=== PATIENT | male | born 1945 | race African-American/Black ===

== ENCOUNTER 2017-05-18 00:58 | Outpatient (CLI) | payer MEDICARE, MEDICAID | END 2017-05-18 00:59 | disposition home or self-care (01) | LOC: BICCT 00:58 | PROVIDERS: ATTEND Nurse Practitioner Family | DX: R91.1 Solitary pulmonary nodule (principal) | CPT/HCPCS: 71250 ==

== ENCOUNTER 2017-08-18 18:38 | Inpatient (IN) | payer MEDICARE, MEDICAID ==
[2017-08-18 19:24] LABS: #Lymphocytes 0.9 thou/uL (1.20-3.40); #Monocytes 0.6 thou/uL (0.11-0.59); %Basophils 0.3 % (0.0-1.0); %Eosinophils 0.1 % (0.0-10.0); %Lymphocytes 6.6 % (21.0-51.0); %Monocytes 4.1 % (0.0-10.0); %Neutrophils 88.9 % (42.0-75.0); Hemoglobin 15.3 g/dL (14.0-18.0); Mean Corpuscular HGB CONC 32.2 g/dL (32.0-36.0); Mean Corpuscular Hemoglobin 30.3 pg (27.0-31.0); Mean Platelet Volume 9.2 fL (7.4-10.4); Platelet Count 226 thou/uL (130-400); RBC Distribution Width 14.6 % (11.5-14.5); Red Blood Cell (RBC) Count 5.04 mill/uL (4.70-6.10); White Blood Cell (WBC) Count 13.5 thou/uL (4.8-10.8)
--- NOTE | 2017-08-18 19:41 | RAD ---
CHEST ONE VIEW 08/18/17 HISTORY: Shortness of breath. COMPARISON: Chest radiograph 03/21/17. FINDINGS: Lungs are severely hyperinflated. bolus formation in the upper lobes are noted. Previously described nodular density is again seen projecting over the left upper lobe. No focal air space consolidation, pneumothorax or large effusion. IMPRESSION: 1. Obstructive pulmonary disease. 2. Revisualization of the left upper lung nodule. Followup recommended with CT. 3. No evidence for acute intrathoracic abnormality. Code LN POS: [facility]
[2017-08-18 19:50] LABS: ALT (SGPT) Less than 7 U/L (8-55); AST (SGOT) 10 U/L (5-34); Alkaline Phosphatase 67 U/L (40-150); Anion Gap 18 mmol/L (10-20); BUN (Urea Nitrogen) 12 mg/dL (8.4-25.7); Bilirubin, Total 0.7 mg/dL (0.2-1.2); Calc. Creatinine Clearance 0 mL/min (70-130); Carbon Dioxide 24 mmol/L (23-31); Chloride 100 mmol/L (98-107); Estimated GFR-MDRD Greater than 90; Globulin 2.9 g/dL (2.4-3.5); Glucose 111 mg/dL (83-110); Potassium 4.4 mmol/L (3.5-5.1); Protein, Total 6.9 g/dL (5.8-8.1); Sodium 138 mmol/L (136-145)
[2017-08-18] MEDS ORDERED: methylPREDNISolone Sod Succ/PF 125 MG/2 ML VIAL ONE (20:54)
[2017-08-18 20:56] LABS: CK (CPK) 53 U/L (30-200); Lipase Less than 4 U/L (8-78)
[2017-08-18 21:01] LABS: CKMB 0.9 ng/mL (0-6.6); Troponin I Less than 0.010 ng/mL (< 0.028)
[2017-08-18] MEDS ORDERED: cefTRIAXone\\ROCEPHIN 2 GM in Sodium Chloride 0.9% 100 ML IVPB SCH (21:30)
[2017-08-18 22:21] LABS: Bilirubin Small (Negative); Blood, Urine Small (Negative); Clarity CLEAR (Clear); Glucose, Urine (Dipstick) Negative (Negative); Leukocyte Negative (Negative); Nitrite Negative (Negative); Protein, Urine (Dipstick) 30 mg/dL (Neg-Trace); Specific Gravity, Urine 1.014 (1.002-1.036); pH, Urine 6.5 (5.0-9.0)
[2017-08-18 22:22] LABS: Bacteria/HPF None Seen HPF (None Seen); Hyaline Casts/LPF 0-3 HYALINE CAST LPF (0-3 Hyaline); Squamous Epithelial 0-3 HPF (0-3); WBC/HPF None Seen HPF (0-3)
[2017-08-18 23:16] LABS: Lactic Acid 2.6 mmol/L (0.5-2.2)
[2017-08-19] MEDS ORDERED: traMADol HCl 50 MG TAB PO PRN (00:24)
[2017-08-19] MEDS ORDERED: Mag-Al 1200 mg/1200 mg/30 ML UDCUP PO PRN (00:24)
[2017-08-19] MEDS ORDERED: Senokot 8.6 MG TAB PO PRN (00:24)
[2017-08-19] MEDS ORDERED: Calcium Carbonate 500 MG ChewTAB PO PRN (00:24)
[2017-08-19] MEDS ORDERED: Acetaminophen 325 MG TAB PO PRN (00:24)
[2017-08-19] MEDS ORDERED: Bisacodyl 5 MG TAB PO PRN (00:24)
[2017-08-19] MEDS ORDERED: cloNIDine 0.1 MG TAB PO PRN (00:24)
[2017-08-19] MEDS ORDERED: Diabetic Tussin 200 MG/10 ML UDCUP PO PRN (00:24)
[2017-08-19] MEDS ORDERED: Nitroglycerin 0.4 MG TAB (25 Tab Bottle) SL PRN (00:24)
[2017-08-19] MEDS ORDERED: Famotidine/PF 20 mg/2ml Vial SLOW IVP PRN (00:24)
[2017-08-19] MEDS ORDERED: Benzonatate 100 MG CAP PO PRN (00:24)
[2017-08-19] MEDS ORDERED: Loratadine 10 MG TAB PO PRN (00:24)
[2017-08-19] MEDS ORDERED: hydrALAZINE 20 MG/ML VIAL SLOW IVP PRN (00:24)
[2017-08-19] MEDS ORDERED: Lorazepam 1 MG TAB PO PRN (00:24)
--- NOTE | 2017-08-19 01:16 | HP ---
DATE OF ADMISSION: 08/18/2017 PRIMARY CARE PHYSICIAN: Dr. Lynn. CHIEF COMPLAINT: Worsening shortness of breath. HISTORY OF PRESENT ILLNESS: Mr. Krause is a 71-year-old male with past medical history of COPD, c oronary artery disease, dyslipidemia, hypertension, and tobacco abuse who presented to the emergency room with the above-mentioned complaint. History is mainly obtained by the patient himself and [facility] medical records have been reviewed. Mr. Krause reports that he lives by himself and smokes anywhere from 0-1 pack of cigarettes per da y. He always is somewhat short of breath, but has been feeling worse shortness of breath for the t day or so. He is also having some chills without any significant fevers. Some dry cough. He has no sick contacts. He denies any chest pain, orthopnea or PND. No edema. Upon presentation to the emergency room, he was hypertensive with a blood pressure of 205/118. It is unclear if he was hypoxic or not. Upon presentation, he was on 4 liters of oxygen with oxygen satur ation of 98%. He was treated for COPD exacerbation with nebulizers and IV steroids. He was also fou nd to have leukocytosis as well as elevated lactic acid of 3.2. For this reason, he received IV anti biotics, namely Rocephin and azithromycin. His chest x-ray is otherwise unremarkable and does not sh ow any infiltrates. He is now being admitted to the hospital for acute hypoxic respiratory failure d ue to chronic obstructive pulmonary disease exacerbation. His symptoms have much improved and he is hemodynamically stable. PAST MEDICAL HISTORY: 1. COPD. 2. Coronary artery disease. 3. Chronic systolic congestive heart failure with EF of 40%-45%. 4. Hypertension. 5. Dyslipidemia. 6. Tobacco abuse. PAST SURGICAL HISTORY: 1. Left index finger surgery. 2. Hip replacement. 3. Cardiac catheterization with stent placement. 4. Bilateral cataract surgery. PSYCHIATRIC HISTORY: Reviewed and negative. SOCIAL HISTORY: He drinks alcohol socially. He smokes about half to 1 pack per day of cigarettes. No history of drug abuse. FAMILY HISTORY: Significant for cancer. Father from complication of pneumonia. No strong fami ly history of coronary artery disease or CVA. ALLERGIES: No known medication allergies. CURRENT MEDICATIONS: Plavix 75 mg daily, lisinopril 5 mg b.i.d., atorvastatin 20 mg daily, metoprolo l tartrate 25 b.i.d., Symbicort 1 puff daily. REVIEW OF SYSTEMS: The following complete review of systems was negative, unless otherwise mentioned in the HPI or below: Constitutional: Weight loss or gain, ability to conduct usual activities. Skin: Rash, itching. Eyes: Double vision, pain. ENT/Mouth: Nose bleeding, neck stiffness, pain, tenderness. Cardiovascular: Palpitations, dyspnea on exertion, orthopnea. Respiratory: Shortness of breath, wheezing, cough, hemoptysis, fever or night sweats. Gastrointestinal: Poor appetite, abdominal pain, heartburn, nausea, vomiting, constipation, or diarr hea. Genitourinary: Urgency, frequency, dysuria, nocturia. Musculoskeletal: Pain, swelling. Neurologic/Psychiatric: Anxiety, depression. Allergy/Immunologic: Skin rash, bleeding tendency. LABORATORY DATA AND IMAGING: His CBC shows WBCs at 13.5 with 88% neutrophils. Serum chemistries kareen w lactic acid 3.2 with repeat lactic acid of 2.6. CK-MB and troponin within normal limits. Lipase n ormal. Urinalysis shows some RBCs and blood as well as proteinuria. Chest x-ray by my review has no evidence to suggest infiltrate or pulmonary edema. Chronic lung changes seen. A 12-lead EKG by my review shows sinus tachycardia without any specific ST or T-wave changes. LVH noticed. PHYSICAL EXAMINATION: VITAL SIGNS: Upon presentation, blood pressure 205/118 with a pulse of 114. Respirations 24, temper ature 99.6, saturating 98% on 4 liters oxygen. GENERAL: He appears somewhat short of breath with conversation, otherwise in no acute distress, awak e, alert, oriented x3. HEENT: He has significant temporal wasting and appears cachectic. Head is normocephalic, atraumatic . Pupils equal, reactive to light and accommodation. Mucous membrane is moist and pink. No orophar yngeal exudate or erythema. NECK: Supple without any lymphadenopathy, JVD or bruit. CHEST: Chest evaluation show bilateral, scattered wheezes without any significant crackles. Rate an d rhythm is regular without any murmur, rubs or gallops. ABDOMEN: Soft, nontender, nondistended with positive bowel sounds. EXTREMITIES: Free of any cyanosis, clubbing, or edema. NEUROLOGIC: Nonfocal. SKIN: Free of any rashes or bruises, feel warm and dry to touch. PSYCHIATRIC: Normal affect. IMPRESSION AND PLAN: 1. Acute hypoxic respiratory failure due to chronic obstructive pulmonary disease exacerbation. He will be admitted to the medical floor as he is hemodynamically stable. We will start him on empiric IV antibiotic for chronic obstructive pulmonary disease exacerbation, given the leukocytosis as well as lactic acidosis. Urine and blood cultures have been obtained. Also obtain a respiratory viral pa thogen panel given somewhat subjective fevers and chills. We will treat him with nebulizers, IV ster oids, oxygen, as well as Dulera. 2. Hypertensive urgency. We will resume patient's home medications. His most recent blood pressure is much improved with systolic in the 140s, also add p.r.n. antihypertensives. 3. Coronary artery disease. Restart Plavix, beta osman, statins, and LIZETT inhibitors. He is curre ntly asymptomatic. His cardiac enzymes are within normal limits. 5. Severe protein calorie malnutrition, BMI undecided at this time. We will have dietitian see this patient. He lives alone and has poor vision, which might be prohibitive for him to get adequate jamison ls. At this time, we will add high protein shakes to his diet. 6. CODE STATUS: FULL CODE. Discussed with the patient. 7. Deep venous thrombosis and gastrointestinal prophylaxis. DISPOSITION: Mr. Krause is currently being admitted for acute COPD exacerbation. Estimated length of stay is at least 2-3 midnight. Further management will depend upon his clinical course.
[2017-08-19] MEDS ORDERED: Azithromycin 500 MG VIAL ONE (01:54)
[2017-08-19] MEDS: Mometasone/Formoterol 120 PUFF INHALER INH SCH ×2 (06:49→19:26)
[2017-08-19] MEDS: Lisinopril 5 MG TAB PO SCH ×2 (08:08→21:10)
[2017-08-19] MEDS: Clopidogrel Bisulfate 75 MG TAB PO SCH (08:08)
[2017-08-19] MEDS: guaiFENesin ER 600 MG TAB PO SCH ×2 (08:08→21:11)
[2017-08-19] MEDS: Metoprolol Tartrate 25 MG TAB PO SCH ×2 (08:08→21:11)
[2017-08-19] MEDS ORDERED: Iopamidol 370 76% 100 ML VIAL ONE (13:47)
--- NOTE | 2017-08-19 14:07 | PDOC.PN ---
- Subjective Encounter Start Date: 08/19/17 Encounter Start Time: 10:30 Patient is seen today, alert and oriented. He is On oxygen, but feeling better, persistant Cough. [id number] about the spot on his right Lung, he said its been there for few years. - Objective MAR Reviewed: Yes Vital Signs & Weight: Vital Signs (12 hours) Temp Pulse Resp BP BP Pulse Ox 08/19/17 13:12 76 12 08/19/17 12:35 98.5 F 76 18 143/91 H 100 08/19/17 09:18 98.2 F 86 18 176/106 H 99 08/19/17 08:08 76 146/91 H 08/19/17 08:00 98.6 F 76 20 08/19/17 06:49 76 16 08/19/17 06:38 93 L 08/19/17 06:37 76 16 08/19/17 04:00 98.6 F 76 20 145/91 H 93 L I&O: 08/18/17 08/19/17 08/20/17 06:59 06:59 06:59 Intake Total 600 Output Total 400 Balance 200 Result Diagrams: 08/18/17 19:20 08/18/17 19:20 Radiology Reviewed by me: Yes EKG Reviewed by me: Yes Phys Exam - Physical Examination Constitutional: NAD HEENT: PERRLA, moist MMs Neck: no nodes, no JVD Respiratory: no rales, wheezing present Cardiovascular: RRR, no significant murmur Gastrointestinal: soft, non-tender Musculoskeletal: no edema, pulses present Neurological: non-focal, normal sensation Lymphatic: no nodes Psychiatric: normal affect, A&O x 3 Skin: no rash, normal turgor Dx/Plan (1) Lung nodule, solitary Code(s): R91.1 - SOLITARY PULMONARY NODULE Status: Acute Comment: PT has A solitary Nodule on his Right lung, Will do CT chest with IV contrast as recommeded on Chest xray. (2) COPD exacerbation Code(s): J44.1 - CHRONIC OBSTRUCTIVE PULMONARY DISEASE W (ACUTE) EXACERBATION Status: Acute Comment: Will continue with Setroids, and Nebs, With IV antibitoics for now. Will consult pulmonary if worsening. (3) CAD (coronary artery disease) Code(s): I25.10 - ATHSCL HEART DISEASE OF [place] CORONARY ARTERY W/O ANG PCTRS Status: Chronic Comment: Continue with Aspirin/ BB. (4) Chronic systolic heart failure Code(s): I50.22 - CHRONIC SYSTOLIC (CONGESTIVE) HEART FAILURE Status: Chronic Comment: Patient has No evidence of CHF at this Time, Will flacaley Monitor. (5) Dyslipidemia Code(s): E78.5 - HYPERLIPIDEMIA, UNSPECIFIED Status: Chronic Comment: Contiue with home MEds. (6) Hypertension Code(s): I10 - ESSENTIAL (PRIMARY) HYPERTENSION Status: Chronic Comment: Stbale, At goal, Continue home meds, Keep BP <130/80 (7) Protein-calorie malnutrition, moderate Code(s): E44.0 - MODERATE PROTEIN-CALORIE MALNUTRITION Status: Chronic Comment: Will do Ensure TID. Will consult Nutrition and Likely to r/o Cancer Cachexia. (8) Tobacco abuse Code(s): Z72.0 - TOBACCO USE Status: Chronic Comment: Councilled to Quit Smoking spent 20 Min on cessation strategies. - Plan cont current plan of care, continue antibiotics, PT/OT, protective services social worker, respiratory therapy, incentive spirometry, out of bed/ambulate, DVT proph w/ lovenox, DVT proph w/SCDs * . - Discharge Day Encounter end time: 11:10 Review of Systems - Review of Systems Constitutional: negative: fever, chills, sweats, weakness, malaise, other Eyes: negative: Pain, Vision Change, Conjunctivae Inflammation, Eyelid Inflammation, Redness, Other ENT: negative: Ear Pain, Ear Discharge, Nose Pain, Nose Discharge, Nose Congestion, Mouth Pain, Mouth Swelling, Throat Pain, Throat Swelling, Other Respiratory: negative: Cough, Dry, Shortness of Breath, Hemoptysis, SOB with Excertion, Pleuritic Pain, Sputum, Wheezing Cardiovascular: negative: chest pain, palpitations, orthopnea, paroxysmal nocturnal dyspnea, edema, light headedness, other Gastrointestinal: negative: Nausea, Vomiting, Abdominal Pain, Diarrhea, Constipation, Melena, Hematochezia, Other Genitourinary: negative: Dysuria, Frequency, Incontinence, Hematuria, Retention , Other Musculoskeletal: negative: Neck Pain, Shoulder Pain, Arm Pain, Back Pain, Hand Pain, Leg Pain, Foot Pain, Other Skin: negative: Rash, Lesions, Blake, Bruising, Other - Medications/Allergies Allergies/Adverse Reactions: Allergies Allergy/AdvReac Type Severity Reaction Status Date / Time No Known Allergies Allergy Verified 11/18/14 02:17 Medications: Current Medications Acetaminophen (Tylenol) 650 mg PO Q4H PRN PRN Reason: Headache/Fever or Mild Pain Al Hydroxide/Mg Hydroxide (Maalox) 15 ml PO Q4H PRN PRN Reason: Heartburn or Indigestion Albuterol/Ipratropium (Duoneb) 3 ml NEB Q4H PRN PRN Reason: SOB &/or Wheezing Albuterol/Ipratropium (Duoneb) 3 ml NEB [id number] [facility] Last Admin: 08/19/17 13:12 Dose: 3 ml Atorvastatin Calcium (Lipitor) 20 mg PO HS [facility] Benzonatate (Tessalon) 100 mg PO Q4H PRN PRN Reason: Cough Bisacodyl (Dulcolax) 10 mg PO DAILYPRN PRN PRN Reason: Constipation Calcium Carbonate (Tums) 1,000 mg PO Q4H PRN PRN Reason: Heartburn or Indigestion Clonidine (Catapres) 0.1 mg PO Q4H PRN PRN Reason: Systolic BP > 160 Clopidogrel Bisulfate (Plavix) 75 mg PO DAILY [facility] Last Admin: 08/19/17 08:08 Dose: 75 mg Famotidine (Pepcid) 20 mg SLOW IVP Q12H PRN PRN Reason: Heartburn or Indigestion Guaifenesin (Mucinex) 1,200 mg PO Q12HR [facility] Last Admin: 08/19/17 08:08 Dose: 1,200 mg Guaifenesin (Robitussin Sf) 200 mg PO Q4H PRN PRN Reason: Cough Hydralazine HCl (Apresoline) 10 mg SLOW IVP Q4H PRN PRN Reason: Systolic BP > 170 Levofloxacin 750 mg/ Device 150 mls @ 100 mls/hr IVPB Q24HR [facility] Last Admin: 08/19/17 01:24 Dose: 150 mls Lisinopril (Zestril) 5 mg PO BID [facility] Last Admin: 08/19/17 08:08 Dose: 5 mg Loratadine (Claritin) 10 mg PO DAILYPRN PRN PRN Reason: Sinus Symptoms Lorazepam (Ativan) 1 mg PO Q4H PRN PRN Reason: Anxiety/Agitation Methylprednisolone Sodium Succinate (Solu-Medrol) 40 mg IVP 0300,0900,1500, 2100 [facility] Last Admin: 08/19/17 13:59 Dose: 40 mg Metoprolol Tartrate (Lopressor) 25 mg PO BID [facility] Last Admin: 08/19/17 08:08 Dose: 25 mg Mometasone Furoate/Formoterol Fumar (Dulera 200 Mcg/5 Mcg Inhaler) 2 puff INH BID-RT [facility] Last Admin: 08/19/17 06:49 Dose: 2 puff Nitroglycerin (Nitrostat) 0.4 mg SL Q5MIN PRN PRN Reason: Chest Pain Senna (Senokot) 2 tab PO HSPRN PRN PRN Reason: Constipation Tramadol HCl (Ultram) 50 mg PO Q4H PRN PRN Reason: Moderate Pain (4-6)
[2017-08-19 15:13] VITALS: BMI 17.2
--- NOTE | 2017-08-19 16:04 | CT ---
CT CHEST WITH CONTRAST: Multiple axial tomograms obtained through the chest with IV enhancement. INDICATION: Followup pulmonary nodule noted on chest film. Shortness of breath. COMPARISON: Correlation is made to 2-view chest exam of 03/21/17 which described development of a nodule in the le ft mid lung. This was also seen on 1-view chest of 08/18/17. Comparison is also made to a chest CT dated 01/01/13. That exam showed a moderate-sized left pneumot horax; however, the left lung was still partially inflated and can be compared. FINDINGS: Severe emphysematous changes are present. There are large bullae in the upper lung arteaga bilaterall y. There is hyperexpansion. There is interstitial prominence in the posterior left lung base and th ere is a focal area of pleural-based opacity in the posterior left lung base which could represent pl eural-based atelectasis or focal inflammatory infiltrate. This is not apparent on the frontal views because of its positioning in the posterior gutter. There are also bullous changes in the lung bases bilaterally. There is a focal area of parenchymal density seen in the left mid lung which would correspond to the density noted on plain film.. This is best appreciated on the coronal views and represents a 1.5 cm spiculated density. It is also seen on axial views, although not as nodular on the axial projection. There is a similar focal area of scarring at this site on the prior CT of 2013, although the density has increased since that exam. No evidence of mediastinal adenopathy. Images through the upper abdomen unremarkable. There are ath erosclerotic changes in the thoracic and upper abdominal aorta with peripheral calcification and celeste pheral thrombus producing irregularity of the aortic lumen and mild ectasia of the aorta. The upper abdominal aorta measures 2.8 cm. IMPRESSION: 1. A focal spiculated density in the left mid lung which is best appreciated on coronal image 105 wo uld probably correspond to the nodule noted on plain film. An area of focal scarring at this site wa s present in 2013, although the central density has increased today on coronal images. Findings may represent a focal area of scarring; however, development of a scar carcinoma cannot be excluded. Sug gest correlation with a PET scan to assess activity at this site. 2. Interstitial prominence and confluent parenchymal opacity in the left posterior lung base which i s pleural-based. Focal inflammatory process and/or atelectasis are considerations. 3. Severe emphysematous changes in both lungs. 4. Atherosclerotic changes in the thoracic and upper abdominal aorta with aortic ectasia as noted ab ove. POS: OFF
[2017-08-19] MEDS: Atorvastatin Calcium 20 MG TAB PO SCH (21:11)
[2017-08-20] MEDS: Mometasone/Formoterol 120 PUFF INHALER INH SCH ×2 (07:36→18:43)
[2017-08-20] MEDS: Lisinopril 5 MG TAB PO SCH ×2 (08:50→21:41)
[2017-08-20] MEDS: guaiFENesin ER 600 MG TAB PO SCH ×2 (08:51→21:41)
[2017-08-20] MEDS: Clopidogrel Bisulfate 75 MG TAB PO SCH (08:51)
[2017-08-20] MEDS: Metoprolol Tartrate 25 MG TAB PO SCH ×2 (08:51→21:41)
--- NOTE | 2017-08-20 15:30 | PDOC.PN ---
- Subjective Encounter Start Date: 08/20/17 Encounter Start Time: 13:30 Anderson is seen today, alert and oriented. he remains on oxygen with Weezing. He is not on home oxygen. - Objective MAR Reviewed: Yes Vital Signs & Weight: Vital Signs (12 hours) Temp Pulse Resp BP Pulse Ox 08/20/17 14:24 78 16 97 08/20/17 12:05 98.7 F 77 16 123/78 97 08/20/17 08:50 76 08/20/17 08:20 98.9 F 76 16 108/69 99 08/20/17 08:00 98.9 F 76 16 98 08/20/17 07:34 77 16 98 Weight Admit Weight 141 lb Weight 141 lb I&O: 08/19/17 08/20/17 08/21/17 06:59 06:59 07:59 Intake Total 600 Output Total 600 Balance 0 Result Diagrams: 08/18/17 19:20 08/18/17 19:20 Radiology Reviewed by me: Yes Phys Exam - Physical Examination HEENT: PERRLA, moist MMs Neck: no nodes, no JVD Respiratory: no rales, wheezing present Cardiovascular: no significant murmur Gastrointestinal: no distention Musculoskeletal: no edema, pulses present Neurological: non-focal, normal sensation Dx/Plan (1) Lung nodule, solitary Code(s): R91.1 - SOLITARY PULMONARY NODULE Status: Acute Comment: PT has A solitary Nodule on his Right lung, CT showed a Scarr lesion possible Cancer but Needed PET scan to confirm, Pt had h/o Left Chest tube placemnt [id number], likely sca tissue from then? Will need to Consult pulmonary. (2) COPD exacerbation Code(s): J44.1 - CHRONIC OBSTRUCTIVE PULMONARY DISEASE W (ACUTE) EXACERBATION Status: Acute Comment: Will continue with Setroids, and Nebs, With IV antibitoics for now. Will consult pulmonary if worsening. (3) CAD (coronary artery disease) Code(s): I25.10 - ATHSCL HEART DISEASE OF [place] CORONARY ARTERY W/O ANG PCTRS Status: Chronic Comment: Continue with Aspirin/ BB. (4) Chronic systolic heart failure Code(s): I50.22 - CHRONIC SYSTOLIC (CONGESTIVE) HEART FAILURE Status: Chronic Comment: Patient has No evidence of CHF at this Time, [facility] Monitor. (5) Dyslipidemia Code(s): E78.5 - HYPERLIPIDEMIA, UNSPECIFIED Status: Chronic Comment: Contiue with home MEds. (6) Hypertension Code(s): I10 - ESSENTIAL (PRIMARY) HYPERTENSION Status: Chronic Comment: Stbale, At goal, Continue home meds, Keep BP <130/80 (7) Protein-calorie malnutrition, moderate Code(s): E44.0 - MODERATE PROTEIN-CALORIE MALNUTRITION Status: Chronic Comment: Will do Ensure TID. Will consult Nutrition and Likely to r/o Cancer Cachexia. (8) Tobacco abuse Code(s): Z72.0 - TOBACCO USE Status: Chronic Comment: Councilled to Quit Smoking spent 20 Min on cessation strategies. - Plan cont current plan of care, continue antibiotics, PT/OT, outreach and education social worker, respiratory therapy, incentive spirometry, DVT proph w/lovenox * . - Discharge Day Encounter end time: 14:05 Review of Systems - Review of Systems Constitutional: negative: fever, chills, sweats, weakness, malaise, other Eyes: negative: Pain, Vision Change, Conjunctivae Inflammation, Eyelid Inflammation, Redness, Other ENT: negative: Ear Pain, Ear Discharge, Nose Pain, Nose Discharge, Nose Congestion, Mouth Pain, Mouth Swelling, Throat Pain, Throat Swelling, Other Respiratory: Cough, Shortness of Breath, Wheezing. negative: Dry, Hemoptysis, SOB with Excertion, Pleuritic Pain, Sputum Musculoskeletal: negative: Neck Pain, Shoulder Pain, Arm Pain, Back Pain, Hand Pain, Leg Pain, Foot Pain, Other Skin: negative: Rash, Lesions, Blake, Bruising, Other - Medications/Allergies Allergies/Adverse Reactions: Allergies Allergy/AdvReac Type Severity Reaction Status Date / Time No Known Allergies Allergy Verified 11/18/14 02:17 Medications: Current Medications Acetaminophen (Tylenol) 650 mg PO Q4H PRN PRN Reason: Headache/Fever or Mild Pain Al Hydroxide/Mg Hydroxide (Maalox) 15 ml PO Q4H PRN PRN Reason: Heartburn or Indigestion Albuterol/Ipratropium (Duoneb) 3 ml NEB Q4H PRN PRN Reason: SOB &/or Wheezing Albuterol/Ipratropium (Duoneb) 3 ml NEB [id number] Last Admin: 08/20/17 14:24 Dose: 3 ml Atorvastatin Calcium (Lipitor) 20 mg PO HS [facility] Last Admin: 08/19/17 21:11 Dose: 20 mg Benzonatate (Tessalon) 100 mg PO Q4H PRN PRN Reason: Cough Bisacodyl (Dulcolax) 10 mg PO DAILYPRN PRN PRN Reason: Constipation Calcium Carbonate (Tums) 1,000 mg PO Q4H PRN PRN Reason: Heartburn or Indigestion Clonidine (Catapres) 0.1 mg PO Q4H PRN PRN Reason: Systolic BP > 160 Clopidogrel Bisulfate (Plavix) 75 mg PO DAILY [facility] Last Admin: 08/20/17 08:51 Dose: 75 mg Famotidine (Pepcid) 20 mg SLOW IVP Q12H PRN PRN Reason: Heartburn or Indigestion Guaifenesin (Mucinex) 1,200 mg PO Q12HR [facility] Last Admin: 08/20/17 08:51 Dose: 1,200 mg Guaifenesin (Robitussin Sf) 200 mg PO Q4H PRN PRN Reason: Cough Hydralazine HCl (Apresoline) 10 mg SLOW IVP Q4H PRN PRN Reason: Systolic BP > 170 Levofloxacin 750 mg/ Device 150 mls @ 100 mls/hr IVPB Q24HR [facility] Last Admin: 08/20/17 02:21 Dose: 150 mls Lisinopril (Zestril) 5 mg PO BID [facility] Last Admin: 08/20/17 08:50 Dose: 5 mg Loratadine (Claritin) 10 mg PO DAILYPRN PRN PRN Reason: Sinus Symptoms Lorazepam (Ativan) 1 mg PO Q4H PRN PRN Reason: Anxiety/Agitation Methylprednisolone Sodium Succinate (Solu-Medrol) 40 mg IVP 0300,0900,1500, 2100 [facility] Last Admin: 08/20/17 08:51 Dose: 40 mg Metoprolol Tartrate (Lopressor) 25 mg PO BID [facility] Last Admin: 08/20/17 08:51 Dose: 25 mg Mometasone Furoate/Formoterol Fumar (Dulera 200 Mcg/5 Mcg Inhaler) 2 puff INH BID-RT [facility] Last Admin: 08/20/17 07:36 Dose: 2 puff Nitroglycerin (Nitrostat) 0.4 mg SL Q5MIN PRN PRN Reason: Chest Pain Senna (Senokot) 2 tab PO HSPRN PRN PRN Reason: Constipation Tramadol HCl (Ultram) 50 mg PO Q4H PRN PRN Reason: Moderate Pain (4-6)
[2017-08-20] MEDS: Atorvastatin Calcium 20 MG TAB PO SCH (21:41)
[2017-08-21] MEDS: Mometasone/Formoterol 120 PUFF INHALER INH SCH ×2 (06:41→18:39)
[2017-08-21] MEDS: Clopidogrel Bisulfate 75 MG TAB PO SCH (09:30)
[2017-08-21] MEDS: guaiFENesin ER 600 MG TAB PO SCH ×2 (09:30→19:56)
[2017-08-21] MEDS: Metoprolol Tartrate 25 MG TAB PO SCH ×2 (09:30→19:57)
[2017-08-21] MEDS: Lisinopril 5 MG TAB PO SCH ×2 (09:30→19:56)
--- NOTE | 2017-08-21 12:53 | PDOC.PN ---
- Subjective Encounter Start Date: 08/21/17 Encounter Start Time: 10:30 Patient is seen today,. he remains on oxygen , continuos to [place], no chest pain , Will need home oxygen if pt unable to wean him off. - Objective MAR Reviewed: Yes Vital Signs & Weight: Vital Signs (12 hours) Temp Pulse Resp BP BP Pulse Ox 08/21/17 09:30 67 158/85 H 08/21/17 08:00 98.4 F 67 16 100 08/21/17 07:08 98.4 F 67 16 158/85 H 100 08/21/17 06:38 73 20 100 08/21/17 05:22 98.4 F 73 20 160/89 H 100 08/21/17 00:00 98.3 F 79 20 142/87 H 100 Weight Admit Weight 141 lb Weight 141 lb I&O: 08/20/17 08/21/17 08/22/17 05:59 06:59 06:59 Intake Total Output Total Balance Result Diagrams: 08/18/17 19:20 08/18/17 19:20 Radiology Reviewed by me: Yes (Left Lung scar tuisssu.) Phys Exam - Physical Examination HEENT: PERRLA, moist MMs Neck: no nodes, no JVD Respiratory: no rales, wheezing present Cardiovascular: RRR, no significant murmur Gastrointestinal: soft, non-tender Musculoskeletal: no edema, pulses present Neurological: non-focal, normal sensation Lymphatic: no nodes Psychiatric: normal affect, A&O x 3 Skin: no rash, normal turgor Dx/Plan (1) Lung nodule, solitary Code(s): R91.1 - SOLITARY PULMONARY NODULE Status: Acute Comment: PT has A solitary Nodule on his Right lung, CT showed a Scarr lesion possible Cancer but Needed PET scan to confirm, Pt had h/o Left Chest tube placemnt [id number], likely sca tissue from then? Will need to Consult pulmonary. (2) COPD exacerbation Code(s): J44.1 - CHRONIC OBSTRUCTIVE PULMONARY DISEASE W (ACUTE) EXACERBATION Status: Acute Comment: Will continue with Setroids, and Nebs, With IV antibitoics for now. consulted pulmonary. Pt may need Home oxygen, knonw COPD continuos to smoke. (3) CAD (coronary artery disease) Code(s): I25.10 - ATHSCL HEART DISEASE OF [place] CORONARY ARTERY W/O ANG PCTRS Status: Chronic Comment: Continue with Aspirin/ BB. (4) Chronic systolic heart failure Code(s): I50.22 - CHRONIC SYSTOLIC (CONGESTIVE) HEART FAILURE Status: Chronic Comment: Patient has No evidence of CHF at this Time, Will flacaley Monitor. (5) Dyslipidemia Code(s): E78.5 - HYPERLIPIDEMIA, UNSPECIFIED Status: Chronic Comment: Contiue with home MEds. (6) Hypertension Code(s): I10 - ESSENTIAL (PRIMARY) HYPERTENSION Status: Chronic Comment: Stbale, At goal, Continue home meds, Keep BP <130/80 (7) Protein-calorie malnutrition, moderate Code(s): E44.0 - MODERATE PROTEIN-CALORIE MALNUTRITION Status: Chronic Comment: Will do Ensure TID. Will consult Nutrition and Likely to r/o Cancer Cachexia. (8) Tobacco abuse Code(s): Z72.0 - TOBACCO USE Status: Chronic Comment: Councilled to Quit Smoking spent 20 Min on cessation strategies. 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 - Discharge Day Encounter end time: 11:05 Review of Systems - Review of Systems Constitutional: negative: fever, chills, sweats, weakness, malaise, other Eyes: negative: Pain, Vision Change, Conjunctivae Inflammation, Eyelid Inflammation, Redness, Other ENT: negative: Ear Pain, Ear Discharge, Nose Pain, Nose Discharge, Nose Congestion, Mouth Pain, Mouth Swelling, Throat Pain, Throat Swelling, Other Respiratory: Shortness of Breath, Wheezing Cardiovascular: negative: chest pain, palpitations, orthopnea, paroxysmal nocturnal dyspnea, edema, light headedness, other Gastrointestinal: negative: Nausea, Vomiting, Abdominal Pain, Diarrhea, Constipation, Melena, Hematochezia, Other Genitourinary: negative: Dysuria, Frequency, Incontinence, Hematuria, Retention , Other Musculoskeletal: negative: Neck Pain, Shoulder Pain, Arm Pain, Back Pain, Hand Pain, Leg Pain, Foot Pain, Other Skin: negative: Rash, Lesions, Blake, Bruising, Other - Medications/Allergies Allergies/Adverse Reactions: Allergies Allergy/AdvReac Type Severity Reaction Status Date / Time No Known Allergies Allergy Verified 11/18/14 02:17 Medications: Current Medications Acetaminophen (Tylenol) 650 mg PO Q4H PRN PRN Reason: Headache/Fever or Mild Pain Al Hydroxide/Mg Hydroxide (Maalox) 15 ml PO Q4H PRN PRN Reason: Heartburn or Indigestion Albuterol/Ipratropium (Duoneb) 3 ml NEB Q4H PRN PRN Reason: SOB &/or Wheezing Albuterol/Ipratropium (Duoneb) 3 ml NEB [id number] [facility] Last Admin: 08/21/17 06:38 Dose: 3 ml Atorvastatin Calcium (Lipitor) 20 mg PO HS [facility] Last Admin: 08/20/17 21:41 Dose: 20 mg Benzonatate (Tessalon) 100 mg PO Q4H PRN PRN Reason: Cough Bisacodyl (Dulcolax) 10 mg PO DAILYPRN PRN PRN Reason: Constipation Calcium Carbonate (Tums) 1,000 mg PO Q4H PRN PRN Reason: Heartburn or Indigestion Clonidine (Catapres) 0.1 mg PO Q4H PRN PRN Reason: Systolic BP > 160 Clopidogrel Bisulfate (Plavix) 75 mg PO DAILY [facility] Last Admin: 08/21/17 09:30 Dose: 75 mg Famotidine (Pepcid) 20 mg SLOW IVP Q12H PRN PRN Reason: Heartburn or Indigestion Guaifenesin (Mucinex) 1,200 mg PO Q12HR [facility] Last Admin: 08/21/17 09:30 Dose: 1,200 mg Guaifenesin (Robitussin Sf) 200 mg PO Q4H PRN PRN Reason: Cough Hydralazine HCl (Apresoline) 10 mg SLOW IVP Q4H PRN PRN Reason: Systolic BP > 170 Levofloxacin 750 mg/ Device 150 mls @ 100 mls/hr IVPB Q24HR [facility] Last Admin: 08/21/17 01:01 Dose: 150 mls Lisinopril (Zestril) 5 mg PO BID [facility] Last Admin: 08/21/17 09:30 Dose: 5 mg Loratadine (Claritin) 10 mg PO DAILYPRN PRN PRN Reason: Sinus Symptoms Lorazepam (Ativan) 1 mg PO Q4H PRN PRN Reason: Anxiety/Agitation Methylprednisolone Sodium Succinate (Solu-Medrol) 40 mg IVP 0300,0900,1500, 2100 [facility] Last Admin: 08/21/17 09:31 Dose: 40 mg Metoprolol Tartrate (Lopressor) 25 mg PO BID [facility] Last Admin: 08/21/17 09:30 Dose: 25 mg Mometasone Furoate/Formoterol Fumar (Dulera 200 Mcg/5 Mcg Inhaler) 2 puff INH BID-RT [facility] Last Admin: 08/21/17 06:41 Dose: 2 puff Nitroglycerin (Nitrostat) 0.4 mg SL Q5MIN PRN PRN Reason: Chest Pain Senna (Senokot) 2 tab PO HSPRN PRN PRN Reason: Constipation Tramadol HCl (Ultram) 50 mg PO Q4H PRN PRN Reason: Moderate Pain (4-6)
--- NOTE | 2017-08-21 17:56 | CON ---
DATE OF CONSULTATION: 08/21/2017 HISTORY OF PRESENT ILLNESS: Mr. Krause is a pleasant 71-year-old male with bullous emphysema. He still smokes anywhere from 1/4 of a pack to a pack a day. He says he smokes more when he drinks beer. The nodule was noted last fall in a chest radiograph. He says the CAT scan that was done to follow this up, although I can only find one that is listed as scheduled in May. After, he subsequently was admitted for complaints of shortness of breath and a cough. We were consulted to assist in his management. PAST MEDICAL HISTORY: 1. Remarkable for COPD. 2. History of vascular disease. 3. History of systolic cardiomyopathy. 4. History of hypertension. 5. Lipid disorder. 6. History of having his left index finger, his thumb, and his third finger on his left hand amputated by a table saw when he was cutting pipe many, many years ago. He had three fingers reattached, but he has a short left index finger. 7. History of a hip replacement. 8. History of coronary stenting. 9. History of cataract surgery. SOCIAL HISTORY: He smokes a pack a day as mentioned above. He drinks occasionally on the weekends. He does not use drugs. FAMILY HISTORY: Positive for cancer and vascular disease. ALLERGIES: He has no drug allergies. MEDICATIONS: He is on Plavix, lisinopril, atorvastatin, metoprolol, Symbicort. REVIEW OF SYSTEMS: Twelve point otherwise is negative. PHYSICAL EXAMINATION: GENERAL: Pleasant gentleman, continues to smoke VITAL SIGNS: Afebrile, heart rate 67, blood pressure 158/85, respiratory rate 16, oximetry is 100% on 2 liters. HEENT: Pupils are equal. Sclerae is anicteric. Extraocular movements are full. He has very poor dentition. NECK: Supple, no lymphadenopathy. LUNGS: Remarkable for distant breath sounds, and no wheezes. HEART: Regular rhythm. S1 and S2 are normal. No S3, no murmur. ABDOMEN: Soft and nontender. EXTREMITIES: No clubbing, cyanosis, or edema. LABORATORY DATA: White count 13.5, hemoglobin 15.3, platelets 226. Sodium 138 , potassium 4.4, chloride 100, bicarbonate 24, BUN 12, creatinine 0.8. There is no lab since the . IMPRESSION: 1. Bullous emphysema 2. Chronic obstructive pulmonary disease exacerbation, which clinically appears to have resolved. 3. Pulmonary nodule, a very small nodule in his chest radiograph was not present at the beginning of 2017. Reviewing old films. There is a left mid lung density measuring 1.5 cm seen on the coronal views. I think he is a candidate for biopsy or any surgery. I would just follow this until I documented, it was enlarging and consider PET imaging. If it is high by PET scan, consider stereotactic radiation, if he is willing to go through this and keep followups. Dr. Mendez seen him in the past. We will see him again in the morning. This is a 50 minutes consult, which at least 50% of the time was spent coordinating care on the unit. SUMIT
[2017-08-21] MEDS: Atorvastatin Calcium 20 MG TAB PO SCH (19:57)
[2017-08-22] MEDS: Mometasone/Formoterol 120 PUFF INHALER INH SCH (06:20)
--- NOTE | 2017-08-22 08:48 | PDOC.PN ---
- Subjective Encounter Start Date: 08/22/17 Encounter Start Time: 10:50 Subjective: Patient breathing much better. Off oxygen all today. Has nebs at -: home already. Still smoking. - Objective MAR Reviewed: Yes Vital Signs & Weight: Vital Signs (12 hours) Temp Pulse Resp BP Pulse Ox 08/22/17 08:00 98.2 F 84 20 156/73 H 99 08/22/17 06:17 79 14 100 08/22/17 02:45 100 08/22/17 00:44 86 12 08/21/17 22:00 98.4 F 67 16 100 Weight Admit Weight 141 lb Weight 141 lb I&O: 08/21/17 08/22/17 08/23/17 06:59 06:59 06:59 Intake Total 650 Output Total 550 Balance 100 Result Diagrams: 08/18/17 19:20 08/18/17 19:20 Phys Exam - Physical Examination Constitutional: NAD HEENT: moist MMs Respiratory: no rales, no rhonchi, wheezing present Good air movement throughout without increased WOB Cardiovascular: RRR, no significant murmur Gastrointestinal: soft, positive bowel sounds Neurological: non-focal, moves all 4 limbs Psychiatric: normal affect, A&O x 3 Dx/Plan (1) COPD exacerbation Code(s): J44.1 - CHRONIC OBSTRUCTIVE PULMONARY DISEASE W (ACUTE) EXACERBATION Status: Acute Comment: Change to oral steroids and antibiotics. Consulted pulmonary. Off O2. (2) Lung nodule, solitary Code(s): R91.1 - SOLITARY PULMONARY NODULE Status: Acute Comment: Will need follow up with PET if nodule continues to grow, Dr. Lake following (3) CAD (coronary artery disease) Code(s): I25.10 - ATHSCL HEART DISEASE OF [place] CORONARY ARTERY W/O ANG PCTRS Status: Chronic Comment: Continue with Aspirin/ BB. (4) Chronic systolic heart failure Code(s): I50.22 - CHRONIC SYSTOLIC (CONGESTIVE) HEART FAILURE Status: Chronic Comment: Patient has No evidence of CHF at this Time, Will annia Monitor. (5) Dyslipidemia Code(s): E78.5 - HYPERLIPIDEMIA, UNSPECIFIED Status: Chronic Comment: Contiue with home MEds. (6) Hypertension Code(s): I10 - ESSENTIAL (PRIMARY) HYPERTENSION Status: Chronic Comment: [place], At goal, Continue home meds, Keep BP <130/80 (7) Tobacco abuse Code(s): Z72.0 - TOBACCO USE Status: Chronic - Plan cont current plan of care, continue antibiotics Ok to D/C home. F/u with Dr. Mendez outpatient for pulmonary nodule. * . - Discharge Day Encounter end time: 11:10
[2017-08-22] MEDS: Lisinopril 5 MG TAB PO SCH (09:21)
[2017-08-22] MEDS: guaiFENesin ER 600 MG TAB PO SCH (09:21)
[2017-08-22] MEDS: Metoprolol Tartrate 25 MG TAB PO SCH (09:22)
[2017-08-22] MEDS: Clopidogrel Bisulfate 75 MG TAB PO SCH (09:22)
[2017-08-22] MEDS ORDERED: predniSONE 20 MG TAB PO SCH (09:45)
--- NOTE | 2017-08-22 12:23 | PRG ---
DATE OF SERVICE: 08/22/2017 This is a 71-year-old gentleman who was seen in the office several years ago for extensive bilateral upper lung bullous disease. He continues to smoke. He presented to the hospital with increasing kareen rtness of breath. CT showed a 1.5 spiculated density in the left mid chest. Clearly it is not very visible on the chest x-ray. He saw Dr. Lake yesterday. He is feeling better without any coughing o r wheezing. He is walking in the [place]. PHYSICAL EXAMINATION: VITAL SIGNS: His blood pressure 156/73, sats 90% on 2 liters, temperature 98, pulse 84. CHEST: Chest revealed decreased breath sounds, minimal wheezing. CARDIAC: Normal S1-S2. ABDOMEN: Soft. No mass. LABORATORY: White count 13,000, H&H 15 and 47, platelet count has been normal. His chemistry profil e shows electrolytes are normal. IMPRESSION: 1. Chronic obstructive pulmonary disease exacerbation, bronchitis. 2. Abnormal CT with extensive bullous disease and a left midchest nodule of unknown significance. 3. Ongoing tobacco abuse. PLAN: He can be discharged home on present medication. I suggested he see me in the office in 3 mon ths. He is to refrain from smoking.
[2017-08-22 12:49] VITALS: BP 171/95; TEMP 98.3
--- NOTE | 2017-08-22 14:26 | DIS ---
PRIMARY CARE PHYSICIAN: Dr. yLnn. ADMISSION DIAGNOSES: 1. Acute hypoxic respiratory failure. 2. Chronic obstructive pulmonary disease exacerbation. 3. Hypertensive urgency. 4. Coronary artery disease. 5. Continued tobacco abuse. DISCHARGE DIAGNOSES: 1. Chronic obstructive pulmonary disease exacerbation, resolved. 2. Pulmonary nodule. 3. Coronary artery disease, stable. 4. Chronic systolic congestive heart failure, stable. 5. Dyslipidemia. 6. Hypertension. 7. Continued tobacco abuse. PROCEDURES: 1. CT scan of the chest with contrast showing a focal spiculated density in the left mid lung at an area of previous focal scarring concerning for possible scar carcinoma. 2. Severe emphysematous changes of both lungs. CONSULTATION: Pulmonology, Dr. Lake. HOSPITAL COURSE: This is a 71-year-old -[place] male with a history of COPD who continues to smoke. He has always somewhat increasing shortness of breath 1-2 days before admission along with s ome chills without fevers. He came in and was found to be exacerbation of his COPD was given nebuliz ers, IV steroids, and oxygen. The patient was admitted to hospital. He did well over the hospital c ourse with resolution of his symptoms and he was weaned off of all oxygen, breathing well on room air at the day of discharge, he was noted to have a new-appearing pulmonary nodule on his CT scan of his chest. Dr. Lake was consulted for pulmonology. He determined the patient was not a good candidate for biopsy or surgical procedure due to his severe emphysema and recommended following this and if i t just shows evidence of growing then doing a PET scan and possible focal radiation. The patient has seen Dr. Mendez as an outpatient previously and will need to follow up in the clinic. DISCHARGE MANAGEMENT: Discharged home. FOLLOWUP: With Dr. Mendez in 1 week. ACTIVITY: As tolerated. DIET: Healthy heart, low sodium, fluid restricted diet. DISCHARGE MEDICATIONS: 1. Levofloxacin 500 mg once a day for 1 more day. 2. Prednisone 40 mg daily for another 3 days. 3. Tessalon Perles 100 mg every 4 hours as needed for coughing, 30 tablets dispensed. 4. Continue home medications; Ventolin inhaler as needed. 5. Atrovent inhaler as needed. 6. Symbicort 1 puff twice a day. 7. Albuterol sulfate nebulizer as needed. 8. Atorvastatin 20 mg daily. 9. Metoprolol 25 mg twice a day. 10. Lisinopril 5 mg twice a day. 11. Clopidogrel 75 mg daily. 12. DuoNeb as needed.
[2017-08-23] MEDS ORDERED: predniSONE 20 MG TAB PO SCH (08:00)
--- NOTE | 2017-08-27 11:45 | EKG ---
Test Reason : SOB Blood Pressure : / mmHG Vent. Rate : 120 BPM Atrial Rate : 120 BPM P-R Int : 128 ms QRS Dur : 076 ms QT Int : 348 ms P-R-T Axes : 075 -02 047 degrees QTc Int : 491 ms Sinus tachycardia with Premature supraventricular complexes and with frequent Premature ventricular c omplexes Biatrial enlargement Left ventricular hypertrophy Nonspecific ST abnormality Abnormal ECG Confirmed by ALIYA WHITTAKER, STACY Easley ([id number]), photographic editor JU CONRAD ([id number]) on 08/27/2017 11:44:23 AM Referred By: KAREL PISANO Confirmed By:STACY PISANO MD
== END 2017-08-22 13:36 | disposition home or self-care (01) | DRG 189 ==
LOC: ERS 18:38 → T4-A 08-19 00:20
PROVIDERS: ADMIT Internal Medicine; ATTEND Internal Medicine
DX: J96.01 Acute respiratory failure with hypoxia (principal); E43 Unspecified severe protein-calorie malnutrition; E87.2 Acidosis; I50.22 Chronic systolic (congestive) heart failure; J44.1 Chronic obstructive pulmonary disease with (acute) exacerbation; Z68.1 Body mass index [BMI] 19.9 or less, adult; I11.0 Hypertensive heart disease with heart failure; I16.0 Hypertensive urgency; I25.10 Atherosclerotic heart disease of native coronary artery without angina pectoris; E78.5 Hyperlipidemia, unspecified; F17.210 Nicotine dependence, cigarettes, uncomplicated; J20.9 Acute bronchitis, unspecified; R91.1 Solitary pulmonary nodule
CPT/HCPCS: 36415; 71045; 71260; 80053; 81003; 81015; 82553; 83605; 83690; 84484; 85025; 87040; 87086; 87633; 93005; 94640; 94664; 94760; 96361; 96365; 96367; 96375; J0456; J0696; J1956; J2920; J2930; J7050; J7620

== ENCOUNTER 2018-06-28 20:53 | Inpatient (IN) | payer MEDICARE, MEDICAID ==
[2018-06-28 21:33] LABS: #Monocytes 0.5 thou/uL (0.11-0.59); #Neutrophils 5.6 thou/uL (1.40-6.50); %Basophils 0.4 % (0.0-1.0); %Eosinophils 0.3 % (0.0-10.0); %Lymphocytes 14.1 % (21.0-51.0); %Monocytes 7.6 % (0.0-10.0); %Neutrophils 77.7 % (42.0-75.0); Hemoglobin 13.2 g/dL (14.0-18.0); Mean Corpuscular HGB CONC 33.7 g/dL (32.0-36.0); Mean Corpuscular Hemoglobin 34.7 pg (27.0-31.0); Mean Platelet Volume 8.5 fL (7.4-10.4); Platelet Count 175 thou/uL (130-400); RBC Distribution Width 15.2 % (11.5-14.5); Red Blood Cell (RBC) Count 3.81 mill/uL (4.70-6.10); White Blood Cell (WBC) Count 7.1 thou/uL (4.8-10.8)
[2018-06-28 21:53] LABS: ALT (SGPT) 12 U/L (8-55); AST (SGOT) 57 U/L (5-34); Albumin 3.4 g/dL (3.4-4.8); Alkaline Phosphatase 103 U/L (40-150); Anion Gap 18 mmol/L (10-20); BUN (Urea Nitrogen) 8 mg/dL (8.4-25.7); Bilirubin, Total 0.8 mg/dL (0.2-1.2); Calc. Creatinine Clearance 0 mL/min (70-130); Calcium 8.3 mg/dL (7.8-10.44); Carbon Dioxide 35 mmol/L (23-31); Chloride 93 mmol/L (98-107); Estimated GFR-MDRD Greater than 90; Globulin 2.9 g/dL (2.4-3.5); Glucose 128 mg/dL (83-110); Protein, Total 6.3 g/dL (5.8-8.1); Sodium 143 mmol/L (136-145)
[2018-06-28] MEDS ORDERED: Diltiazem HCl 125 MG, Admixture Fee 1 EACH in Sodium Chloride 0.9% 100 ML IVPB SCH (22:00)
[2018-06-28 22:10] LABS: Potassium 2.7 mmol/L (3.5-5.1)
[2018-06-28 22:22] LABS: CKMB 3.3 ng/mL (0-6.6)
[2018-06-28] MEDS ORDERED: Potassium Bicarbonate/Cit Ac 25 MEQ TAB ONE (22:24)
[2018-06-28] MEDS ORDERED: Magnesium 2 GM/50 ML BAG (IN WATER) ONE (22:32)
[2018-06-28] MEDS ORDERED: hydrALAZINE 20 MG/ML VIAL ONE (23:03)
[2018-06-29 04:17] LABS: Troponin I 0.088 ng/mL (< 0.028)
[2018-06-29] MEDS ORDERED: Potassium Chloride 20 MEQ TAB PO SCH ×2 (07:45→12:00)
[2018-06-29] MEDS ORDERED: Magnesium 2 GM/50 ML 2 GM in Premix Bag 1 BAG IVPB SCH (08:15)
[2018-06-29] MEDS ORDERED: Magnesium 2 GM/50 ML BAG (IN WATER) ONE (08:44)
[2018-06-29] MEDS ORDERED: Levofloxacin 500 mg/D5W 100 ml Premix Bag ONE (08:44)
[2018-06-29] MEDS ORDERED: Potassium Chloride 20 MEQ TAB ONE ×2 (08:44→13:26)
--- NOTE | 2018-06-29 08:53 | RAD ---
CHEST 1 VIEW: Date: 06/29/18 HISTORY: Dyspnea. COMPARISON: 08/18/17. FINDINGS: Cardiac silhouette is magnified by projection. Pulmonary vasculature is unremarkable. Lungs are marke dly hyperinflated with scattered areas of scarring. Mediastinum is midline with aortic calcification. No lobar consolidation or evidence of pneumothorax. IMPRESSION: 1. Severe emphysematous changes. 2. Atherosclerosis. POS: [facility]
[2018-06-29 09:09] LABS: Folate (Folic Acid) 2.5 ng/mL (7.0-31.4)
[2018-06-29] MEDS ORDERED: Enoxaparin Sodium 60 MG/0.6 ML SYRINGE ONE ×2 (09:16→21:52)
[2018-06-29 14:02] LABS: Anion Gap 15 mmol/L (10-20); BUN (Urea Nitrogen) 8 mg/dL (8.4-25.7); Calc. Creatinine Clearance 0 mL/min (70-130); Calcium 8.5 mg/dL (7.8-10.44); Carbon Dioxide 33 mmol/L (23-31); Chloride 92 mmol/L (98-107); Estimated GFR-MDRD Greater than 90; Glucose 187 mg/dL (83-110); Potassium 3.4 mmol/L (3.5-5.1); Sodium 137 mmol/L (136-145)
--- NOTE | 2018-06-29 15:32 | HP ---
CHIEF CONCERN: Weakness and shortness of breath. HISTORY OF PRESENT ILLNESS: The patient is a 72-year-old male, who lives alone and was drinking quite heavily for the last several days and started having some weakness and shortness of breath. He called EMS and was brought to the emergency room and was felt to be in atrial fibrillation with RVR. He has quite significant past cardiac history with coronary artery disease and chronic systolic congestive heart failure with an EF of 40 to 45% according to the previous notes from August 2017 when he was in the hospital. He denied any chest pain. He denied any a fever. He has some chronic cough from COPD, but nothing more recently. He denied any palpitations. PAST MEDICAL HISTORY: Positive for; 1. Chronic obstructive pulmonary disease. 2. Coronary artery disease. 3. Chronic systolic congestive heart failure with an EF of 40 to 45%. 4. Hypertension. 5. Dyslipidemia. 6. Tobacco abuse. PAST SURGICAL HISTORY: 1. Left index finger surgery. 2. Hip replacement. 3. Cardiac catheterization with stent placement. 4. Bilateral cataract surgery. SOCIAL HISTORY: He drinks alcohol quite often. He smokes about one pack of cigarettes per day. He does not use any illicit drugs. FAMILY HISTORY: Significant for cancer. Father of complication of pneumonia. ALLERGIES: NONE. CURRENT MEDICATIONS: Please review the medications list. REVIEW OF SYSTEMS: CONSTITUTIONAL: Negative for fever and chills. EYES: Negative for eye pain and eye discharge. ENT: Negative for epistaxis and nasal congestion. CARDIOVASCULAR: Negative for palpitations and negative for chest pain. RESPIRATORY: Positive for shortness of breath and cough. GI: Negative for nausea or vomiting. : Negative for hematuria or dysuria. NEURO: Negative for anxiety or depression. PSYCHIATRIC: Negative for homicidal or suicidal ideations. PHYSICAL EXAMINATION: VITAL SIGNS: Blood pressure is 159/108, pulse is 135. He is afebrile. Respiratory rate is 22. HEAD: His head is atraumatic and normocephalic. He looks old and emaciated and malnourished. He lives alone. He is not . His pupils are responding to light properly. Sclerae are nonicteric. Oral mucosa is moist. NECK: Supple. No lymphadenopathy. Thyroid is not palpable. LUNGS: Present with bilateral wheezing and rales. HEART: S1, S2, somewhat distant. No S3. No S4. ABDOMEN: Soft, nontender, nondistended. EXTREMITIES: No clubbing, cyanosis, or edema. Peripheral pulses diminished significant on both arteries. Tibialis posterior, dorsalis pedis similar bilaterally. NEUROLOGICAL: He follows my commands. He moves his all four extremities. There is no any motor deficits. Cranial nerves seem to be intact. LABORATORY DATA: White count of 7.1, hemoglobin 13.2, hematocrit 39.2, platelet count 175,000, neutrophils 77.7. Sodium of 143, potassium 2.7, chloride 93, CO2 of 35, BUN 8, creatinine 0.77, glucose 128, magnesium 1.4. Troponin I 0.090 and 0.088. AST 57, and the rest of chemistry within normal limits. EKG showed atrial fibrillation with RVR, 161 beats per minute with some depressed ST-segment in leads V4 and V5. Chest x-ray not done. IMPRESSION: 1. Acute onset of atrial fibrillation, triggered by alcohol drinking. 2. Hypokalemia. 3. Hypomagnesemia. 4. Elevated troponins, most likely secondary to atrial fibrillation. 5. Chronic obstructive pulmonary disease exacerbation. 6. Coronary artery disease. 7. Congestive heart failure with EF of 40 to 45% according to the previous medical records from August 2017. 8. Hypertension. 9. Dyslipidemia. 10. Tobacco abuse. 11. Alcohol abuse. PLAN: Full admission to telemetry. Condition is fair. Activity; bedrest and bathroom privileges. IV Hep-Lock. Heart healthy diet. Cardiology consultation. Replacement of potassium. He is going to have 40 mEq of KCl now and then in 4 hours. He had 50 last night. We will check his folic acid and vitamin B12 levels since his MCV is elevated and he shows some normocytic anemia. We will replace his magnesium with 2 g of IV magnesium sulfate. We will get echocardiogram. We will start him on Solu-Medrol 125 mg IV push, then 40 every 6 hours. We will continue his Cardizem. He is on 10 mg of Cardizem drip per hour and we will give him 5 mg of Cardizem IV push right now since his pulse is more than 120. He is not in any significant distress during my visit and we will start him on Lovenox 60 mg subcutaneously every 12 hours for full anticoagulation for atrial fibrillation. Job ID: [id number]
--- NOTE | 2018-06-29 19:07 | CON ---
DATE OF CONSULTATION: 06/29/2018 REASON FOR CONSULTATION: Atrial fibrillation with RVR. HISTORY OF PRESENT ILLNESS: Mr. Krause is a very pleasant 72-year-old gentleman, who comes to the hospital after feeling weak and short of breath for the last several days. He apparently lives alone, was drinking heavily in this time frame, and since he started to become weak and short winded, he called EMS, who brought him into the hospital and he was found to be in AFib in RVR. This is new for him. He has never had this told to him before. He does have a history of coronary artery disease with stent placement to the left circumflex a few years ago. At that time, his EF was about 40% to 45%. He never followed up with laborer electroplating. There is no record of the laborer electroplating seeing him, only cathing him. He has a history of COPD as well from cigarette smoking. PAST MEDICAL HISTORY: 1. COPD. 2. Coronary artery disease. 3. Systolic heart failure, EF of 40 to 45 several years back. 4. Hypertension. 5. Hyperlipidemia. 6. Tobacco use. PAST SURGICAL HISTORY: 1. Left index finger surgery. 2. Hip replacement. 3. Cataract surgery. 4. Left index finger, his thumb, and his 3rd finger on his left hand were amputated by a table saw while cutting pipe and had 3 fingers reattached. SOCIAL HISTORY: He smokes a pack a day. Occasional alcohol use, heavily recently. No drug use. FAMILY HISTORY: Positive for malignancy and history of peripheral vascular disease. OUTPATIENT MEDICATIONS: 1. Prednisone. 2. Ventolin inhaler. 3. Metoprolol 25 mg b.i.d. 4. Lisinopril 5 mg b.i.d. 5. Levaquin. 6. DuoNeb. 7. Atrovent HFA. 8. Plavix 75 mg a day. 9. Symbicort. 10. Tessalon Perles. 11. Atorvastatin 20 mg daily. 12. Albuterol inhaler. This list may not be accurate. We would wait for a more updated list. He does not know his medications. ALLERGIES: NO KNOWN DRUG ALLERGIES. REVIEW OF SYSTEMS: A 12-point review of systems was done, and it was all negative unless stated in the history of present illness. PHYSICAL EXAMINATION: VITAL SIGNS: Temperature 97.2, pulse between 90 and 130, respiratory rate 20, saturation 97% on 2L nasal cannula, and blood pressure 152/78. GENERAL: Awake, alert, and oriented x3, in no distress. HEENT: Normocephalic and atraumatic. NECK: Supple. LUNGS: Have reduced breath sounds bilaterally. CARDIOVASCULAR: S1 and S2. Irregularly irregular heart rate in the 110s to upper 90s. There is a grade 3/6 systolic murmur at the right upper sternal border. ABDOMEN: Soft. Positive bowel sounds. EXTREMITIES: No edema. SKIN: Warm and dry. LABORATORY DATA: Laboratory work was reviewed. A CBC with white count of 7, hemoglobin 13, hematocrit 39, and platelet count of 175. Chemistry; BUN of 8, creatinine 0.69, GFR greater than 90. Magnesium was 1.4. Potassium was 3.4, 2.7 on admission. Folate of 2.5, which is low. TSH was normal. Vitamin B12 was normal. Troponin has been in the indeterminate range at 0.09, 0.11, and 0.08 respectively. ASSESSMENT AND PLAN: 1. Atrial fibrillation with rapid ventricular response. 2. History of coronary artery disease, no acute coronary syndrome. 3. Mildly elevated troponins, likely related to acute coronary syndrome, demand ischemia. 4. Hypokalemia. 5. Systolic dysfunction, chronic. We will repeat echo. PLAN: 1. Repeat echocardiogram. 2. We will try to continue rate control with his current diltiazem dose. He is mostly in the 90s to low 100 and just rarely does he go up to the 130s. 3. We will repeat echocardiogram to evaluate LV function and valvular structures. 4. Agree with antibiotics per primary team. 5. CHADS-VASc score of 3, would benefit from full anticoagulation. Continue full-dose Lovenox for now. 6. We will continue to follow. Job ID: [id number]
[2018-06-30 04:30] LABS: Hemoglobin 13.4 g/dL (14.0-18.0); Mean Corpuscular HGB CONC 32.3 g/dL (32.0-36.0); Mean Corpuscular Hemoglobin 33.3 pg (27.0-31.0); Mean Platelet Volume 9.8 fL (7.4-10.4); Platelet Count 154 thou/uL (130-400); Red Blood Cell (RBC) Count 4.03 mill/uL (4.70-6.10); White Blood Cell (WBC) Count 6.1 thou/uL (4.8-10.8)
[2018-06-30 04:31] LABS: Anion Gap 19 mmol/L (10-20); BUN (Urea Nitrogen) 8 mg/dL (8.4-25.7); Calc. Creatinine Clearance 76 mL/min (70-130); Carbon Dioxide 32 mmol/L (23-31); Chloride 91 mmol/L (98-107); Estimated GFR-MDRD Greater than 90; Glucose 146 mg/dL (83-110); Sodium 138 mmol/L (136-145)
[2018-06-30 04:40] LABS: Band 8 % (5-11); Lymphocytes 11 % (21-51); Monocytes 1 % (0-10); Neutrophil 80 % (42-75)
[2018-06-30 04:41] LABS: Large Platelets SLIGHT; MDiff Complete? YES
[2018-06-30] MEDS ORDERED: Prevnar 13-Val Conj/PF 0.5 ML SYRINGE IM ONE (06:15)
[2018-06-30] MEDS: Enoxaparin Sodium 60 MG/0.6 ML SYRINGE SC SCH ×3 (07:54→21:47)
[2018-06-30] MEDS: Folic Acid 1 MG TAB PO SCH (08:39)
[2018-06-30] MEDS ORDERED: Magnesium Sulfate 2 GM in Sodium Chloride 0.9% 100 ML IVPB SCH (09:00)
[2018-06-30] MEDS ORDERED: Magnesium 2 GM/50 ML 2 GM in Premix Bag 1 BAG IVPB SCH (09:15)
[2018-06-30] MEDS ORDERED: Cefdinir 300 MG CAP PO SCH (11:30)
--- NOTE | 2018-06-30 11:32 | PRG ---
DATE OF SERVICE: 06/30/2018 SUBJECTIVE: The patient denies any new complaints at this time. No chest pain, shortness of breath, or palpitations. He is currently on Cardizem drip. OBJECTIVE: VITAL SIGNS: Temperature 98.9, pulse rate of 91, respiration 16, blood pressure is in systolic around 110, O2 saturation 98% on 2 L nasal cannula, weight of 126 pounds. GENERAL: 72-year-old male in no apparent distress. No chest pain, shortness of breath, or palpitations. LUNGS: Showed a few rales at bases with scattered rhonchi. HEART: S1 and S2 present. Irregularly irregular. No rubs or gallops. ABDOMEN: Soft and nontender. Bowel sounds present. No rebound or guarding. EXTREMITIES: No edema or calf tenderness. NEUROLOGIC: Grossly nonfocal. Moves all 4 extremities. PSYCHIATRY: Alert, awake, and oriented x3. CURRENT MEDICATIONS: Current medications were reviewed. The patient is on Cardizem, Solu-Medrol, and Lipitor with 1 mg/kg of Lovenox. DIAGNOSTIC DATA: Telemetry monitoring by my review showed atrial flutter with a heart rate around 100. Chest x-ray by my review showed COPD without any pneumonia. IMPRESSION: 1. Atrial fibrillation/flutter with rapid ventricular response on Cardizem drip. 2. Hypokalemia/hypomagnesemia. 3. Elevated troponins probably secondary to demand ischemia. 4. Folic acid deficiency. 5. Chronic obstructive pulmonary disease with chronic obstructive pulmonary disease exacerbation. 6. Macrocytic anemia. 7. Coronary artery disease, on Plavix. 8. Chronic systolic heart failure. A repeat echocardiogram showed ejection fraction of 30% to 35%. 9. Dyslipidemia. 10. Ongoing tobacco abuse. 11. Hyperlipidemia. PLAN: We will continue Cardizem drip with 1 mg/kg of Lovenox. We will resume selected home medications. We will change IV steroids to p.o. We will also change antibiotics to p.o. Replace magnesium. Continue folic acid. Recheck labs in a.m. Job ID: [id number]
--- NOTE | 2018-06-30 13:59 | PDOC.CTH ---
Cardiology Progress Note - Subjective Doing well. No new issues. No chest pain. - Objective Vital Signs Temp Pulse Resp BP Pulse Ox 06/30/18 11:49 98.8 F 90 18 106/70 97 06/30/18 11:40 90 16 06/30/18 07:25 97 06/30/18 07:24 87 16 06/30/18 07:20 98.9 F 87 18 168/113 H 98 06/30/18 05:10 97.8 F 91 16 158/94 H 99 Admit Weight 122 lb 2.176 oz Weight 126 lb 11.2 oz 06/29/18 06/30/18 07/01/18 06:59 06:59 06:59 Intake Total 240 Balance 240 - Physical Examination General/Neuro: alert & oriented x3, NAD Neck: no JVD present Lungs: unlabored respirations Heart: other: (Irreg irreg) Abdomen: NT/ND Extremities: other: (no edema) - Telemetry Telemetry Rhythm: Afib ->flutter? - Labs Result Diagrams: 06/30/18 03:46 06/30/18 03:46 Troponin/CKMB CK-MB (CK-2) 3.3 ng/mL (0-6.6) 06/28/18 21:24 Troponin I 0.088 ng/mL (< 0.028) H 06/29/18 03:22 - Assessment/Plan 1. Afib RVR 2. Possibly organized into aflutter. 3. Worsening ischemic CM EF at 30-35% PLAN: - Continue rate control on diltiazem. - Will consult EP. - Will need repeat LHC next week Tuesday. - Continue full anticoagulation with Lovenox for now. - Continue ACEI, BB, ASA, Statin.
[2018-06-30] MEDS: Diltiazem 125 MG in Sodium Chloride 0.9% 100 ML IVPB SCH (14:08)
[2018-06-30] MEDS: predniSONE 20 MG TAB PO SCH (16:24)
[2018-06-30] MEDS: Mometasone/Formoterol 120 PUFF INHALER INH SCH (19:02)
[2018-06-30] MEDS: Lisinopril 10 MG TAB PO SCH (21:47)
[2018-06-30] MEDS: Metoprolol Tartrate 25 MG TAB PO SCH (21:48)
[2018-06-30] MEDS: Cefdinir 300 MG CAP PO SCH (21:48)
--- NOTE | 2018-06-30 22:52 | CON ---
DATE OF CONSULTATION: 06/30/2018 REFERRING PHYSICIAN: Jim Toscano MD REASON FOR CONSULTATION: Atrial arrhythmias with RVR. HISTORY OF PRESENT ILLNESS: Mr. Krause is a 72-year-old gentleman who presented to the hospital after feeling weak and short of breath for the past several days. He lives alone and was drinking heavily in that timeframe leading up to him presenting to the hospital. Upon presentation, an EKG was done, interpreted as atrial fibrillation with RVR, which is a new diagnosis for him. He was admitted for further observation and medical management. He carries a diagnosis of coronary artery disease with a stent to the left circumflex placed few years ago. At the time of stenting, his ejection fraction is 40% to 45%. An echocardiogram during this hospitalization reveals a severely reduced ejection fraction of 30% to 35%. Since being admitted, he continues in his rapid atrial arrhythmias and is currently on a diltiazem drip for rate control. He also endorses continuing to smoke cigarettes and has a history of COPD. Currently, Mr. Krause is feeling well. He denies any heart racing, palpitations, chest pain, pressure, syncope, near syncope, stroke, or stroke-like symptoms. He is feeling significantly better than when he came in. REVIEW OF SYSTEMS: A 12-point review of systems is conducted and is negative except that listed above in the HPI. PAST MEDICAL HISTORY: 1. CVD. 2. Coronary artery disease with stenting in approximately 2016. 3. Systolic heart failure, mildly reduced ejection fraction 40% to 45% in the recent past. 4. Hypertension. 5. Hyperlipidemia. 6. Tobacco abuse. 7. Alcohol abuse. SOCIAL HISTORY: One pack per day tobacco habituation. Binge alcohol drinking. Denies drug use. FAMILY HISTORY: Positive for cancer and peripheral vascular disease. ALLERGIES: NO KNOWN DRUG ALLERGIES. HOME MEDICATIONS: Include: 1. DuoNeb p.r.n. 2. Atorvastatin 20 mg daily. 3. Albuterol p.r.n. 4. Ventolin p.r.n. 5. Metoprolol tartrate 25 mg b.i.d. 6. Lisinopril 10 mg b.i.d. 7. Atrovent q.i.d. 8. Clopidogrel 75 mg daily. 9. Symbicort b.i.d. OBJECTIVE: VITAL SIGNS: Temperature 98.8, pulse 90, blood pressure 106/70, respirations 18, oxygen is 97% on 2 L via nasal cannula. GENERAL: The patient has poor hygiene. He seems underweight and somewhat malnourished. He is legally blind. He is in no apparent distress. He is resting comfortably in bed. His speech is clear. His affect is somewhat disinterested but appropriate and he does appear to be a poor historian. NECK: Supple without jugular venous distention. HEART: Rate is rapid and somewhat irregular. His PMI is nondisplaced. LUNGS: Clear to auscultation bilaterally. Respirations are even and unlabored with good bilateral excursion. ABDOMEN: Soft and nontender without palpable masses. Hepatojugular reflux is negative. EXTREMITIES: Warm and dry to touch without clubbing, cyanosis, or edema. NEUROLOGIC: Grossly intact and nonfocal. Gait was not assessed. DATABASE: Hematology was reviewed and is unremarkable. Chemistry is reviewed. Potassium 4.0, creatinine 0.69, magnesium 1.5. TSH 0.87. Echocardiogram on 06/29/2018, ejection fraction 30% to 35%. with septal akinesis. Telemetry and EKGs reviewed, multifocal atrial tachycardia. There is occasional but less likely a PAT runs that are also seen. QRS is narrow. No definitive atrial fibrillation or sustained atrial fibrillation is seen. IMPRESSION: 1. Multifocal atrial tachycardia with possible brief runs of paroxysmal atrial tachycardia. 2. Newly diagnosed cardiomyopathy with ejection fraction of 30% to 35%, previously 40% to 45%. 3. History of coronary artery disease with prior stenting. 4. Alcohol abuse. 5. Tobacco habituation. RECOMMENDATIONS: I agree with the recommendation for anticoagulation with Lovenox currently. Regarding his cardiomyopathy, recommend an ischemia workup and medical management. Consider an ICD in 3 months, if his ejection fraction remains less than 35%. Regarding his arrhythmias, recommendation is a rate control strategy ideally with beta blockers, which he will be on anyways with his heart failure medical regimen. Thank you for allowing us to participate in the care of this patient. Job ID: [id number]
[2018-07-01] MEDS: Diltiazem 125 MG in Sodium Chloride 0.9% 100 ML IVPB SCH (00:58)
[2018-07-01 06:35] LABS: Anion Gap 15 mmol/L (10-20); BUN (Urea Nitrogen) 14 mg/dL (8.4-25.7); Calc. Creatinine Clearance 84 mL/min (70-130); Calcium 8.5 mg/dL (7.8-10.44); Carbon Dioxide 29 mmol/L (23-31); Chloride 90 mmol/L (98-107); Estimated GFR-MDRD Greater than 90; Glucose 118 mg/dL (83-110); Magnesium 1.6 mg/dL (1.6-2.6); Potassium 3.4 mmol/L (3.5-5.1); Sodium 131 mmol/L (136-145)
[2018-07-01 06:47] LABS: #Lymphocytes 0.6 thou/uL (1.20-3.40); #Monocytes 0.6 thou/uL (0.11-0.59); %Basophils 0.1 % (0.0-1.0); %Eosinophils 0.2 % (0.0-10.0); %Lymphocytes 6.7 % (21.0-51.0); %Monocytes 6.6 % (0.0-10.0); %Neutrophils 86.5 % (42.0-75.0); Hemoglobin 12.4 g/dL (14.0-18.0); Mean Corpuscular HGB CONC 33.5 g/dL (32.0-36.0); Mean Corpuscular Hemoglobin 35.4 pg (27.0-31.0); Mean Platelet Volume 10.1 fL (7.4-10.4); Platelet Count 124 thou/uL (130-400); Red Blood Cell (RBC) Count 3.48 mill/uL (4.70-6.10); White Blood Cell (WBC) Count 9.2 thou/uL (4.8-10.8)
[2018-07-01] MEDS: Mometasone/Formoterol 120 PUFF INHALER INH SCH ×2 (08:08→19:06)
[2018-07-01] MEDS: Clopidogrel Bisulfate 75 MG TAB PO SCH (08:20)
[2018-07-01] MEDS: Cefdinir 300 MG CAP PO SCH ×2 (08:20→20:51)
[2018-07-01] MEDS: Cyanocobalamin (Vitamin B-12) 1,000 MCG TAB PO SCH (08:20)
[2018-07-01] MEDS: Folic Acid 1 MG TAB PO SCH (08:20)
[2018-07-01] MEDS: predniSONE 20 MG TAB PO SCH ×2 (08:20→16:17)
[2018-07-01] MEDS: Enoxaparin Sodium 60 MG/0.6 ML SYRINGE SC SCH (08:20)
[2018-07-01] MEDS: Multivit, Therapeutic 1 TAB PO SCH (08:20)
[2018-07-01] MEDS: Atorvastatin Calcium 20 MG TAB PO SCH (08:20)
[2018-07-01] MEDS: Lisinopril 10 MG TAB PO SCH ×2 (08:21→20:48)
[2018-07-01] MEDS: Metoprolol Tartrate 25 MG TAB PO SCH (08:21)
[2018-07-01] MEDS: Enoxaparin Sodium 40 MG/0.4 ML SYRINGE SC SCH (08:44)
[2018-07-01] MEDS ORDERED: Digoxin 0.5 MG/2 ML AMP SLOW IVP SCH ×2 (09:00→10:00)
[2018-07-01] MEDS ORDERED: Magnesium Sulfate 2 GM in Sodium Chloride 0.9% 100 ML IVPB SCH (09:00)
[2018-07-01] MEDS ORDERED: Potassium Chloride 20 MEQ TAB PO SCH ×2 (09:00→17:00)
[2018-07-01] MEDS ORDERED: Magnesium 2 GM/50 ML 2 GM in Premix Bag 1 BAG IVPB SCH (09:15)
--- NOTE | 2018-07-01 10:50 | EKG ---
Test Reason : Blood Pressure : / mmHG Vent. Rate : 161 BPM Atrial Rate : 161 BPM P-R Int : 000 ms QRS Dur : 084 ms QT Int : 306 ms P-R-T Axes : 000 -46 -74 degrees QTc Int : 500 ms Atrial fibrillation with rapid ventricular response with premature ventricular or aberrantly conducte d complexes Left axis deviation Abnormal ECG Confirmed by YULIYA JONES DO ([id number]), purchase request editor AKASH TEE ([id number]) on 07/01/2018 10:50:24 AM Referred By: Confirmed By:YULIYA JONES DO
--- NOTE | 2018-07-01 16:49 | PDOC.PN ---
- Subjective Encounter Start Date: 07/01/18 Encounter Start Time: 11:00 Patient seen and examined for Afib with RVR. No new complaints. No overnight events - Objective Resuscitation Status - Order Detail: 06/29/18 07:37 Resuscitation Status Routine Resuscitation Status: FULL: Full Resuscitation MAR Reviewed: Yes Vital Signs & Weight: Vital Signs (12 hours) Temp Pulse Resp BP BP Pulse Ox 07/01/18 16:13 83 16 155/82 H 100 07/01/18 14:09 68 16 07/01/18 12:17 97.6 F 65 16 118/63 97 07/01/18 10:42 71 07/01/18 09:18 71 07/01/18 08:38 80 100/57 L 07/01/18 08:21 90/50 L 07/01/18 08:08 71 24 H 07/01/18 08:00 80 L 07/01/18 07:59 71 24 H 07/01/18 07:30 98.4 F 71 16 121/82 97 Weight Admit Weight 122 lb 2.176 oz Weight 126 lb I&O: 06/30/18 07/01/18 07/02/18 06:59 06:59 06:59 Intake Total 1200 240 Output Total 2476 Balance -1276 240 Result Diagrams: 07/01/18 05:29 07/01/18 05:29 EKG Reviewed by me: Yes (Tele Afib) Phys Exam - Physical Examination Constitutional: NAD Respiratory: no wheezing, no rhonchi Cardiovascular: no rub, irregular Gastrointestinal: soft, non-tender, positive bowel sounds Neurological: moves all 4 limbs Dx/Plan - Plan DVT proph w/lovenox, DVT proph w/SCDs IMPRESSION: 1. Atrial fibrillation/flutter with rapid ventricular response on Cardizem drip. 2. Hypokalemia/hypomagnesemia. 3. Elevated troponins probably secondary to demand ischemia. 4. Folic acid deficiency. 5. Chronic obstructive pulmonary disease with chronic obstructive pulmonary disease exacerbation. 6. Macrocytic anemia. 7. Coronary artery disease, on Plavix. 8. Chronic systolic heart failure. 9. Dyslipidemia. 10. Ongoing tobacco abuse. 11. Hyperlipidemia. 12. Thrombocytopenia PLAN: Continue Cardizem drip at 2.5 mg/hr Cont 1 mg/kg of Lovenox per Cardiology. Replace magnesium and Potassium. AM labs Cont other meds as below Taper steroids Cont PO Atbx Review of Systems - Review of Systems Respiratory: negative: Cough, Dry, Shortness of Breath, Hemoptysis, SOB with Excertion, Pleuritic Pain, Sputum, Wheezing Cardiovascular: negative: chest pain, palpitations, orthopnea, paroxysmal nocturnal dyspnea, edema, light headedness, other - Medications/Allergies Allergies/Adverse Reactions: Allergies Allergy/AdvReac Type Severity Reaction Status Date / Time No Known Allergies Allergy Verified 11/18/14 02:17 Medications: Current Medications Albuterol/Ipratropium (Duoneb) 3 ml NEB [id number] [facility] Last Admin: 07/01/18 14:09 Dose: 3 ml Albuterol/Ipratropium (Duoneb) 3 ml NEB Q4H PRN PRN Reason: SOB &/or Wheezing Atorvastatin Calcium (Lipitor) 20 mg PO DAILY [facility] Last Admin: 07/01/18 08:20 Dose: 20 mg Cefdinir (Omnicef) 300 mg PO BID [facility] Last Admin: 07/01/18 08:20 Dose: 300 mg Clopidogrel Bisulfate (Plavix) 75 mg PO DAILY [facility] Last Admin: 07/01/18 08:20 Dose: 75 mg Cyanocobalamin (Vitamin B-12) 1,000 mcg PO DAILY [facility] Last Admin: 07/01/18 08:20 Dose: 1,000 mcg Digoxin (Lanoxin) 0.125 mg PO QAM [facility] Enoxaparin Sodium (Lovenox) 40 mg SC 0900 [facility] Last Admin: 07/01/18 08:44 Dose: Not Given Folic Acid (Folvite) 1 mg PO DAILY [facility] Last Admin: 07/01/18 08:20 Dose: 1 mg Diltiazem HCl 125 mg/ Sodium (Chloride) 125 mls @ 10 mls/hr IVPB INF [facility] Last Admin: 07/01/18 00:58 Dose: 125 mls Lisinopril (Zestril) 10 mg PO BID [facility] Last Admin: 07/01/18 08:21 Dose: Not Given Metoprolol Tartrate (Lopressor) 25 mg PO BID [facility] Last Admin: 07/01/18 08:21 Dose: Not Given Mometasone Furoate/Formoterol Fumar (Dulera 200 Mcg/5 Mcg Inhaler) 1 puff INH BID-RT [facility] Last Admin: 07/01/18 08:08 Dose: 1 puff Multivitamins (Theragran) 1 tab PO DAILY [facility] Last Admin: 07/01/18 08:20 Dose: 1 tab Potassium Chloride (K-Dur) 20 meq PO BID-WM [facility] Last Admin: 07/01/18 16:16 Dose: 20 meq Prednisone (Prednisone) 20 mg PO BID-WM [facility] Last Admin: 07/01/18 16:17 Dose: 20 mg Sodium Chloride (Flush - Normal Saline) 10 ml IVF Q12HR [facility] Last Admin: 07/01/18 08:20 Dose: 10 ml Sodium Chloride (Flush - Normal Saline) 10 ml IVF PRN PRN PRN Reason: Saline Flush
[2018-07-01] MEDS ORDERED: Metoprolol Tartrate 25 MG TAB PO SCH (21:00)
[2018-07-02 06:02] LABS: Anion Gap 15 mmol/L (10-20); BUN (Urea Nitrogen) 18 mg/dL (8.4-25.7); Calc. Creatinine Clearance 78 mL/min (70-130); Calcium 8.5 mg/dL (7.8-10.44); Carbon Dioxide 29 mmol/L (23-31); Chloride 95 mmol/L (98-107); Estimated GFR-MDRD Greater than 90; Glucose 116 mg/dL (83-110); Magnesium 2.1 mg/dL (1.6-2.6); Potassium 4.6 mmol/L (3.5-5.1); Sodium 134 mmol/L (136-145)
[2018-07-02 06:26] LABS: Hemoglobin 12.1 g/dL (14.0-18.0); Platelet Count 103 thou/uL (130-400)
[2018-07-02] MEDS: Mometasone/Formoterol 120 PUFF INHALER INH SCH ×2 (09:11→18:41)
[2018-07-02] MEDS: Cefdinir 300 MG CAP PO SCH ×2 (09:43→20:47)
[2018-07-02] MEDS: Atorvastatin Calcium 20 MG TAB PO SCH (09:43)
[2018-07-02] MEDS: predniSONE 20 MG TAB PO SCH (09:43)
[2018-07-02] MEDS: Folic Acid 1 MG TAB PO SCH (09:43)
[2018-07-02] MEDS: Lisinopril 10 MG TAB PO SCH ×2 (09:44→20:47)
[2018-07-02] MEDS: Clopidogrel Bisulfate 75 MG TAB PO SCH (09:44)
[2018-07-02] MEDS: Multivit, Therapeutic 1 TAB PO SCH (09:44)
[2018-07-02] MEDS: Cyanocobalamin (Vitamin B-12) 1,000 MCG TAB PO SCH (09:44)
[2018-07-02] MEDS: Digoxin 0.125 MG TAB PO SCH (09:44)
[2018-07-02] MEDS: Enoxaparin Sodium 40 MG/0.4 ML SYRINGE SC SCH (09:45)
[2018-07-02] MEDS ORDERED: Carvedilol 6.25 MG TAB PO SCH (09:45)
--- NOTE | 2018-07-02 12:45 | PDOC.PN ---
- Subjective Encounter Start Date: 07/02/18 Encounter Start Time: 12:15 Patient seen and examined for CHF/Afib. No new complaints. No overnight events - Objective Resuscitation Status - Order Detail: 06/29/18 07:37 Resuscitation Status Routine Resuscitation Status: FULL: Full Resuscitation MAR Reviewed: Yes Vital Signs & Weight: Vital Signs (12 hours) Temp Pulse Resp BP BP Pulse Ox 07/02/18 11:40 97 16 07/02/18 09:47 122/62 07/02/18 09:44 97 122/62 07/02/18 09:35 98.6 F 97 20 122/62 96 07/02/18 09:11 76 16 07/02/18 09:04 78 12 07/02/18 08:30 96 07/02/18 04:18 97.4 F L 78 16 136/75 98 Weight Admit Weight 122 lb 2.176 oz Weight 133 lb I&O: 07/01/18 07/02/18 07/03/18 06:59 06:59 06:59 Intake Total 1200 1680 Output Total 1950 2075 Balance -1276 -395 Result Diagrams: 07/02/18 05:13 07/02/18 05:13 EKG Reviewed by me: Yes (Tele SR with PACs) Phys Exam - Physical Examination Constitutional: NAD Respiratory: no wheezing, no rhonchi Cardiovascular: RRR, no rub Gastrointestinal: soft, non-tender, positive bowel sounds Musculoskeletal: no edema Neurological: moves all 4 limbs Dx/Plan - Plan DVT proph w/lovenox, DVT proph w/SCDs IMPRESSION: 1. Atrial fibrillation/flutter with rapid ventricular response - off Cardizem drip. 2. Hypokalemia/hypomagnesemia. 3. Elevated troponins probably secondary to demand ischemia. 4. Folic acid deficiency. 5. COPD exacerbation. 6. Macrocytic anemia. 7. Coronary artery disease, on Plavix. 8. Chronic systolic heart failure. 9. Dyslipidemia. 10. Ongoing tobacco abuse. 11. Hyperlipidemia. 12. Thrombocytopenia. PLAN: NPO for ?Cath in AM Cont Plavix/Coreg/ACEI Monitor Platelets AM labs Cont other meds as below Cont steroids/Atbx Review of Systems - Review of Systems Respiratory: negative: Cough, Dry, Shortness of Breath, Hemoptysis, SOB with Excertion, Pleuritic Pain, Sputum, Wheezing Cardiovascular: negative: chest pain, palpitations, orthopnea, paroxysmal nocturnal dyspnea, edema, light headedness, other - Medications/Allergies Allergies/Adverse Reactions: Allergies Allergy/AdvReac Type Severity Reaction Status Date / Time No Known Allergies Allergy Verified 11/18/14 02:17 Medications: Current Medications Albuterol/Ipratropium (Duoneb) 3 ml NEB [id number] [facility] Last Admin: 07/02/18 11:40 Dose: 3 ml Albuterol/Ipratropium (Duoneb) 3 ml NEB Q4H PRN PRN Reason: SOB &/or Wheezing Atorvastatin Calcium (Lipitor) 20 mg PO DAILY [facility] Last Admin: 07/02/18 09:43 Dose: 20 mg Carvedil[facility] ([facility]g) [facility] Cefdinir (Omnicef) 300 mg PO BID [facility] Last Admin: 07/02/18 09:43 Dose: 300 mg Clopidogrel Bisulfate (Plavix) 75 mg PO DAILY [facility] Last Admin: 07/02/18 09:44 Dose: 75 mg Cyanocobalamin (Vitamin B-12) 1,000 mcg PO DAILY [facility] Last Admin: 07/02/18 09:44 Dose: 1,000 mcg Digoxin (Lanoxin) 0.125 mg [facility] Last Admin: 07/02/18 09:44 Dose: 0.125 mg Enoxaparin Sodium (Lovenox) 40 mg SC 0900 [facility] Last Admin: 07/02/18 09:45 Dose: 40 mg Folic Acid (Folvite) 1 mg PO DAILY [facility] Last Admin: 07/02/18 09:43 Dose: 1 mg Lisinopril (Zestril) 10 mg PO BID [facility] Last Admin: 07/02/18 09:44 Dose: 10 mg Mometasone Furoate/Formoterol Fumar (Dulera 200 Mcg/5 Mcg Inhaler) 1 puff INH BID-RT [facility] Last Admin: 07/02/18 09:11 Dose: 1 puff Multivitamins (Theragran) 1 tab PO DAILY [facility] Last Admin: 07/02/18 09:44 Dose: 1 tab Prednisone (Prednisone) 20 mg PO QAM[facility] Last Admin: 07/02/18 09:43 Dose: 20 mg Sodium Chloride (Flush - Normal Saline) 10 ml IVF Q12HR [facility] Last Admin: 07/02/18 09:45 Dose: 10 ml Sodium Chloride (Flush - Normal Saline) 10 ml IVF PRN PRN PRN Reason: Saline Flush
[2018-07-02] MEDS: Carvedilol 6.25 MG TAB PO SCH (16:48)
[2018-07-03 05:49] LABS: Hemoglobin 13.4 g/dL (14.0-18.0); Platelet Count 113 thou/uL (130-400)
[2018-07-03 06:08] LABS: Anion Gap 15 mmol/L (10-20); BUN (Urea Nitrogen) 26 mg/dL (8.4-25.7); Calc. Creatinine Clearance 69 mL/min (70-130); Carbon Dioxide 30 mmol/L (23-31); Chloride 95 mmol/L (98-107); Estimated GFR-MDRD Greater than 90; Glucose 82 mg/dL (83-110); Potassium 4.5 mmol/L (3.5-5.1); Sodium 135 mmol/L (136-145)
[2018-07-03] MEDS: Mometasone/Formoterol 120 PUFF INHALER INH SCH ×2 (07:05→18:24)
[2018-07-03] MEDS: Enoxaparin Sodium 40 MG/0.4 ML SYRINGE SC SCH (07:33)
[2018-07-03] MEDS: Clopidogrel Bisulfate 75 MG TAB PO SCH (07:34)
[2018-07-03] MEDS: predniSONE 20 MG TAB PO SCH (08:16)
[2018-07-03] MEDS: Cefdinir 300 MG CAP PO SCH ×2 (08:16→20:58)
[2018-07-03] MEDS: Carvedilol 6.25 MG TAB PO SCH ×2 (08:16→16:49)
[2018-07-03] MEDS: Digoxin 0.125 MG TAB PO SCH (08:16)
[2018-07-03] MEDS: Atorvastatin Calcium 20 MG TAB PO SCH (08:16)
[2018-07-03] MEDS: Lisinopril 10 MG TAB PO SCH ×2 (08:16→20:57)
[2018-07-03] MEDS: Folic Acid 1 MG TAB PO SCH (08:16)
[2018-07-03] MEDS: Multivit, Therapeutic 1 TAB PO SCH (08:16)
[2018-07-03] MEDS: Cyanocobalamin (Vitamin B-12) 1,000 MCG TAB PO SCH (08:16)
[2018-07-03] MEDS ORDERED: Communication Order-Pharmacy FS SCH (10:15)
[2018-07-03] MEDS ORDERED: Heparin 10,000 UNITS/1 ML VIAL ONE (11:19)
[2018-07-03] MEDS ORDERED: Verapamil 5 MG/2 ML VIAL ONE (11:19)
[2018-07-03] MEDS ORDERED: Nitroglycerin 100MG/250ML BOT 0 ML ONE (11:19)
[2018-07-03] MEDS ORDERED: Midazolam HCl 2 mg/2 ml Vial ONE (11:57)
[2018-07-03] MEDS ORDERED: Fentanyl 100 MCG/2 ML VIAL ONE (11:57)
--- NOTE | 2018-07-03 12:21 | PDOC.PN ---
- Subjective Encounter Start Date: 07/03/18 Encounter Start Time: 08:45 Patient seen and examined for CHF. No new complaints. No overnight events - Objective Resuscitation Status - Order Detail: 06/29/18 07:37 Resuscitation Status Routine Resuscitation Status: FULL: Full Resuscitation MAR Reviewed: Yes Vital Signs & Weight: Vital Signs (12 hours) Temp Pulse Resp BP BP Pulse Ox 07/03/18 08:16 80 163/96 H 07/03/18 08:12 98.2 F 80 18 163/96 H 97 07/03/18 08:10 97 07/03/18 07:07 89 16 94 L 07/03/18 07:05 89 16 94 L 07/03/18 03:55 98.5 F 77 14 158/95 H 93 L 07/03/18 01:18 93 L Weight Admit Weight 122 lb 2.176 oz Weight 134 lb I&O: 07/02/18 07/03/18 07/04/18 06:59 06:59 06:59 Intake Total 1680 1100 Output Total 9155 212 Balance -395 -1022 Result Diagrams: 07/03/18 05:25 07/03/18 05:25 EKG Reviewed by me: Yes (Tele SR) Phys Exam - Physical Examination Constitutional: NAD Respiratory: no wheezing, no rhonchi Cardiovascular: RRR, no rub Gastrointestinal: soft, non-tender, positive bowel sounds Musculoskeletal: no edema Neurological: moves all 4 limbs Dx/Plan - Plan IMPRESSION: 1. Atrial fibrillation/flutter with rapid ventricular response - off Cardizem drip. 2. Hypokalemia/hypomagnesemia. replaced 3. Elevated troponins probably secondary to demand ischemia. 4. Folic acid deficiency. 5. COPD exacerbation. 6. Macrocytic anemia. 7. Coronary artery disease, on Plavix. 8. Chronic systolic heart failure. 9. Dyslipidemia. 10. Ongoing tobacco abuse. counselled. 11. Hyperlipidemia. 12. Thrombocytopenia. PLAN: NPO for ?Cath Cont current meds including Plavix/Coreg/ACEI Cont low dose steroids/Atbx AM labs Review of Systems - Review of Systems Cardiovascular: negative: chest pain, palpitations, orthopnea, paroxysmal nocturnal dyspnea, edema, light headedness, other Gastrointestinal: negative: Nausea, Vomiting, Abdominal Pain, Diarrhea, Constipation, Melena, Hematochezia, Other - Medications/Allergies Allergies/Adverse Reactions: Allergies Allergy/AdvReac Type Severity Reaction Status Date / Time No Known Allergies Allergy Verified 11/18/14 02:17 Medications: Current Medications Albuterol/Ipratropium (Duoneb) 3 ml NEB Q4H PRN PRN Reason: SOB &/or Wheezing Albuterol/Ipratropium (Duoneb) 3 ml NEB [id number] [facility] Last Admin: 07/03/18 07:07 Dose: 3 ml Atorvastatin Calcium (Lipitor) 20 mg PO DAILY [facility] Last Admin: 07/03/18 08:16 Dose: 20 mg Carvedilol (Coreg) 6.25 mg PO BID[facility] Last Admin: 07/03/18 08:16 Dose: 6.25 mg Cefdinir (Omnicef) 300 mg PO BID [facility] Last Admin: 07/03/18 08:16 Dose: 300 mg Clopidogrel Bisulfate (Plavix) 75 mg PO DAILY [facility] Last Admin: 07/03/18 07:34 Dose: Not Given Cyanocobalamin (Vitamin B-12) 1,000 mcg PO DAILY [facility] Last Admin: 07/03/18 08:16 Dose: 1,000 mcg Digoxin (Lanoxin) [facility] [place] Last Admin: 07/03/18 08:16 Dose: 0.125 mg Folic Acid (Folvite) 1 mg PO DAILY [facility] Last Admin: 07/03/18 08:16 Dose: 1 mg Lisinopril (Zestril) 10 mg PO BID [facility] Last Admin: 07/03/18 08:16 Dose: 10 mg Miscellaneous Information (Communication Order-Pharmacy) 0 each FS ONE [facility] Stop: 07/03/18 21:00 Mometasone Furoate/Formoterol Fumar (Dulera 200 Mcg/5 Mcg Inhaler) 1 puff INH BID-RT [facility] Last Admin: 07/03/18 07:05 Dose: 1 puff Multivitamins (Theragran) 1 tab PO DAILY [facility] Last Admin: 07/03/18 08:16 Dose: 1 tab Prednisone (Prednisone) 20 mg PO QAM-WM [facility] Last Admin: 07/03/18 08:16 Dose: 20 mg Sodium Chloride (Flush - Normal Saline) 10 ml IVF Q12HR [facility] Last Admin: 07/03/18 08:17 Dose: 10 ml Sodium Chloride (Flush - Normal Saline) 10 ml IVF PRN PRN PRN Reason: Saline Flush
[2018-07-03] MEDS ORDERED: traMADol HCl 50 MG TAB PO PRN (12:38)
[2018-07-03] MEDS ORDERED: Nitroglycerin 0.4 MG TAB (25 Tab Bottle) SL PRN (12:38)
[2018-07-03] MEDS ORDERED: Acetaminophen/Codeine 30-300mg Tablet PO PRN (12:38)
[2018-07-03] MEDS ORDERED: Sodium Chloride 0.9% 1,000 ML IV SCH (12:45)
[2018-07-03] MEDS ORDERED: Sodium Chloride 0.9% 200 ML IV SCH (12:45)
[2018-07-03] MEDS ORDERED: Iopamidol 370 76% 100 ML VIAL ONE (15:07)
--- NOTE | 2018-07-03 15:21 | PRG ---
DATE OF SERVICE: 07/03/2018 SUBJECTIVE: Mr. Krause seems to be doing well. He underwent left heart catheterization on the . Currently, denies PND or orthopnea. No lower extremity edema. No fever, chills, or cough. OBJECTIVE: VITAL SIGNS: Blood pressure is 155/91, heart rate 88, respiratory rate 16, temperature 98.6 degrees Fahrenheit. GENERAL: Alert and oriented man, in no apparent distress. NECK: Supple. Jugular veins are not distended. CHEST: Coarse without crackles. HEART: Sounds are regular rate and rhythm. No murmur or gallop. ABDOMEN: Benign. Bowel sounds positive. EXTREMITIES: Lower extremities, no edema, clubbing, or cyanosis. DATABASE: The telemetry strips reviewed revealing sinus rhythm, prior atrial tachycardia episodes resolved. LABORATORY DATA: , BUN is 26, creatinine 0.82. ASSESSMENT/PLAN: Mr. Krause is a 72-year-old man with a history of hypertension, tobacco and alcohol abuse, prior stenting, who presented with weakness. His EKG revealed some sinus/atrial tachycardia with occasional PAT runs as well. His ejection fraction was found to be weaker than prior. We did not see very long sustained atrial fibrillation episodes though. He underwent left heart catheterization as above demonstrating patent stent. He is managed conservatively. Currently on Coreg, still hypertensive. Heart rates are in better control. At this point, I would further titrate up his carvedilol medications. For now, hence lack of sustained atrial fibrillation, aspirin and Plavix should be sufficed for antithrombotic regimen. If his LVF does not improve in 1 month, he could benefit from an ICD implantation. Repeat echo will be requested at that time. Job ID: [id number]
[2018-07-03 17:52] LABS: Actual Bicarbonate (HCO3a) 28.2 mEq/L (22-28); Base Excess (BEa) 3.4 mEq/L (-2.0 to +3.0); CO2 Tension 43.1 mmHg (35.0-45.0); Calcium, Ionized 1.15 mmol/L (1.12-1.30); Carboxyhemoglobin (COHb) 0.8 gm% (0.0-3.0); Hemoglobin (Hb) 13.6 g/dL (14.0-18.0); O2 Tension (PaO2) 68.1 mmHg (> 70.0); Potassium - ABG Lab 3.96 mmol/L (3.70-5.30); pH, Arterial 7.43 (7.35-7.45)
[2018-07-03 17:53] LABS: ALV-art Gradient 27.755 (0-20); Puncture Site LRA
--- NOTE | 2018-07-03 22:41 | CON ---
DATE OF CONSULTATION: 07/03/2018 HISTORY OF PRESENT ILLNESS: Mr. Krause is a 72-year-old gentleman who is admitted with fatigue and shortness of breath. 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 He has had a previous cardiac catheterization and stenting of the circumflex artery. Since being here, his echocardiogram shows an ejection fraction of 30% to 35% percent. He underwent cardiac catheterization today that shows three vessel disease. Mr. Krause lives alone. 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 He can only see shapes. He is disheveled. He has extremely poor dentition. ADMISSION MEDICATIONS: He is taking multiple pulmonary medications includin. DuoNeb. 2. Albuterol. 3. Ventolin. 4. Atrovent. 5. Symbicort. 6. Prednisone. He is extremely short of breath when he walks. He has not had chest pain. PAST MEDICAL HISTORY: 1. COPD. 2. Coronary artery disease. 3. Dyslipidemia. 4. Hypertension. 5. Congestive heart failure. 6. Continued tobacco use. PAST SURGICAL HISTORY: 1. Hip replacement. 2. Cataract surgery. 3. Left index finger surgery to replant after table saw injury. SOCIAL HISTORY: He smokes a pack of cigarettes a day. He occasionally uses alcohol. He lives alone. MEDICATIONS: Noted. ALLERGIES: NONE. REVIEW OF SYSTEMS: Not performed currently. PHYSICAL EXAMINATION: GENERAL: This is a disheveled appearing elderly, cachectic gentleman resting comfortably in the telemetry unit. VITALS SIGNS: Temperature is 98.6, pulse is 93 and regular, blood pressure is 163/96. NECK: Supple. He has soft bilateral carotid bruits. CHEST: Diminished distant breath sounds bilaterally. HEART: Rhythm is regular-the patient has had bouts of atrial fibrillation while he has been here in the hospital. ABDOMEN: Scaphoid, soft and nontender. EXTREMITIES: There is no edema. VASCULAR: He has palpable carotid, radial, femoral pulses bilaterally. LABORATORY DATA: Of note, creatinine is 0.82, potassium is 4.5, hemoglobin is 13.4. ASSESSMENT AND PLAN: Mr. Krause is an unfortunate 72-year-old gentleman who continues to smoke in spite of having coronary stents, and severe chronic obstructive pulmonary disease. He underwent cardiac catheterization, while he was been in the hospital. This has shown severe three-vessel disease with an ejection fraction of 30% to 35%. I have reviewed his previous CT scan, which shows extensive bullous disease throughout both upper lung arteaga. I have ordered pulmonary function tests and an arterial blood gas. I am not sure that Mr. Krause is an appropriate operative candidate at this point in his life. I think that medical therapy may be his best option, but we will look at his pulmonary functions and discuss this further with him when the time comes in. Job ID: [id number]
[2018-07-04 06:43] LABS: Hemoglobin 12.1 g/dL (14.0-18.0); Platelet Count 118 thou/uL (130-400)
[2018-07-04 06:49] LABS: Anion Gap 14 mmol/L (10-20); BUN (Urea Nitrogen) 21 mg/dL (8.4-25.7); Calc. Creatinine Clearance 71 mL/min (70-130); Calcium 8.7 mg/dL (7.8-10.44); Carbon Dioxide 33 mmol/L (23-31); Chloride 96 mmol/L (98-107); Estimated GFR-MDRD Greater than 90; Glucose 93 mg/dL (83-110); Magnesium 1.7 mg/dL (1.6-2.6); Potassium 4.1 mmol/L (3.5-5.1); Sodium 139 mmol/L (136-145)
[2018-07-04] MEDS: Mometasone/Formoterol 120 PUFF INHALER INH SCH ×2 (08:09→18:49)
[2018-07-04] MEDS: Atorvastatin Calcium 20 MG TAB PO SCH (09:19)
[2018-07-04] MEDS: Carvedilol 6.25 MG TAB PO SCH ×2 (09:19→17:17)
[2018-07-04] MEDS: predniSONE 20 MG TAB PO SCH (09:19)
[2018-07-04] MEDS: Multivit, Therapeutic 1 TAB PO SCH (09:20)
[2018-07-04] MEDS: Folic Acid 1 MG TAB PO SCH (09:20)
[2018-07-04] MEDS: Clopidogrel Bisulfate 75 MG TAB PO SCH (09:20)
[2018-07-04] MEDS: Cyanocobalamin (Vitamin B-12) 1,000 MCG TAB PO SCH (09:20)
[2018-07-04] MEDS: Lisinopril 10 MG TAB PO SCH ×2 (09:20→21:42)
[2018-07-04] MEDS: Digoxin 0.125 MG TAB PO SCH (09:20)
[2018-07-04] MEDS: Cefdinir 300 MG CAP PO SCH ×2 (09:20→21:43)
--- NOTE | 2018-07-04 12:40 | PQF ---
CLINICAL DOCUMENTATION IMPROVEMENT CLARIFICATION FORM: ICD-10 Updated PLEASE DO AN ADDENDUM TO THE PROGRESS NOTE WITH ANY DOCUMENTATION UPDATES OR ADDITIONS AND CARRY THROUGH TO DC SUMMARY. THANK YOU. Date: 07/04/18 ATTN: DR. CHOW Please exercise your independent, professional judgment in responding to the clarification form. Clinical indicators are provided on the bottom of this form for your review Please check appropriate box(s): [ ] Protein Calorie Malnutrition: [ ] Mild [ ] Moderate [ ] Severe [ ] Other Malnutrition (please specify) __ [ ] Underweight without malnutrition [ ] Cachexia [ ] Other diagnosis [ ] Unable to determine In addition, please specify: Present on Admission (POA): [ ] Yes [ ] No [ ] Unable to determine CLINICAL INDICATORS - SIGNS / SYMPTOMS / LABS CONSULTATION REPORT: "CACHECTIC" BMI 15 DIETARY ASSESSMENT 06/30: "...POOR APPETITE..HE STATES HE STARTED DRINKING AND STOPPED EATING" "MUSCLE WASTING OBSERVED TO TEMPORALIS REGION AND CLAVICLE PROMINENT" "INADEQUATE ENERGY INTAKE X 6-12 MONTHS, 26% WEIGHT LOSS IN 6-12 MONTHS, MUSCLE WASTING OBSERVED" RISKS: ALCOHOL ABUSE TOBACCO ABUSE MULTIPLE COMORBIDITIES TREATMENT: DIETARY CONSULT RECOMMENDATIONS OF ENSURE ENLIVE SUPPLEMENTS, DAILY MVI, FOLIC ACID AND THIAMINE INCREASED NURSING ASSISTANCE / "BEDFAST" (PER NURSING ASSESSMENT 07/04) Moderate Malnutrition (in acute illness) Energy Intake: <75% of estimated energy requirement for > 7 days Weight Loss: 1-2%/1 week; 5%/ 1 month; 7.5%/3 months Other: mild body fat loss; mild muscle mass loss; mild fluid accumulation; Severe Malnutrition (in acute illness) Energy Intake: < 50% of estimated energy requirement for > 5 days Weight Loss: >1-2%/1 week; >5%/1 month; >7.5%/3 months Other: moderate body fat loss; moderate muscle mass loss; moderate- severe fluid accumulation; 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 donor 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 strength Moderate Malnutrition (in chronic illness) Energy Intake: <75% of estimated energy requirement for >1 month Weight Loss: 5%/1 month; 7.5%/3 months; 10%/6 months; 20%/1 year Other: mild body fat loss; mild muscle mass loss; mild fluid accumulation Severe Malnutrition (in chronic illness) Energy Intake: <75% of estimated energy requirement for >1 month Weight Loss: >5%/1 month; >7.5%/3 months; >10%/6 months; >20%/1 year Other: severe body fat loss; severe muscle mass loss; severe fluid accumulation ; 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 donor 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 strength (This form is maintained as a part of the permanent medical record) 2014 [employer]. All Rights Reserved SHELLEY [email or web address] Office: [phone] [facility]
--- NOTE | 2018-07-04 15:49 | PDOC.CTH ---
Cardiology Progress Note - Subjective EP PROGRESS NOTE: 07/04/18 Seen as follow up for MAP and medical management. Also, newly diagnosed cardiomyopathy No new cardiac concerns or complaints. HR well controlled. - Objective Vital Signs Temp Pulse Resp BP BP Pulse Ox 07/04/18 13:48 100 16 07/04/18 13:04 108/71 07/04/18 11:51 98.8 F 86 18 92/64 98 07/04/18 09:20 87 156/97 H 07/04/18 09:19 156/97 H 07/04/18 08:20 100 07/04/18 08:15 97.6 F 87 18 158/97 H 100 07/04/18 08:09 86 18 07/04/18 03:46 97.9 F 79 20 161/95 H 94 L Admit Weight 122 lb 2.176 oz Weight 126 lb 12.8 oz 07/03/18 07/04/18 07/05/18 06:59 06:59 06:59 Intake Total 1100 1020 Output Total 2125 2305 575 Balance -1025 -1285 -575 - Physical Examination General/Neuro: alert & oriented x3, NAD Neck: carotid US brisk, no JVD present Lungs: CTA, unlabored respirations Heart: PMI normal, RRR Abdomen: NT/ND, soft - Telemetry Telemetry Rhythm: SR - Labs Result Diagrams: 07/04/18 05:40 07/04/18 05:40 Troponin/CKMB CK-MB (CK-2) 3.3 ng/mL (0-6.6) 06/28/18 21:24 Troponin I 0.088 ng/mL (< 0.028) H 06/29/18 03:22 - Assessment/Plan 1. MAT with PAT - mostly quieted down maintaining SR 2. Cardiomyopathy - newly diagnosed. Recheck EF in 1 month to assess need for ICD if remains < 35% 3. Alcohol abuse 4. Tobacco abuse Continue rate control strategy for now and dual antiplatelet therapy. No true atrial fibrillation seen so no need for OAC. Signing off. If further EP input is desired do not hesitate to contact me.
--- NOTE | 2018-07-04 17:12 | PDOC.PN ---
- Subjective Encounter Start Date: 07/04/18 Encounter Start Time: 11:30 Patient seen and examined for CHF. No new complaints. No overnight events - Objective Resuscitation Status - Order Detail: 06/29/18 07:37 Resuscitation Status Routine Resuscitation Status: FULL: Full Resuscitation MAR Reviewed: Yes Vital Signs & Weight: Vital Signs (12 hours) Temp Pulse Resp BP BP Pulse Ox 07/04/18 13:48 100 16 07/04/18 13:04 108/71 07/04/18 11:51 98.8 F 86 18 92/64 98 07/04/18 09:20 87 156/97 H 07/04/18 09:19 156/97 H 07/04/18 08:20 100 07/04/18 08:15 97.6 F 87 18 158/97 H 100 07/04/18 08:09 86 18 Weight Admit Weight 122 lb 2.176 oz Weight 126 lb 12.8 oz I&O: 07/03/18 07/04/18 07/05/18 06:59 06:59 06:59 Intake Total 1100 1020 Output Total 2127 9145 575 Balance -1025 -1285 -575 Result Diagrams: 07/04/18 05:40 07/04/18 05:40 EKG Reviewed by me: Yes (Tele SR) Phys Exam - Physical Examination Constitutional: NAD Respiratory: no wheezing, no rhonchi Cardiovascular: RRR, no rub Gastrointestinal: soft, non-tender, positive bowel sounds Musculoskeletal: no edema Neurological: moves all 4 limbs Dx/Plan - Plan DVT proph w/SCDs IMPRESSION: 1. Atrial fibrillation/flutter with rapid ventricular response - off Cardizem drip. 2. Hypokalemia/hypomagnesemia. replaced 3. Elevated troponins probably secondary to demand ischemia. 4. Folic acid deficiency. 5. COPD exacerbation. 6. Macrocytic anemia. 7. Coronary artery disease. 8. Chronic systolic heart failure. ACC stage C. 9. Dyslipidemia. 10. Ongoing tobacco abuse. counselled. 11. Hyperlipidemia. 12. Thrombocytopenia. 13. Severe protein calorie malnutrition. PLAN: Cont current meds including Plavix/Coreg/ACEI Cont low dose steroids/Atbx AM labs CV/Cardio following Review of Systems - Review of Systems Cardiovascular: negative: chest pain, palpitations, orthopnea, paroxysmal nocturnal dyspnea, edema, light headedness, other Gastrointestinal: negative: Nausea, Vomiting, Abdominal Pain, Diarrhea, Constipation, Melena, Hematochezia, Other - Medications/Allergies Allergies/Adverse Reactions: Allergies Allergy/AdvReac Type Severity Reaction Status Date / Time No Known Allergies Allergy Verified 11/18/14 02:17 Medications: Current Medications Acetaminophen/Codeine Phosphate (Tylenol #3) 1 tab PO Q4H PRN PRN Reason: Mild Pain (1-3) Albuterol/Ipratropium (Duoneb) 3 ml NEB Q4H PRN PRN Reason: SOB &/or Wheezing Albuterol/Ipratropium (Duoneb) 3 ml NEB [id number] [facility] Last Admin: 07/04/18 13:48 Dose: 3 ml Aspirin (Ecotrin) 81 mg PO DAILY [facility] Atorvastatin Calcium (Lipitor) 20 mg PO DAILY [facility] Last Admin: 07/04/18 09:19 Dose: 20 mg Carvedilol (Coreg) 6.25 mg PO BID-[facility] Last Admin: 07/04/18 09:19 Dose: 6.25 mg Cefdinir (Omnicef) 300 mg PO BID [facility] Last Admin: 07/04/18 09:20 Dose: 300 mg Clopidogrel Bisulfate (Plavix) 75 mg PO DAILY [facility] Last Admin: 07/04/18 09:20 Dose: 75 mg Cyanocobalamin (Vitamin B-12) 1,000 mcg PO DAILY [facility] Last Admin: 07/04/18 09:20 Dose: 1,000 mcg Digoxin (Lanoxin) 0.125 mg PO QAM [facility] Last Admin: 07/04/18 09:20 Dose: 0.125 mg Folic Acid (Folvite) 1 mg PO DAILY [facility] Last Admin: 07/04/18 09:20 Dose: 1 mg Lisinopril (Zestril) 10 mg PO BID [facility] Last Admin: 07/04/18 09:20 Dose: 10 mg Mometasone Furoate/Formoterol Fumar (Dulera 200 Mcg/5 Mcg Inhaler) 1 puff INH BID-RT [facility] Last Admin: 07/04/18 08:09 Dose: 1 puff Multivitamins (Theragran) 1 tab PO DAILY [facility] Last Admin: 07/04/18 09:20 Dose: 1 tab Nitroglycerin (Nitrostat) 0.4 mg SL Q5MIN PRN PRN Reason: Chest Pain Prednisone (Prednisone) 20 mg PO QAM-WM [facility] Last Admin: 07/04/18 09:19 Dose: 20 mg Sodium Chloride (Flush - Normal Saline) 10 ml IVF Q12HR [facility] Last Admin: 07/04/18 09:20 Dose: 10 ml Sodium Chloride (Flush - Normal Saline) 10 ml IVF PRN PRN PRN Reason: Saline Flush Tramadol HCl (Ultram) 50 mg PO Q6H PRN PRN Reason: Moderate Pain (4-6)
--- NOTE | 2018-07-04 17:57 | PDOC.CTH ---
Cardiology Progress Note - Subjective He is doing well. Denies any chest pain, tightness, pressure. Evaluated by CT surgery yesterday. - Objective Vital Signs Temp Pulse Resp BP BP Pulse Ox 07/04/18 17:17 156/97 H 07/04/18 16:10 99 F 94 18 124/89 100 07/04/18 13:48 100 16 07/04/18 13:04 108/71 07/04/18 11:51 98.8 F 86 18 92/64 98 07/04/18 09:20 87 156/97 H 07/04/18 09:19 156/97 H 07/04/18 08:20 100 07/04/18 08:15 97.6 F 87 18 158/97 H 100 07/04/18 08:09 86 18 Admit Weight 122 lb 2.176 oz Weight 126 lb 12.8 oz 07/03/18 07/04/18 07/05/18 06:59 06:59 06:59 Intake Total 1100 1020 Output Total 2125 2305 575 Balance -1025 -1285 -575 - Physical Examination General/Neuro: alert & oriented x3, NAD Neck: no JVD present Lungs: unlabored respirations Heart: RRR Abdomen: NT/ND Extremities: other: (no edema.) - Telemetry Telemetry Rhythm: NSR - Labs Result Diagrams: 07/04/18 05:40 07/04/18 05:40 Troponin/CKMB CK-MB (CK-2) 3.3 ng/mL (0-6.6) 06/28/18 21:24 Troponin I 0.088 ng/mL (< 0.028) H 06/29/18 03:22 - Assessment/Plan 1. Multivessel CAD. 2. COPD 3. Worsening systolic heart failure EF at 30-35% 4. Blind 5. Atrial tach/MAT PLAN: - Continue medical therpay for now. - Being evaluated to see if he is a candidate for surgery. - If surgery not an option best course would be medical therapy given complex disease. - Continue ASA/Statin/BB/ACEI
[2018-07-05 05:46] LABS: Hemoglobin 11.4 g/dL (14.0-18.0); Platelet Count 141 thou/uL (130-400)
[2018-07-05 06:04] LABS: Anion Gap 12 mmol/L (10-20); BUN (Urea Nitrogen) 22 mg/dL (8.4-25.7); Calc. Creatinine Clearance 71 mL/min (70-130); Calcium 8.6 mg/dL (7.8-10.44); Carbon Dioxide 33 mmol/L (23-31); Chloride 98 mmol/L (98-107); Estimated GFR-MDRD Greater than 90; Glucose 94 mg/dL (83-110); Magnesium 1.8 mg/dL (1.6-2.6); Sodium 139 mmol/L (136-145)
[2018-07-05] MEDS: Mometasone/Formoterol 120 PUFF INHALER INH SCH ×2 (06:52→19:12)
[2018-07-05] MEDS: Lisinopril 10 MG TAB PO SCH ×2 (09:31→22:01)
[2018-07-05] MEDS: Aspirin 81 mg Enteric Coated Tablet PO SCH (09:31)
[2018-07-05] MEDS: Multivit, Therapeutic 1 TAB PO SCH (09:31)
[2018-07-05] MEDS: predniSONE 20 MG TAB PO SCH (09:31)
[2018-07-05] MEDS: Clopidogrel Bisulfate 75 MG TAB PO SCH (09:31)
[2018-07-05] MEDS: Carvedilol 6.25 MG TAB PO SCH ×2 (09:31→18:11)
[2018-07-05] MEDS: Cefdinir 300 MG CAP PO SCH ×2 (09:31→22:01)
[2018-07-05] MEDS: Cyanocobalamin (Vitamin B-12) 1,000 MCG TAB PO SCH (09:31)
[2018-07-05] MEDS: Folic Acid 1 MG TAB PO SCH (09:31)
[2018-07-05] MEDS: Atorvastatin Calcium 20 MG TAB PO SCH (10:17)
[2018-07-05 13:34] VITALS: BMI 15.2
--- NOTE | 2018-07-05 18:03 | PDOC.CTH ---
Cardiology Progress Note - Subjective No new issues. No chest pain. - Objective Vital Signs Temp Pulse Resp BP BP Pulse Ox 07/05/18 15:35 98 F 94 18 139/83 94 L 07/05/18 13:25 91 16 100 07/05/18 12:35 98.1 F 90 16 106/59 L 96 07/05/18 09:31 156/97 H 07/05/18 07:20 98.9 F 80 18 166/91 H 96 07/05/18 06:53 95 18 92 L 07/05/18 06:52 98 18 92 L Admit Weight 122 lb 2.176 oz Weight 128 lb 6.4 oz 07/04/18 07/05/18 07/06/18 06:59 06:59 06:59 Intake Total 1020 1020 Output Total 2305 1875 Balance -1285 -855 - Physical Examination General/Neuro: alert & oriented x3, NAD Neck: no JVD present Lungs: CTA, unlabored respirations Heart: RRR Abdomen: NT/ND Extremities: other: (no edema) - Telemetry Telemetry Rhythm: NSR - Labs Result Diagrams: 07/05/18 05:22 07/05/18 05:22 Troponin/CKMB CK-MB (CK-2) 3.3 ng/mL (0-6.6) 06/28/18 21:24 Troponin I 0.088 ng/mL (< 0.028) H 06/29/18 03:22 - Assessment/Plan 1. Multivessel CAD. 2. COPD 3. Worsening systolic heart failure EF at 30-35% 4. Blind 5. Atrial tach/MAT PLAN: - Continue medical therpay. - Not a candidate for surgery. - Medical therapy given complex disease. - Continue ASA/Statin/BB/ACEI - We discussed lifevest however he is not a good candidate given he lives alone and is blind. - May discharge home nay time from cardiac perspective. - Follow up in the office in 1 month.
--- NOTE | 2018-07-05 21:45 | PDOC.PN ---
- Subjective Encounter Start Date: 07/05/18 Encounter Start Time: 10:00 Patient seen and examined for Atrial tachycardia/new onset cardiomyopathy. No new complaints. No overnight events - Objective Resuscitation Status - Order Detail: 06/29/18 07:37 Resuscitation Status Routine Resuscitation Status: FULL: Full Resuscitation MAR Reviewed: Yes Vital Signs & Weight: Vital Signs (12 hours) Temp Pulse Resp BP Pulse Ox 07/05/18 19:10 89 18 93 L 07/05/18 15:35 98 F 94 18 139/83 94 L 07/05/18 13:25 91 16 100 07/05/18 12:35 98.1 F 90 16 106/59 L 96 Weight Admit Weight 122 lb 2.176 oz Weight 128 lb 6.4 oz I&O: 07/04/18 07/05/18 07/06/18 06:59 06:59 06:59 Intake Total 1020 1020 800 Output Total 2305 1875 1200 Balance -1285 -855 -400 Result Diagrams: 07/06/18 05:23 07/06/18 05:23 EKG Reviewed by me: Yes (Tele SR) Phys Exam - Physical Examination Constitutional: NAD Respiratory: no wheezing, no rhonchi Cardiovascular: RRR, no rub Gastrointestinal: soft, non-tender, positive bowel sounds Musculoskeletal: no edema Dx/Plan - Plan DVT proph w/SCDs IMPRESSION: 1. Atrial fibrillation/flutter with rapid ventricular response - off Cardizem drip. 2. Hypokalemia/hypomagnesemia. replaced 3. Elevated troponins probably secondary to demand ischemia. 4. Folic acid deficiency. 5. COPD exacerbation. 6. Macrocytic anemia. 7. Coronary artery disease. 8. Chronic systolic heart failure. ACC stage C. 9. Dyslipidemia. 10. Ongoing tobacco abuse. counselled. 11. Hyperlipidemia. 12. Thrombocytopenia. 13. Severe protein calorie malnutrition. PLAN: Being evaluated for CABG Cont ASA/Plavix/Coreg/ACEI Cont low dose steroids/Atbx CV/Cardio/EP following PFTs done [facility] eval Review of Systems - Review of Systems Respiratory: negative: Cough, Dry, Shortness of Breath, Hemoptysis, SOB with Excertion, Pleuritic Pain, Sputum, Wheezing Cardiovascular: negative: chest pain, palpitations, orthopnea, paroxysmal nocturnal dyspnea, edema, light headedness, other - Medications/Allergies Allergies/Adverse Reactions: Allergies Allergy/AdvReac Type Severity Reaction Status Date / Time No Known Allergies Allergy Verified 11/18/14 02:17 Medications: Current Medications Acetaminophen/Codeine Phosphate (Tylenol #3) 1 tab PO Q4H PRN PRN Reason: Mild Pain (1-3) Albuterol/Ipratropium (Duoneb) 3 ml NEB Q4H PRN PRN Reason: SOB &/or Wheezing Albuterol/Ipratropium (Duoneb) 3 ml NEB [id number] [facility] Last Admin: 07/05/18 19:10 Dose: 3 ml Aspirin (Ecotrin) 81 mg PO DAILY [facility] Last Admin: 07/05/18 09:31 Dose: 81 mg Atorvastatin Calcium (Lipitor) 20 mg PO DAILY [facility] Last Admin: 07/05/18 10:17 Dose: 20 mg Carvedilol (Coreg) 6.25 mg PO BID[facility] Last Admin: 07/05/18 18:11 Dose: 6.25 mg Cefdinir (Omnicef) 300 mg PO BID [facility] Last Admin: 07/05/18 09:31 Dose: 300 mg Clopidogrel Bisulfate (Plavix) 75 mg PO DAILY [facility] Last Admin: 07/05/18 09:31 Dose: 75 mg Cyanocobalamin (Vitamin B-12) 1,000 mcg PO DAILY [facility] Last Admin: 07/05/18 09:31 Dose: 1,000 mcg Folic Acid (Folvite) 1 mg PO DAILY [facility] Last Admin: 07/05/18 09:31 Dose: 1 mg Lisinopril (Zestril) 10 mg PO BID [facility] Last Admin: 07/05/18 09:31 Dose: 10 mg Mometasone Furoate/Formoterol Fumar (Dulera 200 Mcg/5 Mcg Inhaler) 1 puff INH BID-RT [facility] Last Admin: 07/05/18 19:12 Dose: 1 puff Multivitamins (Theragran) 1 tab PO DAILY [facility] Last Admin: 07/05/18 09:31 Dose: 1 tab Nitroglycerin (Nitrostat) 0.4 mg SL Q5MIN PRN PRN Reason: Chest Pain Prednisone (Prednisone) 20 mg PO QAM-WM [facility] Last Admin: 07/05/18 09:31 Dose: 20 mg Sodium Chloride (Flush - Normal Saline) 10 ml IVF Q12HR [facility] Last Admin: 07/05/18 09:31 Dose: 10 ml Sodium Chloride (Flush - Normal Saline) 10 ml IVF PRN PRN PRN Reason: Saline Flush Tramadol HCl (Ultram) 50 mg PO Q6H PRN PRN Reason: Moderate Pain (4-6)
[2018-07-06 06:04] LABS: Platelet Count 186 thou/uL (130-400)
[2018-07-06 06:34] LABS: Anion Gap 14 mmol/L (10-20); BUN (Urea Nitrogen) 20 mg/dL (8.4-25.7); Calc. Creatinine Clearance 77 mL/min (70-130); Calcium 8.6 mg/dL (7.8-10.44); Carbon Dioxide 28 mmol/L (23-31); Chloride 101 mmol/L (98-107); Estimated GFR-MDRD Greater than 90; Glucose 95 mg/dL (83-110); Potassium 3.9 mmol/L (3.5-5.1); Sodium 139 mmol/L (136-145)
[2018-07-06] MEDS: Mometasone/Formoterol 120 PUFF INHALER INH SCH (06:34)
--- NOTE | 2018-07-06 08:27 | PDOC.CTH ---
Cardiology Progress Note - Subjective Doing well. No chest pain. - Objective Vital Signs Temp Pulse Resp BP BP Pulse Ox 07/06/18 07:58 98.2 F 87 17 154/87 H 94 L 07/06/18 07:23 97.9 F 86 20 122/63 96 07/06/18 06:36 83 18 93 L 07/06/18 06:34 83 16 93 L 07/05/18 23:45 94 16 93 L 07/05/18 22:01 115/68 Admit Weight 122 lb 2.176 oz Weight 129 lb 07/05/18 07/06/18 07/07/18 06:59 06:59 06:59 Intake Total 1020 800 Output Total 1875 1200 Balance -855 -400 - Physical Examination General/Neuro: alert & oriented x3, NAD Neck: no JVD present Lungs: unlabored respirations Heart: RRR Abdomen: NT/ND Extremities: other: (no edema) - Telemetry Telemetry Rhythm: NSR - Labs Result Diagrams: 07/06/18 05:23 07/06/18 05:23 Troponin/CKMB CK-MB (CK-2) 3.3 ng/mL (0-6.6) 06/28/18 21:24 Troponin I 0.088 ng/mL (< 0.028) H 06/29/18 03:22 - Assessment/Plan 1. Multivessel CAD. 2. COPD 3. Worsening systolic heart failure EF at 30-35% 4. Blind 5. Atrial tach/MAT PLAN: - Continue medical therapy. - Not a candidate for surgery. - Continue ASA/Statin/BB/ACEI - May discharge home today from cardiac perspective. - Follow up in the office in 1 month.
[2018-07-06] MEDS: Cyanocobalamin (Vitamin B-12) 1,000 MCG TAB PO SCH (09:18)
[2018-07-06] MEDS: Lisinopril 10 MG TAB PO SCH (09:18)
[2018-07-06] MEDS: Carvedilol 6.25 MG TAB PO SCH ×2 (09:18→16:17)
[2018-07-06] MEDS: predniSONE 20 MG TAB PO SCH (09:18)
[2018-07-06] MEDS: Cefdinir 300 MG CAP PO SCH (09:19)
[2018-07-06] MEDS: Multivit, Therapeutic 1 TAB PO SCH (09:19)
[2018-07-06] MEDS: Aspirin 81 mg Enteric Coated Tablet PO SCH (09:19)
[2018-07-06] MEDS: Folic Acid 1 MG TAB PO SCH (09:19)
[2018-07-06] MEDS: Clopidogrel Bisulfate 75 MG TAB PO SCH (09:19)
[2018-07-06] MEDS: Atorvastatin Calcium 20 MG TAB PO SCH (10:23)
[2018-07-06 17:00] VITALS: BP 162/94; TEMP 97.9
== END 2018-07-06 17:01 | disposition home or self-care (01) | DRG 286 ==
LOC: ERS 20:53 → ERHOLD 22:40 → 2NO 06-30 05:12
PROVIDERS: ADMIT Hospitalist; ATTEND Hospitalist
PROC: B2111ZZ Fluoroscopy of Multiple Coronary Arteries using Low Osmolar Contrast (ICD-10-PCS; principal; 2018-07-03)
PROC: B2151ZZ Fluoroscopy of Left Heart using Low Osmolar Contrast (ICD-10-PCS; 2018-07-03)
DX: I48.0 Paroxysmal atrial fibrillation (principal); E43 Unspecified severe protein-calorie malnutrition; J44.1 Chronic obstructive pulmonary disease with (acute) exacerbation; I50.22 Chronic systolic (congestive) heart failure; I24.8 Other forms of acute ischemic heart disease; Z68.1 Body mass index [BMI] 19.9 or less, adult; I47.1 Supraventricular tachycardia; E87.6 Hypokalemia; E83.42 Hypomagnesemia; I25.10 Atherosclerotic heart disease of native coronary artery without angina pectoris; Z23 Encounter for immunization; E78.5 Hyperlipidemia, unspecified; I11.0 Hypertensive heart disease with heart failure; F17.210 Nicotine dependence, cigarettes, uncomplicated; F10.10 Alcohol abuse, uncomplicated; I48.92 Unspecified atrial flutter; E53.8 Deficiency of other specified B group vitamins; D53.9 Nutritional anemia, unspecified; Z79.02 Long term (current) use of antithrombotics/antiplatelets; Z95.5 Presence of coronary angioplasty implant and graft; H54.8 Legal blindness, as defined in USA; I25.5 Ischemic cardiomyopathy; D69.6 Thrombocytopenia, unspecified
CPT/HCPCS: 36415; 71045; 80048; 80053; 82553; 82607; 82746; 82805; 83735; 84443; 84484; 85007; 85014; 85018; 85025; 85027; 85049; 90471; 90662; 90670; 93005; 93454; 94640; 94664; 96361; 96365; 96366; 96368; 96372; 96375; 96376; 99152; 99153; C1769; G0008; G0009; J0360; J1160; J1644; J1650; J1956; J2250; J2920; J3010; J7050; J7506; J7620

== ENCOUNTER 2018-07-24 00:37 | Inpatient (IN) | payer MEDICARE, MEDICAID ==
[2018-07-24 01:30] LABS: #Basophils 0.1 thou/uL (0.0-0.2); #Eosinphils 0.1 thou/uL (0.0-0.7); #Lymphocytes 1.3 thou/uL (1.20-3.40); #Monocytes 0.5 thou/uL (0.11-0.59); %Basophils 0.8 % (0.0-1.0); %Eosinophils 1.2 % (0.0-10.0); %Lymphocytes 18.2 % (21.0-51.0); %Monocytes 7.3 % (0.0-10.0); %Neutrophils 72.6 % (42.0-75.0); Hemoglobin 12.6 g/dL (14.0-18.0); Mean Corpuscular HGB CONC 33.5 g/dL (32.0-36.0); Mean Corpuscular Hemoglobin 34.9 pg (27.0-31.0); Mean Platelet Volume 8.5 fL (7.4-10.4); Platelet Count 178 thou/uL (130-400); RBC Distribution Width 14.6 % (11.5-14.5); White Blood Cell (WBC) Count 6.9 thou/uL (4.8-10.8)
[2018-07-24] MEDS ORDERED: hydrALAZINE 20 MG/ML VIAL ONE (01:42)
[2018-07-24] MEDS ORDERED: Nicotine 14 MG PATCH ONE (01:42)
[2018-07-24 01:54] LABS: ALT (SGPT) 9 U/L (8-55); AST (SGOT) 18 U/L (5-34); Albumin 3.6 g/dL (3.4-4.8); Alkaline Phosphatase 91 U/L (40-150); Anion Gap 17 mmol/L (10-20); BUN (Urea Nitrogen) 16 mg/dL (8.4-25.7); Bilirubin, Total 0.6 mg/dL (0.2-1.2); Calc. Creatinine Clearance 0 mL/min (70-130); Calcium 8.4 mg/dL (7.8-10.44); Carbon Dioxide 25 mmol/L (23-31); Chloride 103 mmol/L (98-107); Estimated GFR-MDRD Greater than 90; Globulin 2.6 g/dL (2.4-3.5); Glucose 95 mg/dL (83-110); Potassium 3.1 mmol/L (3.5-5.1); Protein, Total 6.2 g/dL (5.8-8.1); Sodium 142 mmol/L (136-145)
[2018-07-24 02:15] LABS: CKMB 3.4 ng/mL (0-6.6)
[2018-07-24 02:54] LABS: Actual Bicarbonate (HCO3a) 22.4 mEq/L (22-28); Analyzer IN Cardio ER; Calcium, Ionized 1.07 mmol/L (1.12-1.30); Carboxyhemoglobin (COHb) 1.7 gm% (0.0-3.0); Hemoglobin (Hb) 13.7 g/dL (14.0-18.0); O2 Tension (PaO2) 71.9 mmHg (> 70.0); Potassium - ABG Lab 3.26 mmol/L (3.70-5.30)
[2018-07-24 02:55] LABS: pH, Arterial 7.58 (7.35-7.45)
[2018-07-24 02:56] LABS: CO2 Tension 24.6 mmHg (35.0-45.0); Puncture Site RRA
[2018-07-24] MEDS ORDERED: Ipratropium Bromide 2.5 ml Neb NEB PRN (02:59)
[2018-07-24] MEDS ORDERED: Acetaminophen 325 MG TAB PO PRN (03:01)
[2018-07-24] MEDS ORDERED: Potassium Chloride 20 MEQ in Premix Bag 1 BAG IVPB SCH (03:15)
--- NOTE | 2018-07-24 04:16 | HP ---
CHIEF COMPLAINT: Shortness of breath. HISTORY OF PRESENT ILLNESS: He is a 72-year-old man with history of COPD, hypertension, CAD, status post stent, came in the ER with shortness of breath, half an hour prior to EMS arrival. In the ER, he was hypoxic, blood pressure running high, pulse 95, blood pressure 177/118. In the ER, he was given nebulizer treatment and chest x-ray did not show any filtrate, continued to wheeze, admitted for COPD exacerbation. On further questioning, he has been short of breath for the last few days and has been smoking constantly. Also admitted weight loss, 15 pounds, in last 3 months. PAST MEDICAL HISTORY: He has history of COPD, hypertension, CAD, status post stent. PAST SURGICAL HISTORY: He has a cardiac stent in 2015, hip replacement. PSYCHIATRIC HISTORY: No previous psychiatry history. SOCIAL HISTORY: He drinks everyday, more than 5 drinks per day alcohol history , no drug use, but does smoke 1 pack a day. MEDICATIONS: The current medication he is taking at home: 1. Prednisone 20 mg in the morning. 2. Inhalers, Ventolin. 3. Lisinopril 10 mg b.i.d. 4. Plavix 7.5 mg daily. 5. Coreg 6.25 b.i.d. 6. Symbicort inhaler 1 puff b.i.d. 7. Aspirin. 8. Atorvastatin 20 mg daily. FAMILY HISTORY: Noncontributory. REVIEW OF SYSTEMS: CONSTITUTIONAL: No fever, no chills, no malaise. He does have weight loss, 15 pounds in 6 months. ENT: No ear, throat, nose problem. No rhinorrhea. EYES: No blurry vision, no any burning sensation. No discharge. CARDIOVASCULAR: No chest pain, no palpitations. RESPIRATORY: He has some cough, shortness of breath with wheezing. GASTROINTESTINAL: No nausea, no vomiting, no murmur. No hematemesis, no melena. MUSCULOSKELETAL: Negative for any knee pain. SKIN: No rash. Neurologic: He is alert and oriented x3. No focal deficits. REVIEW OF SYSTEMS: Negative except in the history and physical. PHYSICAL EXAMINATION: GENERAL: He is an elderly male lying in the bed, mild distress because of short of breath, on oxygen 2 liter by nasal cannula, pulse 85, blood pressure 180/100, respiratory rate 30 and temperature 98.4. He is a thin-build man, in mild respiratory distress, cachetic. Ptle-in-ozrhbszn wasting. HEENT: Head is atraumatic, normocephalic. Pupils are round and reactive. Extraocular movements are intact. Ear, nose, and throat normal. Tongue, mucosa moist. NECK: Supple. No JVD. No thyromegaly. CHEST: Diminished breath sounds and diffused expiratory wheezing noted. No rhonchi. No crackles. CVS: S1, S2 audible. 2/6 systolic murmur at the left sternal border. No S3 or S4. No murmur. ABDOMEN: Soft, bowel sounds are audible. No organomegaly. EXTREMITIES: No pedal edema. No cyanosis or clubbing. LABORATORY DATA: Sodium 142, potassium 3.1, chloride 103, carbon dioxide 25, anion gap 17, BUN 16, creatinine 0.7, calcium 8.4, total bilirubin 0.6, AST 18, ALT 9, troponin 0.040. Serum troponin 6.2, albumin is 3.6, globulin is 2.6, WBC 6.9, hemoglobin 12.6, hematocrit 37.6, MCV 104.0, platelet count 178. IMAGING: Chest x-ray shows no infiltrate. ASSESSMENT: 1. Acute Respiratory failure with Hypoxia /Hypercarbia sec to Chronic obstructive pulmonary disease exacerbation. 2. Hypokalemia. 3. History of coronary artery disease, status post stent. 4. Hypertension, uncontrolled. 5. Hypertensive urgency. PLAN: 1. Acute Respiratory failure with Hypoxia and Hypercarbia continue nebulizer, oxygen, IV steroids, IV Rocephin, Zithromax empirically. 2. Hypertensive urgency, continue his home medication and IV hydralazine p.r.n. 3. Hypokalemia, we will replace IV potassium. 4. CAD, status post stent, continue aspirin and Plavix. 5. Deep venous thrombosis, Lovenox. 6. Full code. 7. Weight loss, we got a CT chest to rule out underlying malignancy. 8. Tobacco abuse disorder, continue nicotine patch 14 mg q. daily. Job ID: [id number] [facility]
[2018-07-24] MEDS ORDERED: cefTRIAXone\\ROCEPHIN 1 GM VIAL ONE (04:19)
[2018-07-24] MEDS ORDERED: Azithromycin 500 MG VIAL ONE (05:33)
[2018-07-24] MEDS ORDERED: methylPREDNISolone Sod Succ 40 MG VIAL ONE (06:08)
[2018-07-24] MEDS ORDERED: Arformoterol 15 MCG/2 ML NEB NEB SCH (06:30)
[2018-07-24] MEDS: Albuterol Sulfate 2.5 mg/3 ml Neb NEB PRN (07:25)
[2018-07-24 07:34] LABS: #Lymphocytes 0.5 thou/uL (1.20-3.40); #Monocytes 0.1 thou/uL (0.11-0.59); %Basophils 0.8 % (0.0-1.0); %Eosinophils 0.1 % (0.0-10.0); %Lymphocytes 8.9 % (21.0-51.0); %Monocytes 1.8 % (0.0-10.0); %Neutrophils 88.4 % (42.0-75.0); Hemoglobin 13.2 g/dL (14.0-18.0); Mean Corpuscular HGB CONC 32.4 g/dL (32.0-36.0); Mean Corpuscular Hemoglobin 34.1 pg (27.0-31.0); Mean Platelet Volume 8.9 fL (7.4-10.4); Platelet Count 186 thou/uL (130-400); RBC Distribution Width 14.7 % (11.5-14.5); Red Blood Cell (RBC) Count 3.87 mill/uL (4.70-6.10); White Blood Cell (WBC) Count 5.6 thou/uL (4.8-10.8)
[2018-07-24 07:45] LABS: Anion Gap 22 mmol/L (10-20); BUN (Urea Nitrogen) 19 mg/dL (8.4-25.7); Calc. Creatinine Clearance 0 mL/min (70-130); Calcium 8.8 mg/dL (7.8-10.44); Carbon Dioxide 23 mmol/L (23-31); Chloride 103 mmol/L (98-107); Estimated GFR-MDRD Greater than 90; Glucose 139 mg/dL (83-110); Potassium 3.9 mmol/L (3.5-5.1); Sodium 144 mmol/L (136-145)
--- NOTE | 2018-07-24 08:10 | RAD ---
SINGLE VIEW OF THE CHEST: COMPARISON: 08/18/2017. HISTORY: Difficulty breathing and dyspnea. FINDINGS: A single view of the chest shows a normal-size cardiomediastinal silhouette with atherosclerotic calc ifications in the aorta. A bulla is seen in the right upper lobe. Hyperexpansion of the lungs is li alfredo secondary to COPD. There is no evidence of consolidation, mass, or pleural effusion. IMPRESSION: No evidence of acute cardiopulmonary disease. POS: [facility]
[2018-07-24] MEDS ORDERED: Famotidine 20 MG TAB ONE (08:53)
[2018-07-24] MEDS ORDERED: Enoxaparin Sodium 40 MG/0.4 ML SYRINGE ONE (08:53)
--- NOTE | 2018-07-24 09:17 | CT ---
PRELIMINARY REPORT/[facility]/EMERGENTY AFTER-HOURS PROCEDURE CT Chest Without Contrast EXAM DATE/TIME: 07/24/2018 3:21 AM CLINICAL HISTORY: 72 years old, male; Signs and symptoms; Shortness of breath; Prior surgery; Surgery type: 2 cardiac s tents placed 2014; Patient HX: 72 yo male presents with acute onset SOB tonight. Patient has copd and continues to smoke 1/3 to 1/2 ppd. Patient denies chest pain, fevers, chills, n/v/d, or recent illness TECHNIQUE: Axial computed tomography images of the chest without intravenous contrast. Coronal reformatted images were created and reviewed. COMPARISON: No relevant prior studies available. FINDINGS: Lungs: Severe upper lobe bullous emphysema. Moderate bilateral upper and lower lobe bronchial wall th ickening, compatible with reactive airway disease or bronchitis. Pleural space: Mild biapical pleural-parenchymal scarring. Heart: Normal. Aorta: Atherosclerotic calcification of the thoracic aorta, with mild dilation of the ascending aorta (4.2 cm in maximal diameter at the mid ascending thoracic aorta). No leakage or rupture. Lymph nodes: No enlarged lymph nodes. Bones/joints: No acute fracture. Soft tissues: Normal. IMPRESSION: Moderate bilateral upper and lower lobe bronchial wall thickening, compatible with reactive airway di sease or bronchitis. Thank you for allowing us to participate in the care of your patient. Dictated and Authenticated by: Josue Marquez MD 07/24/2018 3:55 AM Central Time ([place] & [place]) CHEST CT WITHOUT CONTRAST: Date: 07/24/18 COMPARISON: 01/01/13. HISTORY: COPD. Acute onset of shortness of breath. FINDINGS/IMPRESSION: This report is in agreement with the preliminary report by Jimmy. Severe but stable emphysematous cartwright ge. Thickening of the left and right lower lobe bronchials is similar to the previous examination and likely represents a chronic process. Atherosclerosis of a slightly prominent ascending thoracic aort a is noted. POS: [facility]
[2018-07-24] MEDS: Sodium Chloride 0.9% 1,000 ML IV SCH ×3 (11:21→23:50)
[2018-07-24] MEDS: Azithromycin 500 MG in Sodium Chloride 0.9% 250 ML 250 ML IVPB SCH (11:21)
[2018-07-24] MEDS: cefTRIAXone\\ROCEPHIN 1 GM in Sodium Chloride 0.9% 100 ML IVPB SCH (11:21)
[2018-07-24] MEDS: methylPREDNISolone Sod Succ 40 MG VIAL IVP SCH ×4 (11:22→23:50)
[2018-07-24] MEDS: Nicotine 14 MG PATCH TD SCH (11:22)
[2018-07-24] MEDS: Enoxaparin Sodium 40 MG/0.4 ML SYRINGE SC SCH (12:42)
[2018-07-24] MEDS: Famotidine 20 MG TAB PO SCH ×2 (12:42→20:17)
[2018-07-24] MEDS ORDERED: Lisinopril 10 MG TAB PO SCH (15:15)
[2018-07-24] MEDS: Carvedilol 6.25 MG TAB PO SCH (17:00)
[2018-07-24] MEDS: Ipratropium Bromide 2.5 ml Neb NEB SCH ×2 (18:49→22:48)
[2018-07-24] MEDS: Mometasone/Formoterol 120 PUFF INHALER INH SCH (18:52)
[2018-07-24] MEDS: Lisinopril 10 MG TAB PO SCH (20:17)
--- NOTE | 2018-07-25 00:16 | CON ---
DATE OF CONSULTATION: 07/24/2018 SUBJECTIVE: Mr. Krause is a 72-year-old with chronic obstructive pulmonary disease. He says he has never seen a pulmonary physician. He presented with several days of shortness of breath. He is also noted to be hypertensive on presentation. He says he is compliant with his medications. Unfortunately, he continues to smoke half to a pack a day. He denies having fever or chills when he was admitted. PAST MEDICAL HISTORY: Remarkable for hip replacement and coronary artery stenting. SOCIAL HISTORY: Daily drinker. He says he is trying to quit smoking, but as mentioned, he is a half to 1-pack a day smoker. MEDICATIONS: Prior to admission, he was on; 1. Prednisone. 2. Ventolin. 3. Lisinopril. 4. Plavix. 5. Coreg. 6. Symbicort. 7. Aspirin. 8. Atorvastatin. FAMILY HISTORY: Negative for lung disease in early age. REVIEW OF SYSTEMS: Ten point review of systems completed, negative with the exception of 10- to 15-pound weight loss over several months. PHYSICAL EXAMINATION: GENERAL: He is in no distress. When I saw him, he was lying at 30 degrees in bed. VITAL SIGNS: He is afebrile. Heart rate is 130, respiratory rate is 18, oximetry is 97% on room air, blood pressure 168/96. He was 189/108 at 10:25 in the morning. HEENT: Pupils are reactive. Sclerae anicteric. Extraocular movements are full. He has temporal muscle wasting. No cervical lymphadenopathy. NECK: Supple. LUNGS: Remarkable for distant breath sounds. HEART: Regular rhythm. S1 and S2 are normal. No murmurs heard. ABDOMEN: Soft and nontender. No masses. EXTREMITIES: Without clubbing, cyanosis, or edema. LABORATORY DATA: White count 5.6, hemoglobin 13.2, and platelets 186. Sodium 144, potassium 3.9, chloride 103, bicarb 23, BUN 19, and creatinine 0.76, glucose 139. PH 7.58, CO2 of 24, PO2 of 71, 249 this morning. Chest radiograph, chest CT showed no infiltrates. IMPRESSION: Chronic obstructive pulmonary disease exacerbation, clinically better than when he presented. PLAN: Continue with steroids and nebulizer treatments. His antimicrobial therapy could be switched to p.o. medications. He is only on Brovana twice a day. I doubt he will remember to ask for nebulizer treatments, so I would recommend that his breathing treatments be switched to every 4 hours and back to follow the other physicians caring for him. TIME SPENT: 50-minute consult, with greater than 50% of the time spent on the unit coordinating care. Job ID: [id number] [facility]
[2018-07-25] MEDS: Azithromycin 500 MG in Sodium Chloride 0.9% 250 ML 250 ML IVPB SCH (02:12)
[2018-07-25] MEDS: Ipratropium Bromide 2.5 ml Neb NEB SCH ×6 (02:17→21:43)
[2018-07-25] MEDS: cefTRIAXone\\ROCEPHIN 1 GM in Sodium Chloride 0.9% 100 ML IVPB SCH (03:15)
[2018-07-25] MEDS: Nicotine 14 MG PATCH TD SCH (05:31)
[2018-07-25] MEDS: methylPREDNISolone Sod Succ 40 MG VIAL IVP SCH ×4 (05:32→23:36)
[2018-07-25] MEDS: Mometasone/Formoterol 120 PUFF INHALER INH SCH ×2 (08:15→20:08)
[2018-07-25] MEDS: Enoxaparin Sodium 40 MG/0.4 ML SYRINGE SC SCH (09:01)
[2018-07-25] MEDS: Carvedilol 6.25 MG TAB PO SCH ×2 (09:02→17:21)
[2018-07-25] MEDS: Lisinopril 10 MG TAB PO SCH ×2 (09:02→21:03)
[2018-07-25] MEDS: Clopidogrel Bisulfate 75 MG TAB PO SCH (09:02)
[2018-07-25] MEDS: Famotidine 20 MG TAB PO SCH ×2 (09:02→21:03)
[2018-07-25] MEDS: Cefdinir 300 MG CAP PO SCH ×2 (09:03→21:03)
[2018-07-25] MEDS: Sodium Chloride 0.9% 1,000 ML IV SCH ×2 (11:14→21:03)
--- NOTE | 2018-07-25 15:05 | PDOC.PN ---
- Subjective Encounter Start Date: 07/25/18 Encounter Start Time: 09:00 Pt seen for followup re: acute hypoxic respiratory failure. Feels better. - Objective Resuscitation Status - Order Detail: 07/24/18 03:01 Resuscitation Status Routine Resuscitation Status: FULL: Full Resuscitation Discussed with: PATIENT CHRISTIANA Reviewed: Yes Vital Signs & Weight: Vital Signs (12 hours) Temp Pulse Resp BP BP Pulse Ox 07/25/18 14:57 98.0 F 68 18 202/81 H 98 07/25/18 14:53 98.1 F 99 16 152/88 H 97 07/25/18 14:52 100 16 96 07/25/18 11:23 97.5 F L 92 14 168/97 H 92 L 07/25/18 11:08 91 16 97 07/25/18 09:02 175/105 H 07/25/18 08:56 98.2 F 97 20 175/105 H 97 07/25/18 08:30 97 07/25/18 07:28 99 07/25/18 07:27 93 16 99 07/25/18 04:10 99.3 F 107 H 18 151/105 H 98 Weight Admit Weight 135 lb 5 oz Weight 135 lb 9.6 oz I&O: 07/24/18 07/25/18 07/26/18 06:59 06:59 06:59 Intake Total 2760 600 Output Total 950 350 Balance 1810 250 Result Diagrams: 07/24/18 06:59 07/24/18 06:59 EKG Reviewed by me: Yes (Tele: NSR) Phys Exam - Physical Examination Constitutional: NAD HEENT: moist MMs, sclera anicteric, oral pharynx no lesions, 2+ tonsils Neck: no nodes, no JVD, supple, full ROM Respiratory: wheezing present Cardiovascular: RRR, no rub S1, S2 Gastrointestinal: soft, non-tender, no distention, positive bowel sounds Neurological: moves all 4 limbs Psychiatric: normal affect Deviation from normal: Oriented to person and place, not to time Dx/Plan (1) Acute respiratory failure with hypoxia Code(s): J96.01 - ACUTE RESPIRATORY FAILURE WITH HYPOXIA Status: Acute Comment: Secondary to COPD exacerbation (2) COPD exacerbation Code(s): J44.1 - CHRONIC OBSTRUCTIVE PULMONARY DISEASE W (ACUTE) EXACERBATION Status: Acute Comment: Change antibiotics to oral, continue oxygen, steroids and bronchodilators. (3) CAD (coronary artery disease) Code(s): I25.10 - ATHSCL HEART DISEASE OF [place] CORONARY ARTERY W/O ANG PCTRS Status: Chronic Comment: stable, on Plavix and BB. (4) Chronic systolic heart failure Code(s): I50.22 - CHRONIC SYSTOLIC (CONGESTIVE) HEART FAILURE Status: Chronic Comment: stable (5) Hypertension Code(s): I10 - ESSENTIAL (PRIMARY) HYPERTENSION Status: Chronic Comment: Home antihypertensives resumed. Add PRN IV hydralazine (6) Protein-calorie malnutrition, moderate Code(s): E44.0 - MODERATE PROTEIN-CALORIE MALNUTRITION Status: Chronic Comment: Will do Ensure TID. Will consult Nutrition and Likely to r/o Cancer Cachexia. - Plan * . Review of Systems - Review of Systems Constitutional: negative: fever, chills, sweats, weakness, malaise Respiratory: Cough, Dry, SOB with Excertion, Wheezing. negative: Shortness of Breath, Hemoptysis, Pleuritic Pain, Sputum Cardiovascular: negative: chest pain, palpitations, orthopnea, paroxysmal nocturnal dyspnea, edema, light headedness Gastrointestinal: negative: Nausea, Vomiting, Abdominal Pain, Diarrhea, Constipation, Melena, Hematochezia Musculoskeletal: negative: Neck Pain, Shoulder Pain, Arm Pain, Back Pain, Hand Pain, Leg Pain, Foot Pain Skin: negative: Rash, Lesions, Blake, Bruising - Medications/Allergies Allergies/Adverse Reactions: Allergies Allergy/AdvReac Type Severity Reaction Status Date / Time No Known Allergies Allergy Verified 07/24/18 10:47 Medications: Current Medications Acetaminophen (Tylenol) 650 mg PO Q4H PRN PRN Reason: Headache/Fever/Mild Pain (1-3) Albuterol Sulfate (Ventolin) 2.5 mg NEB [id number] PRN PRN Reason: SOB &/or Wheezing Last Admin: 07/24/18 07:25 Dose: 2.5 mg Carvedilol (Coreg) 6.25 mg PO BID-[facility] Last Admin: 07/25/18 09:02 Dose: 6.25 mg Cefdinir (Omnicef) 300 mg PO BID [facility] Last Admin: 07/25/18 09:03 Dose: 300 mg Clopidogrel Bisulfate (Plavix) 75 mg PO DAILY [facility] Last Admin: 07/25/18 09:02 Dose: 75 mg Enoxaparin Sodium (Lovenox) 40 mg SC 0900 [facility] Last Admin: 07/25/18 09:01 Dose: 40 mg Famotidine (Pepcid) 20 mg PO BID [facility] Last Admin: 07/25/18 09:02 Dose: 20 mg Hydralazine HCl (Apresoline) 10 mg SLOW IVP Q6H PRN PRN Reason: SBP Greater Than 170 Sodium Chloride (Normal Saline 0.9%) 1,000 mls @ 100 mls/hr IV .Q10H [facility] Last Admin: 07/25/18 11:14 Dose: 1,000 mls Ipratropium [place] (Atrovent) 2.5 ml NEB [id number] [facility] Last Admin: 07/25/18 14:52 Dose: 2.5 ml Lisinopril (Zestril) 10 mg PO BID [facility] Last Admin: 07/25/18 09:02 Dose: 10 mg Methylprednisolone Sodium Succinate (Solu-Medrol) 20 mg IVP Q6HR [facility] Last Admin: 07/25/18 11:20 Dose: 20 mg Mometasone Furoate/Formoterol Fumar (Dulera 200 Mcg/5 Mcg Inhaler) 2 puff INH BID-RT [facility] Last Admin: 07/25/18 08:15 Dose: 2 puff Nicotine (Nicoderm Patch) 14 mg TD Q24HR [facility] Last Admin: 07/25/18 05:31 Dose: 14 mg Sodium Chloride (Flush - Normal Saline) 10 ml IVF Q12HR [facility] Last Admin: 07/25/18 09:04 Dose: 10 ml Sodium Chloride (Flush - Normal Saline) 10 ml IVF PRN PRN PRN Reason: Saline Flush Last Admin: 07/24/18 23:53 Dose: 10 ml
--- NOTE | 2018-07-25 17:33 | PRG ---
DATE OF SERVICE: 07/25/2018 SUBJECTIVE: Federico Krause says he is feeling a little bit better. OBJECTIVE: VITAL SIGNS: He has one high recorded blood pressure today 202/81. Otherwise, blood pressures have been in the 150 to 160 range. He is afebrile. Heart rates in the 90s. Respiratory rates in the teens. Oximetry is 92% to 96% on room air today, 98% this afternoon. LUNGS: Distant, clear. HEART: Regular rhythm. ABDOMEN: Soft. He says he has not been ambulating except to the bathroom. LABORATORY DATA: White counts 5.6 yesterday. There is no CBC today. Electrolytes yesterday were unremarkable. IMPRESSION: 1. Chronic obstructive pulmonary disease exacerbation, clinically improving. 2. Deconditioning. PLAN: We will continue with current therapy. Needs to ambulate in the vazquez before he is sent home. Probably within 24 to 48 hours of being acceptable for discharge. Job ID: [id number]
[2018-07-26] MEDS: Ipratropium Bromide 2.5 ml Neb NEB SCH ×5 (01:22→20:21)
[2018-07-26] MEDS: methylPREDNISolone Sod Succ 40 MG VIAL IVP SCH ×3 (06:02→17:24)
[2018-07-26] MEDS: Nicotine 14 MG PATCH TD SCH (06:02)
[2018-07-26] MEDS: Sodium Chloride 0.9% 1,000 ML IV SCH ×2 (06:08→15:52)
[2018-07-26] MEDS: Mometasone/Formoterol 120 PUFF INHALER INH SCH ×2 (07:26→20:20)
[2018-07-26] MEDS: hydrALAZINE 20 MG/ML VIAL SLOW IVP PRN (07:44)
[2018-07-26] MEDS: Carvedilol 6.25 MG TAB PO SCH ×2 (08:45→17:24)
[2018-07-26] MEDS: Lisinopril 10 MG TAB PO SCH ×2 (08:46→20:59)
[2018-07-26] MEDS: Famotidine 20 MG TAB PO SCH ×2 (08:46→20:59)
[2018-07-26] MEDS: Clopidogrel Bisulfate 75 MG TAB PO SCH (08:46)
[2018-07-26] MEDS: Cefdinir 300 MG CAP PO SCH ×2 (08:46→20:59)
[2018-07-26] MEDS: Enoxaparin Sodium 40 MG/0.4 ML SYRINGE SC SCH (08:46)
--- NOTE | 2018-07-26 12:59 | PDOC.PN ---
- Subjective Encounter Start Date: 07/26/18 Encounter Start Time: 07:40 Pt seen for followup re: acute hypoxic respiratory failure. Feels better, but not ambulating much. - Objective Resuscitation Status - Order Detail: 07/24/18 03:01 Resuscitation Status Routine Resuscitation Status: FULL: Full Resuscitation Discussed with: BERRY VILLEDA Reviewed: Yes Vital Signs & Weight: Vital Signs (12 hours) Temp Pulse Pulse Pulse Resp BP BP 07/26/18 12:00 97.3 F L 86 16 07/26/18 10:30 98 16 07/26/18 09:40 107 H 113 H 161/102 H 163/93 H 07/26/18 08:45 07/26/18 07:47 97.5 F L 92 16 07/26/18 07:20 07/26/18 07:18 102 H 20 07/26/18 03:48 97.8 F 93 15 07/26/18 01:22 84 18 BP Pulse Ox 07/26/18 12:00 159/95 H 96 07/26/18 10:30 95 07/26/18 09:40 07/26/18 08:45 92 L 07/26/18 07:47 188/119 H 92 L 07/26/18 07:20 94 L 07/26/18 07:18 94 L 07/26/18 03:48 167/101 H 98 07/26/18 01:22 98 Weight Admit Weight 135 lb 5 oz Weight 141 lb I&O: 07/25/18 07/26/18 07/27/18 06:59 06:59 06:59 Intake Total 2760 1950 Output Total 950 1950 Balance 1810 0 Result Diagrams: 07/24/18 06:59 07/24/18 06:59 Additional Labs: Labs reviewed by me Phys Exam - Physical Examination Constitutional: NAD HEENT: moist MMs Neck: supple Respiratory: clear to auscultation bilateral Cardiovascular: RRR Gastrointestinal: soft Neurological: moves all 4 limbs Psychiatric: normal affect Dx/Plan (1) Acute respiratory failure with hypoxia Code(s): J96.01 - ACUTE RESPIRATORY FAILURE WITH HYPOXIA Status: Acute Comment: Improving, secondary to COPD exacerbation (2) COPD exacerbation Code(s): J44.1 - CHRONIC OBSTRUCTIVE PULMONARY DISEASE W (ACUTE) EXACERBATION Status: Acute Comment: continue oxygen, steroids, antibiotics and bronchodilators. (3) CAD (coronary artery disease) Code(s): I25.10 - ATHSCL HEART DISEASE OF [place] CORONARY ARTERY W/O ANG PCTRS Status: Chronic Comment: stable (4) Chronic systolic heart failure Code(s): I50.22 - CHRONIC SYSTOLIC (CONGESTIVE) HEART FAILURE Status: Chronic Comment: stable (5) Hypertension Code(s): I10 - ESSENTIAL (PRIMARY) HYPERTENSION Status: Chronic Comment: Continue PRN IV hydralazine (6) Protein-calorie malnutrition, moderate Code(s): E44.0 - MODERATE PROTEIN-CALORIE MALNUTRITION Status: Chronic Comment: Ensure BID - Plan * . Review of Systems - Review of Systems Constitutional: negative: fever, chills, sweats, weakness, malaise Respiratory: negative: Cough, Shortness of Breath, SOB with Excertion, Pleuritic Pain, Wheezing Cardiovascular: negative: chest pain, palpitations, orthopnea, paroxysmal nocturnal dyspnea, edema, light headedness - Medications/Allergies Allergies/Adverse Reactions: Allergies Allergy/AdvReac Type Severity Reaction Status Date / Time No Known Allergies Allergy Verified 07/24/18 10:47 Medications: Current Medications Acetaminophen (Tylenol) 650 mg PO Q4H PRN PRN Reason: Headache/Fever/Mild Pain (1-3) Albuterol Sulfate (Ventolin) 2.5 mg NEB [id number] PRN PRN Reason: SOB &/or Wheezing Last Admin: 07/24/18 07:25 Dose: 2.5 mg Carvedilol (Coreg) 6.25 mg PO BID-[facility] Last Admin: 07/26/18 08:45 Dose: 6.25 mg Cefdinir (Omnicef) 300 mg PO BID [facility] Last Admin: 07/26/18 08:46 Dose: 300 mg Clopidogrel Bisulfate (Plavix) 75 mg PO DAILY [facility] Last Admin: 07/26/18 08:46 Dose: 75 mg Enoxaparin Sodium (Lovenox) 40 mg SC 0900 [facility] Last Admin: 07/26/18 08:46 Dose: 40 mg Famotidine (Pepcid) 20 mg PO BID [facility] Last Admin: 07/26/18 08:46 Dose: 20 mg Hydralazine HCl (Apresoline) 10 mg SLOW IVP Q6H PRN PRN Reason: SBP Greater Than 170 Last Admin: 07/26/18 07:44 Dose: 10 mg Sodium Chloride (Normal Saline 0.9%) 1,000 mls @ 100 mls/hr IV .Q10H [facility] Last Admin: 07/26/18 06:08 Dose: 1,000 mls Ipratropium [place] (Atrovent) 2.5 ml NEB [id number] [facility] Last Admin: 07/26/18 10:30 Dose: 2.5 ml Lisinopril (Zestril) 10 mg PO BID [facility] Last Admin: 07/26/18 08:46 Dose: 10 mg Methylprednisolone Sodium Succinate (Solu-Medrol) 20 mg IVP Q6HR [facility] Last Admin: 07/26/18 06:02 Dose: 20 mg Mometasone Furoate/Formoterol Fumar (Dulera 200 Mcg/5 Mcg Inhaler) 2 puff INH BID-RT [facility] Last Admin: 07/26/18 07:26 Dose: 2 puff Nicotine (Nicoderm Patch) 14 mg TD Q24HR [facility] Last Admin: 07/26/18 06:02 Dose: 14 mg Sodium Chloride (Flush - Normal Saline) 10 ml IVF Q12HR [facility] Last Admin: 07/26/18 08:47 Dose: 10 ml Sodium Chloride (Flush - Normal Saline) 10 ml IVF PRN PRN PRN Reason: Saline Flush Last Admin: 07/24/18 23:53 Dose: 10 ml
--- NOTE | 2018-07-26 21:12 | PRG ---
DATE OF SERVICE: 07/26/2018 SUBJECTIVE: Federico Krause is in no distress. He says he is feeling better. OBJECTIVE: VITAL SIGNS: His heart rate is in the 80, respiratory rate 18, oximetry is 93% on room air, he is afebrile. His blood pressure 165/99. LUNGS: Still remarkable for end-expiratory wheezes. HEART: Regular rhythm. ABDOMEN: Soft. He is in bed every time. I make rounds on him. IMPRESSION: 1. Chronic obstructive pulmonary disease exacerbation, clinically improving. 2. Visual impairment. I have noticed that he does not always make eye contact with me when I walked in the room. He says he has a great deal of difficulty with his vision. He says he was on eyedrops for a long time, which I presume related to glaucoma. 3. He has had cataract surgery in the past. He had seen an eye doctor in quite some time. He does not remember the name of his eyedrops. I would wonder if he did have untreated glaucoma leading to his visual impairment. 4. Chronic obstructive pulmonary disease is improving. I have recommended we switch him prednisone. He is probably a candidate for discharge in 24 to 48 hours if he can continue to improve with his ability to care for himself ambulation. Job ID: [id number]
[2018-07-27] MEDS: Sodium Chloride 0.9% 1,000 ML IV SCH ×2 (01:58→12:26)
[2018-07-27] MEDS: Ipratropium Bromide 2.5 ml Neb NEB SCH ×7 (01:59→22:33)
[2018-07-27] MEDS: Nicotine 14 MG PATCH TD SCH (06:18)
[2018-07-27] MEDS: Mometasone/Formoterol 120 PUFF INHALER INH SCH ×2 (06:53→19:45)
[2018-07-27] MEDS: Carvedilol 6.25 MG TAB PO SCH ×2 (08:17→17:02)
[2018-07-27] MEDS: Cefdinir 300 MG CAP PO SCH ×2 (08:17→20:04)
[2018-07-27] MEDS: predniSONE 20 MG TAB PO SCH (08:17)
[2018-07-27] MEDS: Lisinopril 10 MG TAB PO SCH ×2 (08:17→20:04)
[2018-07-27] MEDS: Famotidine 20 MG TAB PO SCH ×2 (08:17→20:04)
[2018-07-27] MEDS: Clopidogrel Bisulfate 75 MG TAB PO SCH (08:18)
[2018-07-27] MEDS: Enoxaparin Sodium 40 MG/0.4 ML SYRINGE SC SCH (08:18)
--- NOTE | 2018-07-27 10:54 | PRG ---
DATE OF SERVICE: 07/27/2018 SUBJECTIVE: Federico Krause has no new complaints. OBJECTIVE: VITAL SIGNS: He is afebrile, heart rate is 88, respiratory rate is 18, oximetry is 97% on room air, blood pressure is 175/104. LUNGS: Remarkable for distant breath sounds. HEART: Regular rhythm. ABDOMEN: Soft. IMPRESSION: 1. Chronic obstructive pulmonary disease exacerbation, improved. 2. Acute on chronic respiratory failure with hypoxemia. 3. History of coronary artery disease. 4. Hypertension, not adequately controlled yet. 5. Cachexia and muscle weakness. 6. Vision impairment ? presumably secondary to glaucoma. He is off his medications. PLAN: Continue supportive care. He is on p.o. antibiotics now. He is on DVT prophylaxis. Nebulizer treatments are every 4 hours and he is on p.o. prednisone. He is stable in my opinion. Job ID: [id number]
--- NOTE | 2018-07-27 12:00 | PDOC.PN ---
- Subjective Encounter Start Date: 07/27/18 Encounter Start Time: 11:58 Subjective: Admitted with acute respiratory failure with hypoxia. feeling better. -: Off oxygen. - Objective Resuscitation Status - Order Detail: 07/24/18 03:01 Resuscitation Status Routine Resuscitation Status: FULL: Full Resuscitation Discussed with: PATIENT Vital Signs & Weight: Vital Signs (12 hours) Temp Pulse Resp BP Pulse Ox 07/27/18 10:47 93 16 96 07/27/18 08:17 97 07/27/18 07:28 98.0 F 88 18 175/104 H 97 07/27/18 06:51 89 16 94 L 07/27/18 03:33 97.9 F 79 13 97 07/27/18 02:00 87 18 97 Weight Admit Weight 135 lb 5 oz Weight 141 lb I&O: 07/26/18 07/27/18 07/28/18 06:59 06:59 06:59 Intake Total 1950 2980 Output Total 1950 1775 Balance 0 1205 Result Diagrams: 07/24/18 06:59 07/24/18 06:59 Phys Exam - Physical Examination Chronically ill looking male in no distress. HEENT: moist MMs decreased vision Neck: no JVD, full ROM fair air entry with prolonged expitaion but no rhonchi or distress Cardiovascular: RRR, no significant murmur Gastrointestinal: soft, non-tender, no distention, positive bowel sounds Musculoskeletal: no edema, pulses present Neurological: non-focal, moves all 4 limbs Psychiatric: normal affect, A&O x 3 Deviation from normal: Dry skin noted Dx/Plan (1) Acute respiratory failure with hypoxia Code(s): J96.01 - ACUTE RESPIRATORY FAILURE WITH HYPOXIA Status: Acute Comment: Improving, secondary to COPD exacerbation (2) COPD exacerbation Code(s): J44.1 - CHRONIC OBSTRUCTIVE PULMONARY DISEASE W (ACUTE) EXACERBATION Status: Acute Comment: continue oxygen, steroids, antibiotics and bronchodilators. (3) CAD (coronary artery disease) Code(s): I25.10 - ATHSCL HEART DISEASE OF [place] CORONARY ARTERY W/O ANG PCTRS Status: Chronic Comment: stable (4) Chronic systolic heart failure Code(s): I50.22 - CHRONIC SYSTOLIC (CONGESTIVE) HEART FAILURE Status: Chronic Comment: stable (5) Hypertension Code(s): I10 - ESSENTIAL (PRIMARY) HYPERTENSION Status: Chronic Comment: Continue PRN IV hydralazine (6) Protein-calorie malnutrition, moderate Code(s): E44.0 - MODERATE PROTEIN-CALORIE MALNUTRITION Status: Chronic Comment: Ensure BID (7) Tobacco abuse Code(s): Z72.0 - TOBACCO USE Status: Chronic - Plan DC IVF -: Consult case management for discharge disposition. Will need SNF -: Continue other treatment. -: Repeat CBC and BMp in the am -: continue PT/OT * .
[2018-07-27 13:24] VITALS: BMI 17.2
[2018-07-27] MEDS: hydrALAZINE 20 MG/ML VIAL SLOW IVP PRN (20:05)
[2018-07-28] MEDS: Ipratropium Bromide 2.5 ml Neb NEB SCH ×6 (02:54→21:58)
[2018-07-28] MEDS: Nicotine 14 MG PATCH TD SCH ×2 (05:57→05:58)
[2018-07-28 06:38] LABS: #Basophils 0.1 thou/uL (0.0-0.2); #Lymphocytes 1.5 thou/uL (1.20-3.40); #Monocytes 0.7 thou/uL (0.11-0.59); #Neutrophils 4.6 thou/uL (1.40-6.50); %Basophils 0.9 % (0.0-1.0); %Eosinophils 0.5 % (0.0-10.0); %Monocytes 9.8 % (0.0-10.0); %Neutrophils 66.9 % (42.0-75.0); Hemoglobin 11.7 g/dL (14.0-18.0); Mean Corpuscular HGB CONC 32.9 g/dL (32.0-36.0); Mean Corpuscular Hemoglobin 34.8 pg (27.0-31.0); Mean Platelet Volume 9.5 fL (7.4-10.4); Platelet Count 136 thou/uL (130-400); RBC Distribution Width 14.2 % (11.5-14.5); Red Blood Cell (RBC) Count 3.37 mill/uL (4.70-6.10); White Blood Cell (WBC) Count 6.8 thou/uL (4.8-10.8)
[2018-07-28 06:56] LABS: Anion Gap 11 mmol/L (10-20); BUN (Urea Nitrogen) 21 mg/dL (8.4-25.7); Calc. Creatinine Clearance 83 mL/min (70-130); Calcium 8.6 mg/dL (7.8-10.44); Carbon Dioxide 31 mmol/L (23-31); Chloride 103 mmol/L (98-107); Estimated GFR-MDRD Greater than 90; Glucose 89 mg/dL (83-110); Potassium 3.2 mmol/L (3.5-5.1); Sodium 142 mmol/L (136-145)
[2018-07-28] MEDS: Mometasone/Formoterol 120 PUFF INHALER INH SCH ×2 (07:16→18:58)
[2018-07-28] MEDS: Enoxaparin Sodium 40 MG/0.4 ML SYRINGE SC SCH (08:25)
[2018-07-28] MEDS: Cefdinir 300 MG CAP PO SCH ×2 (08:25→21:25)
[2018-07-28] MEDS: Lisinopril 10 MG TAB PO SCH ×2 (08:25→21:24)
[2018-07-28] MEDS: predniSONE 20 MG TAB PO SCH (08:25)
[2018-07-28] MEDS: Carvedilol 6.25 MG TAB PO SCH ×2 (08:25→16:19)
[2018-07-28] MEDS: Clopidogrel Bisulfate 75 MG TAB PO SCH (08:26)
[2018-07-28] MEDS: Famotidine 20 MG TAB PO SCH ×2 (08:28→21:25)
--- NOTE | 2018-07-28 10:20 | PDOC.PN ---
- Subjective Encounter Start Date: 07/28/18 Encounter Start Time: 10:18 Subjective: Seen and examined. No new problem. feeling better. - Objective Resuscitation Status - Order Detail: 07/24/18 03:01 Resuscitation Status Routine Resuscitation Status: FULL: Full Resuscitation Discussed with: PATIENT Vital Signs & Weight: Vital Signs (12 hours) Temp Pulse Resp BP BP Pulse Ox 07/28/18 08:25 174/122 H 07/28/18 08:21 97.8 F 99 16 174/122 H 99 07/28/18 07:14 90 16 95 07/28/18 03:44 98.1 F 91 13 170/98 H 96 07/28/18 02:54 91 16 95 07/27/18 23:58 128/81 07/27/18 22:33 89 18 95 Weight Admit Weight 135 lb 5 oz Weight 141 lb 14.4 oz I&O: 07/27/18 07/28/18 07/29/18 06:59 06:59 06:59 Intake Total 2980 2150 Output Total 1775 2975 Balance 1205 -825 Result Diagrams: 07/28/18 06:05 07/28/18 06:05 Phys Exam - Physical Examination Chronically ill looking. fatigued. HEENT: moist MMs, sclera anicteric Neck: no JVD, supple, full ROM fair air entry bilaterally with prolonged expiration. Irregular rhythm and rate. Gastrointestinal: soft, non-tender, no distention, positive bowel sounds Neurological: non-focal Moves all limbs but weakly Dx/Plan (1) Acute respiratory failure with hypoxia Code(s): J96.01 - ACUTE RESPIRATORY FAILURE WITH HYPOXIA Status: Acute Comment: Resolved. Off oxygen (2) COPD exacerbation Code(s): J44.1 - CHRONIC OBSTRUCTIVE PULMONARY DISEASE W (ACUTE) EXACERBATION Status: Acute Comment: continue steroids, antibiotics and bronchodilators. (3) CAD (coronary artery disease) Code(s): I25.10 - ATHSCL HEART DISEASE OF [place] CORONARY ARTERY W/O ANG PCTRS Status: Chronic Comment: stable (4) Chronic systolic heart failure Code(s): I50.22 - CHRONIC SYSTOLIC (CONGESTIVE) HEART FAILURE Status: Chronic Comment: stable (5) Hypertension Code(s): I10 - ESSENTIAL (PRIMARY) HYPERTENSION Status: Chronic Comment: Control acceptable (6) Protein-calorie malnutrition, moderate Code(s): E44.0 - MODERATE PROTEIN-CALORIE MALNUTRITION Status: Chronic Comment: Ensure BID (7) Tobacco abuse Code(s): Z72.0 - TOBACCO USE Status: Chronic (8) Hypokalemia Code(s): E87.6 - HYPOKALEMIA Status: Acute Comment: Replete with oral KCL - Plan Continue current treatments -: Awaiting SNF placemnt -: Continue PT/OT -: Replete serum potassium with oral KCL -: continue dietary rehabilitation * .
[2018-07-28] MEDS: Albuterol Sulfate 2.5 mg/3 ml Neb NEB PRN (11:53)
--- NOTE | 2018-07-28 19:10 | PRG ---
DATE OF SERVICE: SUBJECTIVE: Federico Krause says he is stable. He has no complaints. OBJECTIVE: VITAL SIGNS: He is afebrile. Heart rate is 96, blood pressure 143/94, oximetry is 94. LUNGS: Clear. HEART: Regular rhythm. ABDOMEN: Soft. IMPRESSION: 1. Chronic obstructive pulmonary disease exacerbation, clinically stable to go to snf facility. 2. Acute on chronic respiratory failure with hypoxemia. 3. History of coronary artery disease. 4. Hypertension. 5. Cachexia, muscle weakness. 6. Vision impairment? Glaucoma. There is really no reason that I can see to continue with telemetry monitoring. He is stable for transfer whenever a bed becomes available. Steroid dose will be decreased today. Job ID: [id number]
[2018-07-29] MEDS: Ipratropium Bromide 2.5 ml Neb NEB SCH ×6 (02:59→22:31)
[2018-07-29] MEDS: hydrALAZINE 20 MG/ML VIAL SLOW IVP PRN (03:46)
[2018-07-29] MEDS: Nicotine 14 MG PATCH TD SCH (06:26)
[2018-07-29] MEDS: Mometasone/Formoterol 120 PUFF INHALER INH SCH ×2 (08:15→19:16)
[2018-07-29] MEDS: Carvedilol 6.25 MG TAB PO SCH ×2 (09:46→17:55)
[2018-07-29] MEDS: Clopidogrel Bisulfate 75 MG TAB PO SCH (09:47)
[2018-07-29] MEDS: Cefdinir 300 MG CAP PO SCH ×2 (09:47→21:39)
[2018-07-29] MEDS: Famotidine 20 MG TAB PO SCH ×2 (09:47→21:39)
[2018-07-29] MEDS: predniSONE 20 MG TAB PO SCH (09:47)
[2018-07-29] MEDS: Lisinopril 10 MG TAB PO SCH ×2 (09:47→21:39)
[2018-07-29] MEDS: Enoxaparin Sodium 40 MG/0.4 ML SYRINGE SC SCH (09:48)
[2018-07-29 13:24] LABS: Bacteria/HPF None Seen HPF (None Seen); Hyaline Casts/LPF NONE SEEN LPF (0-3 Hyaline); RBC/HPF 0-3 HPF (0-3); Squamous Epithelial 0-3 HPF (0-3); WBC/HPF 0-3 HPF (0-3)
--- NOTE | 2018-07-29 13:33 | PDOC.PN ---
- Subjective Encounter Start Date: 07/29/18 Encounter Start Time: 13:32 Subjective: Admitted with acute respiratory failure with hypoxia from COPD exacerbation -: Treated with improvement. Awaiting placement. Developed urinary retention -: and frequency. admitted to strangury, intermittency and dribbling. - Objective Resuscitation Status - Order Detail: 07/24/18 03:01 Resuscitation Status Routine Resuscitation Status: FULL: Full Resuscitation Discussed with: PATIENT Vital Signs & Weight: Vital Signs (12 hours) Temp Pulse Resp BP BP Pulse Ox 07/29/18 12:14 91 12 07/29/18 09:40 97 07/29/18 09:18 98.5 F 91 20 135/70 97 07/29/18 08:15 86 16 07/29/18 08:08 95 07/29/18 08:06 88 12 07/29/18 04:00 97.7 F 84 18 194/103 H 99 07/29/18 03:46 94 183/112 H 07/29/18 02:59 84 20 Weight Admit Weight 135 lb 5 oz Weight 141 lb 14.4 oz I&O: 07/28/18 07/29/18 07/30/18 06:59 06:59 06:59 Intake Total 2150 1070 120 Output Total 2975 4225 Balance -825 -3155 120 Result Diagrams: 07/28/18 06:05 07/28/18 06:05 Phys Exam - Physical Examination chronically ill looking but not in distress. afebrile. comfortable HEENT: moist MMs Neck: no JVD, full ROM Fair air entry with transmitted sound. Cardiovascular: RRR Gastrointestinal: soft, non-tender, no distention, positive bowel sounds Musculoskeletal: no edema Neurological: non-focal, moves all 4 limbs Extremities power is reduced. Psychiatric: normal affect, A&O x 3 Dx/Plan (1) Acute respiratory failure with hypoxia Code(s): J96.01 - ACUTE RESPIRATORY FAILURE WITH HYPOXIA Status: Acute Comment: Resolved. Off oxygen (2) COPD exacerbation Code(s): J44.1 - CHRONIC OBSTRUCTIVE PULMONARY DISEASE W (ACUTE) EXACERBATION Status: Acute Comment: continue steroids, antibiotics and bronchodilators. (3) CAD (coronary artery disease) Code(s): I25.10 - ATHSCL HEART DISEASE OF [place] CORONARY ARTERY W/O ANG PCTRS Status: Chronic Comment: stable (4) Chronic systolic heart failure Code(s): I50.22 - CHRONIC SYSTOLIC (CONGESTIVE) HEART FAILURE Status: Chronic Comment: stable (5) Hypertension Code(s): I10 - ESSENTIAL (PRIMARY) HYPERTENSION Status: Chronic Comment: Control acceptable (6) Protein-calorie malnutrition, moderate Code(s): E44.0 - MODERATE PROTEIN-CALORIE MALNUTRITION Status: Chronic Comment: Ensure BID (7) Tobacco abuse Code(s): Z72.0 - TOBACCO USE Status: Chronic (8) Hypokalemia Code(s): E87.6 - HYPOKALEMIA Status: Acute Comment: Replete with oral KCL (9) Acute urinary retention Code(s): R33.8 - OTHER RETENTION OF URINE Status: Acute Comment: S/p straight cath. (10) BPH with obstruction/lower urinary tract symptoms Code(s): N40.1 - BENIGN PROSTATIC HYPERPLASIA WITH LOWER URINARY TRACT SYMP; N13.8 - OTHER OBSTRUCTIVE AND REFLUX UROPATHY Status: Acute Comment: Said to be chronic. Reportedly had urinary retention during prior hospitalization and admitted to prostatism - Plan Straight cath intermittent for retention -: GetUA with reflex to culture -: Start finasteride and flomax. will need outpatient urology evlaution -: Continue other treatments. * .
[2018-07-29] MEDS ORDERED: Tamsulosin HCl 0.4 MG CAP PO SCH (13:45)
[2018-07-29] MEDS ORDERED: Finasteride 5 MG TAB PO SCH (13:45)
--- NOTE | 2018-07-29 17:13 | PRG ---
DATE OF SERVICE: 07/29/2018 SUBJECTIVE: Mr. Krause is unchanged. OBJECTIVE: VITAL SIGNS: He is afebrile. Heart rate is 90, respiratory rate 16 , oximetry is 94% on room air, blood pressure 145/93. LUNGS: Distant, clear, in no distress. He is awaiting placement. IMPRESSION: 1. Chronic obstructive pulmonary disease, stable. 2. Cachexia and weakness are the biggest issue. 3. He no longer really needs telemetry monitoring. Job ID: [id number] [facility]
[2018-07-30] MEDS: Ipratropium Bromide 2.5 ml Neb NEB SCH ×6 (01:56→22:42)
[2018-07-30] MEDS: Nicotine 14 MG PATCH TD SCH (05:44)
[2018-07-30 06:38] LABS: #Lymphocytes 1.4 thou/uL (1.20-3.40); #Monocytes 0.6 thou/uL (0.11-0.59); #Neutrophils 4.1 thou/uL (1.40-6.50); %Basophils 0.4 % (0.0-1.0); %Eosinophils 0.8 % (0.0-10.0); %Lymphocytes 23.1 % (21.0-51.0); %Monocytes 10.2 % (0.0-10.0); %Neutrophils 65.5 % (42.0-75.0); Mean Corpuscular HGB CONC 32.4 g/dL (32.0-36.0); Mean Corpuscular Hemoglobin 34.2 pg (27.0-31.0); Mean Platelet Volume 10.2 fL (7.4-10.4); Platelet Count 147 thou/uL (130-400); RBC Distribution Width 14.2 % (11.5-14.5); Red Blood Cell (RBC) Count 3.23 mill/uL (4.70-6.10); White Blood Cell (WBC) Count 6.2 thou/uL (4.8-10.8)
[2018-07-30 06:56] LABS: Anion Gap 11 mmol/L (10-20); BUN (Urea Nitrogen) 23 mg/dL (8.4-25.7); Calc. Creatinine Clearance 74 mL/min (70-130); Calcium 8.8 mg/dL (7.8-10.44); Carbon Dioxide 31 mmol/L (23-31); Chloride 101 mmol/L (98-107); Estimated GFR-MDRD Greater than 90; Glucose 84 mg/dL (83-110); Magnesium 1.7 mg/dL (1.6-2.6); Potassium 3.7 mmol/L (3.5-5.1); Sodium 139 mmol/L (136-145)
[2018-07-30] MEDS: Mometasone/Formoterol 120 PUFF INHALER INH SCH ×2 (07:51→19:43)
[2018-07-30] MEDS: Clopidogrel Bisulfate 75 MG TAB PO SCH (09:44)
[2018-07-30] MEDS: Carvedilol 6.25 MG TAB PO SCH ×2 (09:44→17:47)
[2018-07-30] MEDS: Famotidine 20 MG TAB PO SCH ×2 (09:44→21:23)
[2018-07-30] MEDS: Cefdinir 300 MG CAP PO SCH ×2 (09:45→21:23)
[2018-07-30] MEDS: Finasteride 5 MG TAB PO SCH (09:45)
[2018-07-30] MEDS: Lisinopril 10 MG TAB PO SCH ×2 (09:45→21:23)
[2018-07-30] MEDS: Enoxaparin Sodium 40 MG/0.4 ML SYRINGE SC SCH (09:45)
[2018-07-30] MEDS: Tamsulosin HCl 0.4 MG CAP PO SCH (09:45)
[2018-07-30] MEDS: predniSONE 20 MG TAB PO SCH (09:45)
--- NOTE | 2018-07-30 13:25 | PRG ---
DATE OF SERVICE: 07/30/2018 SUBJECTIVE: The patient is seen and examined at bedside. He is feeling good. He does not have much complaints to offer. He is getting ready to eat his lunch. His vision is not good secondary to bilateral cataracts and bilateral glaucoma, so he requires some help with eating, but that is still minimal in view of significant visual impairment. OBJECTIVE: VITAL SIGNS: Blood pressure is 122/68, pulse is 96, respiratory rate is 16, O2 saturation is 96% on room air. HEENT: His oral mucosa is moist. NECK: Supple. LUNGS: Clear. HEART: S1, S2 normal. ABDOMEN: Soft, nontender, nondistended. EXTREMITIES: No clubbing, cyanosis, or edema. NEUROLOGIC: He follows my commands. He is able to move his all four extremities. LABORATORY DATA: White count of 6.2, hemoglobin 11.0, hematocrit 34.1, platelet count is 147,000. Normal chemistry. IMPRESSION: 1. Acute respiratory failure with hypoxia, resolved. 2. Chronic obstructive pulmonary disease exacerbation. 3. Coronary artery disease, chronic, stable. 4. Chronic systolic heart failure, chronic, stable. 5. Hypertension, controlled. 6. Benign prostatic hypertrophy with obstruction/lower tract symptoms. 7. Acute urinary retention, status post straight cath. 8. Hypokalemia, repleted. 9. Tobacco abuse, chronic. 10. Protein calorie malnutrition. PLAN: Urine did not show any changes suggestive of infection. Started on finasteride and Flomax for BPH with obstruction and he will require outpatient Urology evaluation of this issue. We will continue his PT and arrangement for [facility] facility to get his strength back. Job ID: [id number]
--- NOTE | 2018-07-30 20:00 | PRG ---
DATE OF SERVICE: 07/30/2018 SUBJECTIVE: Federico Rodriguez is clinically unchanged. OBJECTIVE: VITAL SIGNS: Afebrile, heart rate is 90, blood pressure 160/99, respiratory rate is 18, oximetry is 99 on room air. Remainder of his exam is unchanged. IMPRESSION: Awaiting placement after chronic obstructive pulmonary disease exacerbation. Problems include severe deconditioning and cachexia. Hypertension is still not completely controlled. Coronary artery disease, systolic heart failure, benign prostatic hypertrophy with history of urinary retention, and history of tobacco use up until this admission. We will sign off. Job ID: [id number]
[2018-07-31] MEDS: Ipratropium Bromide 2.5 ml Neb NEB SCH ×4 (02:51→14:51)
[2018-07-31] MEDS: Nicotine 14 MG PATCH TD SCH (06:19)
[2018-07-31] MEDS: Mometasone/Formoterol 120 PUFF INHALER INH SCH (07:37)
[2018-07-31] MEDS: Clopidogrel Bisulfate 75 MG TAB PO SCH (08:28)
[2018-07-31] MEDS: Cefdinir 300 MG CAP PO SCH (08:28)
[2018-07-31] MEDS: Carvedilol 6.25 MG TAB PO SCH (08:28)
[2018-07-31] MEDS: Enoxaparin Sodium 40 MG/0.4 ML SYRINGE SC SCH (08:28)
[2018-07-31] MEDS: predniSONE 20 MG TAB PO SCH (08:28)
[2018-07-31] MEDS: Finasteride 5 MG TAB PO SCH (08:29)
[2018-07-31] MEDS: Famotidine 20 MG TAB PO SCH (08:29)
[2018-07-31] MEDS: Tamsulosin HCl 0.4 MG CAP PO SCH (08:29)
[2018-07-31] MEDS: Lisinopril 10 MG TAB PO SCH (08:29)
--- NOTE | 2018-07-31 11:16 | PRG ---
DATE OF SERVICE: 07/31/2018 SUBJECTIVE: Jimi remains stable. He is afebrile. Heart rate in the 90s, blood pressure 154/95, and oximetry is 98% on room air. There is no change in his clinical condition and exam overall. We are awaiting placement for halfway. COPD stable. Deconditioning is the biggest factor he will face with as we move forward. Job ID: [id number]
--- NOTE | 2018-07-31 11:58 | PDOC.PN ---
- Subjective Encounter Start Date: 07/31/18 Encounter Start Time: 07:40 Patient seen and examined. No new complaints. No overnight events - Objective Resuscitation Status - Order Detail: 07/24/18 03:01 Resuscitation Status Routine Resuscitation Status: FULL: Full Resuscitation Discussed with: PATIENT CHRISTIANA Reviewed: Yes Vital Signs & Weight: Vital Signs (12 hours) Temp Pulse Resp BP BP Pulse Ox 07/31/18 11:19 85 16 95 07/31/18 08:29 154/85 H 07/31/18 08:28 154/85 H 07/31/18 08:25 98.3 F 95 17 154/85 H 98 07/31/18 07:25 98 07/31/18 07:23 68 16 98 07/31/18 03:53 98.0 F 74 154/91 H 98 07/31/18 02:51 78 12 91 L Weight Admit Weight 135 lb 5 oz Weight 141 lb 14.4 oz I&O: 07/30/18 07/31/18 08/01/18 06:59 06:59 06:59 Intake Total 1000 1310 Output Total 1950 1720 Balance -950 -410 Result Diagrams: 07/30/18 05:18 07/30/18 05:18 EKG Reviewed by me: Yes Phys Exam - Physical Examination Constitutional: NAD HEENT: PERRLA, moist MMs, sclera anicteric Neck: no JVD, supple Respiratory: no wheezing, no rales, no rhonchi Cardiovascular: RRR, no significant murmur, no rub Gastrointestinal: soft, non-tender, no distention, positive bowel sounds Musculoskeletal: no edema, pulses present Neurological: non-focal, normal sensation Lymphatic: no nodes Psychiatric: normal affect Skin: no rash, normal turgor Dx/Plan (1) Acute respiratory failure with hypoxia Code(s): J96.01 - ACUTE RESPIRATORY FAILURE WITH HYPOXIA Status: Acute Comment: Resolved. Off oxygen (2) Acute urinary retention Code(s): R33.8 - OTHER RETENTION OF URINE Status: Acute Comment: S/p straight cath. (3) BPH with obstruction/lower urinary tract symptoms Code(s): N40.1 - BENIGN PROSTATIC HYPERPLASIA WITH LOWER URINARY TRACT SYMP; N13.8 - OTHER OBSTRUCTIVE AND REFLUX UROPATHY Status: Acute Comment: Said to be chronic. Reportedly had urinary retention during prior hospitalization and admitted to prostatis (4) COPD exacerbation Code(s): J44.1 - CHRONIC OBSTRUCTIVE PULMONARY DISEASE W (ACUTE) EXACERBATION Status: Acute Comment: continue steroids, antibiotics and bronchodilators. (5) Hypokalemia Code(s): E87.6 - HYPOKALEMIA Status: Acute Comment: Replete with oral KCL (6) CAD (coronary artery disease) Code(s): I25.10 - ATHSCL HEART DISEASE OF [place] CORONARY ARTERY W/O ANG PCTRS Status: Chronic Comment: stable (7) Chronic systolic heart failure, ACC/AHA stage C Code(s): I50.22 - CHRONIC SYSTOLIC (CONGESTIVE) HEART FAILURE Status: Chronic (8) Dyslipidemia Code(s): E78.5 - HYPERLIPIDEMIA, UNSPECIFIED Status: Chronic Comment: Contiue with home MEds. (9) Hypertension Code(s): I10 - ESSENTIAL (PRIMARY) HYPERTENSION Status: Chronic Comment: Control acceptable (10) Protein-calorie malnutrition, moderate Code(s): E44.0 - MODERATE PROTEIN-CALORIE MALNUTRITION Status: Chronic Comment: Ensure BID (11) Tobacco abuse Code(s): Z72.0 - TOBACCO USE Status: Chronic - Plan cont current plan of care, tate catheter, continue antibiotics, PT/OT, social science research assistant, respiratory therapy * medication reviewed as below * symptomatic treatment * see my discharge josé. Review of Systems - Review of Systems ENT: negative: Ear Pain, Ear Discharge, Nose Pain, Nose Discharge, Nose Congestion, Mouth Pain, Mouth Swelling, Throat Pain, Throat Swelling, Other Respiratory: negative: Cough, Dry, Shortness of Breath, Hemoptysis, SOB with Excertion, Pleuritic Pain, Sputum, Wheezing Cardiovascular: negative: chest pain, palpitations, orthopnea, paroxysmal nocturnal dyspnea, edema, light headedness, other Gastrointestinal: negative: Nausea, Vomiting, Abdominal Pain, Diarrhea, Constipation, Melena, Hematochezia, Other Genitourinary: negative: Dysuria, Frequency, Incontinence, Hematuria, Retention , Other Musculoskeletal: negative: Neck Pain, Shoulder Pain, Arm Pain, Back Pain, Hand Pain, Leg Pain, Foot Pain, Other - Medications/Allergies Allergies/Adverse Reactions: Allergies Allergy/AdvReac Type Severity Reaction Status Date / Time No Known Allergies Allergy Verified 07/24/18 10:47 Medications: Current Medications Acetaminophen (Tylenol) 650 mg PO Q4H PRN PRN Reason: Headache/Fever/Mild Pain (1-3) Last Admin: 07/27/18 08:17 Dose: 650 mg Albuterol Sulfate (Ventolin) 2.5 mg NEB [id number]-UP PRN PRN Reason: SOB &/or Wheezing Last Admin: 07/28/18 11:53 Dose: 2.5 mg Carvedilol (Coreg) 6.25 mg PO BID[facility] Last Admin: 07/31/18 08:28 Dose: 6.25 mg Cefdinir (Omnicef) 300 mg PO BID [facility] Last Admin: 07/31/18 08:28 Dose: 300 mg Clopidogrel Bisulfate (Plavix) 75 mg PO DAILY [facility] Last Admin: 07/31/18 08:28 Dose: 75 mg Enoxaparin Sodium (Lovenox) 40 mg SC 0900 [facility] Last Admin: 07/31/18 08:28 Dose: 40 mg Famotidine (Pepcid) 20 mg PO BID [facility] Last Admin: 07/31/18 08:29 Dose: 20 mg Finasteride (Proscar) 5 mg PO DAILY [facility] Last Admin: 07/31/18 08:29 Dose: 5 mg Hydralazine HCl (Apresoline) 10 mg SLOW IVP Q6H PRN PRN Reason: SBP Greater Than 170 Last Admin: 07/29/18 03:46 Dose: 10 mg Ipratropium [place] (Atrovent) 2.5 ml NEB [id number] [facility] Last Admin: 07/31/18 11:19 Dose: 2.5 ml Lisinopril (Zestril) 10 mg PO BID [facility] Last Admin: 07/31/18 08:29 Dose: 10 mg Mometasone Furoate/Formoterol Fumar (Dulera 200 Mcg/5 Mcg Inhaler) 2 puff INH BID-RT [facility] Last Admin: 07/31/18 07:37 Dose: 2 puff Nicotine (Nicoderm Patch) 14 mg TD Q24HR [facility] Last Admin: 07/31/18 06:19 Dose: 14 mg Prednisone (Prednisone) 20 mg PO QAM[facility] Last Admin: 07/31/18 08:28 Dose: 20 mg Sodium Chloride (Flush - Normal Saline) 10 ml IVF Q12HR [facility] Last Admin: 07/31/18 08:29 Dose: 10 ml Sodium Chloride (Flush - Normal Saline) 10 ml IVF PRN PRN PRN Reason: Saline Flush Last Admin: 07/24/18 23:53 Dose: 10 ml Tamsulosin HCl (Flomax) 0.4 mg PO DAILY [facility] Last Admin: 07/31/18 08:29 Dose: 0.4 mg
--- NOTE | 2018-07-31 12:15 | DIS ---
DATE OF ADMISSION: 07/24/2018 DATE OF DISCHARGE: 07/31/2018 PRIMARY CARE PHYSICIAN: Dr. Lynn. DISCHARGE DISPOSITION: [facility]. PRIMARY DISCHARGE DIAGNOSES: 1. Acute respiratory failure with hypoxia. 2. Acute urinary retention. 3. Benign prostatic hyperplasia with obstructive lower urinary tract symptoms. 4. Chronic obstructive pulmonary disease exacerbation. 5. Hypokalemia. SECONDARY DISCHARGE DIAGNOSES: 1. Protein-calorie malnutrition, moderate. 2. Tobacco abuse disorder. 3. Hypertension. 4. Dyslipidemia. 5. Chronic systolic stage C heart failure. 6. Coronary artery disease. 7. Chronic obstructive pulmonary disease. PRIMARY PROCEDURE/OPERATION: None. RADIOLOGICAL INVESTIGATION: CT chest showed bronchovascular marking. Chest x-ray showed COPD changes. SIGNIFICANT LABORATORY DATA: WBC 6.2, hemoglobin 11.0, and platelet 147. Sodium 139, potassium 3.7, BUN 23, creatinine 0.82, calcium 8.8. LFT normal. Troponin 0.040. Urinalysis unremarkable. DISCHARGE MEDICATIONS: 1. Ventolin inhaler 2 puffs q.4 hourly p.r.n. 2. Symbicort one puff inhalation b.i.d. 3. Plavix 75 mg daily. 4. DuoNeb q.6 hourly p.r.n. 5. Lisinopril 10 mg b.i.d. 6. Coreg 6.25 mg p.o. b.i.d. 7. Omnicef 300 mg b.i.d. for 5 more days. 8. Pepcid 20 mg b.i.d. 9. Proscar 5 mg p.o. daily. 10. Atrovent inhaler 2 puffs q.4 to 6 hourly. 11. Prednisone 20 mg p.o. daily for 5 more days. 12. Flomax 0.4 mg p.o. daily. CONTRAINDICATION: None. CODE STATUS: Full code. INPATIENT CHECK CASHIER: Dr. Lake was following while in hospital. TEST RESULT PENDING ON DISCHARGE: None. ALLERGIES: NO KNOWN DRUG ALLERGIES. DISCHARGE PLAN: Posthospital, the patient will follow up with primary care physician and Dr. Lake as instructed. The patient will need outpatient Urology followup for benign enlargement of prostate. HOSPITAL COURSE: A 72-year-old male with above-mentioned medical problem, who was admitted by Dr. Rajan Clarke. Please see his H and P for further details. On admission, the patient was in respiratory distress. He was hypoxic. He was having respiratory failure. He was suffering from COPD exacerbation. He was admitted to telemetry floor. The patient was treated optimally with DuoNeb, Dulera, empiric antibiotic therapy, and Solu-Medrol. The patient was also evaluated by Pulmonary group while in hospital. Eventually, the patient improved to his baseline level. He has moderate protein-calorie malnutrition and chronic compensated stage C systolic heart failure. While in hospital, he developed acute urinary retention and that is why he required Sloan catheterization. We are discharging him with Sloan catheter and the patient will have a voiding trial in 2 to 3 days. We started Flomax and Proscar while in the hospital. The patient will benefit from outpatient Urology followup upon discharge from the swing bed. The patient will continue above-mentioned medication as per his previous. On discharge, we prescribed antibiotic therapy with Omnicef for 7 more days and prednisone for 7 more days. Rest of medication will be continued as per previous. The patient will need nutritional support, PT, OT, took swing bed. The patient is seen and examined at bedside today. Paperwork for discharge done and discharge medication reconciliation done. PHYSICAL EXAMINATION: VITAL SIGNS: Currently, temperature 98.3, pulse 95, blood pressure 154/85, saturation 98% on room air. Weight 141 pounds. GENERAL: The patient is currently alert, awake, emaciated. No obvious acute distress. HEENT: Head; normocephalic, atraumatic. Eyes; pupils round, reactive to light. Extraocular muscle intact. ENT; oropharynx within normal limits. Moist mucous membranes. No oral lesion. No pharyngeal erythema. No exudate. NECK: Supple. No JVD. No thyromegaly. No carotid bruit. LUNGS: Clear to auscultation without any rhonchi or rales. CARDIAC: S1, S2 regular without any murmur. ABDOMEN: Soft and benign. EXTREMITIES: No edema. NEUROLOGIC: Nonfocal examination. Total time spent on discharge day, 32 minutes. Job ID: [id number]
[2018-07-31 15:32] VITALS: BP 151/91; TEMP 98.4
== END 2018-07-31 16:05 | DRG 189 ==
LOC: ERS 00:37 → ERHOLD 02:46 → 2NO 10:28
PROVIDERS: ADMIT Internal Medicine Nephrology; ATTEND Family Medicine
DX: J96.21 Acute and chronic respiratory failure with hypoxia (principal); J44.1 Chronic obstructive pulmonary disease with (acute) exacerbation; I50.22 Chronic systolic (congestive) heart failure; E44.0 Moderate protein-calorie malnutrition; Z68.1 Body mass index [BMI] 19.9 or less, adult; J96.22 Acute and chronic respiratory failure with hypercapnia; I16.0 Hypertensive urgency; I11.0 Hypertensive heart disease with heart failure; I25.10 Atherosclerotic heart disease of native coronary artery without angina pectoris; E87.6 Hypokalemia; N40.1 Benign prostatic hyperplasia with lower urinary tract symptoms; R33.8 Other retention of urine; H40.9 Unspecified glaucoma; H26.9 Unspecified cataract; E78.5 Hyperlipidemia, unspecified; F17.210 Nicotine dependence, cigarettes, uncomplicated; Z95.5 Presence of coronary angioplasty implant and graft; Z79.02 Long term (current) use of antithrombotics/antiplatelets; Z79.82 Long term (current) use of aspirin; Z79.52 Long term (current) use of systemic steroids
CPT/HCPCS: 36415; 71045; 71250; 80048; 80053; 81015; 82553; 82805; 83735; 84484; 85025; 93005; 94640; 94660; 94664; 96361; 96365; 96366; 96367; 96372; 96375; 99406; J0360; J0456; J0696; J1650; J2920; J3480; J7050; J7611; J7620

== ENCOUNTER 2018-12-15 16:47 | Inpatient (IN) | payer MEDICARE, MEDICAID ==
[~2018-12-15 16:47] MED LIST: ISOVUE-370 76%-LOCM 1 ML ONE
[2018-12-15] MEDS ORDERED: Albuterol Sulfate 2.5 mg/3 ml Neb ONE (17:14)
[2018-12-15 17:22] LABS: #Eosinphils 0.3 thou/uL (0.0-0.7); #Lymphocytes 2.3 thou/uL (1.20-3.40); #Monocytes 1.7 thou/uL (0.11-0.59); #Neutrophils 9.5 thou/uL (1.40-6.50); %Basophils 0.1 % (0.0-1.0); %Eosinophils 2.3 % (0.0-10.0); %Lymphocytes 16.8 % (21.0-51.0); %Neutrophils 68.8 % (42.0-75.0); Hemoglobin 12.3 g/dL (14.0-18.0); Mean Corpuscular HGB CONC 31.4 g/dL (32.0-36.0); Mean Corpuscular Hemoglobin 29.2 pg (27.0-31.0); Mean Corpuscular Volume 92.9 fL (78.0-98.0); Mean Platelet Volume 9.2 fL (7.4-10.4); Platelet Count 184 thou/uL (130-400); RBC Distribution Width 16.4 % (11.5-14.5); Red Blood Cell (RBC) Count 4.21 mill/uL (4.70-6.10); White Blood Cell (WBC) Count 13.7 thou/uL (4.8-10.8)
--- NOTE | 2018-12-15 17:34 | RAD ---
Exam: Chest one view HISTORY:Dyspnea Comparison: 08/09/2018, 09/12/2018 FINDINGS: Cardiac silhouette:Normal cardiac silhouette. Atherosclerosis of the aorta. Pulmonary vessels: Normal Costophrenic angles: Clear LUNGS: Hyperinflation with chronic emphysematous changes. Pneumothorax: None Osseous abnormalities: None IMPRESSION: 1. No acute cardiopulmonary process. 2. Atherosclerosis. 3. COPD. Chronic changes.
[2018-12-15 17:44] LABS: Acetaminophen Less than 6.0 mcg/mL (10.0-30.0); Alcohol 195 mg/dL (Less than 10); Salicylate Less than 8.0 mg/dL (15.0-30.0)
[2018-12-15 17:45] LABS: ALT (SGPT) Less than 7 U/L (8-55); AST (SGOT) 15 U/L (5-34); Albumin 2.9 g/dL (3.4-4.8); Alkaline Phosphatase 74 U/L (40-150); Anion Gap 19 mmol/L (10-20); BUN (Urea Nitrogen) 12 mg/dL (8.4-25.7); Bilirubin, Total 0.4 mg/dL (0.2-1.2); CK (CPK) 31 U/L (30-200); Calc. Creatinine Clearance 0 mL/min (70-130); Calcium 7.6 mg/dL (7.8-10.44); Carbon Dioxide 25 mmol/L (23-31); Chloride 102 mmol/L (98-107); Estimated GFR-MDRD Greater than 90; Globulin 2.4 g/dL (2.4-3.5); Glucose 91 mg/dL (83-110); Potassium 3.4 mmol/L (3.5-5.1); Protein, Total 5.3 g/dL (5.8-8.1); Sodium 143 mmol/L (136-145)
[2018-12-15] MEDS ORDERED: Thiamine HCl 200 MG/2 ML VIAL SLOW IVP SCH (17:45)
[2018-12-15 18:50] LABS: Bacteria/HPF 1+ HPF (None Seen); Bilirubin Negative (Negative); Blood, Urine Trace (Negative); Clarity Turbid (Clear); Glucose, Urine (Dipstick) Normal (Negative); Leukocyte 500 Leu/uL (Negative); Nitrite Negative (Negative); Protein, Urine (Dipstick) 30 mg/dL (Neg-Trace); WBC/HPF Greater than 50 HPF (0-3)
[2018-12-15 18:51] LABS: Amphetamine Not Detected (NotDetected); Barbiturates Screen Not Detected (NotDetected); Benzodiazepine Screen Not Detected (NotDetected); Cocaine Metabolite Screen Not Detected (NotDetected); Medtox Control Line Valid? VALID (VALID); Medtox Reader # READER 1; Methadone Not Detected (NotDetected); Methamphetamine Not Detected (NotDetected); Opiate Screen Not Detected (NotDetected); Oxycodone Screen Not Detected (NotDetected); Phencyclidine (PCP) Not Detected (NotDetected); THC/Cannabinoid Screen Not Detected (NotDetected); Tricyclic Screen Not Detected (NotDetected)
[2018-12-15] MEDS ORDERED: methylPREDNISolone Sod Succ/PF 125 MG/2 ML VIAL ONE (19:10)
[2018-12-15] MEDS ORDERED: cefTRIAXone\\ROCEPHIN 1 GM VIAL ONE (19:10)
--- NOTE | 2018-12-15 20:51 | CT ---
CT angiogram thorax with contrast: (CTA pulmonary angiogram) DATE: 12/15/2018 HISTORY: 73-year-old male with acute worsening of dyspnea. COMPARISON: Noncontrast chest CT of 07/24/2018 TECHNIQUE: IV injection of iodinated contrast. Scan acquisition timing attempted to coincide with iodinated contrast bolus reaching maximal density in pulmonary arteries. 3-D MIP reconstructions. FINDINGS: Again noted are the severe, large bilateral upper lobe bullae. There is a new finding of broad region of infiltrate in the right upper lobe. Medial to this, there i s a new, very irregularly-shaped, approximately 2 x 1.5 x 3 cm soft tissue density mass abutting the right posterior upper mediastinum. Ectasia of ascending thoracic aorta. Atherosclerosis of thoracic aorta. No thoracic aortic aneurysm o r dissection. There is a 5 x 6 cm solid mass with slightly heterogeneous enhancement straddling the junction betwee n the left lobe and the right lobe of the liver. It is mostly in the right lobe. Severe calcified and noncalcified atherosclerotic plaque in the proximal abdominal aorta and at origin of superior mes enteric artery and celiac artery. No evidence of pulmonary thromboembolism. Thickening of bronchial vasquez involving left lower lobe bronchus and its branches, causing luminal stenosis. No pleural effus ion or pneumothorax. No cardiomegaly or pericardial effusion. No mediastinal lymphadenopathy. IMPRESSION: 1) very severe bilateral upper lobe paraseptal emphysema. 2) new right paramediastinal right upper lobe mass, suspicious for primary lung cancer. 3) new right upper lobe infiltrate fanning out from the right upper lobe mass.. This could represent postobstructive pneumonitis, or infectious pneumonia. 4) large mass in the liver, highly suspicious for malignant neoplastic tumor. 5) mural thickening and possible intraluminal material causing luminal stenosis involving left lower lobe bronchus and its branches.
[2018-12-15 21:28] LABS: Lactic Acid 3.5 mmol/L (0.5-2.2)
[2018-12-15] MEDS ORDERED: Ondansetron PF 4 MG/2 ML Vial IVP PRN (21:51)
[2018-12-15] MEDS ORDERED: Ondansetron ODT 4 MG TAB PO PRN (21:51)
[2018-12-15] MEDS ORDERED: Acetaminophen 650 MG Suppository PR PRN (21:51)
[2018-12-15] MEDS ORDERED: Acetaminophen 325 MG TAB PO PRN (21:51)
[2018-12-15] MEDS: Sodium Chloride 0.9% 1,000 ML IV SCH (21:57)
[2018-12-15 22:08] VITALS: BMI 16.1
[2018-12-16 04:57] LABS: #Lymphocytes 0.6 thou/uL (1.20-3.40); #Monocytes 0.2 thou/uL (0.11-0.59); #Neutrophils 7.3 thou/uL (1.40-6.50); %Basophils 0.2 % (0.0-1.0); %Eosinophils 0.2 % (0.0-10.0); %Lymphocytes 7.1 % (21.0-51.0); %Monocytes 2.8 % (0.0-10.0); %Neutrophils 89.7 % (42.0-75.0); Mean Corpuscular HGB CONC 31.9 g/dL (32.0-36.0); Mean Corpuscular Hemoglobin 29.6 pg (27.0-31.0); Mean Corpuscular Volume 92.8 fL (78.0-98.0); Mean Platelet Volume 9.7 fL (7.4-10.4); Platelet Count 178 thou/uL (130-400); RBC Distribution Width 16.3 % (11.5-14.5); Red Blood Cell (RBC) Count 4.04 mill/uL (4.70-6.10); White Blood Cell (WBC) Count 8.1 thou/uL (4.8-10.8)
[2018-12-16] MEDS: Sodium Chloride 0.9% 1,000 ML IV SCH (05:19)
[2018-12-16 05:20] LABS: Anion Gap 21 mmol/L (10-20); BUN (Urea Nitrogen) 14 mg/dL (8.4-25.7); Calc. Creatinine Clearance 81 mL/min (70-130); Calcium 7.6 mg/dL (7.8-10.44); Carbon Dioxide 21 mmol/L (23-31); Chloride 99 mmol/L (98-107); Estimated GFR-MDRD Greater than 90; Glucose 104 mg/dL (83-110); Potassium 3.8 mmol/L (3.5-5.1); Sodium 137 mmol/L (136-145)
[2018-12-16] MEDS: Clopidogrel Bisulfate 75 MG TAB PO SCH (06:04)
[2018-12-16] MEDS: Carvedilol 6.25 MG TAB PO SCH ×2 (06:04→21:04)
[2018-12-16] MEDS: Lisinopril 10 MG TAB PO SCH ×2 (06:04→21:07)
[2018-12-16] MEDS ORDERED: Artificial Tears 18 DROP/0.9 ML EA EYE PRN (07:49)
[2018-12-16] MEDS ORDERED: Cepastat Lozenges 1 LOZ PO PRN (07:49)
[2018-12-16] MEDS ORDERED: hydrALAZINE 20 MG/ML VIAL SLOW IVP PRN (07:49)
[2018-12-16] MEDS ORDERED: Senokot S 8.6-50 MG TAB PO PRN (07:49)
[2018-12-16] MEDS ORDERED: Diabetic Tussin 200 MG/10 ML UDCUP PO PRN (07:49)
[2018-12-16] MEDS ORDERED: Bisacodyl 10 MG SUPP PR PRN (07:49)
[2018-12-16] MEDS ORDERED: Sodium Chloride 0.65% Nasal 44 ML BOT EA NARE PRN (07:49)
[2018-12-16] MEDS ORDERED: Temazepam 15 MG CAP PO PRN (07:49)
[2018-12-16] MEDS ORDERED: Loperamide HCl 2 MG CAP PO PRN (07:49)
[2018-12-16] MEDS ORDERED: Loratadine 10 MG TAB PO PRN (07:49)
[2018-12-16] MEDS ORDERED: cloNIDine 0.1 MG TAB PO PRN (07:49)
[2018-12-16] MEDS ORDERED: Lorazepam 0.5 MG TAB PO PRN (07:55)
[2018-12-16] MEDS ORDERED: predniSONE 20 MG TAB PO SCH (08:00)
[2018-12-16] MEDS: Saccharomyces boulardii 250 MG CAP PO SCH (08:30)
[2018-12-16] MEDS: Tamsulosin HCl 0.4 MG CAP PO SCH (08:30)
[2018-12-16] MEDS: Magnesium Oxide 400 MG TAB PO SCH (08:30)
[2018-12-16] MEDS: guaiFENesin ER 600 MG TAB PO SCH ×2 (08:30→21:08)
[2018-12-16] MEDS: Folic Acid 1 MG TAB PO SCH (08:30)
[2018-12-16] MEDS: Potassium Chloride 20 MEQ TAB PO SCH (08:30)
[2018-12-16] MEDS: Multivitamin W/ Minerals 1 TAB PO SCH (08:31)
[2018-12-16] MEDS: Cyanocobalamin (Vitamin B-12) 1,000 MCG TAB PO SCH (08:31)
[2018-12-16] MEDS: Thiamine 100 MG TAB PO SCH (08:31)
[2018-12-16] MEDS ORDERED: Prevnar 13-Val Conj/PF 0.5 ML SYRINGE IM ONE (09:00)
[2018-12-16] MEDS ORDERED: Enoxaparin Sodium 40 MG/0.4 ML SYRINGE SC SCH ×2 (09:00)
--- NOTE | 2018-12-16 10:31 | PDOC.PN ---
- Subjective Encounter Start Date: 12/16/18 Encounter Start Time: 08:50 -: old records requested/rev Patient seen and examined. No new complaints. No overnight events - Objective Resuscitation Status - Order Detail: 12/15/18 21:51 Resuscitation Status Routine Resuscitation Status: FULL: Full Resuscitation MAR Reviewed: Yes Vital Signs & Weight: Vital Signs (12 hours) Temp Pulse Resp BP BP Pulse Ox 12/16/18 07:27 85 16 96 12/16/18 06:04 178/92 H 12/16/18 05:22 99.2 F 94 18 178/92 H 98 12/16/18 04:15 98 12/16/18 02:38 16 12/16/18 00:05 97 12/15/18 22:48 98 12 94 L 12/15/18 22:30 97.9 F 94 18 172/96 H 98 Weight Weight 135 lb 14.4 oz I&O: 12/15/18 12/16/18 12/17/18 06:59 06:59 06:59 Intake Total 3275 Output Total 1800 Balance 1475 Result Diagrams: 12/16/18 04:23 12/16/18 04:23 Radiology Reviewed by me: Yes EKG Reviewed by me: Yes Phys Exam - Physical Examination Constitutional: NAD HEENT: PERRLA, moist MMs, sclera anicteric Neck: no JVD, supple Respiratory: wheezing present few scattered rales upper lobe coarse sound Cardiovascular: RRR, no significant murmur, no rub Gastrointestinal: soft, non-tender, no distention, positive bowel sounds Musculoskeletal: no edema, pulses present Neurological: non-focal, normal sensation, moves all 4 limbs Lymphatic: no nodes Psychiatric: normal affect Skin: no rash, normal turgor Dx/Plan (1) COPD exacerbation Code(s): J44.1 - CHRONIC OBSTRUCTIVE PULMONARY DISEASE W (ACUTE) EXACERBATION Status: Acute Comment: (2) Lactic acidosis Code(s): E87.2 - ACIDOSIS Status: Acute (3) Liver mass Code(s): R16.0 - HEPATOMEGALY, NOT ELSEWHERE CLASSIFIED Status: Acute (4) Mass of upper lobe of right lung Code(s): R91.8 - OTHER NONSPECIFIC ABNORMAL FINDING OF LUNG FIELD Status: Acute (5) Right upper lobe pneumonia Code(s): J18.1 - LOBAR PNEUMONIA, UNSPECIFIED ORGANISM Status: Acute Comment : suspected for post obstructive pneumonia (6) CAD (coronary artery disease) Code(s): I25.10 - ATHSCL HEART DISEASE OF [place] CORONARY ARTERY W/O ANG PCTRS Status: Chronic Comment: stable (7) Chronic systolic heart failure, ACC/AHA stage C Code(s): I50.22 - CHRONIC SYSTOLIC (CONGESTIVE) HEART FAILURE Status: Chronic (8) Dyslipidemia Code(s): E78.5 - HYPERLIPIDEMIA, UNSPECIFIED Status: Chronic Comment: (9) Hypertension Code(s): I10 - ESSENTIAL (PRIMARY) HYPERTENSION Status: Chronic Comment: (10) Protein-calorie malnutrition, moderate Code(s): E44.0 - MODERATE PROTEIN-CALORIE MALNUTRITION Status: Chronic Comment: (11) Tobacco abuse Code(s): Z72.0 - TOBACCO USE Status: Chronic - Plan cont current plan of care, 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 * palliative care consult * nutritional support * start PT Review of Systems - Review of Systems Constitutional: weakness, malaise. negative: fever, chills, sweats, other Respiratory: Cough, Shortness of Breath, SOB with Excertion, Sputum, Wheezing. negative: Dry, Hemoptysis, Pleuritic Pain Cardiovascular: negative: chest pain, palpitations, orthopnea, paroxysmal nocturnal dyspnea, edema, light headedness, other Gastrointestinal: negative: Nausea, Vomiting, Abdominal Pain, Diarrhea, Constipation, Melena, Hematochezia, Other Genitourinary: negative: Dysuria, Frequency, Incontinence, Hematuria, Retention , Other Musculoskeletal: negative: Neck Pain, Shoulder Pain, Arm Pain, Back Pain, Hand Pain, Leg Pain, Foot Pain, Other Skin: negative: Rash, Lesions, Blake, Bruising, Other - Medications/Allergies Allergies/Adverse Reactions: Allergies Allergy/AdvReac Type Severity Reaction Status Date / Time No Known Allergies Allergy Verified 07/24/18 10:47 Medications: Current Medications Acetaminophen (Tylenol) 650 mg PO Q4H PRN PRN Reason: Headache/Fever/Mild Pain (1-3) Albuterol/Ipratropium (Duoneb) 3 ml IPPB [id number] Albuterol/Ipratropium (Duoneb) 3 ml IPPB [id number] PRN PRN Reason: SOB &/or Wheezing Artificial Tears (Tears Naturale) 2 drop EA EYE PRN PRN PRN Reason: Dry Eyes Bisacodyl (Dulcolax) [address] DAILYPRN PRN PRN Reason: Constipation Carvedilol (Coreg) 6.25 mg PO BID [facility] Last Admin: 12/16/18 06:04 Dose: 6.25 mg Clonidine (Catapres) 0.1 mg PO Q4H PRN PRN Reason: SBP Greater Than 170 Clopidogrel Bisulfate (Plavix) 75 mg PO DAILY [facility] Last Admin: 12/16/18 06:04 Dose: 75 mg Cyanocobalamin (Vitamin B-12) 1,000 mcg PO DAILY [facility] Last Admin: 12/16/18 08:31 Dose: Not Given Enoxaparin Sodium (Lovenox) 30 mg SC 0900 [facility] Last Admin: 12/16/18 08:31 Dose: 30 mg Folic Acid (Folvite) 1 mg PO DAILY [facility] Last Admin: 12/16/18 08:30 Dose: 1 mg Guaifenesin (Mucinex) 600 mg PO Q12HR [facility] Last Admin: 12/16/18 08:30 Dose: 600 mg Guaifenesin (Robitussin Sf) 200 mg PO Q4H PRN PRN Reason: Cough Hydralazine HCl (Apresoline) 10 mg SLOW IVP Q4H PRN PRN Reason: SBP > 180 and HR < 70 Piperacillin Sod/Tazobactam (Sod 3.375 gm/ Sodium Chloride) 100 mls @ 200 mls/ hr IVPB Q6HR [facility] Iron/Minerals/Multivitamins (Theragran M) 1 tab PO DAILY [facility] Last Admin: 12/16/18 08:31 Dose: 1 tab Lisinopril (Zestril) 10 mg PO BID [facility] Last Admin: 12/16/18 06:04 Dose: 10 mg Loperamide HCl (Imodium) 2 mg PO PRN PRN PRN Reason: Diarrhea/Loose Stools Loratadine (Claritin) 10 mg PO DAILYPRN PRN PRN Reason: Sinus Symptoms Lorazepam (Ativan) 0.5 mg PO Q4H PRN PRN Reason: Anxiety Magnesium Oxide (Magnesium Oxide) 400 mg PO DAILY [facility] Last Admin: 12/16/18 08:30 Dose: 400 mg Methylprednisolone Sodium Succinate (Solu-Medrol) 20 mg IVP Q8HR [facility] Mometasone Furoate/Formoterol Fumar (Dulera 200 Mcg/5 Mcg Inhaler) 2 puff INH BID-RT [facility] Ondansetron HCl (Zofran Odt) 4 mg PO Q6H PRN PRN Reason: Nausea/Vomiting Ondansetron HCl (Zofran) 4 mg IVP Q6H PRN PRN Reason: Nausea/Vomiting Pantoprazole Sodium (Protonix) 40 mg PO DAILY [facility] Last Admin: 12/16/18 08:30 Dose: 40 mg Potassium Chloride (K-Dur) 20 meq PO QAM-[facility] Last Admin: 12/16/18 08:30 Dose: 20 meq Saccharomyces Boulardii (Florastor) 250 mg PO DAILY [facility] Last Admin: 12/16/18 08:30 Dose: 250 mg Senna/Docusate Sodium (Senokot S) 2 tab PO BID PRN PRN Reason: Constipation Sodium Chloride ([place] Nasal [place] 0.65%) 0 ml EA NARE QIDPRN PRN PRN Reason: Nasal Congestion Tamsulosin HCl (Flomax) 0.4 mg PO DAILY [facility] Last Admin: 12/16/18 08:30 Dose: 0.4 mg Temazepam (Restoril) 15 mg PO HSPRN PRN PRN Reason: Insomnia Thiamine HCl (Thiamine) 100 mg PO DAILY [facility] Last Admin: 12/16/18 08:31 Dose: 100 mg Throat Lozenges (Cepastat Lozenges) 1 herber PO Q2H PRN PRN Reason: Sore Throat
[2018-12-16] MEDS: methylPREDNISolone Sod Succ 40 MG VIAL IVP SCH ×2 (11:26→21:08)
[2018-12-16] MEDS: Piperacillin/Tazobactam 3.375 GM in Sodium Chloride 0.9% 100 ML IVPB SCH ×2 (11:26→17:53)
[2018-12-16] MEDS: Mometasone/Formoterol 120 PUFF INHALER INH SCH (19:51)
[2018-12-17] MEDS: Piperacillin/Tazobactam 3.375 GM in Sodium Chloride 0.9% 100 ML IVPB SCH ×5 (00:57→17:51)
[2018-12-17 05:00] LABS: ALT (SGPT) Less than 7 U/L (8-55); AST (SGOT) 11 U/L (5-34); Albumin 2.9 g/dL (3.4-4.8); Alkaline Phosphatase 61 U/L (40-150); Anion Gap 12 mmol/L (10-20); BUN (Urea Nitrogen) 15 mg/dL (8.4-25.7); Bilirubin, Total 0.4 mg/dL (0.2-1.2); Calc. Creatinine Clearance 74 mL/min (70-130); Calcium 8.1 mg/dL (7.8-10.44); Carbon Dioxide 29 mmol/L (23-31); Chloride 101 mmol/L (98-107); Estimated GFR-MDRD Greater than 90; Globulin 2.6 g/dL (2.4-3.5); Glucose 169 mg/dL (83-110); Potassium 3.8 mmol/L (3.5-5.1); Protein, Total 5.5 g/dL (5.8-8.1); Sodium 138 mmol/L (136-145)
[2018-12-17 05:14] LABS: Anisocytosis SLIGHT = 6-15 cells (100X) (0-5/hpf); Band 10 % (5-11); Hemoglobin 11.5 g/dL (14.0-18.0); Lymphocytes 7 % (21-51); MDiff Complete? YES; Mean Corpuscular HGB CONC 31.7 g/dL (32.0-36.0); Mean Corpuscular Hemoglobin 29.3 pg (27.0-31.0); Mean Corpuscular Volume 92.5 fL (78.0-98.0); Mean Platelet Volume 10.1 fL (7.4-10.4); Monocytes 6 % (0-10); Neutrophil 77 % (42-75); Platelet Count 175 thou/uL (130-400); Platelet Morphology Comment Appears Adequate; RBC Distribution Width 16.5 % (11.5-14.5); Red Blood Cell (RBC) Count 3.93 mill/uL (4.70-6.10); White Blood Cell (WBC) Count 13.3 thou/uL (4.8-10.8)
[2018-12-17 05:20] LABS: HBCM Index 0.05 S/CO (0-0.79); HBSAg Index 0.25 S/CO (0-0.99); Hep A IgM AB Non-Reactive (NonReactive); Hep A IgM S/CO 0.16 S/CO (0-0.79); Hep B Surf Ag Non-Reactive S/CO (NonReactive); Hep C IgG Ab Non-Reactive (NonReactive); Hep C Index 0.06 S/CO (0-0.79); Hepatitis B Core IgM Abs Non-Reactive (NonReactive)
[2018-12-17] MEDS: methylPREDNISolone Sod Succ 40 MG VIAL IVP SCH ×3 (06:05→20:58)
[2018-12-17] MEDS: Mometasone/Formoterol 120 PUFF INHALER INH SCH ×2 (07:18→18:52)
[2018-12-17] MEDS: Potassium Chloride 20 MEQ TAB PO SCH (08:12)
[2018-12-17] MEDS: Saccharomyces boulardii 250 MG CAP PO SCH (08:12)
[2018-12-17] MEDS: Magnesium Oxide 400 MG TAB PO SCH (08:12)
[2018-12-17] MEDS: Enoxaparin Sodium 40 MG/0.4 ML SYRINGE SC SCH (08:12)
[2018-12-17] MEDS: Multivitamin W/ Minerals 1 TAB PO SCH (08:12)
[2018-12-17] MEDS: Carvedilol 6.25 MG TAB PO SCH ×2 (08:12→20:57)
[2018-12-17] MEDS: Thiamine 100 MG TAB PO SCH (08:13)
[2018-12-17] MEDS: Folic Acid 1 MG TAB PO SCH (08:13)
[2018-12-17] MEDS: guaiFENesin ER 600 MG TAB PO SCH ×2 (08:13→20:58)
[2018-12-17] MEDS: Cyanocobalamin (Vitamin B-12) 1,000 MCG TAB PO SCH (08:13)
[2018-12-17] MEDS: Lisinopril 10 MG TAB PO SCH ×2 (08:13→20:58)
[2018-12-17] MEDS: Tamsulosin HCl 0.4 MG CAP PO SCH (08:13)
[2018-12-17] MEDS: Clopidogrel Bisulfate 75 MG TAB PO SCH (08:13)
--- NOTE | 2018-12-17 09:23 | PDOC.PN ---
- Subjective Encounter Start Date: 12/17/18 Encounter Start Time: 08:00 Patient seen and examined. No new complaints. No overnight events - Objective Resuscitation Status - Order Detail: 12/15/18 21:51 Resuscitation Status Routine Resuscitation Status: FULL: Full Resuscitation MAR Reviewed: Yes Vital Signs & Weight: Vital Signs (12 hours) Temp Pulse Resp BP BP Pulse Ox 12/17/18 08:30 98.5 F 93 18 145/78 H 99 12/17/18 08:13 167/87 H 12/17/18 08:12 167/87 H 12/17/18 07:19 70 14 12/17/18 00:40 82 16 98 Weight Admit Weight 135 lb 14.4 oz Weight 135 lb 14.4 oz I&O: 12/16/18 12/17/18 12/18/18 06:59 06:59 06:59 Intake Total 3275 850 Output Total 1800 450 Balance 1475 400 Result Diagrams: 12/17/18 04:20 12/17/18 04:20 Phys Exam - Physical Examination Constitutional: NAD HEENT: PERRLA, moist MMs, sclera anicteric Neck: no JVD, supple Respiratory: no wheezing, no rhonchi coarse sound+ Cardiovascular: RRR, no significant murmur, no rub Gastrointestinal: soft, non-tender, no distention, positive bowel sounds Musculoskeletal: no edema, pulses present Neurological: non-focal, normal sensation Lymphatic: no nodes Psychiatric: normal affect, A&O x 3 Skin: no rash, normal turgor Dx/Plan (1) COPD exacerbation Code(s): J44.1 - CHRONIC OBSTRUCTIVE PULMONARY DISEASE W (ACUTE) EXACERBATION Status: Acute Comment: (2) Lactic acidosis Code(s): E87.2 - ACIDOSIS Status: Acute (3) Liver mass Code(s): R16.0 - HEPATOMEGALY, NOT ELSEWHERE CLASSIFIED Status: Acute (4) Mass of upper lobe of right lung Code(s): R91.8 - OTHER NONSPECIFIC ABNORMAL FINDING OF LUNG FIELD Status: Acute (5) Right upper lobe pneumonia Code(s): J18.1 - LOBAR PNEUMONIA, UNSPECIFIED ORGANISM Status: Acute Comment : suspected for post obstructive pneumonia (6) CAD (coronary artery disease) Code(s): I25.10 - ATHSCL HEART DISEASE OF [place] CORONARY ARTERY W/O ANG PCTRS Status: Chronic Comment: stable (7) Chronic systolic heart failure, ACC/AHA stage C Code(s): I50.22 - CHRONIC SYSTOLIC (CONGESTIVE) HEART FAILURE Status: Chronic (8) Dyslipidemia Code(s): E78.5 - HYPERLIPIDEMIA, UNSPECIFIED Status: Chronic Comment: (9) Hypertension Code(s): I10 - ESSENTIAL (PRIMARY) HYPERTENSION Status: Chronic Comment: (10) Protein-calorie malnutrition, moderate Code(s): E44.0 - MODERATE PROTEIN-CALORIE MALNUTRITION Status: Chronic Comment: (11) Tobacco abuse Code(s): Z72.0 - TOBACCO USE Status: Chronic - Plan cont current plan of care, 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 Review of Systems - Review of Systems ENT: negative: Ear Pain, Ear Discharge, Nose Pain, Nose Discharge, Nose Congestion, Mouth Pain, Mouth Swelling, Throat Pain, Throat Swelling, Other Respiratory: Cough. negative: Dry, Shortness of Breath, Hemoptysis, SOB with Excertion, Pleuritic Pain, Sputum, Wheezing Cardiovascular: negative: chest pain, palpitations, orthopnea, paroxysmal nocturnal dyspnea, edema, light headedness, other Gastrointestinal: negative: Nausea, Vomiting, Abdominal Pain, Diarrhea, Constipation, Melena, Hematochezia, Other Genitourinary: negative: Dysuria, Frequency, Incontinence, Hematuria, Retention , Other Musculoskeletal: negative: Neck Pain, Shoulder Pain, Arm Pain, Back Pain, Hand Pain, Leg Pain, Foot Pain, Other Skin: negative: Rash, Lesions, Blake, Bruising, Other - Medications/Allergies Allergies/Adverse Reactions: Allergies Allergy/AdvReac Type Severity Reaction Status Date / Time No Known Allergies Allergy Verified 07/24/18 10:47 Medications: Current Medications Acetaminophen (Tylenol) 650 mg PO Q4H PRN PRN Reason: Headache/Fever/Mild Pain (1-3) Albuterol/Ipratropium (Duoneb) 3 ml IPPB [id number] Last Admin: 12/17/18 07:19 Dose: 3 ml Albuterol/Ipratropium (Duoneb) 3 ml IPPB [id number] PRN PRN Reason: SOB &/or Wheezing Artificial Tears (Tears Naturale) 2 drop EA EYE PRN PRN PRN Reason: Dry Eyes Bisacodyl (Dulcolax) 10 mg ID DAILYPRN PRN PRN Reason: Constipation Carvedilol (Coreg) 6.25 mg PO BID [facility] Last Admin: 12/17/18 08:12 Dose: 6.25 mg Clonidine (Catapres) 0.1 mg PO Q4H PRN PRN Reason: SBP Greater Than 170 Clopidogrel Bisulfate (Plavix) 75 mg PO DAILY [facility] Last Admin: 12/17/18 08:13 Dose: 75 mg Cyanocobalamin (Vitamin B-12) 1,000 mcg PO DAILY [facility] Last Admin: 12/17/18 08:13 Dose: Not Given Enoxaparin Sodium (Lovenox) 40 mg SC 0900 [facility] Last Admin: 12/17/18 08:12 Dose: 40 mg Folic Acid (Folvite) 1 mg PO DAILY [facility] Last Admin: 12/17/18 08:13 Dose: 1 mg Guaifenesin (Mucinex) 600 mg PO Q12HR [facility] Last Admin: 12/17/18 08:13 Dose: 600 mg Guaifenesin (Robitussin Sf) 200 mg PO Q4H PRN PRN Reason: Cough Hydralazine HCl (Apresoline) 10 mg SLOW IVP Q4H PRN PRN Reason: SBP > 180 and HR < 70 Piperacillin Sod/Tazobactam (Sod 3.375 gm/ Sodium Chloride) 100 mls @ 200 mls/ hr IVPB Q6HR [facility] Last Admin: 12/17/18 06:05 Dose: 100 mls Iron/Minerals/Multivitamins (Theragran M) 1 tab PO DAILY [facility] Last Admin: 12/17/18 08:12 Dose: 1 tab Lisinopril (Zestril) 10 mg PO BID [facility] Last Admin: 12/17/18 08:13 Dose: 10 mg Loperamide HCl (Imodium) 2 mg PO PRN PRN PRN Reason: Diarrhea/Loose Stools Loratadine (Claritin) 10 mg PO DAILYPRN PRN PRN Reason: Sinus Symptoms Lorazepam (Ativan) 0.5 mg PO Q4H PRN PRN Reason: Anxiety Magnesium Oxide (Magnesium Oxide) 400 mg PO DAILY [facility] Last Admin: 12/17/18 08:12 Dose: 400 mg Methylprednisolone Sodium Succinate (Solu-Medrol) 20 mg IVP Q8HR [facility] Last Admin: 12/17/18 06:05 Dose: 20 mg Mometasone Furoate/Formoterol Fumar (Dulera 200 Mcg/5 Mcg Inhaler) 2 puff INH BID-RT [facility] Last Admin: 12/17/18 07:18 Dose: 2 puff Ondansetron HCl (Zofran Odt) 4 mg PO Q6H PRN PRN Reason: Nausea/Vomiting Ondansetron HCl (Zofran) 4 mg IVP Q6H PRN PRN Reason: Nausea/Vomiting Pantoprazole Sodium (Protonix) 40 mg PO DAILY [facility] Last Admin: 12/17/18 08:13 Dose: 40 mg Potassium Chloride (K-Dur) 20 meq PO QAM[facility] Last Admin: 12/17/18 08:12 Dose: 20 meq Saccharomyces Boulardii (Florastor) 250 mg PO DAILY [facility] Last Admin: 12/17/18 08:12 Dose: 250 mg Senna/Docusate Sodium (Senokot S) 2 tab PO BID PRN PRN Reason: Constipation Sodium Chloride ([place] Nasal [place] 0.65%) 0 ml EA NARE QIDPRN PRN PRN Reason: Nasal Congestion Tamsulosin HCl (Flomax) 0.4 mg PO DAILY [facility] Last Admin: 12/17/18 08:13 Dose: 0.4 mg Temazepam (Restoril) 15 mg PO HSPRN PRN PRN Reason: Insomnia Thiamine HCl (Thiamine) 100 mg PO DAILY [facility] Last Admin: 12/17/18 08:13 Dose: 100 mg Throat Lozenges (Cepastat Lozenges) 1 herber PO Q2H PRN PRN Reason: Sore Throat
--- NOTE | 2018-12-17 14:35 | CON ---
DATE OF CONSULTATION: 12/17/2018 HISTORY OF PRESENT ILLNESS: Mr. Krause is a 73-year-old male. He is admitted on December 15. I found him on my rounding list today, so a consult was performed. He has no complaints other than shortness of breath on presentation. PAST MEDICAL HISTORY: Remarkable for: 1. Very severe chronic obstructive pulmonary disease, it is essentially end- stage. 2. Deconditioning. 3. History of hip replacement. 4. History of coronary artery stenting. SOCIAL HISTORY: He is a smoker and a drinker. ALLERGIES: HE HAS NO REPORTED ALLERGIES. FAMILY HISTORY: Negative for lung disease in early age. REVIEW OF SYSTEMS: Ten point review of systems is otherwise negative. PHYSICAL EXAMINATION: GENERAL: He is afebrile. VITALS: Heart rate is 93, blood pressure 167/87, respiratory rate 18, and oximetry is 99%. HEAD AND NECK: Unremarkable. He has very poor dentition. He has no cervical lymphadenopathy. LUNGS: Clear and distant. HEART: Regular rhythm. S1 and S2 are normal. ABDOMEN: Soft and nontender. EXTREMITIES: Without clubbing, cyanosis, or edema. DIAGNOSTIC DATA: Chest CT reviewed shows a new density that is paratracheal in his right upper lung. He also has a very large liver mass. CAT scan was reviewed by me and also compared to last CAT scan, which was done 5 months ago. These lesions were not there. 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 The lesion in his right lung in no way, shape or form accessible by needle or thoracotomy. Surgery or needle biopsy would likely lead to his demise. The liver lesion probably is accessible, so we will put in a request for CT- guided biopsy of liver mass. We will follow the other physicians. TIME SPENT: This is 50-minute consult, with greater than 50% of the time spent on the unit coordinating care. Job ID: [id number] MTDD
[2018-12-18] MEDS: Piperacillin/Tazobactam 3.375 GM in Sodium Chloride 0.9% 100 ML IVPB SCH ×2 (01:44→06:09)
[2018-12-18] MEDS: methylPREDNISolone Sod Succ 40 MG VIAL IVP SCH (06:10)
[2018-12-18] MEDS: Mometasone/Formoterol 120 PUFF INHALER INH SCH ×2 (07:31→18:56)
[2018-12-18 07:40] LABS: PTT 28.8 SEC (22.9-36.1)
[2018-12-18 07:42] LABS: INR-International Normal Ratio 0.9; Prothrombin Time 12.5 SEC (12.0-14.7)
[2018-12-18] MEDS: Saccharomyces boulardii 250 MG CAP PO SCH (07:55)
[2018-12-18] MEDS: Cyanocobalamin (Vitamin B-12) 1,000 MCG TAB PO SCH (07:55)
[2018-12-18] MEDS: Magnesium Oxide 400 MG TAB PO SCH (07:55)
[2018-12-18] MEDS: Enoxaparin Sodium 40 MG/0.4 ML SYRINGE SC SCH (07:55)
[2018-12-18] MEDS: Folic Acid 1 MG TAB PO SCH (07:55)
[2018-12-18] MEDS: Clopidogrel Bisulfate 75 MG TAB PO SCH (07:56)
[2018-12-18] MEDS: Lisinopril 10 MG TAB PO SCH ×2 (07:56→21:27)
[2018-12-18] MEDS: Carvedilol 6.25 MG TAB PO SCH ×2 (07:56→21:27)
[2018-12-18] MEDS: Tamsulosin HCl 0.4 MG CAP PO SCH (07:56)
[2018-12-18] MEDS: Multivitamin W/ Minerals 1 TAB PO SCH (07:56)
[2018-12-18] MEDS: guaiFENesin ER 600 MG TAB PO SCH ×2 (07:56→21:27)
[2018-12-18] MEDS: Thiamine 100 MG TAB PO SCH (07:56)
[2018-12-18] MEDS: Potassium Chloride 20 MEQ TAB PO SCH (08:00)
--- NOTE | 2018-12-18 08:03 | HP ---
CODE STATUS: Full code. TIME OF EVALUATION: 08:05 p.m. CHIEF COMPLAINT: Dyspnea, weakness. HISTORY OF PRESENT ILLNESS: This is a 73-year-old male patient with past medical history of COPD, hypertension, bilateral blindness. The patient presented to the hospital with shortness of breath, weakness, with no clear triggers, no alleviating factors. Symptoms were moderate. The patient reported that he lives alone. His symptoms have been getting gradually worse to the point that he was unable to do his activities of daily living. REVIEW OF SYSTEMS: CONSTITUTIONAL: The patient has no fever or chills. The patient has generalized weakness. RESPIRATORY: No cough, sputum production, or shortness of breath. CARDIOVASCULAR: No chest pain or palpitation. GASTROINTESTINAL: No nausea, vomiting, diarrhea, or abdominal pain. 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 The patient is blind. Not feeling lightheaded. GENITOURINARY: The patient has some burning on urination. EXTREMITIES: Leg swelling. All other systems were reviewed and negative except for the findings mentioned above. PAST MEDICAL HISTORY: As mentioned in the HPI. PAST SURGICAL HISTORY: The patient has left index finger amputated, hip replacement, cardiac stent x2 in 2014. PSYCHIATRIC HISTORY: No previous psych history. SOCIAL HISTORY: The patient drinks everyday 5 drinks per day. Lives at home alone. No drug use. The patient smokes half a pack per day. KNOWN ALLERGIES: No known drug allergies. REPORTED MEDICATIONS: 1. Plavix. 2. Lisinopril. 3. Carvedilol. 4. Prednisone. PHYSICAL EXAMINATION: VITAL SIGNS: On presentation, blood pressure 130/74 with heart rate of 111, respiratory rate was 20, temperature 98.8. Pain was 0/10, oxygen saturation was 93% on room air. GENERAL: The patient is alert, oriented, not in acute distress. HEENT: Eyes, normal conjunctivae. Moist oral mucosa. Anicteric. No JVD. RESPIRATORY: Bilateral air entry. No rales. No wheezes. Symmetric expansion. CARDIOVASCULAR: Normal rate, regular rhythm. No murmurs. No gallop. No edema. ABDOMEN: Soft. Normal bowel sounds. MUSCULOSKELETAL: Baseline range of motion and strength. SKIN: Warm, intact. No pallor. No rash. No redness. Capillary refill seems to be intact. NEUROLOGIC: No evidence of any new focal weakness. Cranial nerves seem to be intact. PSYCH: The patient is in good mood. No anxiety. Optimal judgment. The patient is blind. DIAGNOSTIC STUDIES: A chest x-ray was reviewed. The patient has findings for CHF. CT chest was done. The patient has a very severe bilateral upper lobe paraseptal emphysema, new right paramediastinal right upper lobe mass that is suspicious for primary lung cancer, new right upper lobe infiltrate fanning out from the right upper lobe mass. This could represent postobstructive pneumonitis or infectious pneumonia. Large mass of the liver, likely suspicious for malignancy and neoplastic tumor, mural thickening, possible intraluminal material causing luminal stenosis involving the left lower bronchus and its branches. LABORATORY DATA: Labs were reviewed. The patient has white count 13.7, hemoglobin 12.3, MCV 92.9, platelet count 184,000. Coagulation; D-dimer 1.76. Chemistry; sodium 143, potassium 3.4, chloride 102, carbon dioxide 25, anion gap 19, BUN 12, creatinine 0.71, GFR greater than 90, glucose 91. Lactic acid initially 4.2, second one 3.5. Calcium 7.6, total bilirubin 0.5, beta-natriuretic peptide 101.9. Serum total protein 5.3, albumin 2.9, globulin 2.4. White count greater than 50. Plasma alcohol 195. ASSESSMENT AND PLAN: The patient will be placed in the hospital with following medical problems: 1. Urinary tract infection. The patient has positive urine. The patient has been started on antibiotics. We will follow cultures, we will adjust treatment as needed. 2. Alcohol intoxication with alcohol level of 195. The patient drinks on daily basis. We will monitor him. Watch for DTs. 3. Lung mass and liver mass, unclear what the primary tumor is. We will need to treat the possible postobstructive pneumonia and then probably the mass might be accessed through bronchoscopy. Might consult Pulmonary for further recommendation regarding biopsy or if it seems reasonable to start doing the biopsy in the liver. 4. Possible postobstructive pneumonia. The patient has been started on broad-spectrum antibiotics. We will follow cultures, we will adjust treatment as needed. 5. Possible sepsis. The patient presented with lactic acidosis and leukocytosis, possible source is pneumonia and urinary tract infection. We will follow cultures and we will adjust treatment as per sensitivity. 6. History of chronic obstructive pulmonary disease with significant emphysematous changes. We will place the patient on nebs, already on antibiotics, might need steroids. 7. Uncontrolled blood pressure. The patient presented with blood pressure in the systolic 145 upon reading during admission. Reconcile home medications. The patient is septic, we will not treat aggressively. We will adjust treatment as per patient's clinical course. 8. Deep vein thrombosis prophylaxis. Job ID: [id number]
--- NOTE | 2018-12-18 09:49 | CON ---
DATE OF CONSULTATION: 12/16/2018 REASON FOR CONSULTATION: Liver mass seen on CAT scan. HISTORY OF PRESENT ILLNESS: Federico Krause is a 73-year-old fragile looking male, he has been in the hospital several times over the last 6 months or so. The patient is known to have COPD and he has had hospitalized with exacerbation for COPD. He also has some pneumonia . The patient is living in a jail and has decided to move back to his house. He moved back to his house about 2 weeks ago. He is living by himself and he does have neighbor side to help him . He has a daughter, who lives in [place] and does come to see every 2 weeks. The patient came to the ER because of dyspnea, coughing, and mild expectoration. The patient had abdominal CAT scan, which showed what appears to be a liver mass and also a right upper lobe infiltrate and mass. The patient's CAT scan shows some right upper lobe infiltrate and also right upper lobe mass. The patient this morning appears very comfortable. He denies any abdominal pain, nausea, or vomiting. He tells me he is not eating very well over the last several months. He has been losing weight. He cannot tell me how much weight he has lost. During the last admission, I believe 3 or 4 months ago, he has had weight loss of about 15 pounds. His bowel movements are regular. The patient is legally blind and cannot tell me if he has any sign of bright red blood in the stool or black tarry stool. He also complains of some vague abdominal pains over the gastric area. No history of dysphagia or odynophagia. The patient is a chronic smoker, although has COPD, he continues to smoke about 6 cigarettes per day. He was smoking almost 4 packs a few months ago. Now he is down to 6 cigarettes per day. He also drinks alcohol heavily. He said he drank a pint of whiskey just recently. No relevant history. ALLERGIES: NONE. SOCIAL HISTORY: The patient is a chronic smoker. He continues to smoke in spite of COPD. He has history of alcohol intake and continues to drink every day. MEDICAL ILLNESSES: 1. Chronic obstructive pulmonary disease. 2. Liver mass on CAT scan. 3. Right upper lobe for lung mass and possible pneumonia. 4. Coronary artery disease, status post stent placement. 5. Hyperlipidemia. 6. Hypertension. 7. Protein calorie malnutrition. 8. Chronic systolic heart failure. PAST SURGICAL HISTORY: 1. Coronary artery stent placement. 2. Hip replacement. Other relevant medical history includes, history of retention a few months ago and has had a Sloan catheter for a while. He is also on also on tamsulosin. MEDICATIONS: Medication list reviewed. He is on; 1. Coreg 6.25 mg twice a day. 2. Clonidine 0.1 mg p.o. q.4 hours. 3. Clopidogrel 75 mg once a day. 4. He is on vitamin B12. Other medicines; 1. Lovenox. 2. Folic acid. 3. Hydralazine. 4. Lisinopril. 5. Loperamide. 6. Lorazepam. 7. Magnesium oxide. 8. Methylprednisolone. 9. Piperacillin sodium IV q.6 hours. 10. Tamsulosin.. 12. Thiamine. 13. Albuterol inhaler. 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 No seizure disorder. No history of syncope. No chronic headache. RESPIRATORY: Chronic coughing. History of mucoid expectoration_ No fever. No chest pain. CARDIOVASCULAR: No chest pain. No palpitation. No dyspnea, orthopnea, or PND. GI: Vague abdominal pain. He has anorexia, weight loss. No history of any diarrhea, hematochezia, or melena. : He has recent urinary retention and has had a Sloan catheter for a while MUSCULOSKELETAL: Unremarkable. NEUROENDOCRINE: Unremarkable. PHYSICAL EXAMINATION: GENERAL: He is a thin built male, appears very comfortable. He is really not short of breath at present time. His temperature 99.2 degrees Fahrenheit, pulse is 94, blood pressure is 170/92. HEENT: Conjunctivae clear. NECK: Supple. No adenitis or thyromegaly noted. CARDIOVASCULAR: First and second heart sounds heard. LUNGS: He has coarse vesicular breaths. ABDOMEN: Soft. Abdomen is nondistended. Abdomen is mildly tender in the epigastric area. No organomegaly or masses. Bowel sounds are normal. EXTREMITIES: Reveal no edema. LABORATORY DATA: Shows today WBC 8100, hemoglobin 12, hematocrit 37.5, MCV 92.8 , platelet count 178,000, polymorphs 89, lymphocytes 7. Serum chemistries; sodium 137, potassium 3.8, chloride 99, bicarb 21, BUN is 14, creatinine 0.71, glucose 104, calcium is 7.6, albumin 2.9. BNP 101.9, calcium 7.6. LFTs are normal. CAT scan shows right lung mass and possible pneumonia and also a liver mass. IMPRESSION: 1. Liver mass is symptomatic, found on routine CT scan. He appears to have right upper lobe mass and also pneumonia. I am not sure he has metastatic disease or primarily liver cancer. 2. History of alcohol abuse over the years and he continues to drink alcohol. Presently, his liver function tests are normal. Serum AFP is pending at the present time. 3. Chronic obstructive pulmonary disease. 4. Hypertension. 5. Coronary artery disease, status post stent placement. 6. Hyperlipidemia. 7. Prostatic hypertrophy, on tamsulosin. RECOMMENDATIONS: 1. IV antibiotics. 2. We will await Pulmonary input and decide whether the diagnosis can be made without any low biopsy. The patient's clopidogrel to be stopped at least 5 days before any kind of biopsy. I will await their Pulmonary input and decide whether he needs liver biopsy or he can have a bronchoscopy and biopsy of the lung mass. Job ID: [id number] [facility]
--- NOTE | 2018-12-18 09:55 | PRG ---
DATE OF SERVICE: 12/18/2018 SUBJECTIVE: No events overnight. OBJECTIVE: VITAL SIGNS: He is afebrile. Heart rate 70, blood pressure 173/87, and oximetry is 94%. GENERAL: He is in no distress. His exam is unchanged. IMPRESSION AND PLAN: We are awaiting CT-guided biopsy of his liver. No new lab today. Job ID: [id number]
--- NOTE | 2018-12-18 11:23 | PRG ---
DATE OF SERVICE: 12/17/2018 SUBJECTIVE: This is a 73-year-old male with COPD, continued smoking, hospitalized because of dyspnea. He had an abdominal CAT scan and a chest CAT scan, which showed multiple abnormal findings. He has what appears to be right upper lobe pneumonia and also possible right upper lobe mass. Also, CAT scan of the abdomen does show a liver mass. His serum AFP level is actually normal at 2. The patient's breathing is better. He is less short of breath. He appears very comfortable. His appetite is very poor. He said he had been losing some weight recently. He said he normally eats breakfast and usually skips lunch and eats dinner. He says he has had a very good breakfast today. PHYSICAL EXAMINATION: VITAL SIGNS: Afebrile, pulse 93, blood pressure 145/78. HEENT: Conjunctivae clear. CARDIOVASCULAR: First and second heart sounds heard. LUNGS: Clear to auscultation. ABDOMEN: Soft. No organomegaly. No tenderness. No masses. LABORATORY DATA: From today, CBC; WBC 13,300, hemoglobin 11.5, hematocrit 36.4 , MCV 92.5. Chemistries; sodium 138, potassium 3.8, chloride 101, bicarb 29, BUN 15, creatinine 0.78, glucose 169. Liver function tests are normal. The tumor marker AFP is normal at 2. CLINICAL IMPRESSION: 1. Chronic obstructive pulmonary disease and continued smoking. 2. Abnormal CAT scan of the chest revealing a possible right upper lobe pneumonia and possibly right upper lobe mass. 3. Liver mass on CAT scan, but his liver profile is normal, which is likely a not hepatic primary. RECOMMENDATIONS: 1. Symptomatic treatment. 2. Option of ultrasound with liver biopsy. Again, his quality of life is very poor and really not sure if we want to be this aggressive. This was deferred to Dr. Hinds, and apparently, a Palliative Care consult has been called. I will follow along with you and my recommendation would be to not to be too aggressive with his poor clinical condition. Job ID: [id number] [facility]
--- NOTE | 2018-12-18 11:33 | PDOC.PN ---
- Subjective Encounter Start Date: 12/18/18 Encounter Start Time: 09:30 Patient seen and examined. No new complaints. No overnight events - Objective Resuscitation Status - Order Detail: 12/17/18 10:03 Resuscitation Status Routine Resuscitation Status: DNAR: NO Resuscitation Discussed with: discussed with pt MAR Reviewed: Yes Vital Signs & Weight: Vital Signs (12 hours) Temp Pulse Resp BP BP Pulse Ox 12/18/18 08:00 98.2 F 70 16 173/87 H 94 L 12/18/18 07:56 172/72 H 12/18/18 07:32 80 12 Weight Admit Weight 135 lb 14.4 oz Weight 135 lb 14.4 oz I&O: 12/17/18 12/18/18 12/19/18 06:59 06:59 06:59 Intake Total 850 240 Output Total 450 Balance 400 240 Result Diagrams: 12/17/18 04:20 12/17/18 04:20 Phys Exam - Physical Examination Constitutional: NAD HEENT: PERRLA, moist MMs, sclera anicteric Neck: no JVD, supple Respiratory: no wheezing, no rales, no rhonchi Cardiovascular: RRR, no significant murmur, no rub Gastrointestinal: soft, non-tender, no distention, positive bowel sounds Musculoskeletal: no edema, pulses present Neurological: non-focal, normal sensation Lymphatic: no nodes Psychiatric: normal affect Skin: no rash, normal turgor Dx/Plan (1) COPD exacerbation Code(s): J44.1 - CHRONIC OBSTRUCTIVE PULMONARY DISEASE W (ACUTE) EXACERBATION Status: Resolved Comment: (2) Lactic acidosis Code(s): E87.2 - ACIDOSIS Status: Resolved (3) Liver mass Code(s): R16.0 - HEPATOMEGALY, NOT ELSEWHERE CLASSIFIED Status: Acute (4) Mass of upper lobe of right lung Code(s): R91.8 - OTHER NONSPECIFIC ABNORMAL FINDING OF LUNG FIELD Status: Acute (5) Right upper lobe pneumonia Code(s): J18.1 - LOBAR PNEUMONIA, UNSPECIFIED ORGANISM Status: Acute Comment : suspected for post obstructive pneumonia (6) CAD (coronary artery disease) Code(s): I25.10 - ATHSCL HEART DISEASE OF [place] CORONARY ARTERY W/O ANG PCTRS Status: Chronic Comment: stable (7) Chronic systolic heart failure, ACC/AHA stage C Code(s): I50.22 - CHRONIC SYSTOLIC (CONGESTIVE) HEART FAILURE Status: Chronic (8) Dyslipidemia Code(s): E78.5 - HYPERLIPIDEMIA, UNSPECIFIED Status: Chronic Comment: (9) Hypertension Code(s): I10 - ESSENTIAL (PRIMARY) HYPERTENSION Status: Chronic Comment: (10) Protein-calorie malnutrition, moderate Code(s): E44.0 - MODERATE PROTEIN-CALORIE MALNUTRITION Status: Chronic Comment: (11) Tobacco abuse Code(s): Z72.0 - TOBACCO USE Status: Chronic - Plan cont current plan of care, continue antibiotics, respiratory therapy * change to po prednisone * change zosyn to augmentin and doxy * today liver biopsy * medication reviewed as below * symptomatic treatment * will need snu placement. Review of Systems - Review of Systems ENT: negative: Ear Pain, Ear Discharge, Nose Pain, Nose Discharge, Nose Congestion, Mouth Pain, Mouth Swelling, Throat Pain, Throat Swelling, Other Respiratory: negative: Cough, Dry, Shortness of Breath, Hemoptysis, SOB with Excertion, Pleuritic Pain, Sputum, Wheezing Cardiovascular: negative: chest pain, palpitations, orthopnea, paroxysmal nocturnal dyspnea, edema, light headedness, other Gastrointestinal: negative: Nausea, Vomiting, Abdominal Pain, Diarrhea, Constipation, Melena, Hematochezia, Other Genitourinary: negative: Dysuria, Frequency, Incontinence, Hematuria, Retention , Other Musculoskeletal: negative: Neck Pain, Shoulder Pain, Arm Pain, Back Pain, Hand Pain, Leg Pain, Foot Pain, Other - Medications/Allergies Allergies/Adverse Reactions: Allergies Allergy/AdvReac Type Severity Reaction Status Date / Time No Known Allergies Allergy Verified 07/24/18 10:47 Medications: Current Medications Acetaminophen (Tylenol) 650 mg PO Q4H PRN PRN Reason: Headache/Fever/Mild Pain (1-3) Last Admin: 12/18/18 08:44 Dose: 650 mg Albuterol/Ipratropium (Duoneb) 3 ml IPPB [id number] Last Admin: 12/18/18 07:32 Dose: 3 ml Albuterol/Ipratropium (Duoneb) 3 ml IPPB [id number] PRN PRN Reason: SOB &/or Wheezing Artificial Tears (Tears Naturale) 2 drop EA EYE PRN PRN PRN Reason: Dry Eyes Bisacodyl (Dulcolax) 10 mg [place] DAILYPRN PRN PRN Reason: Constipation Carvedilol (Coreg) 6.25 mg PO BID [facility] Last Admin: 12/18/18 07:56 Dose: 6.25 mg Clonidine (Catapres) 0.1 mg PO Q4H PRN PRN Reason: SBP Greater Than 170 Clopidogrel Bisulfate (Plavix) 75 mg PO DAILY [facility] Last Admin: 12/18/18 07:56 Dose: 75 mg Cyanocobalamin (Vitamin B-12) 1,000 mcg PO DAILY [facility] Last Admin: 12/18/18 07:55 Dose: 1,000 mcg Enoxaparin Sodium (Lovenox) 40 mg SC 0900 [facility] Last Admin: 12/18/18 07:55 Dose: 40 mg Folic Acid (Folvite) 1 mg PO DAILY [facility] Last Admin: 12/18/18 07:55 Dose: 1 mg Guaifenesin (Mucinex) 600 mg PO Q12HR [facility] Last Admin: 12/18/18 07:56 Dose: 600 mg Guaifenesin (Robitussin Sf) 200 mg PO Q4H PRN PRN Reason: Cough Hydralazine HCl (Apresoline) 10 mg SLOW IVP Q4H PRN PRN Reason: SBP > 180 and HR < 70 Piperacillin Sod/Tazobactam (Sod 3.375 gm/ Sodium Chloride) 100 mls @ 200 mls/ hr IVPB Q6HR [facility] Last Admin: 12/18/18 06:09 Dose: 100 mls Iron/Minerals/Multivitamins (Theragran M) 1 tab PO DAILY [facility] Last Admin: 12/18/18 07:56 Dose: 1 tab Lisinopril (Zestril) 10 mg PO BID [facility] Last Admin: 12/18/18 07:56 Dose: 10 mg Loperamide HCl (Imodium) 2 mg PO PRN PRN PRN Reason: Diarrhea/Loose Stools Loratadine (Claritin) 10 mg PO DAILYPRN PRN PRN Reason: Sinus Symptoms Lorazepam (Ativan) 0.5 mg PO Q4H PRN PRN Reason: Anxiety Magnesium Oxide (Magnesium Oxide) 400 mg PO DAILY [facility] Last Admin: 12/18/18 07:55 Dose: 400 mg Methylprednisolone Sodium Succinate (Solu-Medrol) 20 mg IVP Q8HR [facility] Last Admin: 12/18/18 06:10 Dose: 20 mg Mometasone Furoate/Formoterol Fumar (Dulera 200 Mcg/5 Mcg Inhaler) 2 puff INH BID-RT [facility] Last Admin: 12/18/18 07:31 Dose: 2 puff Ondansetron HCl (Zofran Odt) 4 mg PO Q6H PRN PRN Reason: Nausea/Vomiting Ondansetron HCl (Zofran) 4 mg IVP Q6H PRN PRN Reason: Nausea/Vomiting Pantoprazole Sodium (Protonix) 40 mg PO DAILY [facility] Last Admin: 12/18/18 07:55 Dose: 40 mg Potassium Chloride (K-Dur) 20 meq PO QAM-WM [facility] Last Admin: 12/18/18 08:00 Dose: 20 meq Saccharomyces Boulardii (Florastor) 250 mg PO DAILY [facility] Last Admin: 12/18/18 07:55 Dose: 250 mg Senna/Docusate Sodium (Senokot S) 2 tab PO BID PRN PRN Reason: Constipation Sodium Chloride ([place] Nasal [place] 0.65%) 0 ml EA NARE QIDPRN PRN PRN Reason: Nasal Congestion Tamsulosin HCl (Flomax) 0.4 mg PO DAILY [facility] Last Admin: 12/18/18 07:56 Dose: 0.4 mg Temazepam (Restoril) 15 mg PO HSPRN PRN PRN Reason: Insomnia Thiamine HCl (Thiamine) 100 mg PO DAILY [facility] Last Admin: 12/18/18 07:56 Dose: 100 mg Throat Lozenges (Cepastat Lozenges) 1 herber PO Q2H PRN PRN Reason: Sore Throat
--- NOTE | 2018-12-18 14:26 | PQF ---
CLINICAL DOCUMENTATION IMPROVEMENT CLARIFICATION FORM: ICD-10 Updated PLEASE DO AN ADDENDUM TO THE PROGRESS NOTE WITH ANY DOCUMENTATION UPDATES OR ADDITIONS AND CARRY THROUGH TO DC SUMMARY. THANK YOU. DATE: 12/18/2018 ATTN: Dr. Hinds Please exercise your independent, professional judgment in responding to the clarification form. Clinical indicators are provided on the bottom of this form for your review Please check appropriate box(s) to clarify if the following diagnosis has been ruled in or ruled out: SEPSIS [ x] Ruled in diagnosis [ ] Continue to treat [ x ] Resolved [ ] Ruled out diagnosis [ ] Cannot rule out diagnosis [ ] Other diagnosis [ ] Unable to determine In addition, please specify: Present on Admission (POA): [ x ] Yes [ ] No [ ] Unable to determine For continuity of documentation, please document condition throughout progress notes and discharge summary. Thank You. CLINICAL INDICATORS - SIGNS / SYMPTOMS / LABS ER RECORD 12/15: VS BP 130/74, Pulse 111, Resp 20 Doctor notes: Sepsis 2/2 Post obstructive PNA likely d/t lung mass/ malignancy. H&P 12/15: LAB: white count 13.7 Lactic acid initially 4.2, second one 3.5 Possible sepsis. The pt presented w/ lactic acidosis and leukocytosis, possible source is pneumonia and UTI. RISKS: H&P: Hx COPD, HTN. UTI. Possible postobstructive pneumonia. TREATMENT: MAR: Order 12/16-12/18: Zosyn 3.375 gm IV q 6 hr MAR: Order 12/18 Augmentin 875 mg po Q 12 hr. Thank you, Alena (This form is maintained as a part of the permanent medical record) 2014 [employer] All Rights Reserved Alena Dickerson RN, BSN [email or web address] Office: [phone] [facility]
[2018-12-18] MEDS: Doxycycline 100 MG CAP PO SCH (21:27)
[2018-12-18] MEDS: Amoxicillin/Potassium Clav 875 MG TAB PO SCH (21:27)
[2018-12-19] MEDS: Mometasone/Formoterol 120 PUFF INHALER INH SCH ×2 (07:22→19:38)
[2018-12-19] MEDS: guaiFENesin ER 600 MG TAB PO SCH ×2 (07:36→20:54)
[2018-12-19] MEDS: Saccharomyces boulardii 250 MG CAP PO SCH (07:36)
[2018-12-19] MEDS: Amoxicillin/Potassium Clav 875 MG TAB PO SCH ×2 (07:36→20:52)
[2018-12-19] MEDS: Multivitamin W/ Minerals 1 TAB PO SCH (07:36)
[2018-12-19] MEDS: Thiamine 100 MG TAB PO SCH (07:37)
[2018-12-19] MEDS: Folic Acid 1 MG TAB PO SCH (07:37)
[2018-12-19] MEDS: Lisinopril 10 MG TAB PO SCH ×2 (07:37→20:54)
[2018-12-19] MEDS: Carvedilol 6.25 MG TAB PO SCH ×2 (07:38→20:52)
[2018-12-19] MEDS: Tamsulosin HCl 0.4 MG CAP PO SCH (07:38)
[2018-12-19] MEDS: predniSONE 20 MG TAB PO SCH (07:38)
[2018-12-19] MEDS: Enoxaparin Sodium 40 MG/0.4 ML SYRINGE SC SCH (07:39)
[2018-12-19] MEDS: Clopidogrel Bisulfate 75 MG TAB PO SCH (07:39)
[2018-12-19] MEDS: Cyanocobalamin (Vitamin B-12) 1,000 MCG TAB PO SCH (07:40)
[2018-12-19] MEDS: Doxycycline 100 MG CAP PO SCH ×2 (08:36→20:54)
[2018-12-19] MEDS: Magnesium Oxide 400 MG TAB PO SCH (08:37)
[2018-12-19] MEDS: Potassium Chloride 20 MEQ TAB PO SCH (10:23)
--- NOTE | 2018-12-19 14:46 | PDOC.PN ---
- Subjective Encounter Start Date: 12/19/18 Encounter Start Time: 09:30 Patient seen and examined. No new complaints. No overnight events - Objective Resuscitation Status - Order Detail: 12/17/18 10:03 Resuscitation Status Routine Resuscitation Status: DNAR: NO Resuscitation Discussed with: discussed with pt MAR Reviewed: Yes Vital Signs & Weight: Vital Signs (12 hours) Temp Pulse Resp BP BP Pulse Ox 12/19/18 12:41 90 16 98 12/19/18 08:00 98 12/19/18 07:38 117/71 12/19/18 07:37 117/71 12/19/18 07:35 97.6 F 85 16 155/88 H 98 12/19/18 07:24 85 16 97 12/19/18 07:22 85 97 Weight Admit Weight 135 lb 14.4 oz Weight 135 lb 14.4 oz I&O: 12/18/18 12/19/18 12/20/18 06:59 06:59 06:59 Intake Total 850 720 240 Output Total 450 Balance 400 720 240 Result Diagrams: 12/17/18 04:20 12/17/18 04:20 Phys Exam - Physical Examination Constitutional: NAD HEENT: moist MMs, sclera anicteric Neck: no JVD, supple Respiratory: no wheezing, no rales, no rhonchi Cardiovascular: RRR, no significant murmur, no rub Gastrointestinal: soft, non-tender, no distention, positive bowel sounds Musculoskeletal: no edema, pulses present Neurological: non-focal, normal sensation Lymphatic: no nodes Psychiatric: normal affect, A&O x 3 Skin: no rash, normal turgor Dx/Plan (1) COPD exacerbation Code(s): J44.1 - CHRONIC OBSTRUCTIVE PULMONARY DISEASE W (ACUTE) EXACERBATION Status: Resolved Comment: (2) Lactic acidosis Code(s): E87.2 - ACIDOSIS Status: Resolved (3) Liver mass Code(s): R16.0 - HEPATOMEGALY, NOT ELSEWHERE CLASSIFIED Status: Acute (4) Mass of upper lobe of right lung Code(s): R91.8 - OTHER NONSPECIFIC ABNORMAL FINDING OF LUNG FIELD Status: Acute (5) Right upper lobe pneumonia Code(s): J18.1 - LOBAR PNEUMONIA, UNSPECIFIED ORGANISM Status: Acute Comment : suspected for post obstructive pneumonia (6) CAD (coronary artery disease) Code(s): I25.10 - ATHSCL HEART DISEASE OF [place] CORONARY ARTERY W/O ANG PCTRS Status: Chronic Comment: stable (7) Chronic systolic heart failure, ACC/AHA stage C Code(s): I50.22 - CHRONIC SYSTOLIC (CONGESTIVE) HEART FAILURE Status: Chronic (8) Dyslipidemia Code(s): E78.5 - HYPERLIPIDEMIA, UNSPECIFIED Status: Chronic Comment: (9) Hypertension Code(s): I10 - ESSENTIAL (PRIMARY) HYPERTENSION Status: Chronic Comment: (10) Protein-calorie malnutrition, moderate Code(s): E44.0 - MODERATE PROTEIN-CALORIE MALNUTRITION Status: Chronic Comment: (11) Tobacco abuse Code(s): Z72.0 - TOBACCO USE Status: Chronic - Plan cont current plan of care, continue antibiotics, respiratory therapy * DC Plavix * await liver biopsy * will need placement * medication reviewed as below * symptomatic treatment * overall stable and improving. Review of Systems - Review of Systems ENT: negative: Ear Pain, Ear Discharge, Nose Pain, Nose Discharge, Nose Congestion, Mouth Pain, Mouth Swelling, Throat Pain, Throat Swelling, Other Respiratory: negative: Cough, Dry, Shortness of Breath, Hemoptysis, SOB with Excertion, Pleuritic Pain, Sputum, Wheezing Cardiovascular: negative: chest pain, palpitations, orthopnea, paroxysmal nocturnal dyspnea, edema, light headedness, other Gastrointestinal: negative: Nausea, Vomiting, Abdominal Pain, Diarrhea, Constipation, Melena, Hematochezia, Other Genitourinary: negative: Dysuria, Frequency, Incontinence, Hematuria, Retention , Other Musculoskeletal: negative: Neck Pain, Shoulder Pain, Arm Pain, Back Pain, Hand Pain, Leg Pain, Foot Pain, Other - Medications/Allergies Allergies/Adverse Reactions: Allergies Allergy/AdvReac Type Severity Reaction Status Date / Time No Known Allergies Allergy Verified 07/24/18 10:47 Medications: Current Medications Acetaminophen (Tylenol) 650 mg PO Q4H PRN PRN Reason: Headache/Fever/Mild Pain (1-3) Last Admin: 12/18/18 08:44 Dose: 650 mg Albuterol/Ipratropium (Duoneb) 3 ml IPPB [id number] MARAH Last Admin: 12/19/18 12:41 Dose: 3 ml Albuterol/Ipratropium (Duoneb) 3 ml IPPB [id number] PRN PRN Reason: SOB &/or Wheezing Amoxicillin/Clavulanate Potassium (Augmentin) [address] [facility] Last Admin: 12/19/18 07:36 Dose: 875 mg Artificial Tears (Tears Naturale) 2 drop EA EYE PRN PRN PRN Reason: Dry Eyes Bisacodyl (Dulcolax) [address] DAILYPRN PRN PRN Reason: Constipation Carvedilol (Coreg) 6.[address] [facility] Last Admin: 12/19/18 07:38 Dose: 6.25 mg Clonidine (Catapres) 0.1 mg PO Q4H PRN PRN Reason: SBP Greater Than 170 Clopidogrel Bisulfate (Plavix) [address] [facility] Last Admin: 12/19/18 07:39 Dose: Not Given Cyanocobalamin (Vitamin B-12) 1,[address] [facility] Last Admin: 12/19/18 07:40 Dose: 1,000 mcg Doxycycline Hyclate (Vibramycin) [address] [facility] Last Admin: 12/19/18 08:36 Dose: 100 mg Enoxaparin Sodium (Lovenox) [address] [facility] Last Admin: 12/19/18 07:39 Dose: Not Given Folic Acid (Folvite) [address] [facility] Last Admin: 12/19/18 07:37 Dose: 1 mg Guaifenesin (Mucinex) [address] [facility] Last Admin: 12/19/18 07:36 Dose: 600 mg Guaifenesin (Robitussin Sf) 200 mg PO Q4H PRN PRN Reason: Cough Hydralazine HCl (Apresoline) 10 mg SLOW IVP Q4H PRN PRN Reason: SBP > 180 and HR < 70 Iron/Minerals/Multivitamins (Theragran M) [address] [facility] Last Admin: 12/19/18 07:36 Dose: 1 tab Lisinopril (Zestril) [address] [facility] Last Admin: 12/19/18 07:37 Dose: 10 mg Loperamide HCl (Imodium) 2 mg PO PRN PRN PRN Reason: Diarrhea/Loose Stools Loratadine (Claritin) 10 mg PO DAILYPRN PRN PRN Reason: Sinus Symptoms Lorazepam (Ativan) 0.5 mg PO Q4H PRN PRN Reason: Anxiety Magnesium Oxide (Magnesium Oxide) [address] [facility] Last Admin: 12/19/18 08:37 Dose: 400 mg Mometasone Furoate/Formoterol Fumar (Dulera 200 Mcg/5 Mcg Inhaler) 2 puff INH BID-RT [facility] Last Admin: 12/19/18 07:22 Dose: 2 puff Ondansetron HCl (Zofran Odt) 4 mg PO Q6H PRN PRN Reason: Nausea/Vomiting Ondansetron HCl (Zofran) 4 mg IVP Q6H PRN PRN Reason: Nausea/Vomiting Pantoprazole Sodium (Protonix) [address] [facility] Last Admin: 12/19/18 07:38 Dose: 40 mg Potassium Chloride (K-Dur) 20 meq PO QA-[facility] Last Admin: 12/19/18 10:23 Dose: 20 meq Prednisone (Prednisone) 20 mg PO QAM-[facility] Last Admin: 12/19/18 07:38 Dose: 20 mg Saccharomyces Boulardii (Florastor) [address] [facility] Last Admin: 12/19/18 07:36 Dose: 250 mg Senna/Docusate Sodium (Senokot S) 2 tab PO BID PRN PRN Reason: Constipation Sodium Chloride ([place] Nasal [place] 0.65%) 0 ml EA NARE QIDPRN PRN PRN Reason: Nasal Congestion Tamsulosin HCl (Flomax) 0.[address] [facility] Last Admin: 12/19/18 07:38 Dose: 0.4 mg Temazepam (Restoril) 15 mg PO HSPRN PRN PRN Reason: Insomnia Thiamine HCl (Thiamine) [address] [facility] Last Admin: 12/19/18 07:37 Dose: 100 mg Throat Lozenges (Cepastat Lozenges) 1 herber PO Q2H PRN PRN Reason: Sore Throat
--- NOTE | 2018-12-19 16:05 | PRG ---
DATE OF SERVICE: 12/19/2018 Afebrile. Heart rate is 90, respiratory rate 16, blood pressure 117/71, oximetry is 98% on room air. Lungs are clear. His liver biopsy has not been done yet because of his Plavix. This could be done as an outpatient, although I am not sure he could get here, if we tried to schedule an outpatient biopsy. I have explained the above to him as well. Job ID: [id number]
[2018-12-20] MEDS: Mometasone/Formoterol 120 PUFF INHALER INH SCH ×2 (07:01→20:58)
[2018-12-20] MEDS: Saccharomyces boulardii 250 MG CAP PO SCH (07:46)
[2018-12-20] MEDS: Amoxicillin/Potassium Clav 875 MG TAB PO SCH ×2 (07:46→20:43)
[2018-12-20] MEDS: Doxycycline 100 MG CAP PO SCH ×2 (07:46→20:43)
[2018-12-20] MEDS: guaiFENesin ER 600 MG TAB PO SCH ×2 (07:46→20:43)
[2018-12-20] MEDS: Magnesium Oxide 400 MG TAB PO SCH (07:46)
[2018-12-20] MEDS: Carvedilol 6.25 MG TAB PO SCH ×2 (07:46→20:45)
[2018-12-20] MEDS: Thiamine 100 MG TAB PO SCH (07:46)
[2018-12-20] MEDS: Folic Acid 1 MG TAB PO SCH (07:46)
[2018-12-20] MEDS: Cyanocobalamin (Vitamin B-12) 1,000 MCG TAB PO SCH (07:47)
[2018-12-20] MEDS: predniSONE 20 MG TAB PO SCH (07:47)
[2018-12-20] MEDS: Tamsulosin HCl 0.4 MG CAP PO SCH (07:47)
[2018-12-20] MEDS: Multivitamin W/ Minerals 1 TAB PO SCH (07:47)
[2018-12-20] MEDS: Clopidogrel Bisulfate 75 MG TAB PO SCH (07:47)
[2018-12-20] MEDS: Enoxaparin Sodium 40 MG/0.4 ML SYRINGE SC SCH ×2 (07:47→08:17)
[2018-12-20] MEDS: Lisinopril 10 MG TAB PO SCH ×2 (07:48→20:45)
[2018-12-20] MEDS: Potassium Chloride 20 MEQ TAB PO SCH (10:46)
--- NOTE | 2018-12-20 11:30 | PDOC.PN ---
- Subjective Encounter Start Date: 12/20/18 Encounter Start Time: 09:20 Patient seen and examined. No new complaints. No overnight events - Objective Resuscitation Status - Order Detail: 12/17/18 10:03 Resuscitation Status Routine Resuscitation Status: DNAR: NO Resuscitation Discussed with: discussed with pt MAR Reviewed: Yes Vital Signs & Weight: Vital Signs (12 hours) Temp Pulse Resp BP BP Pulse Ox 12/20/18 08:00 96 12/20/18 07:50 97.4 F L 86 18 115/87 96 12/20/18 07:48 126/87 12/20/18 07:46 126/87 12/20/18 07:44 98.6 F 98 20 150/95 H 95 12/20/18 01:07 87 18 91 L Weight Admit Weight 135 lb 14.4 oz Weight 135 lb 14.4 oz I&O: 12/19/18 12/20/18 12/21/18 06:59 06:59 06:59 Intake Total 720 720 240 Balance 720 720 240 Result Diagrams: 12/17/18 04:20 12/17/18 04:20 Phys Exam - Physical Examination Constitutional: NAD HEENT: PERRLA, moist MMs, sclera anicteric Neck: no JVD, supple Respiratory: no wheezing, no rales, no rhonchi Cardiovascular: RRR, no significant murmur, no rub Gastrointestinal: soft, non-tender, no distention, positive bowel sounds Musculoskeletal: no edema, pulses present Neurological: non-focal, normal sensation Lymphatic: no nodes Psychiatric: normal affect, A&O x 3 Skin: no rash, normal turgor Dx/Plan (1) COPD exacerbation Code(s): J44.1 - CHRONIC OBSTRUCTIVE PULMONARY DISEASE W (ACUTE) EXACERBATION Status: Resolved Comment: (2) Lactic acidosis Code(s): E87.2 - ACIDOSIS Status: Resolved (3) Liver mass Code(s): R16.0 - HEPATOMEGALY, NOT ELSEWHERE CLASSIFIED Status: Acute (4) Mass of upper lobe of right lung Code(s): R91.8 - OTHER NONSPECIFIC ABNORMAL FINDING OF LUNG FIELD Status: Acute (5) Right upper lobe pneumonia Code(s): J18.1 - LOBAR PNEUMONIA, UNSPECIFIED ORGANISM Status: Acute Comment : suspected for post obstructive pneumonia (6) CAD (coronary artery disease) Code(s): I25.10 - ATHSCL HEART DISEASE OF [place] CORONARY ARTERY W/O ANG PCTRS Status: Chronic Comment: stable (7) Chronic systolic heart failure, ACC/AHA stage C Code(s): I50.22 - CHRONIC SYSTOLIC (CONGESTIVE) HEART FAILURE Status: Chronic (8) Dyslipidemia Code(s): E78.5 - HYPERLIPIDEMIA, UNSPECIFIED Status: Chronic Comment: (9) Hypertension Code(s): I10 - ESSENTIAL (PRIMARY) HYPERTENSION Status: Chronic Comment: (10) Protein-calorie malnutrition, moderate Code(s): E44.0 - MODERATE PROTEIN-CALORIE MALNUTRITION Status: Chronic Comment: (11) Tobacco abuse Code(s): Z72.0 - TOBACCO USE Status: Chronic - Plan cont current plan of care, PT/OT, manager social services * he is waiting for snu placement * outpt liver biopsy would be difficult to arrange * radiology will do once plavix effect wear off * medication reviewed as below * symptomatic treatment. Review of Systems - Review of Systems ENT: negative: Ear Pain, Ear Discharge, Nose Pain, Nose Discharge, Nose Congestion, Mouth Pain, Mouth Swelling, Throat Pain, Throat Swelling, Other Respiratory: negative: Cough, Dry, Shortness of Breath, Hemoptysis, SOB with Excertion, Pleuritic Pain, Sputum, Wheezing Cardiovascular: negative: chest pain, palpitations, orthopnea, paroxysmal nocturnal dyspnea, edema, light headedness, other Gastrointestinal: negative: Nausea, Vomiting, Abdominal Pain, Diarrhea, Constipation, Melena, Hematochezia, Other Genitourinary: negative: Dysuria, Frequency, Incontinence, Hematuria, Retention , Other Musculoskeletal: negative: Neck Pain, Shoulder Pain, Arm Pain, Back Pain, Hand Pain, Leg Pain, Foot Pain, Other - Medications/Allergies Allergies/Adverse Reactions: Allergies Allergy/AdvReac Type Severity Reaction Status Date / Time No Known Allergies Allergy Verified 07/24/18 10:47 Medications: Current Medications Acetaminophen (Tylenol) 650 mg PO Q4H PRN PRN Reason: Headache/Fever/Mild Pain (1-3) Last Admin: 12/18/18 08:44 Dose: 650 mg Albuterol/Ipratropium (Duoneb) 3 ml IPPB [id number] MARAH Last Admin: 12/20/18 07:02 Dose: 3 ml Albuterol/Ipratropium (Duoneb) 3 ml IPPB [id number] PRN PRN Reason: SOB &/or Wheezing Amoxicillin/Clavulanate Potassium (Augmentin) 875 mg PO Q12HR [facility] Last Admin: 12/20/18 07:46 Dose: 875 mg Artificial Tears (Tears Naturale) 2 drop EA EYE PRN PRN PRN Reason: Dry Eyes Bisacodyl (Dulcolax) 10 mg [place] DAILYPRN PRN PRN Reason: Constipation Carvedilol (Coreg) 6.25 mg PO BID [facility] Last Admin: 12/20/18 07:46 Dose: 6.25 mg Clonidine (Catapres) 0.1 mg PO Q4H PRN PRN Reason: SBP Greater Than 170 Cyanocobalamin (Vitamin B-12) 1,000 mcg PO DAILY [facility] Last Admin: 12/20/18 07:47 Dose: 1,000 mcg Doxycycline Hyclate (Vibramycin) 100 mg PO BID [facility] Last Admin: 12/20/18 07:46 Dose: 100 mg Enoxaparin Sodium (Lovenox) 40 mg SC 0900 [facility] Last Admin: 12/20/18 08:17 Dose: Not Given Folic Acid (Folvite) 1 mg PO DAILY [facility] Last Admin: 12/20/18 07:46 Dose: 1 mg Guaifenesin (Mucinex) 600 mg PO Q12HR [facility] Last Admin: 12/20/18 07:46 Dose: 600 mg Guaifenesin (Robitussin Sf) 200 mg PO Q4H PRN PRN Reason: Cough Hydralazine HCl (Apresoline) 10 mg SLOW IVP Q4H PRN PRN Reason: SBP > 180 and HR < 70 Iron/Minerals/Multivitamins (Theragran M) 1 tab PO DAILY [facility] Last Admin: 12/20/18 07:47 Dose: 1 tab Lisinopril (Zestril) 10 mg PO BID [facility] Last Admin: 12/20/18 07:48 Dose: 10 mg Loperamide HCl (Imodium) 2 mg PO PRN PRN PRN Reason: Diarrhea/Loose Stools Loratadine (Claritin) 10 mg PO DAILYPRN PRN PRN Reason: Sinus Symptoms Lorazepam (Ativan) 0.5 mg PO Q4H PRN PRN Reason: Anxiety Magnesium Oxide (Magnesium Oxide) 400 mg PO DAILY [facility] Last Admin: 12/20/18 07:46 Dose: 400 mg Mometasone Furoate/Formoterol Fumar (Dulera 200 Mcg/5 Mcg Inhaler) 2 puff INH BID-RT [facility] Last Admin: 12/20/18 07:01 Dose: 2 puff Ondansetron HCl (Zofran Odt) 4 mg PO Q6H PRN PRN Reason: Nausea/Vomiting Ondansetron HCl (Zofran) 4 mg IVP Q6H PRN PRN Reason: Nausea/Vomiting Pantoprazole Sodium (Protonix) 40 mg PO DAILY [facility] Last Admin: 12/20/18 07:47 Dose: 40 mg Potassium Chloride (K-Dur) 20 meq PO QAM-[facility] Last Admin: 12/20/18 10:46 Dose: 20 meq Prednisone (Prednisone) 20 mg PO QAM-[facility] Last Admin: 12/20/18 07:47 Dose: 20 mg Saccharomyces Boulardii (Florastor) 250 mg PO DAILY [facility] Last Admin: 12/20/18 07:46 Dose: 250 mg Senna/Docusate Sodium (Senokot S) 2 tab PO BID PRN PRN Reason: Constipation Sodium Chloride ([place] Nasal [place] 0.65%) 0 ml EA NARE QIDPRN PRN PRN Reason: Nasal Congestion Tamsulosin HCl (Flomax) 0.4 mg PO DAILY [facility] Last Admin: 12/20/18 07:47 Dose: 0.4 mg Temazepam (Restoril) 15 mg PO HSPRN PRN PRN Reason: Insomnia Thiamine HCl (Thiamine) 100 mg PO DAILY [facility] Last Admin: 12/20/18 07:46 Dose: 100 mg Throat Lozenges (Cepastat Lozenges) 1 herber PO Q2H PRN PRN Reason: Sore Throat
--- NOTE | 2018-12-20 17:23 | PRG ---
DATE OF SERVICE: 12/20/2018 SUBJECTIVE: Mr. Krause is clinically stable. He is awaiting a biopsy. OBJECTIVE: VITAL SIGNS: He is afebrile. Heart rate 86, respiratory rate 18, oximetry is 96% on room air, and blood pressure 115/86. LUNGS: Clear. HEART: Regular rhythm. ABDOMEN: Soft and nontender. EXTREMITIES: Without edema. IMPRESSION AND PLAN: 1. Lung mass and liver mass, rule out lung cancer. 2. chronic obstructive pulmonary disease, clinically stable. I do not think they will be able to get him to come back if he goes to a skilled unit for a liver biopsy, so this should be done prior to discharge in my opinion. 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 He is unsure whether or not he would want to go through treatment, but without a tissue diagnosis, I really cannot tell him what his prognosis is. This is a primary liver mass and an incidental lung mass. It is a different issue than if this is metastatic small-cell lung cancer, so we will hopefully proceed with a liver mass biopsy sometime in the near future. Job ID: [id number]
[2018-12-21] MEDS: Mometasone/Formoterol 120 PUFF INHALER INH SCH ×2 (06:51→18:23)
[2018-12-21] MEDS: Doxycycline 100 MG CAP PO SCH ×2 (08:00→21:12)
[2018-12-21] MEDS: Folic Acid 1 MG TAB PO SCH (08:01)
[2018-12-21] MEDS: Amoxicillin/Potassium Clav 875 MG TAB PO SCH ×2 (08:01→21:12)
[2018-12-21] MEDS: Lisinopril 10 MG TAB PO SCH ×2 (08:01→21:13)
[2018-12-21] MEDS: guaiFENesin ER 600 MG TAB PO SCH ×2 (08:01→21:12)
[2018-12-21] MEDS: Thiamine 100 MG TAB PO SCH (08:01)
[2018-12-21] MEDS: Multivitamin W/ Minerals 1 TAB PO SCH (08:01)
[2018-12-21] MEDS: Carvedilol 6.25 MG TAB PO SCH ×2 (08:01→21:13)
[2018-12-21] MEDS: Saccharomyces boulardii 250 MG CAP PO SCH (08:02)
[2018-12-21] MEDS: Magnesium Oxide 400 MG TAB PO SCH (08:02)
[2018-12-21] MEDS: Tamsulosin HCl 0.4 MG CAP PO SCH (08:02)
[2018-12-21] MEDS: Potassium Chloride 20 MEQ TAB PO SCH (08:02)
[2018-12-21] MEDS: Enoxaparin Sodium 40 MG/0.4 ML SYRINGE SC SCH (08:02)
[2018-12-21] MEDS: predniSONE 20 MG TAB PO SCH (08:02)
[2018-12-21] MEDS: Cyanocobalamin (Vitamin B-12) 1,000 MCG TAB PO SCH (08:02)
[2018-12-21 08:32] LABS: PTT 31.4 SEC (22.9-36.1); Prothrombin Time 12.7 SEC (12.0-14.7)
[2018-12-21 08:36] LABS: #Eosinphils 0.1 thou/uL (0.0-0.7); #Lymphocytes 2.4 thou/uL (1.20-3.40); #Monocytes 1.5 thou/uL (0.11-0.59); #Neutrophils 6.8 thou/uL (1.40-6.50); %Basophils 0.4 % (0.0-1.0); %Eosinophils 0.8 % (0.0-10.0); %Lymphocytes 21.9 % (21.0-51.0); %Monocytes 13.7 % (0.0-10.0); %Neutrophils 63.2 % (42.0-75.0); Hemoglobin 12.1 g/dL (14.0-18.0); Mean Corpuscular HGB CONC 30.4 g/dL (32.0-36.0); Mean Corpuscular Hemoglobin 28.6 pg (27.0-31.0); Mean Corpuscular Volume 94.2 fL (78.0-98.0); Platelet Count 207 thou/uL (130-400); RBC Distribution Width 16.3 % (11.5-14.5); Red Blood Cell (RBC) Count 4.22 mill/uL (4.70-6.10); White Blood Cell (WBC) Count 10.8 thou/uL (4.8-10.8)
[2018-12-21 08:48] LABS: Lactic Acid 2.2 mmol/L (0.5-2.2)
[2018-12-21 08:52] LABS: ALT (SGPT) 8 U/L (8-55); AST (SGOT) 16 U/L (5-34); Albumin 2.9 g/dL (3.4-4.8); Alkaline Phosphatase 67 U/L (40-150); Anion Gap 10 mmol/L (10-20); BUN (Urea Nitrogen) 17 mg/dL (8.4-25.7); Bilirubin, Total 0.2 mg/dL (0.2-1.2); Calc. Creatinine Clearance 73 mL/min (70-130); Calcium 8.7 mg/dL (7.8-10.44); Carbon Dioxide 33 mmol/L (23-31); Chloride 101 mmol/L (98-107); Estimated GFR-MDRD Greater than 90; Globulin 2.7 g/dL (2.4-3.5); Glucose 138 mg/dL (83-110); Potassium 3.5 mmol/L (3.5-5.1); Protein, Total 5.6 g/dL (5.8-8.1); Sodium 140 mmol/L (136-145)
--- NOTE | 2018-12-21 10:36 | PDOC.PN ---
- Subjective Encounter Start Date: 12/21/18 Encounter Start Time: 09:10 Patient seen and examined. No new complaints. No overnight events - Objective Resuscitation Status - Order Detail: 12/17/18 10:03 Resuscitation Status Routine Resuscitation Status: DNAR: NO Resuscitation Discussed with: discussed with pt MAR Reviewed: Yes Vital Signs & Weight: Vital Signs (12 hours) Temp Pulse Resp BP BP Pulse Ox 12/21/18 08:01 138/84 12/21/18 07:10 98.9 F 93 16 138/84 90 L 12/21/18 06:53 88 16 99 12/21/18 06:51 88 16 98 12/21/18 00:35 86 18 95 Weight Admit Weight 135 lb 14.4 oz Weight 135 lb 14.4 oz I&O: 12/20/18 12/21/18 12/22/18 06:59 06:59 06:59 Intake Total 720 720 240 Output Total 500 Balance 720 220 240 Result Diagrams: 12/21/18 08:16 12/21/18 08:16 Phys Exam - Physical Examination Constitutional: NAD HEENT: PERRLA, moist MMs, sclera anicteric Neck: no JVD, supple Respiratory: no wheezing, no rales, no rhonchi Cardiovascular: RRR, no significant murmur, no rub Gastrointestinal: soft, non-tender, no distention, positive bowel sounds Musculoskeletal: no edema, pulses present Neurological: non-focal, normal sensation Lymphatic: no nodes Psychiatric: normal affect Skin: no rash, normal turgor Dx/Plan (1) COPD exacerbation Code(s): J44.1 - CHRONIC OBSTRUCTIVE PULMONARY DISEASE W (ACUTE) EXACERBATION Status: Resolved Comment: (2) Lactic acidosis Code(s): E87.2 - ACIDOSIS Status: Resolved (3) Liver mass Code(s): R16.0 - HEPATOMEGALY, NOT ELSEWHERE CLASSIFIED Status: Acute (4) Mass of upper lobe of right lung Code(s): R91.8 - OTHER NONSPECIFIC ABNORMAL FINDING OF LUNG FIELD Status: Acute (5) Right upper lobe pneumonia Code(s): J18.1 - LOBAR PNEUMONIA, UNSPECIFIED ORGANISM Status: Acute Comment : suspected for post obstructive pneumonia (6) CAD (coronary artery disease) Code(s): I25.10 - ATHSCL HEART DISEASE OF [place] CORONARY ARTERY W/O ANG PCTRS Status: Chronic Comment: stable (7) Chronic systolic heart failure, ACC/AHA stage C Code(s): I50.22 - CHRONIC SYSTOLIC (CONGESTIVE) HEART FAILURE Status: Chronic (8) Dyslipidemia Code(s): E78.5 - HYPERLIPIDEMIA, UNSPECIFIED Status: Chronic Comment: (9) Hypertension Code(s): I10 - ESSENTIAL (PRIMARY) HYPERTENSION Status: Chronic Comment: (10) Protein-calorie malnutrition, moderate Code(s): E44.0 - MODERATE PROTEIN-CALORIE MALNUTRITION Status: Chronic Comment: (11) Tobacco abuse Code(s): Z72.0 - TOBACCO USE Status: Chronic - Plan cont current plan of care * medication reviewed as below * symptomatic treatment * liver biopsy possibly tomorrow * await placement. Review of Systems - Review of Systems ENT: negative: Ear Pain, Ear Discharge, Nose Pain, Nose Discharge, Nose Congestion, Mouth Pain, Mouth Swelling, Throat Pain, Throat Swelling, Other Respiratory: negative: Cough, Dry, Shortness of Breath, Hemoptysis, SOB with Excertion, Pleuritic Pain, Sputum, Wheezing Cardiovascular: negative: chest pain, palpitations, orthopnea, paroxysmal nocturnal dyspnea, edema, light headedness, other Gastrointestinal: negative: Nausea, Vomiting, Abdominal Pain, Diarrhea, Constipation, Melena, Hematochezia, Other Genitourinary: negative: Dysuria, Frequency, Incontinence, Hematuria, Retention , Other Musculoskeletal: negative: Neck Pain, Shoulder Pain, Arm Pain, Back Pain, Hand Pain, Leg Pain, Foot Pain, Other - Medications/Allergies Allergies/Adverse Reactions: Allergies Allergy/AdvReac Type Severity Reaction Status Date / Time No Known Allergies Allergy Verified 07/24/18 10:47 Medications: Current Medications Acetaminophen (Tylenol) 650 mg PO Q4H PRN PRN Reason: Headache/Fever/Mild Pain (1-3) Last Admin: 12/18/18 08:44 Dose: 650 mg Albuterol/Ipratropium (Duoneb) 3 ml IPPB [id number] [facility] Last Admin: 12/21/18 06:53 Dose: 3 ml Albuterol/Ipratropium (Duoneb) 3 ml IPPB [id number] PRN PRN Reason: SOB &/or Wheezing Amoxicillin/Clavulanate Potassium (Augmentin) 875 mg PO Q12HR [facility] Last Admin: 12/21/18 08:01 Dose: 875 mg Artificial Tears (Tears Naturale) 2 drop EA EYE PRN PRN PRN Reason: Dry Eyes Bisacodyl (Dulcolax) 10 mg [place] DAILYPRN PRN PRN Reason: Constipation Carvedilol (Coreg) 6.25 mg PO BID [facility] Last Admin: 12/21/18 08:01 Dose: 6.25 mg Clonidine (Catapres) 0.1 mg PO Q4H PRN PRN Reason: SBP Greater Than 170 Cyanocobalamin (Vitamin B-12) 1,000 mcg PO DAILY [facility] Last Admin: 12/21/18 08:02 Dose: 1,000 mcg Doxycycline Hyclate (Vibramycin) 100 mg PO BID [facility] Last Admin: 12/21/18 08:00 Dose: 100 mg Enoxaparin Sodium (Lovenox) 40 mg SC 0900 [facility] Last Admin: 12/21/18 08:02 Dose: 40 mg Folic Acid (Folvite) 1 mg PO DAILY [facility] Last Admin: 12/21/18 08:01 Dose: 1 mg Guaifenesin (Mucinex) 600 mg PO Q12HR [facility] Last Admin: 12/21/18 08:01 Dose: 600 mg Guaifenesin (Robitussin Sf) 200 mg PO Q4H PRN PRN Reason: Cough Hydralazine HCl (Apresoline) 10 mg SLOW IVP Q4H PRN PRN Reason: SBP > 180 and HR < 70 Iron/Minerals/Multivitamins (Theragran M) 1 tab PO DAILY [facility] Last Admin: 12/21/18 08:01 Dose: 1 tab Lisinopril (Zestril) 10 mg PO BID [facility] Last Admin: 12/21/18 08:01 Dose: 10 mg Loperamide HCl (Imodium) 2 mg PO PRN PRN PRN Reason: Diarrhea/Loose Stools Loratadine (Claritin) 10 mg PO DAILYPRN PRN PRN Reason: Sinus Symptoms Lorazepam (Ativan) 0.5 mg PO Q4H PRN PRN Reason: Anxiety Magnesium Oxide (Magnesium Oxide) 400 mg PO DAILY [facility] Last Admin: 12/21/18 08:02 Dose: 400 mg Mometasone Furoate/Formoterol Fumar (Dulera 200 Mcg/5 Mcg Inhaler) 2 puff INH BID-RT [facility] Last Admin: 12/21/18 06:51 Dose: 2 puff Ondansetron HCl (Zofran Odt) 4 mg PO Q6H PRN PRN Reason: Nausea/Vomiting Ondansetron HCl (Zofran) 4 mg IVP Q6H PRN PRN Reason: Nausea/Vomiting Pantoprazole Sodium (Protonix) 40 mg PO DAILY [facility] Last Admin: 12/21/18 08:01 Dose: 40 mg Potassium Chloride (K-Dur) 20 meq PO QAM-[facility] Last Admin: 12/21/18 08:02 Dose: 20 meq Prednisone (Prednisone) 20 mg PO QAM-[facility] Last Admin: 12/21/18 08:02 Dose: 20 mg Saccharomyces Boulardii (Florastor) 250 mg PO DAILY [facility] Last Admin: 12/21/18 08:02 Dose: 250 mg Senna/Docusate Sodium (Senokot S) 2 tab PO BID PRN PRN Reason: Constipation Sodium Chloride ([place] Nasal [place] 0.65%) 0 ml EA NARE QIDPRN PRN PRN Reason: Nasal Congestion Tamsulosin HCl (Flomax) 0.4 mg PO DAILY [facility] Last Admin: 12/21/18 08:02 Dose: 0.4 mg Temazepam (Restoril) 15 mg PO HSPRN PRN PRN Reason: Insomnia Thiamine HCl (Thiamine) 100 mg PO DAILY [facility] Last Admin: 12/21/18 08:01 Dose: 100 mg Throat Lozenges (Cepastat Lozenges) 1 herber PO Q2H PRN PRN Reason: Sore Throat
--- NOTE | 2018-12-21 15:06 | PRG ---
DATE OF SERVICE: 12/21/2018 SUBJECTIVE: Federico Krause is doing well. He has no complaints. Awaiting biopsy of liver mass. OBJECTIVE: GENERAL: He is afebrile. VITAL SIGNS: Heart rate is 83, blood pressure 138/84, oximetry is 99 on room air. LUNGS: Clear. IMPRESSION: 1. Advanced chronic obstructive pulmonary disease, clinically stable. 2. Liver mass, awaiting biopsy. Probably should be off his Lovenox if the biopsy is coming up. 3. Lung mass. 4. Advanced chronic obstructive pulmonary disease. 5. Blindness. PLAN: Continue with current care. Awaiting biopsies so we can plan. Job ID: [id number]
[2018-12-22] MEDS: Mometasone/Formoterol 120 PUFF INHALER INH SCH ×2 (06:41→19:53)
[2018-12-22] MEDS ORDERED: Sodium Bicarbonate 2.5 MEQ/5 ML VIAL ONE (09:13)
[2018-12-22] MEDS ORDERED: Fentanyl 100 MCG/2 ML VIAL ONE (09:13)
[2018-12-22] MEDS ORDERED: Midazolam HCl 2 mg/2 ml Vial ONE (09:14)
[2018-12-22] MEDS: Carvedilol 6.25 MG TAB PO SCH ×2 (09:26→20:49)
[2018-12-22] MEDS: Lisinopril 10 MG TAB PO SCH ×2 (09:26→20:51)
--- NOTE | 2018-12-22 09:53 | PRG ---
DATE OF SERVICE: 12/22/2018 SUBJECTIVE: Mr. Krause apparently had his order for his liver biopsy canceled by someone. My understanding was they were going to wait until the Plavix interval had passed and then they would biopsy him. I have asked the nurses to look into this. OBJECTIVE: VITAL SIGNS: Blood pressure 174/82, heart rate 69, and respiratory rate of 20. He is afebrile. He is otherwise unchanged. IMPRESSION AND PLAN: 1. Lung mass. 2. Liver mass. 3. Advanced obstructive lung disease. 4. Legal blindness. 5. Deconditioning. I do not think he can get from a long term here easily for biopsy, so in my opinion, he should stay until this is done. Job ID: [id number]
--- NOTE | 2018-12-22 10:40 | PDOC.PN ---
- Subjective Encounter Start Date: 12/22/18 Encounter Start Time: 09:10 Patient seen and examined. No new complaints. No overnight events - Objective Resuscitation Status - Order Detail: 12/17/18 10:03 Resuscitation Status Routine Resuscitation Status: DNAR: NO Resuscitation Discussed with: discussed with pt MAR Reviewed: Yes Vital Signs & Weight: Vital Signs (12 hours) Temp Pulse Resp BP BP Pulse Ox 12/22/18 09:26 174/82 H 12/22/18 08:00 96 12/22/18 07:32 98.6 F 69 20 174/82 H 96 12/22/18 06:41 72 16 12/22/18 06:33 72 16 12/21/18 23:43 65 18 95 Weight Admit Weight 135 lb 14.4 oz Weight 135 lb 14.4 oz I&O: 12/21/18 12/22/18 12/23/18 06:59 06:59 06:59 Intake Total 720 1320 Output Total 500 300 Balance 220 1020 Result Diagrams: 12/21/18 08:16 12/21/18 08:16 Phys Exam - Physical Examination Constitutional: NAD HEENT: PERRLA, moist MMs, sclera anicteric Neck: no JVD, supple Respiratory: no wheezing, no rales, no rhonchi Cardiovascular: RRR, no significant murmur, no rub Gastrointestinal: soft, non-tender, no distention, positive bowel sounds Musculoskeletal: no edema, pulses present Neurological: non-focal, normal sensation Lymphatic: no nodes Psychiatric: normal affect, A&O x 3 Skin: no rash, normal turgor Dx/Plan (1) COPD exacerbation Code(s): J44.1 - CHRONIC OBSTRUCTIVE PULMONARY DISEASE W (ACUTE) EXACERBATION Status: Resolved Comment: (2) Lactic acidosis Code(s): E87.2 - ACIDOSIS Status: Resolved (3) Liver mass Code(s): R16.0 - HEPATOMEGALY, NOT ELSEWHERE CLASSIFIED Status: Acute (4) Mass of upper lobe of right lung Code(s): R91.8 - OTHER NONSPECIFIC ABNORMAL FINDING OF LUNG FIELD Status: Acute (5) Right upper lobe pneumonia Code(s): J18.1 - LOBAR PNEUMONIA, UNSPECIFIED ORGANISM Status: Acute Comment : suspected for post obstructive pneumonia (6) CAD (coronary artery disease) Code(s): I25.10 - ATHSCL HEART DISEASE OF [place] CORONARY ARTERY W/O ANG PCTRS Status: Chronic Comment: stable (7) Chronic systolic heart failure, ACC/AHA stage C Code(s): I50.22 - CHRONIC SYSTOLIC (CONGESTIVE) HEART FAILURE Status: Chronic (8) Dyslipidemia Code(s): E78.5 - HYPERLIPIDEMIA, UNSPECIFIED Status: Chronic Comment: (9) Hypertension Code(s): I10 - ESSENTIAL (PRIMARY) HYPERTENSION Status: Chronic Comment: (10) Protein-calorie malnutrition, moderate Code(s): E44.0 - MODERATE PROTEIN-CALORIE MALNUTRITION Status: Chronic Comment: (11) Tobacco abuse Code(s): Z72.0 - TOBACCO USE Status: Chronic - Plan cont current plan of care * medication reviewed as below * symptomatic treatment * today liver biopsy * after procedure will observe today and will consider dc tomorrow if snu arranged. Review of Systems - Review of Systems ENT: negative: Ear Pain, Ear Discharge, Nose Pain, Nose Discharge, Nose Congestion, Mouth Pain, Mouth Swelling, Throat Pain, Throat Swelling, Other Respiratory: negative: Cough, Dry, Shortness of Breath, Hemoptysis, SOB with Excertion, Pleuritic Pain, Sputum, Wheezing Cardiovascular: negative: chest pain, palpitations, orthopnea, paroxysmal nocturnal dyspnea, edema, light headedness, other Gastrointestinal: negative: Nausea, Vomiting, Abdominal Pain, Diarrhea, Constipation, Melena, Hematochezia, Other Genitourinary: negative: Dysuria, Frequency, Incontinence, Hematuria, Retention , Other Musculoskeletal: negative: Neck Pain, Shoulder Pain, Arm Pain, Back Pain, Hand Pain, Leg Pain, Foot Pain, Other - Medications/Allergies Allergies/Adverse Reactions: Allergies Allergy/AdvReac Type Severity Reaction Status Date / Time No Known Allergies Allergy Verified 07/24/18 10:47 Medications: Current Medications Acetaminophen (Tylenol) 650 mg PO Q4H PRN PRN Reason: Headache/Fever/Mild Pain (1-3) Last Admin: 12/18/18 08:44 Dose: 650 mg Albuterol/Ipratropium (Duoneb) 3 ml IPPB [id number] [facility] Last Admin: 12/22/18 06:33 Dose: 3 ml Albuterol/Ipratropium (Duoneb) 3 ml IPPB [id number] PRN PRN Reason: SOB &/or Wheezing Amoxicillin/Clavulanate Potassium (Augmentin) 875 mg PO Q12HR [facility] Last Admin: 12/21/18 21:12 Dose: 875 mg Artificial Tears (Tears Naturale) 2 drop EA EYE PRN PRN PRN Reason: Dry Eyes Bisacodyl (Dulcolax) 10 mg [place] DAILYPRN PRN PRN Reason: Constipation Carvedilol (Coreg) 6.25 mg PO BID [facility] Last Admin: 12/22/18 09:26 Dose: 6.25 mg Clonidine (Catapres) 0.1 mg PO Q4H PRN PRN Reason: SBP Greater Than 170 Cyanocobalamin (Vitamin B-12) 1,000 mcg PO DAILY [facility] Last Admin: 12/21/18 08:02 Dose: 1,000 mcg Doxycycline Hyclate (Vibramycin) 100 mg PO BID [facility] Last Admin: 12/21/18 21:12 Dose: 100 mg Folic Acid (Folvite) 1 mg PO DAILY [facility] Last Admin: 12/21/18 08:01 Dose: 1 mg Guaifenesin (Mucinex) 600 mg PO Q12HR [facility] Last Admin: 12/21/18 21:12 Dose: 600 mg Guaifenesin (Robitussin Sf) 200 mg PO Q4H PRN PRN Reason: Cough Hydralazine HCl (Apresoline) 10 mg SLOW IVP Q4H PRN PRN Reason: SBP > 180 and HR < 70 Iron/Minerals/Multivitamins (Theragran M) 1 tab PO DAILY [facility] Last Admin: 12/21/18 08:01 Dose: 1 tab Lisinopril (Zestril) 10 mg PO BID [facility] Last Admin: 12/22/18 09:26 Dose: 10 mg Loperamide HCl (Imodium) 2 mg PO PRN PRN PRN Reason: Diarrhea/Loose Stools Loratadine (Claritin) 10 mg PO DAILYPRN PRN PRN Reason: Sinus Symptoms Lorazepam (Ativan) 0.5 mg PO Q4H PRN PRN Reason: Anxiety Magnesium Oxide (Magnesium Oxide) 400 mg PO DAILY [facility] Last Admin: 12/21/18 08:02 Dose: 400 mg Mometasone Furoate/Formoterol Fumar (Dulera 200 Mcg/5 Mcg Inhaler) 2 puff INH BID-RT [facility] Last Admin: 12/22/18 06:41 Dose: 2 puff Ondansetron HCl (Zofran Odt) 4 mg PO Q6H PRN PRN Reason: Nausea/Vomiting Ondansetron HCl (Zofran) 4 mg IVP Q6H PRN PRN Reason: Nausea/Vomiting Pantoprazole Sodium (Protonix) 40 mg PO DAILY [facility] Last Admin: 12/21/18 08:01 Dose: 40 mg Potassium Chloride (K-Dur) 20 meq PO [facility] Last Admin: 12/21/18 08:02 Dose: 20 meq Prednisone (Prednisone) 20 mg PO QA-[facility] Last Admin: 12/21/18 08:02 Dose: 20 mg Saccharomyces Boulardii (Florastor) 250 mg PO DAILY [facility] Last Admin: 12/21/18 08:02 Dose: 250 mg Senna/Docusate Sodium (Senokot S) 2 tab PO BID PRN PRN Reason: Constipation Sodium Chloride ([place] Nasal [place] 0.65%) 0 ml EA NARE QIDPRN PRN PRN Reason: Nasal Congestion Tamsulosin HCl (Flomax) 0.4 mg PO DAILY [facility] Last Admin: 12/21/18 08:02 Dose: 0.4 mg Temazepam (Restoril) 15 mg PO HSPRN PRN PRN Reason: Insomnia Thiamine HCl (Thiamine) 100 mg PO DAILY [facility] Last Admin: 12/21/18 08:01 Dose: 100 mg Throat Lozenges (Cepastat Lozenges) 1 herber PO Q2H PRN PRN Reason: Sore Throat
[2018-12-22] MEDS: Doxycycline 100 MG CAP PO SCH ×2 (11:07→20:50)
[2018-12-22] MEDS: Saccharomyces boulardii 250 MG CAP PO SCH (11:08)
[2018-12-22] MEDS: Amoxicillin/Potassium Clav 875 MG TAB PO SCH ×2 (11:08→20:49)
[2018-12-22] MEDS: Potassium Chloride 20 MEQ TAB PO SCH (11:08)
[2018-12-22] MEDS: predniSONE 20 MG TAB PO SCH (11:08)
[2018-12-22] MEDS: guaiFENesin ER 600 MG TAB PO SCH ×2 (11:08→20:50)
[2018-12-22] MEDS: Magnesium Oxide 400 MG TAB PO SCH (11:08)
[2018-12-22] MEDS: Cyanocobalamin (Vitamin B-12) 1,000 MCG TAB PO SCH (11:08)
[2018-12-22] MEDS: Folic Acid 1 MG TAB PO SCH (11:09)
[2018-12-22] MEDS: Tamsulosin HCl 0.4 MG CAP PO SCH (11:09)
[2018-12-22] MEDS: Multivitamin W/ Minerals 1 TAB PO SCH (11:09)
[2018-12-22] MEDS: Thiamine 100 MG TAB PO SCH (11:09)
--- NOTE | 2018-12-22 11:58 | CT ---
CT-guided liver mass biopsy HISTORY: Liver mass. FINDINGS: After explaining the procedure and answering all questions, limited CT imaging of the abdom en was performed. Sterile technique, buffered local anesthesia, CT guidance, and an anterior right upper quadrant approach were used to carefully a 17-gauge trocar needle into the large hypodense mass in the right liver lobe. Position was confirmed with CT. A total of 2 18-gauge core biopsy specimens were obtained and submitted to Dr. Escalona from pathology f or evaluation. Specimen adequacy was confirmed. Needle was removed. No evidence of complication. Patient tolerated the procedure well and was returned in unchanged condition. IMPRESSION: Technically successful CT-guided liver mass biopsy. Pathology is pending.
[2018-12-23] MEDS: Mometasone/Formoterol 120 PUFF INHALER INH SCH ×2 (07:15→18:40)
[2018-12-23] MEDS: Cyanocobalamin (Vitamin B-12) 1,000 MCG TAB PO SCH (08:09)
[2018-12-23] MEDS: Potassium Chloride 20 MEQ TAB PO SCH (08:10)
[2018-12-23] MEDS: Amoxicillin/Potassium Clav 875 MG TAB PO SCH ×2 (08:10→20:23)
[2018-12-23] MEDS: Doxycycline 100 MG CAP PO SCH ×2 (08:10→20:23)
[2018-12-23] MEDS: Thiamine 100 MG TAB PO SCH (08:10)
[2018-12-23] MEDS: Folic Acid 1 MG TAB PO SCH (08:11)
[2018-12-23] MEDS: guaiFENesin ER 600 MG TAB PO SCH ×2 (08:11→20:24)
[2018-12-23] MEDS: Lisinopril 10 MG TAB PO SCH ×2 (08:11→20:24)
[2018-12-23] MEDS: Tamsulosin HCl 0.4 MG CAP PO SCH (08:11)
[2018-12-23] MEDS: Saccharomyces boulardii 250 MG CAP PO SCH (08:11)
[2018-12-23] MEDS: Magnesium Oxide 400 MG TAB PO SCH (08:12)
[2018-12-23] MEDS: Multivitamin W/ Minerals 1 TAB PO SCH (08:12)
[2018-12-23] MEDS: predniSONE 20 MG TAB PO SCH (08:13)
[2018-12-23] MEDS: Carvedilol 6.25 MG TAB PO SCH ×2 (08:13→20:23)
--- NOTE | 2018-12-23 11:39 | EKG ---
Test Reason : DYSPNEA Blood Pressure : / mmHG Vent. Rate : 108 BPM Atrial Rate : 108 BPM P-R Int : 098 ms QRS Dur : 082 ms QT Int : 368 ms P-R-T Axes : 065 -22 027 degrees QTc Int : 493 ms Sinus tachycardia with short OH with Premature supraventricular complexes and with occasional Prematu re ventricular complexes Nonspecific ST abnormality Abnormal ECG Confirmed by JOSE NEELY ([id number]), index editor AKASH TEE ([id number]) on 12/23/2018 11:39:16 AM Referred By: Confirmed By:JOSE NEELY
--- NOTE | 2018-12-23 12:16 | PRG ---
DATE OF SERVICE: 12/23/2018 SUBJECTIVE: The patient is doing relatively well, had no complaints. OBJECTIVE: VITAL SIGNS: Temperature 98.6, pulse 86, blood pressure 134/83, respiratory rate 16. HEENT: Unremarkable. NECK: No adenopathy or JVD. LUNGS: Clear. CARDIAC: S1, S2. Regular. ABDOMEN: Soft. EXTREMITIES: No edema. LABORATORY DATA: Liver biopsy from yesterday is pending. ASSESSMENT: Lung mass with liver metastasis. PLAN: Await results of biopsy. It sounds like the patient may be going home tomorrow so he can follow up with Oncology as an outpatient. Job ID: [id number]
--- NOTE | 2018-12-23 12:21 | PDOC.PN ---
- Subjective Encounter Start Date: 12/23/18 Encounter Start Time: 09:45 Patient seen and examined. No new complaints. No overnight events - Objective Resuscitation Status - Order Detail: 12/17/18 10:03 Resuscitation Status Routine Resuscitation Status: DNAR: NO Resuscitation Discussed with: discussed with pt MAR Reviewed: Yes Vital Signs & Weight: Vital Signs (12 hours) Temp Pulse Resp BP BP Pulse Ox 12/23/18 08:13 134/83 12/23/18 07:15 86 16 12/23/18 07:05 86 16 12/23/18 06:53 98.6 F 86 17 143/83 H 100 12/23/18 01:15 76 16 97 Weight Admit Weight 135 lb 14.4 oz Weight 135 lb 14.4 oz I&O: 12/22/18 12/23/18 12/24/18 06:59 06:59 06:59 Intake Total 1320 600 Output Total 300 200 Balance 1020 600 -200 Result Diagrams: 12/21/18 08:16 12/21/18 08:16 Phys Exam - Physical Examination Constitutional: NAD HEENT: PERRLA, moist MMs, sclera anicteric Neck: no JVD, supple Respiratory: no wheezing, no rales, no rhonchi Cardiovascular: RRR, no significant murmur, no rub Gastrointestinal: soft, non-tender, no distention, positive bowel sounds Musculoskeletal: no edema, pulses present Neurological: non-focal, normal sensation Lymphatic: no nodes Psychiatric: normal affect Skin: no rash, normal turgor Dx/Plan (1) COPD exacerbation Code(s): J44.1 - CHRONIC OBSTRUCTIVE PULMONARY DISEASE W (ACUTE) EXACERBATION Status: Resolved Comment: (2) Lactic acidosis Code(s): E87.2 - ACIDOSIS Status: Resolved (3) Liver mass Code(s): R16.0 - HEPATOMEGALY, NOT ELSEWHERE CLASSIFIED Status: Acute (4) Mass of upper lobe of right lung Code(s): R91.8 - OTHER NONSPECIFIC ABNORMAL FINDING OF LUNG FIELD Status: Acute (5) Right upper lobe pneumonia Code(s): J18.1 - LOBAR PNEUMONIA, UNSPECIFIED ORGANISM Status: Acute Comment : suspected for post obstructive pneumonia (6) CAD (coronary artery disease) Code(s): I25.10 - ATHSCL HEART DISEASE OF [place] CORONARY ARTERY W/O ANG PCTRS Status: Chronic Comment: stable (7) Chronic systolic heart failure, ACC/AHA stage C Code(s): I50.22 - CHRONIC SYSTOLIC (CONGESTIVE) HEART FAILURE Status: Chronic (8) Dyslipidemia Code(s): E78.5 - HYPERLIPIDEMIA, UNSPECIFIED Status: Chronic Comment: (9) Hypertension Code(s): I10 - ESSENTIAL (PRIMARY) HYPERTENSION Status: Chronic Comment: (10) Protein-calorie malnutrition, moderate Code(s): E44.0 - MODERATE PROTEIN-CALORIE MALNUTRITION Status: Chronic Comment: (11) Tobacco abuse Code(s): Z72.0 - TOBACCO USE Status: Chronic - Plan cont current plan of care * await pathology report * medication reviewed as below * symptomatic treatment * outpt follow up with oncology for biopsy result and after that his treatment plan would be challenging. Review of Systems - Review of Systems ENT: negative: Ear Pain, Ear Discharge, Nose Pain, Nose Discharge, Nose Congestion, Mouth Pain, Mouth Swelling, Throat Pain, Throat Swelling, Other Respiratory: negative: Cough, Dry, Shortness of Breath, Hemoptysis, SOB with Excertion, Pleuritic Pain, Sputum, Wheezing Cardiovascular: negative: chest pain, palpitations, orthopnea, paroxysmal nocturnal dyspnea, edema, light headedness, other Gastrointestinal: negative: Nausea, Vomiting, Abdominal Pain, Diarrhea, Constipation, Melena, Hematochezia, Other Genitourinary: negative: Dysuria, Frequency, Incontinence, Hematuria, Retention , Other Musculoskeletal: negative: Neck Pain, Shoulder Pain, Arm Pain, Back Pain, Hand Pain, Leg Pain, Foot Pain, Other - Medications/Allergies Allergies/Adverse Reactions: Allergies Allergy/AdvReac Type Severity Reaction Status Date / Time No Known Allergies Allergy Verified 07/24/18 10:47 Medications: Current Medications Acetaminophen (Tylenol) 650 mg PO Q4H PRN PRN Reason: Headache/Fever/Mild Pain (1-3) Last Admin: 12/18/18 08:44 Dose: 650 mg Albuterol/Ipratropium (Duoneb) 3 ml IPPB [id number] MARAH Last Admin: 12/23/18 07:05 Dose: 3 ml Albuterol/Ipratropium (Duoneb) 3 ml IPPB [id number] PRN PRN Reason: SOB &/or Wheezing Amoxicillin/Clavulanate Potassium (Augmentin) 875 mg PO Q12HR [facility] Last Admin: 12/23/18 08:10 Dose: 875 mg Artificial Tears (Tears Naturale) 2 drop EA EYE PRN PRN PRN Reason: Dry Eyes Bisacodyl (Dulcolax) 10 mg IN DAILYPRN PRN PRN Reason: Constipation Carvedilol (Coreg) 6.25 mg PO BID [facility] Last Admin: 12/23/18 08:13 Dose: 6.25 mg Clonidine (Catapres) 0.1 mg PO Q4H PRN PRN Reason: SBP Greater Than 170 Cyanocobalamin (Vitamin B-12) 1,000 mcg PO DAILY [facility] Last Admin: 12/23/18 08:09 Dose: 1,000 mcg Doxycycline Hyclate (Vibramycin) 100 mg PO BID [facility] Last Admin: 12/23/18 08:10 Dose: 100 mg Folic Acid (Folvite) 1 mg PO DAILY [facility] Last Admin: 12/23/18 08:11 Dose: 1 mg Guaifenesin (Mucinex) 600 mg PO Q12HR [facility] Last Admin: 12/23/18 08:11 Dose: 600 mg Guaifenesin (Robitussin Sf) 200 mg PO Q4H PRN PRN Reason: Cough Hydralazine HCl (Apresoline) 10 mg SLOW IVP Q4H PRN PRN Reason: SBP > 180 and HR < 70 Iron/Minerals/Multivitamins (Theragran M) 1 tab PO DAILY [facility] Last Admin: 12/23/18 08:12 Dose: 1 tab Lisinopril (Zestril) 10 mg PO BID [facility] Last Admin: 12/23/18 08:11 Dose: 10 mg Loperamide HCl (Imodium) 2 mg PO PRN PRN PRN Reason: Diarrhea/Loose Stools Loratadine (Claritin) 10 mg PO DAILYPRN PRN PRN Reason: Sinus Symptoms Lorazepam (Ativan) 0.5 mg PO Q4H PRN PRN Reason: Anxiety Magnesium Oxide (Magnesium Oxide) 400 mg PO DAILY [facility] Last Admin: 12/23/18 08:12 Dose: 400 mg Mometasone Furoate/Formoterol Fumar (Dulera 200 Mcg/5 Mcg Inhaler) 2 puff INH BID-RT [facility] Last Admin: 12/23/18 07:15 Dose: 2 puff Ondansetron HCl (Zofran Odt) 4 mg PO Q6H PRN PRN Reason: Nausea/Vomiting Ondansetron HCl (Zofran) 4 mg IVP Q6H PRN PRN Reason: Nausea/Vomiting Pantoprazole Sodium (Protonix) 40 mg PO DAILY [facility] Last Admin: 12/23/18 08:10 Dose: 40 mg Potassium Chloride (K-Dur) 20 meq PO [facility] Last Admin: 12/23/18 08:10 Dose: 20 meq Prednisone (Prednisone) 20 mg PO QA-[facility] Last Admin: 12/23/18 08:13 Dose: 20 mg Saccharomyces Boulardii (Florastor) 250 mg PO DAILY [facility] Last Admin: 12/23/18 08:11 Dose: 250 mg Senna/Docusate Sodium (Senokot S) 2 tab PO BID PRN PRN Reason: Constipation Sodium Chloride ([place] Nasal [place] 0.65%) 0 ml EA NARE QIDPRN PRN PRN Reason: Nasal Congestion Tamsulosin HCl (Flomax) 0.4 mg PO DAILY [facility] Last Admin: 12/23/18 08:11 Dose: 0.4 mg Temazepam (Restoril) 15 mg PO HSPRN PRN PRN Reason: Insomnia Thiamine HCl (Thiamine) 100 mg PO DAILY [facility] Last Admin: 12/23/18 08:10 Dose: 100 mg Throat Lozenges (Cepastat Lozenges) 1 herber PO Q2H PRN PRN Reason: Sore Throat
[2018-12-24] MEDS: Magnesium Oxide 400 MG TAB PO SCH (08:11)
[2018-12-24] MEDS: Multivitamin W/ Minerals 1 TAB PO SCH (08:11)
[2018-12-24] MEDS: predniSONE 20 MG TAB PO SCH (08:11)
[2018-12-24] MEDS: guaiFENesin ER 600 MG TAB PO SCH ×2 (08:11→20:32)
[2018-12-24] MEDS: Carvedilol 6.25 MG TAB PO SCH ×2 (08:11→20:32)
[2018-12-24] MEDS: Folic Acid 1 MG TAB PO SCH (08:11)
[2018-12-24] MEDS: Cyanocobalamin (Vitamin B-12) 1,000 MCG TAB PO SCH (08:11)
[2018-12-24] MEDS: Potassium Chloride 20 MEQ TAB PO SCH (08:11)
[2018-12-24] MEDS: Amoxicillin/Potassium Clav 875 MG TAB PO SCH ×2 (08:11→20:32)
[2018-12-24] MEDS: Tamsulosin HCl 0.4 MG CAP PO SCH (08:11)
[2018-12-24] MEDS: Thiamine 100 MG TAB PO SCH (08:11)
[2018-12-24] MEDS: Saccharomyces boulardii 250 MG CAP PO SCH (08:11)
[2018-12-24] MEDS: Mometasone/Formoterol 120 PUFF INHALER INH SCH ×2 (08:12→18:46)
[2018-12-24] MEDS: Lisinopril 10 MG TAB PO SCH ×2 (08:12→20:32)
[2018-12-24] MEDS: Doxycycline 100 MG CAP PO SCH ×2 (08:12→20:32)
--- NOTE | 2018-12-24 14:26 | PDOC.PN ---
- Subjective Encounter Start Date: 12/24/18 Encounter Start Time: 07:00 Patient seen and examined. No new complaints. No overnight events - Objective Resuscitation Status - Order Detail: 12/17/18 10:03 Resuscitation Status Routine Resuscitation Status: DNAR: NO Resuscitation Discussed with: discussed with pt MAR Reviewed: Yes Vital Signs & Weight: Vital Signs (12 hours) Temp Pulse Resp BP BP Pulse Ox 12/24/18 13:02 70 16 12/24/18 08:12 74 16 141/82 H 12/24/18 08:11 141/82 H 12/24/18 08:02 71 16 12/24/18 08:00 98.6 F 71 18 165/90 H 96 Weight Admit Weight 135 lb 14.4 oz Weight 135 lb 14.4 oz I&O: 12/23/18 12/24/18 12/25/18 06:59 06:59 06:59 Intake Total 600 720 Output Total 600 Balance 600 120 Result Diagrams: 12/21/18 08:16 12/21/18 08:16 Phys Exam - Physical Examination Constitutional: NAD HEENT: moist MMs Neck: no JVD, supple Respiratory: no wheezing, no rales, no rhonchi Cardiovascular: RRR, no significant murmur, no rub Gastrointestinal: soft, non-tender, no distention, positive bowel sounds Musculoskeletal: no edema, pulses present Neurological: non-focal Lymphatic: no nodes Psychiatric: normal affect Dx/Plan (1) COPD exacerbation Code(s): J44.1 - CHRONIC OBSTRUCTIVE PULMONARY DISEASE W (ACUTE) EXACERBATION Status: Resolved Comment: (2) Lactic acidosis Code(s): E87.2 - ACIDOSIS Status: Resolved (3) Liver mass Code(s): R16.0 - HEPATOMEGALY, NOT ELSEWHERE CLASSIFIED Status: Acute (4) Mass of upper lobe of right lung Code(s): R91.8 - OTHER NONSPECIFIC ABNORMAL FINDING OF LUNG FIELD Status: Acute (5) Right upper lobe pneumonia Code(s): J18.1 - LOBAR PNEUMONIA, UNSPECIFIED ORGANISM Status: Acute Comment : suspected for post obstructive pneumonia (6) CAD (coronary artery disease) Code(s): I25.10 - ATHSCL HEART DISEASE OF [place] CORONARY ARTERY W/O ANG PCTRS Status: Chronic Comment: stable (7) Chronic systolic heart failure, ACC/AHA stage C Code(s): I50.22 - CHRONIC SYSTOLIC (CONGESTIVE) HEART FAILURE Status: Chronic (8) Dyslipidemia Code(s): E78.5 - HYPERLIPIDEMIA, UNSPECIFIED Status: Chronic Comment: (9) Hypertension Code(s): I10 - ESSENTIAL (PRIMARY) HYPERTENSION Status: Chronic Comment: (10) Protein-calorie malnutrition, moderate Code(s): E44.0 - MODERATE PROTEIN-CALORIE MALNUTRITION Status: Chronic Comment: (11) Tobacco abuse Code(s): Z72.0 - TOBACCO USE Status: Chronic - Plan cont current plan of care, plan discussed w/ family * await pathology * medication reviewed as below * symptomatic treatment * possible dc tomorrow. Review of Systems - Review of Systems ENT: negative: Ear Pain, Ear Discharge, Nose Pain, Nose Discharge, Nose Congestion, Mouth Pain, Mouth Swelling, Throat Pain, Throat Swelling, Other Respiratory: negative: Cough, Dry, Shortness of Breath, Hemoptysis, SOB with Excertion, Pleuritic Pain, Sputum, Wheezing Cardiovascular: negative: chest pain, palpitations, orthopnea, paroxysmal nocturnal dyspnea, edema, light headedness, other Gastrointestinal: negative: Nausea, Vomiting, Abdominal Pain, Diarrhea, Constipation, Melena, Hematochezia, Other Genitourinary: negative: Dysuria, Frequency, Incontinence, Hematuria, Retention , Other Musculoskeletal: negative: Neck Pain, Shoulder Pain, Arm Pain, Back Pain, Hand Pain, Leg Pain, Foot Pain, Other - Medications/Allergies Allergies/Adverse Reactions: Allergies Allergy/AdvReac Type Severity Reaction Status Date / Time No Known Allergies Allergy Verified 07/24/18 10:47 Medications: Current Medications Acetaminophen (Tylenol) 650 mg PO Q4H PRN PRN Reason: Headache/Fever/Mild Pain (1-3) Last Admin: 12/18/18 08:44 Dose: 650 mg Albuterol/Ipratropium (Duoneb) 3 ml IPPB [id number] MARAH Last Admin: 12/24/18 13:02 Dose: 3 ml Albuterol/Ipratropium (Duoneb) 3 ml IPPB [id number] PRN PRN Reason: SOB &/or Wheezing Amoxicillin/Clavulanate Potassium (Augmentin) 875 mg PO Q12HR MAR[facility] Last Admin: 12/24/18 08:11 Dose: 875 mg Artificial Tears (Tears Naturale) 2 drop EA EYE PRN PRN PRN Reason: Dry Eyes Bisacodyl (Dulcolax) 10 mg MS DAILYPRN PRN PRN Reason: Constipation Carvedilol (Coreg) 6.25 mg PO BID [facility] Last Admin: 12/24/18 08:11 Dose: 6.25 mg Clonidine (Catapres) 0.1 mg PO Q4H PRN PRN Reason: SBP Greater Than 170 Cyanocobalamin (Vitamin B-12) 1,000 mcg PO DAILY [facility] Last Admin: 12/24/18 08:11 Dose: 1,000 mcg Doxycycline Hyclate (Vibramycin) 100 mg PO BID [facility] Last Admin: 12/24/18 08:12 Dose: 100 mg Folic Acid (Folvite) 1 mg PO DAILY [facility] Last Admin: 12/24/18 08:11 Dose: 1 mg Guaifenesin (Mucinex) 600 mg PO Q12HR [facility] Last Admin: 12/24/18 08:11 Dose: 600 mg Guaifenesin (Robitussin Sf) 200 mg PO Q4H PRN PRN Reason: Cough Hydralazine HCl (Apresoline) 10 mg SLOW IVP Q4H PRN PRN Reason: SBP > 180 and HR < 70 Iron/Minerals/Multivitamins (Theragran M) 1 tab PO DAILY [facility] Last Admin: 12/24/18 08:11 Dose: 1 tab Lisinopril (Zestril) 10 mg PO BID [facility] Last Admin: 12/24/18 08:12 Dose: 10 mg Loperamide HCl (Imodium) 2 mg PO PRN PRN PRN Reason: Diarrhea/Loose Stools Loratadine (Claritin) 10 mg PO DAILYPRN PRN PRN Reason: Sinus Symptoms Lorazepam (Ativan) 0.5 mg PO Q4H PRN PRN Reason: Anxiety Magnesium Oxide (Magnesium Oxide) 400 mg PO DAILY [facility] Last Admin: 12/24/18 08:11 Dose: 400 mg Mometasone Furoate/Formoterol Fumar (Dulera 200 Mcg/5 Mcg Inhaler) 2 puff INH BID-RT [facility] Last Admin: 12/24/18 08:12 Dose: 2 puff Ondansetron HCl (Zofran Odt) 4 mg PO Q6H PRN PRN Reason: Nausea/Vomiting Ondansetron HCl (Zofran) 4 mg IVP Q6H PRN PRN Reason: Nausea/Vomiting Pantoprazole Sodium (Protonix) 40 mg PO DAILY [facility] Last Admin: 12/24/18 08:12 Dose: 40 mg Potassium Chloride (K-Dur) 20 meq PO [facility] Last Admin: 12/24/18 08:11 Dose: 20 meq Prednisone (Prednisone) 20 mg PO [facility] Last Admin: 12/24/18 08:11 Dose: 20 mg Saccharomyces Boulardii (Florastor) 250 mg PO DAILY [facility] Last Admin: 12/24/18 08:11 Dose: 250 mg Senna/Docusate Sodium (Senokot S) 2 tab PO BID PRN PRN Reason: Constipation Sodium Chloride ([place] Nasal [place] 0.65%) 0 ml EA NARE QIDPRN PRN PRN Reason: Nasal Congestion Tamsulosin HCl (Flomax) 0.4 mg PO DAILY [facility] Last Admin: 12/24/18 08:11 Dose: 0.4 mg Temazepam (Restoril) 15 mg PO HSPRN PRN PRN Reason: Insomnia Thiamine HCl (Thiamine) 100 mg PO DAILY [facility] Last Admin: 12/24/18 08:11 Dose: 100 mg Throat Lozenges (Cepastat Lozenges) 1 herber PO Q2H PRN PRN Reason: Sore Throat
[2018-12-25] MEDS: Mometasone/Formoterol 120 PUFF INHALER INH SCH (07:00)
[2018-12-25] MEDS: Potassium Chloride 20 MEQ TAB PO SCH (08:51)
[2018-12-25] MEDS: Multivitamin W/ Minerals 1 TAB PO SCH (08:52)
[2018-12-25] MEDS: Carvedilol 6.25 MG TAB PO SCH (08:52)
[2018-12-25] MEDS: Amoxicillin/Potassium Clav 875 MG TAB PO SCH (08:52)
[2018-12-25] MEDS: Cyanocobalamin (Vitamin B-12) 1,000 MCG TAB PO SCH (08:52)
[2018-12-25] MEDS: Lisinopril 10 MG TAB PO SCH (08:52)
[2018-12-25] MEDS: Thiamine 100 MG TAB PO SCH (08:52)
[2018-12-25] MEDS: Doxycycline 100 MG CAP PO SCH (08:53)
[2018-12-25] MEDS: Magnesium Oxide 400 MG TAB PO SCH (08:53)
[2018-12-25] MEDS: Tamsulosin HCl 0.4 MG CAP PO SCH (08:53)
[2018-12-25] MEDS: guaiFENesin ER 600 MG TAB PO SCH (08:53)
[2018-12-25] MEDS: Folic Acid 1 MG TAB PO SCH (08:53)
[2018-12-25] MEDS: predniSONE 20 MG TAB PO SCH (08:53)
[2018-12-25] MEDS: Saccharomyces boulardii 250 MG CAP PO SCH (08:53)
--- NOTE | 2018-12-25 10:35 | PDOC.PN ---
- Subjective Encounter Start Date: 12/25/18 Encounter Start Time: 08:30 Patient seen and examined. No new complaints. No overnight events - Objective Resuscitation Status - Order Detail: 12/17/18 10:03 Resuscitation Status Routine Resuscitation Status: DNAR: NO Resuscitation Discussed with: discussed with pt MAR Reviewed: Yes Vital Signs & Weight: Vital Signs (12 hours) Temp Pulse Resp BP BP Pulse Ox 12/25/18 08:52 170/90 H 12/25/18 07:16 98.1 F 68 18 170/70 H 100 12/24/18 23:48 78 16 97 Weight Admit Weight 135 lb 14.4 oz Weight 135 lb 14.4 oz I&O: 12/24/18 12/25/18 12/26/18 06:59 06:59 06:59 Intake Total 720 480 Output Total 600 400 Balance 120 80 Result Diagrams: 12/21/18 08:16 12/21/18 08:16 Phys Exam - Physical Examination Constitutional: NAD HEENT: PERRLA, moist MMs, sclera anicteric Neck: no JVD, supple Respiratory: no wheezing, no rales, no rhonchi Cardiovascular: RRR, no significant murmur, no rub Gastrointestinal: soft, non-tender, no distention, positive bowel sounds Musculoskeletal: no edema, pulses present Neurological: non-focal, normal sensation, moves all 4 limbs Psychiatric: normal affect, A&O x 3 Skin: no rash, normal turgor Dx/Plan (1) COPD exacerbation Code(s): J44.1 - CHRONIC OBSTRUCTIVE PULMONARY DISEASE W (ACUTE) EXACERBATION Status: Resolved Comment: (2) Lactic acidosis Code(s): E87.2 - ACIDOSIS Status: Resolved (3) Liver mass Code(s): R16.0 - HEPATOMEGALY, NOT ELSEWHERE CLASSIFIED Status: Acute (4) Mass of upper lobe of right lung Code(s): R91.8 - OTHER NONSPECIFIC ABNORMAL FINDING OF LUNG FIELD Status: Acute (5) Right upper lobe pneumonia Code(s): J18.1 - LOBAR PNEUMONIA, UNSPECIFIED ORGANISM Status: Acute Comment : suspected for post obstructive pneumonia (6) CAD (coronary artery disease) Code(s): I25.10 - ATHSCL HEART DISEASE OF [place] CORONARY ARTERY W/O ANG PCTRS Status: Chronic Comment: stable (7) Chronic systolic heart failure, ACC/AHA stage C Code(s): I50.22 - CHRONIC SYSTOLIC (CONGESTIVE) HEART FAILURE Status: Chronic (8) Dyslipidemia Code(s): E78.5 - HYPERLIPIDEMIA, UNSPECIFIED Status: Chronic Comment: (9) Hypertension Code(s): I10 - ESSENTIAL (PRIMARY) HYPERTENSION Status: Chronic Comment: (10) Protein-calorie malnutrition, moderate Code(s): E44.0 - MODERATE PROTEIN-CALORIE MALNUTRITION Status: Chronic Comment: (11) Tobacco abuse Code(s): Z72.0 - TOBACCO USE Status: Chronic - Plan cont current plan of care, social group worker * medication reviewed as below * symptomatic treatment * see my discharge josé. Review of Systems - Review of Systems ENT: negative: Ear Pain, Ear Discharge, Nose Pain, Nose Discharge, Nose Congestion, Mouth Pain, Mouth Swelling, Throat Pain, Throat Swelling, Other Respiratory: negative: Cough, Dry, Shortness of Breath, Hemoptysis, SOB with Excertion, Pleuritic Pain, Sputum, Wheezing Cardiovascular: negative: chest pain, palpitations, orthopnea, paroxysmal nocturnal dyspnea, edema, light headedness, other Gastrointestinal: negative: Nausea, Vomiting, Abdominal Pain, Diarrhea, Constipation, Melena, Hematochezia, Other Genitourinary: negative: Dysuria, Frequency, Incontinence, Hematuria, Retention , Other Musculoskeletal: negative: Neck Pain, Shoulder Pain, Arm Pain, Back Pain, Hand Pain, Leg Pain, Foot Pain, Other - Medications/Allergies Allergies/Adverse Reactions: Allergies Allergy/AdvReac Type Severity Reaction Status Date / Time No Known Allergies Allergy Verified 07/24/18 10:47 Medications: Current Medications Acetaminophen (Tylenol) 650 mg PO Q4H PRN PRN Reason: Headache/Fever/Mild Pain (1-3) Last Admin: 12/18/18 08:44 Dose: 650 mg Albuterol/Ipratropium (Duoneb) 3 ml IPPB [id number] MARAH Last Admin: 12/25/18 07:00 Dose: Not Given Albuterol/Ipratropium (Duoneb) 3 ml IPPB [id number] PRN PRN Reason: SOB &/or Wheezing Amoxicillin/Clavulanate Potassium (Augmentin) 875 mg PO Q12HR [facility] Last Admin: 12/25/18 08:52 Dose: 875 mg Artificial Tears (Tears Naturale) 2 drop EA EYE PRN PRN PRN Reason: Dry Eyes Bisacodyl (Dulcolax) 10 mg NE DAILYPRN PRN PRN Reason: Constipation Carvedilol (Coreg) 6.25 mg PO BID [facility] Last Admin: 12/25/18 08:52 Dose: 6.25 mg Clonidine (Catapres) 0.1 mg PO Q4H PRN PRN Reason: SBP Greater Than 170 Cyanocobalamin (Vitamin B-12) 1,000 mcg PO DAILY [facility] Last Admin: 12/25/18 08:52 Dose: 1,000 mcg Doxycycline Hyclate (Vibramycin) 100 mg PO BID [facility] Last Admin: 12/25/18 08:53 Dose: 100 mg Folic Acid (Folvite) 1 mg PO DAILY [facility] Last Admin: 12/25/18 08:53 Dose: 1 mg Guaifenesin (Mucinex) 600 mg PO Q12HR [facility] Last Admin: 12/25/18 08:53 Dose: 600 mg Guaifenesin (Robitussin Sf) 200 mg PO Q4H PRN PRN Reason: Cough Hydralazine HCl (Apresoline) 10 mg SLOW IVP Q4H PRN PRN Reason: SBP > 180 and HR < 70 Iron/Minerals/Multivitamins (Theragran M) 1 tab PO DAILY [facility] Last Admin: 12/25/18 08:52 Dose: 1 tab Lisinopril (Zestril) 10 mg PO BID [facility] Last Admin: 12/25/18 08:52 Dose: 10 mg Loperamide HCl (Imodium) 2 mg PO PRN PRN PRN Reason: Diarrhea/Loose Stools Loratadine (Claritin) 10 mg PO DAILYPRN PRN PRN Reason: Sinus Symptoms Lorazepam (Ativan) 0.5 mg PO Q4H PRN PRN Reason: Anxiety Magnesium Oxide (Magnesium Oxide) 400 mg PO DAILY [facility] Last Admin: 12/25/18 08:53 Dose: 400 mg Mometasone Furoate/Formoterol Fumar (Dulera 200 Mcg/5 Mcg Inhaler) 2 puff INH BID-RT [facility] Last Admin: 12/25/18 07:00 Dose: Not Given Ondansetron HCl (Zofran Odt) 4 mg PO Q6H PRN PRN Reason: Nausea/Vomiting Ondansetron HCl (Zofran) 4 mg IVP Q6H PRN PRN Reason: Nausea/Vomiting Pantoprazole Sodium (Protonix) 40 mg PO DAILY [facility] Last Admin: 12/25/18 08:52 Dose: 40 mg Potassium Chloride (K-Dur) 20 meq PO [facility] Last Admin: 12/25/18 08:51 Dose: 20 meq Prednisone (Prednisone) 20 mg PO [facility] Last Admin: 12/25/18 08:53 Dose: 20 mg Saccharomyces Boulardii (Florastor) 250 mg PO DAILY [facility] Last Admin: 12/25/18 08:53 Dose: 250 mg Senna/Docusate Sodium (Senokot S) 2 tab PO BID PRN PRN Reason: Constipation Sodium Chloride ([place] Nasal [place] 0.65%) 0 ml EA NARE QIDPRN PRN PRN Reason: Nasal Congestion Tamsulosin HCl (Flomax) 0.4 mg PO DAILY [facility] Last Admin: 12/25/18 08:53 Dose: 0.4 mg Temazepam (Restoril) 15 mg PO HSPRN PRN PRN Reason: Insomnia Thiamine HCl (Thiamine) 100 mg PO DAILY [facility] Last Admin: 12/25/18 08:52 Dose: 100 mg Throat Lozenges (Cepastat Lozenges) 1 herber PO Q2H PRN PRN Reason: Sore Throat
--- NOTE | 2018-12-25 10:50 | DIS ---
DATE OF ADMISSION: 12/15/2018 DATE OF DISCHARGE: 12/25/2018 PRIMARY CARE PHYSICIAN: Dr. Lynn DISCHARGE DISPOSITION: [facility]. PRIMARY DISCHARGE DIAGNOSES: 1. Chronic obstructive pulmonary disease exacerbation, controlled. 2. Lactic acidosis, improved. 3. Right upper lobe pneumonia. 4. Urinary tract infection. 5. Mass of the upper lobe of the right lung. 6. Liver mass. SECONDARY DISCHARGE DIAGNOSES: Coronary artery disease, chronic systolic heart failure stage C, dyslipidemia, hypertension, moderate protein-calorie malnutrition, tobacco abuse disorder, alcohol abuse disorder. PRIMARY PROCEDURE AND OPERATION: Liver biopsy. RADIOLOGICAL INVESTIGATION: CT angiography of chest showed 5 x 6 cm solid mass in left lobe and right lobe of liver, 2 x 3 cm soft tissue density in right posterior upper mediastinum, right upper lobe infiltration, emphysema changes. SIGNIFICANT LABORATORY DATA: WBC 10.8, hemoglobin 12.1, and platelets 207. INR 1.0. Sodium 140, potassium 3.5, BUN 17, creatinine 0.79, calcium 8.7, and albumin 2.92. Alpha-fetoprotein level 2.0. Urinalysis suggestive of UTI. Urine drug screen negative. Alcohol level 195. Hepatitis profile negative. Urine culture grew Staph epidermidis. DISCHARGE MEDICATIONS: 1. Doxycycline 100 mg p.o. b.i.d. for 5 more days. 2. Symbicort 1 puff inhalation b.i.d. 3. Coreg 6.25 mg b.i.d. 4. Plavix 75 mg p.o. daily. 5. DuoNeb q.6 hourly p.r.n. 6. Tylenol 500 mg q.6 hourly p.r.n. 7. Vitamin B12 of 1000 mcg p.o. daily. 8. Pepcid 20 mg b.i.d. 9. Proscar 5 mg p.o. daily. 10. Folic acid 1 mg daily. 11. Lisinopril 10 mg b.i.d. 12. MiraLax 17 g p.o. daily. 13. Prednisone 20 mg p.o. daily for 5 days. 14. Florastor 250 mg p.o. daily for 5 days. 15. Flomax 0.4 mg p.o. daily. 16. Thiamine 100 mg p.o. daily. CONTRAINDICATION: None. CODE STATUS: DNR. INPATIENT PROPERTY MANAGEMENT INTERN: Pulmonary group was consulted while in hospital. Gastroenterology group was consulted while in hospital. TEST RESULTS PENDING ON DISCHARGE: Pathology report from liver biopsy. DISCHARGE PLAN: Posthospital, the patient and the patient's family member instructed to make appointment with Oncology for followup on pathology report and treatment plan. HOSPITAL COURSE: This is a 73-year-old male, who was admitted by Dr. Mejia. Please see his H and P for further details. On admission, he was having COPD exacerbation with increasing shortness of breath and cough. He was also having lactic acidosis. He was meeting sepsis criteria. We did a CT angiography, which showed no evidence of pulmonary embolism, but it did show right upper lobe infiltration and right posterior mediastinal mass as well as liver mass. This patient was treated with empiric antibiotic therapy, steroids, respiratory therapy, and COPD improved to normal baseline level. He was on room air by the time of discharge. His lactic acidosis was resolved. Regarding pneumonia, he was given vancomycin and Zosyn, and subsequently changed to Augmentin and doxycycline. He also had urinary tract infection, which was treated with above-mentioned antibiotic therapy. Upon discharge, we changed to doxycycline. This patient also had liver biopsy, as the patient was on Plavix and that is why we have to hold for a few days before they do liver biopsy and that is why the patient stayed in hospital for extra few days. Ultimately, liver biopsy done and result is pending. I spoke with the patient's sister and daughter about followup with Oncology, Pulmonology for a new diagnosis of mediastinal mass and liver mass for deciding treatment plan based on pathology report and they expressed understanding. While in hospital, we provided the patient counseling to avoid smoking, alcohol abuse, and dietary education given. Healthy lifestyle measure discussed with the patient. This patient wanted to go to detention home and with help of case management associate, we arranged detention home. Overall, the patient is medically stable for discharge today. I have seen and examined the patient bedside today. Today's vital sign is temperature 98.1, pulse 68, blood pressure 170/70, saturation 100% on room air. Weight 135 pounds. GENERAL: The patient is currently alert, awake, no obvious acute distress. HEENT: Head, normocephalic and atraumatic. LUNGS: Clear to auscultation without any rhonchi or rales. CARDIAC: S1 and S2. Appears regular without any murmur. ABDOMEN: Soft and benign. EXTREMITIES: No edema. NEUROLOGIC: Grossly nonfocal examination. Job ID: [id number]
[2018-12-25 11:16] VITALS: BP 150/71
--- NOTE | 2018-12-25 14:49 | PRG ---
DATE OF SERVICE: 12/25/2018 SUBJECTIVE: Federico Krause had his liver biopsy. He is still awaiting pathology. OBJECTIVE: VITAL SIGNS: Have been stable. He is afebrile. Heart rate is 62, respiratory rate is 18, oximetry is 100%, blood pressure is 150/71. LUNGS: Unchanged. HEART: Unchanged. ABDOMEN: Unchanged. LABORATORY DATA: Biopsy report is pending. There is no new lab. IMPRESSION: 1. Lung and liver mass, awaiting pathology. 2. Legal blindness. 3. Advanced chronic obstructive pulmonary disease, clinically stable. Job ID: [id number]
[2018-12-25 15:18] VITALS: TEMP 98.4
== END 2018-12-25 15:39 | DRG 871 ==
LOC: ERS 16:47 → T4-A 21:30
PROVIDERS: ADMIT Hospitalist; ATTEND Hospitalist
PROC: 0FB13ZX Excision of Right Lobe Liver, Percutaneous Approach, Diagnostic (ICD-10-PCS; principal; 2018-12-22)
DX: A41.9 Sepsis, unspecified organism (principal); J18.1 Lobar pneumonia, unspecified organism; N39.0 Urinary tract infection, site not specified; J44.1 Chronic obstructive pulmonary disease with (acute) exacerbation; Z66 Do not resuscitate; E87.2 Acidosis; I50.22 Chronic systolic (congestive) heart failure; E44.0 Moderate protein-calorie malnutrition; Z68.1 Body mass index [BMI] 19.9 or less, adult; J44.9 Chronic obstructive pulmonary disease, unspecified; H54.7 Unspecified visual loss; Z96.649 Presence of unspecified artificial hip joint; F10.129 Alcohol abuse with intoxication, unspecified; Y90.6 Blood alcohol level of 120-199 mg/100 ml; R16.0 Hepatomegaly, not elsewhere classified; R91.8 Other nonspecific abnormal finding of lung field; I25.10 Atherosclerotic heart disease of native coronary artery without angina pectoris; I11.0 Hypertensive heart disease with heart failure; E78.5 Hyperlipidemia, unspecified; N40.0 Benign prostatic hyperplasia without lower urinary tract symptoms; F17.210 Nicotine dependence, cigarettes, uncomplicated; Z95.5 Presence of coronary angioplasty implant and graft; Z71.41 Alcohol abuse counseling and surveillance of alcoholic; Z71.6 Tobacco abuse counseling
CPT/HCPCS: 36415; 47000; 71045; 71275; 77012; 80048; 80053; 80074; 80306; 80307; 81003; 81015; 82105; 82550; 83605; 83880; 84484; 85025; 85379; 85610; 85730; 87077; 87086; 87186; 88307; 88333; 88334; 88341; 88342; 93005; 94640; 94644; 96361; 96365; 96375; J0696; J1610; J1650; J2250; J2543; J2920; J2930; J3010; J3411; J3490; J7512; J7611; J7620; Q0162; Q9966

== ENCOUNTER 2019-02-27 13:00 | Outpatient (CLI) | payer MEDICARE, MEDICAID ==
--- NOTE | 2019-02-27 15:42 | MRI ---
MRI OF BRAIN WITH AND WITHOUT CONTRAST: 02/27/19 INDICATIONS: Malignant neoplasm of lung. Assess for metastases. No comparison. FINDINGS: Mild cortical volume loss. Ventricles have normal size and position. There are mild chronic ischemic white matter changes. No evidence of restricted diffusion. No abnormal enhancement identified. The intracranial right internal carotid arteries shows reduced flow void suggesting high grade stenos is possibly more proximally in the neck. The cerebral arteries show flow voids and the basilar artery shows flow void. The paranasal sinuses appear clear. IMPRESSION: 1. Mild chronic ischemic white matter change. 2. No evidence of metastatic disease. 3. The intracranial right internal carotid artery shows reduced flow void concerning for high gr holly stenosis more proximally in the right internal carotid artery. Recommend further evaluation with CTA neck and head. POS: OFF
--- NOTE | 2019-02-27 16:05 | PET ---
PET CT: 02/27/19 HISTORY: 73-year-old male with metastatic adenocarcinoma of the lung diagnosed on recent liver biopsy. Exam is requested or initial staging. TECHNIQUE: PET scan with CT attenuation correction was performed from the base of the brain through the proximal thighs following intravenous administration of 11.6 millicuries of 15-fluorodeoxyglucose in the righ t antecubital fossa. COMPARISON: None. CORRELATION: CT pulmonary angiogram of 12/15/18. FINDINGS: There is a new area of consolidation/atelectatic change in the left lung base since the CT scan with focally increased FDG localization demonstrating an SUV of 4.1. No abnormal FDG localization is seen in the region of the suspicious abnormality noted on the CT scan within the right upper lobe. No abnormal hypermetabolism is seen in the neck, mediastinum, hilar regions, axillae, abdomen, or pel vis. There is hypermetabolic activity in the large right liver lobe mass with an SUV of 9.1. No hypermetabolic adrenal or skeletal lesions are seen. There is physiologic activity in the GI and tracts, heart and the visualized portions of the brain . A large urinary bladder diverticulum is present. The CT scan used for attenuation correction demonstrates no evidence of pleural effusions or ascites. IMPRESSION: 1. Left lower lobe consolidation/atelectatic change with focal FDG localization, new since the C T scan of 12/15/18. Bronchoscopy or biopsy is recommended. This may be due to infection or malignancy. 2. Large solitary liver metastasis. POS: [facility]
== END 2019-02-27 13:01 | disposition home or self-care (01) ==
LOC: PET 13:00
PROVIDERS: ATTEND Internal Medicine Hematology & Oncology
DX: C34.90 Malignant neoplasm of unspecified part of unspecified bronchus or lung (principal)
CPT/HCPCS: 70553; 78815; A9552

== ENCOUNTER 2019-03-14 09:06 | Day surgery (SDC) | payer MEDICARE, MEDICAID ==
[~2019-03-14 09:06] MED LIST changes: +CARBOPLATIN IVPB SCH; -ISOVUE-370 76%-LOCM 1 ML ONE; +PEMBROLIZUMAB IV SCH; +PEMETREXED IVPB SCH; +Palonosetron HCl 0.25 MG in Sodium Chloride 0.9% 50 ML IVPB SCH; +Pembrolizumab 200 MG in Sodium Chloride 0.9% 250 ML 250 ML IV SCH; +SODIUM CHLORIDE 0.9% IV SCH; +SODIUM CHLORIDE 0.9% IVPB SCH
[2019-03-14] MEDS ORDERED: Lorazepam 2 MG/ML VIAL SLOW IVP SCH (10:15)
[2019-03-14] MEDS ORDERED: FLU VACC TS2019-20(65YR UP)/PF 180 MCG/0.5 ML SYRINGE IM ONE (10:15)
[2019-03-14] MEDS ORDERED: Sodium Chloride 0.9% 20 ML ONE (10:16)
[2019-03-14 11:47] VITALS: BP 182/107; TEMP 98.6
== END 2019-03-14 12:59 ==
LOC: ONC/OP 09:06
PROVIDERS: ATTEND Internal Medicine Hematology & Oncology
DX: Z51.11 Encounter for antineoplastic chemotherapy (principal); C34.11 Malignant neoplasm of upper lobe, right bronchus or lung
CPT/HCPCS: 96375; 96413; 96417; J1100; J2060; J2469; J3490; J7050; J9045; J9271; J9305

== ENCOUNTER 2019-04-10 10:15 | Day surgery (SDC) | payer MEDICARE, MEDICAID ==
[~2019-04-10 10:15] MED LIST changes: -PEMBROLIZUMAB IV SCH; +Pemetrexed 1,000 MG in Sodium Chloride 0.9% 60 ML IVPB SCH; -SODIUM CHLORIDE 0.9% IV SCH
[2019-04-10] MEDS ORDERED: Sodium Chloride 0.9% 20 ML ONE (10:18)
[2019-04-10 11:09] VITALS: BP 134/85; TEMP 98.4
== END 2019-04-10 13:39 ==
LOC: ONC/OP 10:15
PROVIDERS: ATTEND Internal Medicine Hematology & Oncology
DX: Z51.11 Encounter for antineoplastic chemotherapy (principal); C34.11 Malignant neoplasm of upper lobe, right bronchus or lung
CPT/HCPCS: 96372; 96375; 96411; 96413; 96417; J1100; J2469; J3490; J7050; J9045; J9271; J9305

== ENCOUNTER 2019-05-01 10:21 | Day surgery (SDC) | payer MEDICARE, MEDICAID ==
[~2019-05-01 10:21] MED LIST changes: +Cyanocobalamin 1000 MCG/ML VIAL SC SCH; -PEMETREXED IVPB SCH
[2019-05-01] MEDS ORDERED: Sodium Chloride 0.9% 20 ML ONE (10:34)
[2019-05-01 11:22] VITALS: BP 120/77; TEMP 98.2
== END 2019-05-01 14:14 | disposition home or self-care (01) ==
LOC: ONC/OP 10:21
PROVIDERS: ATTEND Internal Medicine Hematology & Oncology
DX: Z51.11 Encounter for antineoplastic chemotherapy (principal); C34.11 Malignant neoplasm of upper lobe, right bronchus or lung
CPT/HCPCS: 96372; 96375; 96413; 96417; J1100; J2469; J3420; J3490; J7050; J9045; J9271; J9305

== ENCOUNTER 2019-05-09 08:28 | Outpatient (CLI) | payer MEDICARE, MEDICAID ==
--- NOTE | 2019-05-09 11:42 | CT ---
EXAM: CT of the chest with contrast HISTORY: Malignant neoplasm of the upper lobe of the right lung COMPARISON: 08/19/2017; PET CT 02/27/2019r TECHNIQUE: Multiple contiguous axial images were obtained in a CT the chest with contrast. Coronal an d sagittal reformats were performed. FINDINGS: HEART: Normal in size without focal cardiac abnormality MEDIASTINUM: No hilar or mediastinal lymphadenopathy. LUNGS: Stable consolidation is seen in the left lower lobe when compared to the prior PET/CT. Emphyse matous changes are seen in the lung apices. Scarring is seen in both lung apices. No focal mass is appreciated. PLEURAL SPACE: No pneumothorax or pleural effusion. CHEST WALL SOFT TISSUES: Unremarkable OSSEOUS STRUCTURES: Degenerative changes in the spine. VISUALIZED SUBDIAPHRAGMATIC STRUCTURES: 7.1 cm right hepatic enhancing mass likely represents a metas tasis. Atherosclerotic calcifications are seen in the aorta and there appears to be occlusion of the right common iliac artery. IMPRESSION: 1. Left lower lobe consolidation 2. Large hepatic metastasis 3. Occlusion of the right common iliac artery
== END 2019-05-09 08:29 | disposition home or self-care (01) ==
LOC: SCSCT 08:28
PROVIDERS: ATTEND Internal Medicine Hematology & Oncology
DX: C34.11 Malignant neoplasm of upper lobe, right bronchus or lung (principal); C78.7 Secondary malignant neoplasm of liver and intrahepatic bile duct; I77.1 Stricture of artery
CPT/HCPCS: 71260

== ENCOUNTER 2019-05-22 10:23 | Day surgery (SDC) | payer MEDICARE, MEDICAID ==
[2019-05-22] MEDS ORDERED: Sodium Chloride 0.9% 20 ML ONE (10:51)
[2019-05-22 14:04] VITALS: BP 143/88; TEMP 98.3
== END 2019-05-22 14:48 ==
LOC: ONC/OP 10:23
PROVIDERS: ATTEND Internal Medicine Hematology & Oncology
DX: Z51.11 Encounter for antineoplastic chemotherapy (principal); C34.11 Malignant neoplasm of upper lobe, right bronchus or lung
CPT/HCPCS: 96372; 96375; 96413; 96417; J1100; J2469; J3420; J3490; J7050; J9045; J9271; J9305

== ENCOUNTER 2019-06-11 10:32 | Inpatient (IN) | payer MEDICARE, MEDICAID ==
[2019-06-11] MEDS ORDERED: Cefepime 2 GM VIAL ONE (11:18)
[2019-06-11 11:29] LABS: Hemoglobin 10.5 g/dL (14.0-18.0); Mean Corpuscular HGB CONC 31.9 g/dL (32.0-36.0); Mean Corpuscular Hemoglobin 30.2 pg (27.0-31.0); Mean Corpuscular Volume 94.7 fL (78.0-98.0); Mean Platelet Volume 9.2 fL (7.4-10.4); Platelet Count 215 thou/uL (130-400); RBC Distribution Width 18.6 % (11.5-14.5); Red Blood Cell (RBC) Count 3.47 mill/uL (4.70-6.10); White Blood Cell (WBC) Count 9.5 thou/uL (4.8-10.8)
[2019-06-11] MEDS ORDERED: Vancomycin HCl 1.75 GM in Sodium Chloride 0.9% 500 ML IVPB SCH (11:30)
--- NOTE | 2019-06-11 11:32 | RAD ---
PORTABLE CHEST ONE VIEW: 06/11/2019 10:57 a.m. HISTORY: Lung cancer. Patient had last chemotherapy three weeks ago. Difficulty breathing. COMPARISON: 12/15/2018 FINDINGS: The heart size is normal. The aorta is tortuous. Chronic changes in the lung arteaga again seen. There is consolidation/atelectatic change at the left lung base. No pneumothoraces or pleural effusions ar e seen. POS: OFF
[2019-06-11 11:44] LABS: Band 27 % (5-11); Lymphocytes 19 % (21-51); MDiff Complete? YES; Metamyelocyte 3 % (0-0); Monocytes 19 % (0-10); Myelocyte 1 % (0-0); Neutrophil 26 % (42-75); Platelet Morphology Comment Appears Adequate; Polychromasia SLIGHT = 2-3 cells (100X) (0-2/hpf); Reactive Lymphocytes 5 % (0-10); Toxic Granulation SLIGHT
[2019-06-11 13:01] LABS: Actual Bicarbonate (HCO3a) 23.8 mEq/L (22-28); Analyzer IN Cardio ER; Base Excess (BEa) -0.7 mEq/L (-2.0 to +3.0); CO2 Tension 38.4 mmHg (35.0-45.0); Carboxyhemoglobin (COHb) 0.3 gm% (0.0-3.0); Hemoglobin (Hb) 9.6 g/dL (14.0-18.0); O2 Tension (PaO2) 56.2 mmHg (> 70.0); Potassium - ABG Lab 3.66 mmol/L (3.70-5.30); Puncture Site RRA; pH, Arterial 7.41 (7.35-7.45)
[2019-06-11 13:20] LABS: ALT (SGPT) Less than 7 U/L (8-55); AST (SGOT) 10 U/L (5-34); Albumin 2.8 g/dL (3.4-4.8); Alkaline Phosphatase 59 U/L (40-110); Anion Gap 9 mmol/L (10-20); BUN (Urea Nitrogen) 16 mg/dL (8.4-25.7); Bilirubin, Total Less than 0.2 mg/dL (0.2-1.2); Calc. Creatinine Clearance 0 mL/min (70-130); Calcium 7.9 mg/dL (7.8-10.44); Carbon Dioxide 29 mmol/L (23-31); Chloride 108 mmol/L (98-107); Estimated GFR-MDRD Greater than 90; Glucose 126 mg/dL (83-110); Potassium 3.7 mmol/L (3.5-5.1); Protein, Total 5.8 g/dL (5.8-8.1); Sodium 142 mmol/L (136-145)
--- NOTE | 2019-06-11 13:43 | PDOC.FPRHP ---
- History of Present Illness Chief Complaint: SOB and cough History of Present Illness: Pt reports X2 days of increasing SOB and cough. [facility] sent pt with a hx of X1 week of SOB, diagnosed with COPD exacerbation and started on duonebs, prenisone and claritin on 06/08. Pt did not show improvement and NH was concerned after him requiring O2 earlier today due to SOB. Pt states he has been coughing with increased sputum production over the past 2 days. Denies CP, PERALTA, N/V/D. C/o abd pain associated with coughing. Denies light headedness. Denies sore throat. ED course: 88% on 4 L NC O2 upon arrival. ABG with evidence of hypoxia: Ph 7.4, CO2 38, O2 56, HCO3 23. Put on high flow mask. O2 sat 100% CXR showed area of consolidation vs atelectasis in LLL. Lactic acid 3.5 Given vanc, levaquin and cefepime. - Allergies/Adverse Reactions Allergies Allergy/AdvReac Type Severity Reaction Status Date / Time No Known Allergies Allergy Verified 07/24/18 10:47 - Home Medications Medication Instructions Recorded Confirmed Type Budesonide-Formoterol [Symbicort 1 puff INH BID 07/05/16 12/16/18 History 160-4.5] Clopidogrel Bisulfate [Clopidogrel] 75 mg PO DAILY 08/19/17 12/16/18 History Ipratropium/Albuterol Sulfate 3 ml NEB [id number] PRN 08/19/17 12/16/18 History [DuoNeb] Famotidine [Pepcid] 20 mg PO BID #60 tab 07/31/18 12/16/18 Rx Finasteride [Proscar] 5 mg PO DAILY #30 tab 07/31/18 12/16/18 Rx Tamsulosin HCl [Flomax] 0.4 mg PO DAILY #30 cap 07/31/18 12/16/18 Rx Acetaminophen [Tylenol Extra 500 mg PO Q6H PRN tab 08/24/18 12/16/18 Rx Strength] Polyethylene Glycol 3350 [Miralax] 17 gm PO DAILY pk 08/24/18 12/16/18 Rx Carvedilol [Coreg] 6.25 mg PO BID 12/16/18 12/16/18 History Cyanocobalamin (Vitamin B-12) 1,000 mcg PO DAILY #30 tab 12/25/18 Rx [Vitamin B-12] Doxycycline [Vibramycin] 100 mg PO BID #10 cap 12/25/18 Rx Folic Acid [Folvite] 1 mg PO DAILY #30 tab 12/25/18 Rx Lisinopril [Zestril] 10 mg PO BID #60 tab 12/25/18 Rx Saccharomyces boulardii [Florastor] 250 mg PO DAILY #5 cap 12/25/18 Rx Thiamine 100 mg PO DAILY #30 tab 12/25/18 Rx predniSONE 20 mg PO QAM-WM #5 tab 12/25/18 Rx - History PMHx: lung ca with mets to liver, COPD, BPH, HTN, dysphagia, HTN, allergic rhinitis, combined systolic and diastolic HF PSHx: R hip replacement FHx: HTN in parents Social: Lives at [facility]. Smoke 2-3 ppd for 50 years, quit smoking about 3 days ago. Denies etoh or drug use. - Review of Systems General: denies: fever/chills Eyes: reports: other (blind) ENT: reports: nasal congestion Respiratory: reports: cough, congestion, shortness of breath Cardiovascular: denies: chest pain, palpitation Gastrointestinal: denies: nausea, vomiting, diarrhea, constipation Skin: denies: rashes Neurological: denies: syncope, seizure - Vital signs BP: 150/88 HR: 90 RR: 20 Tmax: 100.2 F Pox: 88 on 4 L NC upon ER arrival. 100% on high flow mask Wt: 74 kg - Physical Exam Constitutional: NAD -Constitutional: awake and alert. Oriented to person and situation. Cachectic appearance HEENT: normocephalic and atraumatic, conjunctiva clear, grossly normal hearing, MMM -HEENT: white plaques on roof of mouth Bilateral blindness. No pupillary response Neck: supple, FROM, trachea midline, no LAD, no JVD Heart: RRR, normal S1/S2, no murmurs/rubs/gallops, pulses present, no edema -Lungs: Diffuse wheezing, diminished breath sounds worse in RLL. Abdomen: soft, non-tender, bowel sounds present, no masses/distention, no hernias Musculoskeletal: normal structure, ROM grossly normal -Musculoskeletal: 5/5 strength in all extremities. Neurological: no focal deficit, normal sensation -Neurological: bilateral blindness. Skin: no rash/lesions, good turgor, capillary refill <2 seconds, no jaundice Heme/Lymphatic: no purpura, no petechia Psychiatric: normal mood and affect FMR H&P: Results - Labs Result Diagrams: 06/11/19 11:05 06/11/19 12:38 Lab results: WBC 9.5 thou/uL (4.8-10.8) 06/11/19 11:05 Hgb 10.5 g/dL (14.0-18.0) L 06/11/19 11:05 Hct 32.9 % (42.0-52.0) L 06/11/19 11:05 MCV 94.7 fL (78.0-98.0) 06/11/19 11:05 Plt Count 215 thou/uL (130-400) 06/11/19 11:05 Band Neuts % (Manual) 27 % (5-11) H 06/11/19 11:05 ABG pH 7.41 (7.35-7.45) 06/11/19 12:15 ABG pCO2 38.4 mmHg (35.0-45.0) 06/11/19 12:15 ABG pO2 56.2 mmHg (> 70.0) L* 06/11/19 12:15 Sodium 142 mmol/L (136-145) 06/11/19 12:38 Potassium 3.7 mmol/L (3.5-5.1) 06/11/19 12:38 Chloride 108 mmol/L (98-107) H 06/11/19 12:38 Carbon Dioxide 29 mmol/L (23-31) 06/11/19 12:38 BUN 16 mg/dL (8.4-25.7) 06/11/19 12:38 Creatinine 0.92 mg/dL (0.7-1.3) 06/11/19 12:38 Glucose 126 mg/dL (83-110) H 06/11/19 12:38 Lactic Acid 3.5 mmol/L (0.5-2.2) H 06/11/19 11:05 Calcium 7.9 mg/dL (7.8-10.44) 06/11/19 12:38 Total Bilirubin Less than 0.2 mg/dL (0.2-1.2) L 06/11/19 12:38 AST 10 U/L (5-34) 06/11/19 12:38 ALT Less than 7 U/L (8-55) L 06/11/19 12:38 Alkaline Phosphatase 59 U/L (40-110) 06/11/19 12:38 Serum Total Protein 5.8 g/dL (5.8-8.1) 06/11/19 12:38 Albumin 2.8 g/dL (3.4-4.8) L 06/11/19 12:38 - Radiology Interpretation Chest x-ray Status: image reviewed by me, report reviewed by me (LLL area of consolidation vs atelectasis.) FMR H&P: A/P - Problem List (1) Acute respiratory failure with hypoxia Current Visit: Yes Status: Acute Code(s): J96.01 - ACUTE RESPIRATORY FAILURE WITH HYPOXIA (2) COPD exacerbation Current Visit: Yes Status: Acute Code(s): J44.1 - CHRONIC OBSTRUCTIVE PULMONARY DISEASE W (ACUTE) EXACERBATION Comment: (3) Metastatic lung cancer (metastasis from lung to other site) Current Visit: Yes Status: Chronic Code(s): C34.90 - MALIGNANT NEOPLASM OF UNSP PART OF UNSP BRONCHUS OR LUNG (4) Hypertension Current Visit: No Status: Chronic Code(s): I10 - ESSENTIAL (PRIMARY) HYPERTENSION Comment: (5) Lactic acidosis Current Visit: Yes Status: Acute Code(s): E87.2 - ACIDOSIS (6) Combined systolic and diastolic heart failure Current Visit: Yes Status: Acute Code(s): I50.40 - UNSP COMBINED SYSTOLIC AND DIASTOLIC (CONGESTIVE) HRT FAIL (7) BPH (benign prostatic hyperplasia) Current Visit: Yes Status: Acute Code(s): N40.0 - BENIGN PROSTATIC HYPERPLASIA WITHOUT LOWER URINRY TRACT SYMP - Plan 73 y/o M with a pmx of metastatic lung cancer and COPD, presenting with acute hypoxic respiratory failure 2/2 COPD exacerbation. 1. Acute hypoxic respiratory failure - Etiology likely 2/2 COPD exacerbation and already compromised respiratory status from lung cancer. - CXP showed LLL consolidation vs atelectasis. - ABG: pH 7.4, CO2 38, O2 56, HCO3 23 - Lactic acid: 3.5, will trend - Initial O2 sat 88% on 4 L NC. 2. COPD Exacerbation - Cough with increased sputum production. - PT started on prednisone, duonebs and claritin 06/08 at [facility] in [place] by PCP Dr. Martinez. No improvement in symptoms. Required O2 at [facility] over last 2 days with increased respiratory effort/decline - Started Azithromycin 50 mg today, and 250 mg daily for 4 days after. - Continue 40 mg prednisone and duonebs Q4H, and albuterol nebs Q2H. - Ordered PA and lateral CXR. - Procal pending 3. Lung Ca with mets to liver - Pt receives chemotherapy [id number], unsure of oncologist. - lives in [facility] [place] 4. Hx of combined HF - continue home medications - Pt is not clinically in exacerbation 5. Hx of tobacco abuse - smoked 2-3 ppd for 50 years, quit a few days ago. 6. Bilateral blindness - etiology glaucoma per chart review. 7. Hx of BPH -continue tamsulosin 8. Hx of GERD 9. Hx of HTN - continue home medications lisinopril, carvedilol Code Status: full code Diet: HH, dietary consult DVT ppx: lovenox Dispo: stable, admit to inpatient onc for treatment and evaluation of acute hypoxic respiratory failure 2/2 COPD exacerbation FMR H&P: Upper Level - Plan Date/Time: 06/11/19 1343 I, Tyron Chance DO, have evaluated this patient and agree with findings/plan as outlined by internal sales resident. Pertinent changes/additions are listed here. HPI Mr Rodriguez reports increasing shortness of breath and cough over the past 2-3 weeks with worsening today. Additionally reports change in sputum and fever/ chills yesterday. Denies any chest pain, GI upset, lymphadenopathy or known exposures. Hypoxia in ED resolving with O2 via nonrebreather. PE General: NAD HEENT: NCAT Chest: expiratory wheeze throughout, decreased lung sounds in lower lobes Abdomen: non distended, NTTP MSK: no weakness, or loss of ROM noted Extremities: non-edematous, pulses present Neuro: grossly intact, no focal deficits See internal sales portion for full ROS, PE, labs and vitals. A/P Acute hypoxic respiratory failure 2/2 COPD exacerbation - failed outpt therapy, continue pred 40, duoneb q4hr, albuterol q2hr, azithro - continuous O2 monitoring to keep sats >90 - pna considered, procal pending, consider adding rocephin for fever or acute worsening - monitor CBC, PA/lateral CXR Liver ca with mets to lungs - aware, monitor on oncology Chronic HFrEF - aware, avoid IV fluids - continue home meds Dispo: admit to inpatient onc, LOS >48hrs
[2019-06-11 14:39] LABS: Lactic Acid 1.4 mmol/L (0.5-2.2)
[2019-06-11] MEDS ORDERED: Azithromycin 500 MG in Sodium Chloride 0.9% 250 ML 250 ML IVPB SCH ×2 (15:00→22:00)
[2019-06-11] MEDS ORDERED: Albuterol Sulfate 2.5 mg/3 ml Neb NEB PRN (15:14)
--- NOTE | 2019-06-11 15:48 | RAD ---
EXAM: Chest 2 views: HISTORY: Cough COMPARISON: 09/12/2018 FINDINGS: There is an enlarged cardiomediastinal silhouette. Atherosclerotic calcifications are seen in the ao rta. There is obscurity of the left hemidiaphragm which may represent a pleural effusion or left basilar atelectasis. The bones are unremarkable. IMPRESSION: 1. Cardiomegaly 2. Left basilar atelectasis versus pleural effusion.
[2019-06-11] MEDS ORDERED: Ondansetron ODT 4 MG TAB SL PRN (20:22)
[2019-06-11] MEDS ORDERED: HYDROcodone/Acetaminophen 5/325 mg Tablet PO PRN ×2 (20:22)
[2019-06-11] MEDS ORDERED: Acetaminophen 325 MG TAB PO PRN (20:22)
[2019-06-11] MEDS ORDERED: Ondansetron PF 4 MG/2 ML Vial IVP PRN (20:22)
[2019-06-11] MEDS ORDERED: Sodium Chloride 0.9% 1,000 ML IV SCH (20:23)
[2019-06-11] MEDS ORDERED: Cefepime 2 GM in Sodium Chloride 0.9% 100 ML IVPB SCH (20:30)
[2019-06-11 23:47] VITALS: BMI 20.1
[2019-06-12 05:52] LABS: #Eosinphils 0.1 thou/uL (0.0-0.7); #Lymphocytes 1.1 thou/uL (1.20-3.40); #Monocytes 1.4 thou/uL (0.11-0.59); #Neutrophils 9.6 thou/uL (1.40-6.50); %Basophils 0.3 % (0.0-1.0); %Eosinophils 0.7 % (0.0-10.0); %Lymphocytes 8.7 % (21.0-51.0); %Monocytes 11.7 % (0.0-10.0); %Neutrophils 78.6 % (42.0-75.0); Anion Gap 12 mmol/L (10-20); BUN (Urea Nitrogen) 16 mg/dL (8.4-25.7); Calc. Creatinine Clearance 79 mL/min (70-130); Calcium 8.2 mg/dL (7.8-10.44); Carbon Dioxide 25 mmol/L (23-31); Chloride 108 mmol/L (98-107); Estimated GFR-MDRD Greater than 90; Glucose 151 mg/dL (83-110); Hemoglobin 8.3 g/dL (14.0-18.0); Mean Corpuscular HGB CONC 28.8 g/dL (32.0-36.0); Mean Corpuscular Hemoglobin 27.5 pg (27.0-31.0); Mean Corpuscular Volume 95.5 fL (78.0-98.0); Mean Platelet Volume 8.6 fL (7.4-10.4); Platelet Count 212 thou/uL (130-400); Potassium 4.5 mmol/L (3.5-5.1); RBC Distribution Width 18.5 % (11.5-14.5); Sodium 140 mmol/L (136-145); White Blood Cell (WBC) Count 12.3 thou/uL (4.8-10.8)
--- NOTE | 2019-06-12 06:17 | PDOC.FM ---
- Subjective Subjective: Pt resting well in bed upon entry to room. On 2 L NC O2 sat 95%! Pt states he has less SOB and cough. Denies CP. - Objective MAR Reviewed: Yes Vital Signs & Weight: Vital Signs (12 hours) Temp Pulse Resp BP Pulse Ox 06/12/19 03:57 98.4 F 86 16 143/83 H 97 06/12/19 03:10 76 12 98 06/11/19 23:41 98.4 F 88 20 147/92 H 99 06/11/19 22:40 75 16 99 06/11/19 20:40 100 06/11/19 19:30 97.1 F L 84 20 140/87 100 Weight Weight 75.024 kg I&O: 06/10/19 06/11/19 06/12/19 06:59 06:59 06:59 Intake Total 360 Balance 360 Result Diagrams: 06/12/19 05:07 06/12/19 05:07 Phys Exam - Physical Examination Constitutional: NAD HEENT: moist MMs blind Neck: no nodes, no JVD, full ROM Respiratory: wheezing present diffuse coarse wheezing with diminished breath sounds. Cardiovascular: RRR, no significant murmur, no rub Gastrointestinal: soft, non-tender, no distention, positive bowel sounds Musculoskeletal: no edema, pulses present Neurological: non-focal, moves all 4 limbs Psychiatric: normal affect Skin: normal turgor, cap refill <2 seconds Dx/Plan (1) Acute respiratory failure with hypoxia Code(s): J96.01 - ACUTE RESPIRATORY FAILURE WITH HYPOXIA Status: Acute (2) COPD exacerbation Code(s): J44.1 - CHRONIC OBSTRUCTIVE PULMONARY DISEASE W (ACUTE) EXACERBATION Status: Acute (3) Metastatic lung cancer (metastasis from lung to other site) Code(s): C34.90 - MALIGNANT NEOPLASM OF UNSP PART OF UNSP BRONCHUS OR LUNG Status: Chronic (4) Hypertension Code(s): I10 - ESSENTIAL (PRIMARY) HYPERTENSION Status: Chronic (5) Lactic acidosis Code(s): E87.2 - ACIDOSIS Status: Acute (6) Combined systolic and diastolic heart failure Code(s): I50.40 - UNSP COMBINED SYSTOLIC AND DIASTOLIC (CONGESTIVE) HRT FAIL Status: Acute (7) BPH (benign prostatic hyperplasia) Code(s): N40.0 - BENIGN PROSTATIC HYPERPLASIA WITHOUT LOWER URINRY TRACT SYMP Status: Acute - Plan Plan: 73 y/o M with a pmx of metastatic lung cancer and COPD, presenting with acute hypoxic respiratory failure 2/2 COPD exacerbation. 1. Acute hypoxic respiratory failure - Etiology likely 2/2 COPD exacerbation and already compromised respiratory status from lung cancer. - CXP showed LLL consolidation vs atelectasis. - ABG: pH 7.4, CO2 38, O2 56, HCO3 23 - Lactic acid: 3.5, will trend - Initial O2 sat 88% on 4 L NC. Improved to 95% on 2 L NC AM of 06/12. 2. COPD Exacerbation - Cough with increased sputum production. - Pt started on prednisone, duonebs and claritin 06/08 at [facility] in [place] by PCP Dr. Martinez. No improvement in symptoms. Required O2 at [facility] over last 2 days with increased respiratory effort/decline - Started Azithromycin 500 mg 06/11, and 250 mg daily for 4 days after. Pt improving. No need for further antibiotic regimen as of today. - Continue 40 mg prednisone and duonebs Q4H, and albuterol nebs Q2H. - Ordered PA and lateral CXR: LLL pleural effusion vs atelectasis. - Procal 0.08. Flu neg. 3. Lung Ca with mets to liver - Pt receives chemotherapy [id number], unsure of oncologist. - lives in [facility] longterm 4. Hx of combined HF - continue home medications - Pt is not clinically in exacerbation 5. Hx of tobacco abuse - smoked 2-3 ppd for 50 years, quit a few days ago. 6. Bilateral blindness - etiology glaucoma per chart review. 7. Hx of BPH -continue tamsulosin 8. Hx of GERD 9. Hx of HTN - continue home medications lisinopril, carvedilol Code Status: full code Diet: HH, dietary consult DVT ppx: lovenox Dispo: stable, admit to inpatient onc for treatment and evaluation of acute hypoxic respiratory failure 2/2 COPD exacerbation. improving.
[2019-06-12] MEDS ORDERED: Milk Of Magnesia 30 ML UDCUP PO PRN (06:18)
[2019-06-12] MEDS ORDERED: guaiFENesin 200 MG TAB PO PRN (06:18)
[2019-06-12] MEDS ORDERED: Artificial Tears 18 DROP/0.9 ML EA EYE PRN (06:18)
[2019-06-12] MEDS ORDERED: Acetaminophen 325 MG TAB PO PRN (06:23)
[2019-06-12] MEDS: Mometasone/Formoterol 120 PUFF INHALER INH SCH ×2 (07:45→19:46)
[2019-06-12] MEDS: Clopidogrel Bisulfate 75 MG TAB PO SCH (08:50)
[2019-06-12] MEDS: Enoxaparin Sodium 40 MG/0.4 ML SYRINGE SC SCH (08:50)
[2019-06-12] MEDS: Finasteride 5 MG TAB PO SCH (08:50)
[2019-06-12] MEDS: Famotidine 20 MG TAB PO SCH ×2 (08:50→20:56)
[2019-06-12] MEDS: Multivitamin W/ Minerals 1 TAB PO SCH (08:50)
[2019-06-12] MEDS: Folic Acid 1 MG TAB PO SCH (08:51)
[2019-06-12] MEDS: Lisinopril 10 MG TAB PO SCH ×2 (08:51→20:56)
[2019-06-12] MEDS: Loratadine 10 MG TAB PO SCH (08:51)
[2019-06-12] MEDS: Carvedilol 6.25 MG TAB PO SCH ×2 (08:51→20:56)
[2019-06-12] MEDS: predniSONE 20 MG TAB PO SCH (08:51)
[2019-06-12] MEDS: Brimonidine Tartrate 0.2% Ophth Soln 5 ml Bottle EA EYE SCH ×2 (08:52→20:58)
[2019-06-12] MEDS: Dorzolamide HCl 2% Ophth Soln 10 ml Bottle EA EYE SCH ×2 (08:52→20:58)
[2019-06-12] MEDS: Tamsulosin HCl 0.4 MG CAP PO SCH (08:55)
[2019-06-12] MEDS: Azithromycin 250 MG in Sodium Chloride 0.9% 250 ML 250 ML IVPB SCH (08:56)
[2019-06-12] MEDS ORDERED: Non-Formulary Item 1 EACH (Budesonide-Formoterol [Symbicort 160-4.5] 1 PUFF) INH SCH (09:00)
[2019-06-12] MEDS ORDERED: Prevnar 13-Val Conj/PF 0.5 ML SYRINGE IM ONE (09:00)
[2019-06-12] MEDS ORDERED: Non-Formulary Item 1 EACH (Brinzolamide/Brimonidine Tart [Simbrinza 1%/0.2% Ophth Susp] 1 EA EYE SCH (09:00)
--- NOTE | 2019-06-12 10:40 | PRG ---
DATE OF SERVICE: 06/12/2019 Mr. Krause is an unfortunate 73-year-old black man with lung cancer. He also has COPD and was admitted with an exacerbation of such. He is a full code. He was initially quite hypoxic even on 4 L, but is now saturating well on high-flow O2. Chest x-ray shows no evidence of pneumonia, but does show some atelectasis in the left lower lung field. We will continue to monitor as he is a full code. Job ID: [id number]
[2019-06-12] MEDS ORDERED: Palonosetron HCl 0.25 MG in Sodium Chloride 0.9% 50 ML IVPB SCH (14:00)
[2019-06-12] MEDS ORDERED: Cyanocobalamin 1000 MCG/ML VIAL SC SCH (14:00)
[2019-06-12] MEDS ORDERED: SODIUM CHLORIDE 0.9% IVPB SCH (14:00)
[2019-06-12] MEDS ORDERED: Dexamethasone 10 MG in Sodium Chloride 0.9% 50 ML IVPB SCH (14:00)
[2019-06-12] MEDS ORDERED: Pembrolizumab 200 MG in Sodium Chloride 0.9% 250 ML 250 ML IV SCH (14:00)
[2019-06-12] MEDS ORDERED: CARBOPLATIN IVPB SCH (14:00)
--- NOTE | 2019-06-12 14:40 | PDOC.MOPN ---
Interval History: denies complaints, breathing improved. - Vital Signs Vital Signs: Vital Signs (12 hours) Temp Pulse Resp BP Pulse Ox 06/12/19 12:00 97.8 F 77 16 145/83 H 99 06/12/19 11:33 92 16 06/12/19 07:57 98.4 F 88 18 153/83 H 95 06/12/19 07:42 84 14 06/12/19 03:57 98.4 F 86 16 143/83 H 97 06/12/19 03:10 76 12 98 Weight Admit Weight 165 lb 6.4 oz Weight 165 lb 6.4 oz - Physical Exam General: Alert, Oriented x3, No acute distress HEENT: Atraumatic, PERRLA, EOMI, Mucous membr. moist/pink Lungs: Clear to auscultation, Normal air movement Cardiovascular: Regular rate, Normal S1, Normal S2, No murmurs, Gallops, Rubs Extremities: No clubbing, No cyanosis, No edema, Normal pulses, No tenderness/ swelling Skin: No rashes, No breakdown, No significant lesion Neurological: Normal speech - Labs Result Diagrams: 06/12/19 05:07 06/12/19 05:07 Lab results: Laboratory Results - last 24 hr 06/12/19 05:07: WBC 12.3 H, RBC 3.00 L, Hgb 8.3 L, Hct 28.7 L, MCV 95.5, MCH 27.5, MCHC 28.8 L, RDW 18.5 H, Plt Count 212, MPV 8.6, Neutrophils % 78.6 H, Neutrophils % (Manual) Not Reportable, Lymphocytes % 8.7 L, Monocytes % 11.7 H, Eosinophils % 0.7, Basophils % 0.3, Neutrophils # 9.6 H, Lymphocytes # 1.1 L, Monocytes # 1.4 H, Eosinophils # 0.1, Basophils # 0.0 06/12/19 05:07: Sodium 140, Potassium 4.5, Chloride 108 H, Carbon Dioxide 25, Anion Gap 12, BUN 16, Creatinine 0.88, Estimated GFR (MDRD) Greater than 90, Glucose 151 H, Calcium 8.2 06/11/19 14:14: Lactic Acid 1.4 06/11/19 12:38: Procalcitonin 0.08 Status: lab reviewed by me A/P - Problem (1) COPD exacerbation Current Visit: Yes Code(s): J44.1 - CHRONIC OBSTRUCTIVE PULMONARY DISEASE W ( ACUTE) EXACERBATION Status: Acute (2) Metastatic lung cancer (metastasis from lung to other site) Current Visit: Yes Code(s): C34.90 - MALIGNANT NEOPLASM OF UNSP PART OF UNSP BRONCHUS OR LUNG Status: Chronic - Plan Plan: Patient feeling much better. Due for treatment today. Will give Carbo/Alimta, no Keytruda as not on inpatient formulary home when COPD improved.
[2019-06-12] MEDS ORDERED: Latanoprost 0.005% Ophth Soln 2.5 ml Bottle EA EYE SCH (21:00)
[2019-06-13 04:07] LABS: #Eosinphils 0.1 thou/uL (0.0-0.7); #Lymphocytes 1.1 thou/uL (1.20-3.40); #Monocytes 1.8 thou/uL (0.11-0.59); #Neutrophils 12.4 thou/uL (1.40-6.50); %Basophils 0.1 % (0.0-1.0); %Eosinophils 0.9 % (0.0-10.0); %Lymphocytes 7.3 % (21.0-51.0); %Monocytes 11.5 % (0.0-10.0); %Neutrophils 80.2 % (42.0-75.0); Mean Corpuscular HGB CONC 32.6 g/dL (32.0-36.0); Mean Corpuscular Volume 95.2 fL (78.0-98.0); Mean Platelet Volume 8.3 fL (7.4-10.4); Platelet Count 221 thou/uL (130-400); RBC Distribution Width 18.4 % (11.5-14.5); Red Blood Cell (RBC) Count 2.91 mill/uL (4.70-6.10); White Blood Cell (WBC) Count 15.5 thou/uL (4.8-10.8)
[2019-06-13 04:33] LABS: Anion Gap 10 mmol/L (10-20); BUN (Urea Nitrogen) 18 mg/dL (8.4-25.7); Calc. Creatinine Clearance 87 mL/min (70-130); Calcium 8.6 mg/dL (7.8-10.44); Carbon Dioxide 28 mmol/L (23-31); Chloride 108 mmol/L (98-107); Estimated GFR-MDRD Greater than 90; Glucose 134 mg/dL (83-110); Potassium 4.5 mmol/L (3.5-5.1); Sodium 141 mmol/L (136-145)
--- NOTE | 2019-06-13 06:20 | PDOC.FM ---
- Subjective Subjective: Pt received chemotherapy yesterday. Pt denies any SOB overnight. States his cough has improved. - Objective MAR Reviewed: Yes Vital Signs & Weight: Vital Signs (12 hours) Temp Pulse Resp BP BP Pulse Ox 06/13/19 03:41 98.2 F 83 16 152/89 H 95 06/13/19 00:00 98.2 F 75 16 155/89 H 99 06/12/19 23:03 88 16 100 06/12/19 20:56 157/84 H 06/12/19 20:00 98.0 F 79 16 151/84 H 94 L 06/12/19 19:45 80 16 94 L Weight Admit Weight 75.024 kg Weight 75.024 kg I&O: 06/11/19 06/12/19 06/13/19 06:59 06:59 06:59 Intake Total 1720 2380 Output Total 400 1550 Balance 1320 830 Result Diagrams: 06/13/19 03:41 06/13/19 03:41 Phys Exam - Physical Examination Constitutional: NAD HEENT: moist MMs Neck: no nodes, no JVD, supple, full ROM Respiratory: wheezing present (expiratory diffusely ) Cardiovascular: RRR, no significant murmur, no rub Gastrointestinal: soft, non-tender, no distention, positive bowel sounds Musculoskeletal: no edema, pulses present Neurological: moves all 4 limbs Psychiatric: normal affect Skin: no rash, normal turgor, cap refill <2 seconds Dx/Plan (1) Acute respiratory failure with hypoxia Code(s): J96.01 - ACUTE RESPIRATORY FAILURE WITH HYPOXIA Status: Acute (2) COPD exacerbation Code(s): J44.1 - CHRONIC OBSTRUCTIVE PULMONARY DISEASE W (ACUTE) EXACERBATION Status: Acute (3) Metastatic lung cancer (metastasis from lung to other site) Code(s): C34.90 - MALIGNANT NEOPLASM OF UNSP PART OF UNSP BRONCHUS OR LUNG Status: Chronic (4) Hypertension Code(s): I10 - ESSENTIAL (PRIMARY) HYPERTENSION Status: Chronic (5) Lactic acidosis Code(s): E87.2 - ACIDOSIS Status: Acute (6) Combined systolic and diastolic heart failure Code(s): I50.40 - UNSP COMBINED SYSTOLIC AND DIASTOLIC (CONGESTIVE) HRT FAIL Status: Acute (7) BPH (benign prostatic hyperplasia) Code(s): N40.0 - BENIGN PROSTATIC HYPERPLASIA WITHOUT LOWER URINRY TRACT SYMP Status: Acute - Plan Plan: 73 y/o M with a pmx of metastatic lung cancer and COPD, presenting with acute hypoxic respiratory failure 2/2 COPD exacerbation. 1. Acute hypoxic respiratory failure - Etiology likely 2/2 COPD exacerbation and already compromised respiratory status from lung cancer. - CXP showed LLL consolidation vs atelectasis. - ABG: pH 7.4, CO2 38, O2 56, HCO3 23 - Lactic acid: 3.5, will trend - Initial O2 sat 88% on 4 L NC. Improved to 95% on 2 L NC AM of 06/12 and 06/13/19 2. COPD Exacerbation, improving - Cough with increased sputum production. - Pt started on prednisone, duonebs and claritin 06/08 at [facility] in [place] by PCP Dr. Martinez. No improvement in symptoms. Required O2 at [facility] over last 2 days with increased respiratory effort/decline - Started Azithromycin 500 mg 06/11, and 250 mg daily for 4 days after. Pt improving. No need for further antibiotic regimen as of today. - Continue 40 mg prednisone and duonebs Q4H, and albuterol nebs Q2H. - Ordered PA and lateral CXR: LLL pleural effusion vs atelectasis. - Procal 0.08. Flu neg. - WBC 12.3-> 15.5 most likely 2/2 steroid use. Pt did not have leukocytosis upon arrival. 3. Lung Ca with mets to liver - Pt receives chemotherapy [id number]. Maryellen seeing pt in hospital. Administered chemotherapy protocol 06/12. 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 Hx of combined HF - continue home medications - Pt is not clinically in exacerbation 5. Hx of tobacco abuse - smoked 2-3 ppd for 50 years, quit a few days ago. 6. Bilateral blindness - etiology glaucoma per chart review. 7. Hx of BPH -continue tamsulosin 8. Hx of GERD 9. Hx of HTN - continue home medications lisinopril, carvedilol Code Status: full code Diet: HH, dietary consult DVT ppx: lovenox Dispo: stable, admit to inpatient onc for treatment and evaluation of acute hypoxic respiratory failure 2/2 COPD exacerbation. improving.
[2019-06-13] MEDS: Mometasone/Formoterol 120 PUFF INHALER INH SCH (07:45)
[2019-06-13 08:28] VITALS: TEMP 98.4
[2019-06-13] MEDS: Carvedilol 6.25 MG TAB PO SCH (08:29)
[2019-06-13] MEDS: predniSONE 20 MG TAB PO SCH (08:29)
[2019-06-13] MEDS: Famotidine 20 MG TAB PO SCH (08:29)
[2019-06-13] MEDS: Lisinopril 10 MG TAB PO SCH (08:29)
[2019-06-13] MEDS: Clopidogrel Bisulfate 75 MG TAB PO SCH (08:29)
[2019-06-13] MEDS: Finasteride 5 MG TAB PO SCH (08:29)
[2019-06-13] MEDS: Multivitamin W/ Minerals 1 TAB PO SCH (08:29)
[2019-06-13] MEDS: Azithromycin 250 MG in Sodium Chloride 0.9% 250 ML 250 ML IVPB SCH (08:30)
[2019-06-13] MEDS: Folic Acid 1 MG TAB PO SCH (08:30)
[2019-06-13] MEDS: Tamsulosin HCl 0.4 MG CAP PO SCH (08:30)
[2019-06-13] MEDS: Loratadine 10 MG TAB PO SCH (08:30)
[2019-06-13] MEDS: Enoxaparin Sodium 40 MG/0.4 ML SYRINGE SC SCH (08:31)
[2019-06-13] MEDS: Brimonidine Tartrate 0.2% Ophth Soln 5 ml Bottle EA EYE SCH (08:32)
[2019-06-13] MEDS: Dorzolamide HCl 2% Ophth Soln 10 ml Bottle EA EYE SCH (08:34)
--- NOTE | 2019-06-13 11:22 | PRG ---
DATE OF SERVICE: 06/13/2019 Mr. Krause had chemotherapy yesterday that was uneventful. He is resting quietly this morning and is in no respiratory distress. His O2 saturations have improved to the low to mid 90s on a 2 L nasal cannula. We will likely be able to discharge him back to the intermediate sometime today. He was seen yesterday by the Oncology Service and we appreciate their input. From a COPD standpoint, he appears to be back at baseline. Job ID: [id number]
[2019-06-13 15:36] VITALS: BP 143/83
--- NOTE | 2019-06-14 11:14 | DIS ---
DATE OF ADMISSION: 06/11/2019 DATE OF DISCHARGE: 06/13/2019 RESIDENT: Ame Sawyer DO Admitting attending: Dr. Borrero. DISCHARGE ATTENDING: Hebert Smith MD CONSULT: 1. Tyra Bojorquez with Oncology. 2. Physical Therapy eval/treat. 3. Dietitian routine. PROCEDURES: The patient received chemotherapy protocol on 06/12/2019. DIAGNOSES: 1. Acute hypoxic respiratory failure. 2. Chronic obstructive pulmonary disease exacerbation. 3. Lung cancer with metastasis to the liver. 4. History of combined heart failure. 5. History of tobacco abuse. 6. Bilateral blindness. 7. History of benign prostatic hyperplasia. 8. Gastroesophageal reflux disease. DISCHARGE MEDICATIONS: 1. Tylenol 650 p.o. q.6 p.r.n. 2. Albuterol sulfate 2 puffs inhaled q.4 hours p.r.n. 3. Artificial Tears. 4. Azithromycin 250 mg p.o. for 2 more days, 2 pills. 5. Simbrinza eye drops. 6. Symbicort 1 puff inhale b.i.d. 7. Coreg 6.25 p.o. b.i.d. 8. Plavix 75 mg p.o. daily. 9. Pepcid 20 mg p.o. b.i.d. 10. Proscar 5 mg p.o. daily. 11. Folvite 1 mg p.o. daily. 12. DuoNeb nebulized q.6 hours p.r.n. 13. Lisinopril 10 mg p.o. daily b.i.d. 14. Loratadine 10 mg p.o. daily. 15. Milk of magnesia 30 p.o. daily p.r.n. 16. Dulera 1 inhale b.i.d. 17. Theragran 1 tablet p.o. daily. 18. Tamsulosin 0.4 mg p.o. daily. 19. Travatan 5 mL eyedrops daily. 20. Guaifenesin 200 mg p.o. q.4 hours p.r.n. 21. Prednisone 40 mg p.o. daily for 2 more days, then resume prednisone 20 mg daily. HISTORY OF PRESENT ILLNESS AND HOSPITAL COURSE: Mr. Krause is a 73-year-old male with a history of lung cancer with mets to the liver, COPD, and heart failure with combined systolic and diastolic dysfunction, who came in with about a week of worsening respiratory status, cough, increased sputum production, and hypoxia. He was admitted for acute hypoxic respiratory failure secondary to COPD exacerbation. He was treated 3 days of prednisone and azithromycin along with DuoNeb. The patient improved greatly and was sent home with 2 more days of azithromycin and 40 mg p.o. prednisone, after this is completed, resume 20 mg p.o. prednisone as part of his daily regimen. His white count was slightly elevated, but this is more likely due to steroid use because on admission it was normal. He received a round of chemotherapy protocol on 06/12 by Tyra Bojorquez while in the hospital, will resume care once the patient is discharged and get normal course of chemotherapy protocol. The patient was stable upon discharge and felt safe to go back to the [facility]. DISCHARGE INSTRUCTIONS: 1. Location: He is to go back to [facility]. 2. Diet: Heart healthy. 3. Activity: As tolerated. 4. Followup: Follow up with primary care in 3 days. Job ID: [id number] SUMIT
== END 2019-06-13 15:42 | DRG 189 ==
LOC: ERS 10:32 → ONC 20:22
PROVIDERS: ADMIT Family Medicine; ATTEND Family Medicine
DX: J96.01 Acute respiratory failure with hypoxia (principal); J44.1 Chronic obstructive pulmonary disease with (acute) exacerbation; I50.42 Chronic combined systolic (congestive) and diastolic (congestive) heart failure; C34.90 Malignant neoplasm of unspecified part of unspecified bronchus or lung; C78.7 Secondary malignant neoplasm of liver and intrahepatic bile duct; E87.2 Acidosis; J98.11 Atelectasis; N40.0 Benign prostatic hyperplasia without lower urinary tract symptoms; J30.9 Allergic rhinitis, unspecified; K21.9 Gastro-esophageal reflux disease without esophagitis; I11.0 Hypertensive heart disease with heart failure; R13.10 Dysphagia, unspecified; Z96.641 Presence of right artificial hip joint; H54.8 Legal blindness, as defined in USA; Z87.891 Personal history of nicotine dependence; Z95.5 Presence of coronary angioplasty implant and graft; Z89.022 Acquired absence of left finger(s)
CPT/HCPCS: 36415; 71045; 71046; 80048; 80053; 82805; 83605; 84145; 85025; 87040; 87804; 94640; J0456; J0692; J1100; J1650; J1956; J2469; J3370; J3420; J3490; J7050; J7512; J7620; J9305

== ENCOUNTER 2019-07-03 08:54 | Inpatient (IN) | payer MEDICARE, MEDICAID ==
[2019-07-03] MEDS ORDERED: methylPREDNISolone Sod Succ/PF 125 MG/2 ML VIAL ONE (09:57)
--- NOTE | 2019-07-03 09:59 | RAD ---
Portable frontal chest radiograph: 07/03/2019 COMPARISON: 06/11/2019 HISTORY: Dyspnea, left-sided numbness FINDINGS: Severe upper lobe emphysematous changes are noted, right greater than left. The right lung appears clear. There is dense new abnormal left perihilar and left basilar opacity. This is associated with lateral pleural thickening and blunting of the costophrenic angle. IMPRESSION: Prominent new dense opacity in the left perihilar region and left lung base with associat ed pleural effusion. Findings suggest left perihilar/left basilar infectious pneumonitis/aspiration with an associated significant pleural effusion. An underlying mass cannot be excluded. Short-term fo llow-up imaging of the chest following treatment advised to document resolution. CODE T
[2019-07-03 10:01] LABS: Hemoglobin 10.3 g/dL (14.0-18.0); Mean Corpuscular HGB CONC 30.6 g/dL (32.0-36.0); Mean Corpuscular Volume 97.8 fL (78.0-98.0); Mean Platelet Volume 7.9 fL (7.4-10.4); Platelet Count 405 thou/uL (130-400); RBC Distribution Width 18.7 % (11.5-14.5); Red Blood Cell (RBC) Count 3.44 mill/uL (4.70-6.10); White Blood Cell (WBC) Count 19.4 thou/uL (4.8-10.8)
[2019-07-03 10:10] LABS: ALT (SGPT) 8 U/L (8-55); AST (SGOT) 15 U/L (5-34); Albumin 3.1 g/dL (3.4-4.8); Alkaline Phosphatase 77 U/L (40-110); Anion Gap 16 mmol/L (10-20); BUN (Urea Nitrogen) 13 mg/dL (8.4-25.7); Bilirubin, Total 0.3 mg/dL (0.2-1.2); Calc. Creatinine Clearance 0 mL/min (70-130); Calcium 8.5 mg/dL (7.8-10.44); Carbon Dioxide 28 mmol/L (23-31); Chloride 103 mmol/L (98-107); Estimated GFR-MDRD Greater than 90; Globulin 3.4 g/dL (2.4-3.5); Glucose 96 mg/dL (83-110); Potassium 4.4 mmol/L (3.5-5.1); Protein, Total 6.5 g/dL (5.8-8.1); Sodium 143 mmol/L (136-145)
[2019-07-03 10:19] LABS: Band 19 % (5-11); Lymphocytes 13 % (21-51); MDiff Complete? YES; Metamyelocyte 3 % (0-0); Monocytes 15 % (0-10); Myelocyte 7 % (0-0); Neutrophil 43 % (42-75); Platelet Morphology Comment Appears Increased; Polychromasia SLIGHT = 2-3 cells (100X) (0-2/hpf); Vacuoles SLIGHT
[2019-07-03 10:30] LABS: CKMB 0.4 ng/mL (0-6.6)
[2019-07-03] MEDS ORDERED: Cefepime 2 GM VIAL ONE (10:45)
[2019-07-03 10:48] LABS: Actual Bicarbonate (HCO3a) 27.4 mEq/L (22-28); Analyzer IN Cardio ER; Base Excess (BEa) 4.4 mEq/L (-2.0 to +3.0); Calcium, Ionized 1.12 mmol/L (1.12-1.30); Carboxyhemoglobin (COHb) 0.3 gm% (0.0-3.0); Potassium - ABG Lab 3.78 mmol/L (3.70-5.30); pH, Arterial 7.51 (7.35-7.45)
[2019-07-03 10:49] LABS: Puncture Site RRA
--- NOTE | 2019-07-03 12:12 | PDOC.FPRHP ---
Addendum entered and electronically signed by Kira Moyer MD 07/04/19 05:57 : Original Note: - History of Present Illness Chief Complaint: trouble breathing History of Present Illness: 73yo AAM with a PMH of COPD, stage IV Lung cancer, HFrEF, HTN, on 2L NC at the longterm who presents for a CC of increased SOB and fatigue over the last few days. Per the daughter was recently admitted for PNA ~ 2 weeks ago. [facility] at [facility] for lung CA and is currently getting Chemo infusions q 3 weeks for about 5 txs thus far. Next infusion was actually talia for later today. Last infusion during his last hospitalization. No fever/chills. Endorses productive cough and chest pain in left side with cough. No rashes but does report 1 episode of N/V earlier today. half-way staff noticed his increased work of breathing, dyspnea, and desaturations on 2L and sent to ED for further eval. ED Course: Vanc, cefepime, desaturation to mid-80s on 2L NC, titrated up to 4L NC. 125 methylprednisilone, Duonebs x2 - Allergies/Adverse Reactions Allergies Allergy/AdvReac Type Severity Reaction Status Date / Time No Known Allergies Allergy Verified 07/24/18 10:47 - Home Medications Medication Instructions Recorded Confirmed Type Budesonide-Formoterol [Symbicort 1 puff INH BID 07/05/16 06/11/19 History 160-4.5] Clopidogrel Bisulfate [Clopidogrel] 75 mg PO DAILY 08/19/17 06/11/19 History Ipratropium/Albuterol Sulfate 3 ml NEB [id number] PRN 08/19/17 06/11/19 History [DuoNeb] Famotidine [Pepcid] 20 mg PO BID #60 tab 07/31/18 06/11/19 Rx Finasteride [Proscar] 5 mg PO DAILY #30 tab 07/31/18 06/11/19 Rx Tamsulosin HCl [Flomax] 0.4 mg PO DAILY #30 cap 07/31/18 06/11/19 Rx Carvedilol [Coreg] 6.25 mg PO BID 12/16/18 06/11/19 History Folic Acid [Folvite] 1 mg PO DAILY #30 tab 12/25/18 06/11/19 Rx Lisinopril [Zestril] 10 mg PO BID #60 tab 12/25/18 06/11/19 Rx Acetaminophen [Tylenol] 650 mg PO Q6H PRN 06/11/19 06/11/19 History Albuterol Sulfate [Ventolin HFA] 2 puff INH Q4H PRN 06/11/19 06/11/19 History Artificial Tears [Tears Naturale 1 drop EA EYE ASDIR PRN 06/11/19 06/11/19 History Free] Brinzolamide/Brimonidine Tart 1 drop EA EYE BID 06/11/19 06/11/19 History [Simbrinza 1%/0.2% Ophth Susp] Ipratropium/Albuterol Sulfate 1 inh IN Q6H 06/11/19 06/11/19 History [Iprat-Albut 0.5-3(2.5) mg/3 ml] Ipratropium/Albuterol Sulfate 1 inh IN Q6HR PRN 06/11/19 06/11/19 History [Iprat-Albut 0.5-3(2.5) mg/3 ml] Loratadine [Claritin] 10 mg PO DAILY 06/11/19 06/11/19 History Magnesium Hydroxide [Milk Of 30 ml PO DAILY PRN 06/11/19 06/11/19 History Magnesium] Mometasone/Formoterol 200/5 1 inh IN BID 06/11/19 06/11/19 History [Dulera 200 Mcg/5 Mcg Inhaler] Multivitamin W/ Minerals 1 tab PO DAILY 06/11/19 06/11/19 History [Theragran M] Travoprost [Travatan Z] 1 drop EA EYE HS 06/11/19 06/11/19 History guaiFENesin [Guaifenesin] 200 mg PO Q4HR PRN 06/11/19 06/11/19 History Azithromycin 250 mg PO Q24H #2 tablet 06/13/19 Rx Azithromycin [Zithromax] 250 mg IVPB Q24HR #2 vial 06/13/19 Rx predniSONE 40 mg PO QAM-WM #4 06/13/19 06/11/19 Rx predniSONE 40 mg PO QAM-WM #4 tab 06/13/19 Rx - History PMHx: CAD s/p stent placement, HFrEF (Echo -2018 with EF 30-35%), Metastatic lung CA (to liver & kidneys), HTN, COPD on 2L at home, HTN, B/L blindness PSHx: R hip replacement FHx: Sisters- breast CA Sister - lung CA Social: Former smoker, quit about 2.5 weeks ago. Smoked ~2-2.5 ppd before quitting "for many years". Occasional EtOH use. No drug Use. Lives in [facility] where Dr. Martinez sees him. - Review of Systems General: reports: weight/appetite/sleep changes (weight loss over past month, unintentional). denies: fever/chills Eyes: reports: other (blind) ENT: denies: nasal congestion, rhinorrhea Respiratory: reports: cough, shortness of breath. denies: congestion Cardiovascular: reports: chest pain (with coughing). denies: edema Gastrointestinal: reports: nausea, vomiting, constipation. denies: diarrhea, abdominal pain Genitourinary: denies: incontinence, dysuria Skin: denies: rashes, itching - Vital signs BP: 120/76 HR: 118 RR: 19 Tmax: Pox: 94% on 4L NC Wt: [68kg] - Physical Exam Constitutional: NAD, awake, alert and oriented, other (chronically ill- appearing. Thin. Increased work of breathing with any exertion in bed.) HEENT: EOMI, oropharynx clear, other (BL blindness, dry eyes, dry MM, poor dentition.) Neck: trachea midline, no bruits Chest: no-tender to palpation Heart: RRR, normal S1/S2, no murmurs/rubs/gallops, pulses present, no edema Lungs: other (Mild end-exp wheeze, decreased breath sounds on LLL as compared to Right. Mild rhonchi in LLL base) Abdomen: soft, non-tender, bowel sounds present, no masses/distention Neurological: no focal deficit Skin: no rash/lesions Heme/Lymphatic: no unusual bruising or bleeding Psychiatric: normal mood and affect, good judgment and insight, intact recent and remote memory FMR H&P: Results - Labs Result Diagrams: 07/04/19 06:23 07/04/19 03:49 Lab results: WBC 19.4 thou/uL (4.8-10.8) H 07/03/19 09:40 Hgb 10.3 g/dL (14.0-18.0) L 07/03/19 09:40 Hct 33.6 % (42.0-52.0) L 07/03/19 09:40 MCV 97.8 fL (78.0-98.0) 07/03/19 09:40 Plt Count 405 thou/uL (130-400) H 07/03/19 09:40 Band Neuts % (Manual) 19 % (5-11) H 07/03/19 09:40 ABG pH 7.51 (7.35-7.45) H 07/03/19 10:45 ABG pCO2 35.0 mmHg (35.0-45.0) 07/03/19 10:45 ABG pO2 53.0 mmHg (> 70.0) L* 07/03/19 10:45 Sodium 143 mmol/L (136-145) 07/03/19 09:40 Potassium 4.4 mmol/L (3.5-5.1) 07/03/19 09:40 Chloride 103 mmol/L (98-107) 07/03/19 09:40 Carbon Dioxide 28 mmol/L (23-31) 07/03/19 09:40 BUN 13 mg/dL (8.4-25.7) 07/03/19 09:40 Creatinine 0.95 mg/dL (0.7-1.3) 07/03/19 09:40 Glucose 96 mg/dL (83-110) 07/03/19 09:40 Lactic Acid 2.5 mmol/L (0.5-2.2) H 07/03/19 10:41 Calcium 8.5 mg/dL (7.8-10.44) 07/03/19 09:40 Total Bilirubin 0.3 mg/dL (0.2-1.2) 07/03/19 09:40 AST 15 U/L (5-34) 07/03/19 09:40 ALT 8 U/L (8-55) 07/03/19 09:40 Alkaline Phosphatase 77 U/L (40-110) 07/03/19 09:40 CK-MB (CK-2) 0.4 ng/mL (0-6.6) 07/03/19 09:40 B-Natriuretic Peptide 219.3 pg/mL (0-100) H 07/03/19 09:40 Serum Total Protein 6.5 g/dL (5.8-8.1) 07/03/19 09:40 Albumin 3.1 g/dL (3.4-4.8) L 07/03/19 09:40 - Radiology Interpretation Chest x-ray Status: image reviewed by me, report reviewed by me (L perihilar infiltrate, LLL infiltrate, L pleural effusion.) FMR H&P: A/P - Problem List (1) Pneumonia Current Visit: Yes Status: Acute Code(s): J18.9 - PNEUMONIA, UNSPECIFIED ORGANISM Qualifiers: Laterality: left Lung location: lower lobe of lung (2) Acute respiratory failure with hypoxia Current Visit: Yes Status: Acute Code(s): J96.01 - ACUTE RESPIRATORY FAILURE WITH HYPOXIA (3) COPD exacerbation Current Visit: Yes Status: Acute Code(s): J44.1 - CHRONIC OBSTRUCTIVE PULMONARY DISEASE W (ACUTE) EXACERBATION Comment: (4) CAD (coronary artery disease) Current Visit: No Status: Chronic Code(s): I25.10 - ATHSCL HEART DISEASE OF [place] CORONARY ARTERY W/O ANG PCTRS Comment: stable (5) Chronic systolic heart failure, ACC/AHA stage C Current Visit: Yes Status: Chronic Code(s): I50.22 - CHRONIC SYSTOLIC ( CONGESTIVE) HEART FAILURE (6) Metastatic lung cancer (metastasis from lung to other site) Current Visit: Yes Status: Chronic Code(s): C34.90 - MALIGNANT NEOPLASM OF UNSP PART OF UNSP BRONCHUS OR LUNG - Plan 3yo AAM with a PMH of COPD, stage IV Lung cancer, HFrEF, HTN, on 2L NC at the longterm who presents for a CC of increased SOB and fatigue over the last few days. #Sepsis 2/2 LLL PNA - WBC 19.4 with left-side and bandemia of 19 - Initially tachypneic, tachycardic, and hypoxic in ED - Given 2L NS, Vanc and Cefepime - CXR with L pleural effusion and LLL PNA - Will cont Vanc and Zosyn to cover MRSA PNA, Gram+, Gram-, and pseudomonas 2/2 recent hospitalization, longterm recent, comorbidities, and current active lung cancer - LA 2.5, will trend per sepsis. Ordered Procal - Obtain sputum Gram stain and culture #Acute on chronic hypoxic respiratory 2/2 PNA and COPD exacerbation - Uses 2L home O2 2/2 end-stage COPD - Known to Dr. Lake. - Hypoxic and up titration of O2 to 4L, will admit to IMCU for concern for possible need for BiPap - Consult Pulm, Dr. Baird, apprec recs - Given steroids in ED, takes 20mg prednisone daily, will increase to 40mg daily - Cont duonebs q6hr with q4hr prn. Cont home inhalers. - Monitor resp status closely #Stage IV Lung Cancer - Unknown specific Oncologist, will consult on-call and make aware, apprec recs and assistance - Due for chemo tx today - Consult Palliative care #Malnutrition, weight loss, deconditioning - 2/2 metastatic lung cancer, will order prealbumin, encourage PO, tile edger consulted #HFrEF - Echo 30-35% on 06/2018 - No acute CHF exacerbation, appears volume down, s/p 2L NS in ED, will monitor fluid status closely - Strict I's and O's, daily weight - Cont home meds #HTN - Cont home meds and monitor closely #BL Blindness - Fall precautions, cont home eye drops #CAD s/p stent placement - cont home medications PCP: Michelle [facility] resident Code: Full IVF: SL Diet: HH, fluid restricted DVT: Heparin GI PPX: Pepcid Dispo: Admit to IMCU for acute hypoxic respiratory failure and sepsis 2/2 LLL PNA. Consulted Pulm and Onc. Cont abx, steroids, and supplemental O2. Monitor resp status and vitals. Anticipate hospitalization >48hrs. FMR H&P: Upper Level - Pertinent history 73YO AAf with a PMH of COPD & metastatic lung CA on 2L O2 at home, HFrEF, HTN & blindness who presents from the [facility] for a CC of increased SOB and fatigue over the last few days. Per the daughter was recently admitted for PNA ~ 2 weeks ago. Per chart review this was actually for a COPD exacerbation & patient was discharged on PO azithromycin which he has since completed. Patient states since his recent discharge he felt better for a few days and then began to slowly decline. Reports decreased appetite and chest pain with his cough but denies any fever/chills or new rashes. Does report 1 episode of N/V earlier today. Of note, patient sees Oncology for metastatic lung CA and is currently getting chemo infusions q 3 weeks. Daughter reports he has gotten 5 infusions thus far & his next infusion was actually TALIA for later today. Last infusion during his last hospitalization last month. - Pertinent findings CXR: LLL PNA WBC: 19 Hgb: 10.3 procal pending BNP 219 trop: 0.032-->0/019 lactate 2.5-->1.0 REVIEW OF SYSTEMS: Gen: no fever, chills, or sweats Neuro: no numbness/tingling, no weakness, denies headache Eyes: no visual changes ENT: no hearing changes, no sore throat, no runny nose Resp: +cough, + SOB Card: denies chest pain, no palpitations GI: + N/V, no abdominal pain or diarrhea, + constipation : no dysuria, no hematuria MSK: no myalgias, no joint pain/stiffness Heme: no easy bruising/bleeding, no blood thinners Skin: no rash, no erythema Vitals: BP: 120/76 HR: 118 RR: 19 Tmax: N/A Pox: 94% on 4L NC Wt: 67 kg PHYSICAL EXAMINATION: General: NAD, alert and oriented x3. HEENT: normal sclera, oropharynx without erythema or exudate; dry mucus membranes Neck: Supple. Full ROM. Heart/Cardiovascular System: tachycardic but regular rhythm, Cap refill < 3 seconds, no rub, no murmur Lungs/Respiratory System: Mild increased work of breathing on 4L NC. End expiratory wheezing throughout w/ crackles in LLL & prolonged expiratory phase Abdomen/Gastro-Intestinal System: no abdominal tenderness, normal bowel sounds Extremities: Warm extremities. No cyanosis or edema. Neuro: No gross deficits appreciated. CN 2-12 grossly intact Psychiatry: Awake, Alert and cooperative with exam Skin: No lesions, rashes, or ulcers Musculoskeletal: Full ROM throughout - Plan Date/Time: 07/03/19 1211 IKira, have evaluated this patient and agree with findings/plan as outlined by international nurse resident. Pertinent changes/additions are listed here. 73YO AAM with a PMH of end stage COPD & metastatic lung CA on 2L O2 at home, HFrEF, HTN & blindness who presents from the [facility] for a CC of increased SOB and fatigue & was found to have a LLL PNA. #Sepsis 2/2 LLL PNA - Patient tachycardic into the 110s with a WBC of 19 & LLL PNA seen on CXR on presentation. Bld & Urine Cxs obtained w/ sputum Cxs pending. Given vanc & cefepime in the ED but will continue Vanc & Zosyn to cover for MRSA & pseudomonas given recent hospitalization, NH status & underlying COPD & lung CA on chemo/immunocompromised state. - Procal pending to trend along w/ WBC count. - Also received 2L of NS in the ED but given h/o HFrEF will hold off on mIVFs & encourage PO hydration only. - Admit to IMCU for close monitoring of respiratory status overnight. #Acute hypoxic respiratory failure 2/2 COPD exacerbation from LLL PNA: - LLL PNA seen on CXR and patient was hypoxic on presentation to the ED on regular 2L but able to maintain adequate sats on 4L. ABG showed PO2 of 53. - Will treat PNA w/ BS abx as outlined above and also address COPD by continuing home meds w/ TALIA Duonebs Q6H & Q4H PRN, PO steroids to start tomorrow , and mucinex. - Will wean O2 as tolerated by patient. - Pulmonology on board, Brie, appreciate recs. # Stage IV lung cancer on Chemo: - On q3 weeks Chemo infusions per daughter. Next infusion was TALIA for today. Touched based with oncology PA, Tyra Bojorquez who stated Oncology will follow during admission. Dr. Calderon consulted. Appreciate recs. - Palliative care consulted to discuss goals of care. #End Stage COPD: - On 2L at baseline at home. Continue home meds & treat exacerbation as outlined above. #HFrEF: - Aware, does not appear to be in acute exacerbation. BNP elevated at 219 but has been as high as 500 previously per chart review. - Will continue fluid restrictions to 1800mL, strict I&Os, QD weights. Resume home meds. #HTN: - Resume home meds. #Blindness: - Resume home meds. #BPH - Home meds. #Constipation: - Home meds #Malnutrition 2/2 metastatic CA: - Director Advanced consulted for supplementation recs. Dispo: Will admit to the IMCU for close monitoring of respiratory status overnight with possible transfer to medical unit tomorrow if back to baseline O2 requirements. Diet: HH, Low Na, fluid restriction IVFs: SL Abx: Vanc & Zosyn (07/03/19) DVT PPX: Lovenox GI PPX: Famotidine CODE STATUS: FULL CODE PCP: Michelle Briceno - Attending - Attending Attestation Date/Time: 07/04/19 1207 I personally evaluated the patient and discussed the management with Dr. Moyer on 07/03/2019 I agree with the History, Examination, Assessment and Plan documented above with any addition or exceptions noted below - 73yo AAM with history of COPD, stage IV Lung cancer, HFrEF, HTN, on 2L NC at the longterm who presents with complaint of increased SOB and fatigue over the last few days. Was recently hospitalized for COPD exacerbation. [facility] [place] [facility] at [facility] for lung CA and is currently getting Chemo infusions q 3 weeks for about 5 txs thus far. Last infusion during his last hospitalization. No fever/chills. Endorses productive cough and chest pain in left side with cough. Has had decreased appetite for "awhile". Had 1 episode of vomiting earlier. PMH/PSH/Meds/SH reviewed and agree with resident's documentation. Afebrile VSS. Exam repeated by me and agree with resident's findings. Labs: WBC=19.4, H/H=10.3/33.6, Uwv=135 , Diff=43N/19B/13L, Ut=219, K=4.4, Hr=323, CO2=28, BUN/Cr=13/0.95, Gluc=96, Lactic acid=2.5->1.0. CXR- new dense opacity in left perihilar and LLL base. A/P : 1) Pneumonia in patient with risk factors (recent hospitalization, severe COPD , lung cancer on chemo)- Admit to IMCU. Continue abx. 2) Severe COPD- continue nebs, O2, and steroids. 3) HFrEF- monitor I/Os
[2019-07-03 12:46] LABS: Troponin I 0.019 ng/mL (< 0.028)
--- NOTE | 2019-07-03 17:10 | PDOC.PULCN ---
Pulmonology Consult: HPI - Date of Consult Date: 07/03/19 Time: 17:09 - Consult Details Reason for Consult: IMCU admission for acute hypoxic respiratory failure Requesting Physician: Molly A&m Rakan - History of Present Illness HPI: CAMERON GARDINER is a 73 year-old M with COPD, adenocarcinoma of the lung ( stage IV) who is a long term patient brought over by EMS for low O2 saturation in the 70s. Has been having increased dyspnea this past week, non productive cough. He was placed on 2L [place] oxygen which improved helped but then worsened today with oxygen dropping to low 70s. Here in the ER he was in the 80s on 4L and given steroids, duonebs. Sepsis protocol initiated and he was given 2L of fluids. Patient denies fever, chills, leg swelling. Currently undergoing chemotherapy seeing Dr. Cross. He was diagnosed with primary pulmonary adenocarcinoma with liver mets in December. Quit smoking 3 weeks ago. Pulmonology Consult: ROS - Review of Systems Constitutional: negative: fever, chills Respiratory: cough, exercise intolerance, non-productive cough, short of breath. negative: bloody sputum, congestion, chest tightness, pain on deep breathing Pulmonology Consult: PMH Source: patient Past Medical History: HTN Bilateral blindness HLD - Social History Smoking Status: Former smoker Pack Years: 50 Alcohol Use: none Drug Use History: none Living Situation: long term resident Pulmonology Consult: Meds - Allergies Allergies/Adverse Reactions: Allergies Allergy/AdvReac Type Severity Reaction Status Date / Time No Known Allergies Allergy Verified 07/24/18 10:47 Pulmonology Consult: PE - Physical Exam Constitutional: NAD HEENT: PERRLA, oral pharynx no lesions Neck: no JVD Deviation from normal: sinus tachycardia Respiratory: prolonged expiratory phase. negative: accessory muscle use Focused Respiratory Location: decreased breath sounds: Right, Left Pulmonology Consult: Results - Labs Result Diagrams: 07/06/19 04:57 07/06/19 04:57 - ABG Interpretation ABG Results: ABG pH 7.51 (7.35-7.45) H 07/03/19 10:45 ABG pCO2 35.0 mmHg (35.0-45.0) 07/03/19 10:45 ABG O2 Sat Calc/Gian 89.1 % (94.0-98.0) L 07/03/19 10:45 ABG Base Excess 4.4 mEq/L (-2.0 to +3.0) H 07/03/19 10:45 Pulmonology Consult: A/P - Problem (1) Pneumonia Current Visit: Yes Code(s): J18.9 - PNEUMONIA, UNSPECIFIED ORGANISM Status: Acute Qualifiers: Laterality: left Lung location: lower lobe of lung (2) Acute respiratory failure with hypoxia Current Visit: Yes Code(s): J96.01 - ACUTE RESPIRATORY FAILURE WITH HYPOXIA Status: Resolved (3) COPD exacerbation Current Visit: Yes Code(s): J44.1 - CHRONIC OBSTRUCTIVE PULMONARY DISEASE W ( ACUTE) EXACERBATION Status: Acute - Time Time: 50% of the time was spent in coordination of care (as documented) at patient's floor/unit and/or counseling patient. Time with Patient: greater than 70 minutes - Plan Plan: 73 yo M with stage IV lung adenocarcinoma, COPD, CHF admitted for acute on chronic hypoxic respiratory failure. 1. Acute on chronic hypoxic respiratory failure: Oxygen saturation 2/2 lung mass and pleural effusion. Cannot exclude pneumonia and COPD. Thoracentesis performed today, fluid studies sent to better characterize. In meantime, continue antibiotic and COPD bronchodilator therapy/steroids to treat 2. Hospital acquired pneumonia: Continue Vanc and zosyn. Supportive care. 3. COPD exacerbation: See plan above 4. Lung adenocarcinoma, stage IV: Mets to liver. Was supposed to have chemotherapy today. Will give oncology courtesy notice in AM. dvt ppx: lovenox abx: vanc/zosyn discussed with Dr. Renee Addendum - Attending - Attending Attestation Date/Time: 07/06/19 9395 I personally evaluated the patient and discussed the management with Dr. Goddard. I agree with the History, Examination, Assessment and Plan documented above with any addition or exceptions noted below. 70 minutes have been devoted to this patient in various activities. I personally reviewed all imaging studies and laboratory data noted within this document. For fifty percent of this time, I was interacting with the patient at the bedside or coordinating care with the care team. For the remainder of the time I was immediately available to the patient in the hospital unit.
[2019-07-03 18:00] LABS: Pleural Fluid, Protein 3.6 g/dL
[2019-07-03 18:22] LABS: RBC Count-Automated (BF) 510 /cumm; WBC/Nucleated-Auto (BF) 2268 uL
[2019-07-03 18:42] LABS: BF Color Yellow; Body Fluid Source Thoracentesis Fluid; Clarity Cloudy/Turbid (Clear); Tube # EDTA
[2019-07-03 18:44] LABS: BF Segmented Neutrophils 60 %; Cell Count Non Hematic 35 %; Lymphocytes 5 %
[2019-07-03] MEDS ORDERED: Polyethylene Glycol 3350 17 GM Packet PO PRN (19:53)
[2019-07-03] MEDS ORDERED: PROVENTIL INHALER 6.7 G (200 INHALATIONS) INH PRN (19:53)
[2019-07-03] MEDS ORDERED: Ondansetron PF 4 MG/2 ML Vial IVP PRN (19:53)
[2019-07-03] MEDS ORDERED: Ondansetron ODT 4 MG TAB PO PRN (19:53)
[2019-07-03] MEDS ORDERED: Acetaminophen 325 MG TAB PO PRN (19:53)
[2019-07-03] MEDS ORDERED: Artificial Tears 18 DROP/0.9 ML EA EYE PRN (19:53)
[2019-07-03] MEDS ORDERED: Milk Of Magnesia 30 ML UDCUP PO PRN (19:53)
[2019-07-03 19:56] VITALS: BMI 18.3
[2019-07-03] MEDS ORDERED: Enoxaparin Sodium 40 MG/0.4 ML SYRINGE SC SCH (21:15)
[2019-07-03] MEDS ORDERED: Docusate Sodium 100 MG/10 ML UDCUP PO PRN (21:26)
[2019-07-03] MEDS ORDERED: Carvedilol 25 MG TAB PO SCH (21:30)
[2019-07-03] MEDS ORDERED: Latanoprost 0.005% Ophth Soln 2.5 ml Bottle EA EYE SCH (21:30)
[2019-07-03] MEDS: Tamsulosin HCl 0.4 MG CAP PO SCH (21:56)
[2019-07-03] MEDS: Lisinopril 10 MG TAB PO SCH (21:56)
[2019-07-03] MEDS: guaiFENesin ER 600 MG TAB PO SCH (21:56)
[2019-07-03] MEDS: Famotidine 20 MG TAB PO SCH (21:56)
[2019-07-03] MEDS: Piperacillin/Tazobactam 4.5 GM in Sodium Chloride 0.9% 100 ML IVPB SCH (22:01)
--- NOTE | 2019-07-03 23:38 | PDOC.BPN ---
- Brief Progress Note assessed pt resp status overnight. Resting comfortable, on 3 L NC O2. RR 18-24 breaths per minutes Lung exam: no severe distress, wheezing diffusely, diminished breath sounds over LLL.
[2019-07-04] MEDS: Vancomycin HCl 750 MG in Sodium Chloride 0.9% 250 ML 250 ML IVPB SCH ×3 (00:24→23:33)
--- NOTE | 2019-07-04 00:53 | OP ---
DATE OF PROCEDURE: 07/03/2019 SERVICE: Pulmonary Medicine. PROCEDURE PERFORMED: Left-sided pleural drainage with catheter insertion under ultrasound guidance. CONSENT: The risks and benefits of the procedure were discussed with the patient at bedside. All questions were answered and alternative options explained. STAFF PHYSICIAN: Urbano Baird MD MEDICATIONS USED: Lidocaine 1% without epinephrine, 10 mL. PREOPERATIVE DIAGNOSES: 1. Pneumonia. 2. Acute hypoxic respiratory failure. 3. Adenocarcinoma of the lung. 4. Pleural effusion. POSTPROCEDURE DIAGNOSIS: Loculated pleural effusion. DESCRIPTION OF PROCEDURE: Time-out was performed by the procedure team and patient. The patient was positively identified using name and date of . The procedure site was marked. Vital sign monitoring was accomplished by noninvasive hemodynamic monitoring, pulse oximetry, and telemetry. In the seated position, left posterior hemothorax was examined using ultrasound probe. Loculated pleural effusion was identified with multiple trabeculations that could be seen. The diaphragm and pleural fluid were easily identified. The skin was prepped and draped in sterile fashion and anesthetized with 1% lidocaine without epinephrine. A finder needle was inserted in the pleural space with return of cloudy, yellow pleural fluid. A pleural drainage catheter was inserted in the same location and a total quantity of 60 mL of pleural fluid was withdrawn by syringe pump technique, but the fluid abruptly stopped coming. I attempted to reposition the catheter and pull it back, but no additional fluid sample is collected. The intact catheter was withdrawn on exhalation and a sterile dressing was applied. He maintained stable vitals throughout the entire procedure. ESTIMATED BLOOD LOSS: Less than 2 mL. COMPLICATIONS: None. Job ID: [id number]
[2019-07-04] MEDS: Piperacillin/Tazobactam 4.5 GM in Sodium Chloride 0.9% 100 ML IVPB SCH ×4 (03:50→21:38)
[2019-07-04 04:22] LABS: Anion Gap 9 mmol/L (10-20); BUN (Urea Nitrogen) 17 mg/dL (8.4-25.7); Calc. Creatinine Clearance 84 mL/min (70-130); Calcium 8.4 mg/dL (7.8-10.44); Carbon Dioxide 28 mmol/L (23-31); Chloride 108 mmol/L (98-107); Estimated GFR-MDRD Greater than 90; Glucose 135 mg/dL (83-110); Sodium 141 mmol/L (136-145)
--- NOTE | 2019-07-04 06:19 | PDOC.FM ---
- Subjective Subjective: NAEO. Patient maintained adequate O2 sats on NC overnight. Remained afebrile and all other vitals stable. Reports his breathing is much improved this AM. Says breathing treatments are helping. Is now coughing up some sputum. - Objective MAR Reviewed: Yes Vital Signs & Weight: Vital Signs (12 hours) Temp Pulse Resp BP BP Pulse Ox 07/04/19 05:34 137/76 07/04/19 03:00 97.6 F 07/04/19 00:00 79 16 98 07/03/19 23:53 97.6 F 07/03/19 21:56 115/85 07/03/19 21:25 102 H 16 94 L 07/03/19 20:00 99 07/03/19 19:56 97.1 F L Weight Weight 68.583 kg Most Recent Monitor Data Heart Rate from ECG 77 NIBP 144/78 NIBP BP-Mean 100 Respiration from ECG 23 SpO2 96 I&O: 07/02/19 07/03/19 07/04/19 06:59 06:59 06:59 Intake Total 240 Balance 240 Result Diagrams: 07/04/19 06:23 07/04/19 03:49 Phys Exam - Physical Examination Constitutional: NAD sitting up in bed resting comfortably watching/listening to TV HEENT: moist MMs Neck: supple Respiratory: wheezing present prolonged expiration compared to inspiratory phase w/ end exp wheezing heard throughout and coarse rhonchi in mid back of chest noted Cardiovascular: RRR, no significant murmur Gastrointestinal: soft, non-tender, positive bowel sounds Musculoskeletal: no edema bandage over thoracocentesis site clean, dry & intact w/ no TTP or swelling/hematoma noted Neurological: non-focal, moves all 4 limbs Psychiatric: normal affect, A&O x 3 Skin: no rash Dx/Plan (1) Acute respiratory failure with hypoxia Code(s): J96.01 - ACUTE RESPIRATORY FAILURE WITH HYPOXIA Status: Acute (2) COPD exacerbation Code(s): J44.1 - CHRONIC OBSTRUCTIVE PULMONARY DISEASE W (ACUTE) EXACERBATION Status: Acute (3) Pneumonia Code(s): J18.9 - PNEUMONIA, UNSPECIFIED ORGANISM Status: Acute Qualifiers: Laterality: left Lung location: lower lobe of lung (4) Chronic systolic heart failure, ACC/AHA stage C Code(s): I50.22 - CHRONIC SYSTOLIC (CONGESTIVE) HEART FAILURE Status: Chronic (5) Metastatic lung cancer (metastasis from lung to other site) Code(s): C34.90 - MALIGNANT NEOPLASM OF UNSP PART OF UNSP BRONCHUS OR LUNG Status: Chronic (6) BPH (benign prostatic hyperplasia) Code(s): N40.0 - BENIGN PROSTATIC HYPERPLASIA WITHOUT LOWER URINRY TRACT SYMP Status: Acute (7) Lactic acidosis Code(s): E87.2 - ACIDOSIS Status: Acute (8) CAD (coronary artery disease) Code(s): I25.10 - ATHSCL HEART DISEASE OF [place] CORONARY ARTERY W/O ANG PCTRS Status: Chronic (9) Hypertension Code(s): I10 - ESSENTIAL (PRIMARY) HYPERTENSION Status: Chronic (10) Protein-calorie malnutrition, moderate Code(s): E44.0 - MODERATE PROTEIN-CALORIE MALNUTRITION Status: Chronic (11) Tobacco abuse Code(s): Z72.0 - TOBACCO USE Status: Chronic - Plan Plan: 73YO AAM with a PMH of end stage COPD & metastatic lung CA on 2L O2 at home, HFrEF, HTN & blindness who presents from the [facility] for a CC of increased SOB and fatigue & was found to have a LLL PNA. #Sepsis 2/2 LLL PNA, improving - Patient tachycardic into the 110s with a WBC of 19 & LLL PNA seen on CXR on presentation. Bld & Urine Cxs obtained w/ sputum Cxs pending. Given vanc & cefepime in the ED but will continue Vanc & Zosyn to cover for MRSA & pseudomonas given recent hospitalization, NH status & underlying COPD & lung CA on chemo/immunocompromised state. - VS WNLs overnight with exception of patient requiring slightly more O2 than normal. Procal 0.45 on presentation but will continue BS abx with vanc & zosyn in light of risk factors noted above. - WBC slightly up to 23.5 from 19.4 this AM. Likely 2/2 IV steroids given in ER. Bandemia downtrending since starting abx. Will continue to trend. - Pulmonology on board, appreciate recs. #Acute hypoxic respiratory failure 2/2 COPD exacerbation from LLL PNA, improving : - LLL PNA seen on CXR and patient was hypoxic on presentation to the ED on regular 2L but able to maintain adequate sats on 4L. ABG showed PO2 of 53. - Will treat PNA w/ BS abx as outlined above and also address COPD by continuing home meds w/ MARAH Duonebs Q6H & Q4H PRN, steroids, and mucinex. - Will wean O2 as tolerated by patient. - Pulmonology on board, appreciate recs. - Will have bedside suction available for increased sputum production to help patient better clear his secretions. #Acute on chronic normocytic anemia: - Hgb down to 7.7 this AM from 10.3 on presentation. Likely dilutional as all other CBC values dropped with exception of WBC which is likely slightly higher today 2/2 IV steroids given in ED on presentation. Patient mildly tachycardic on exam but BP WNLs & denies any lightheadedness, nausea or dizziness. Tachycardia could just be 2/2 MARAH Duonebs. No s/s of acute blood loss per nursing staff or on exam. - Iron studies do show iron deficiency with a serum iron level of 13. Would likely benefit from an iron transfusion. ARC calculated at 1.1 showing hypoproliferative response to decreased H/H. - Onc to see today. Will defer transfusions pending their recs unless patient becomes acutely symptomatic. # Stage IV lung cancer on Chemo: - On q3 weeks Chemo infusions per daughter. Next infusion was MARAH for yesterday. - Oncology consulted on admission & will follow. Appreciate recs. - Palliative care also consulted on admission to discuss goals of care. #Moderate protein calorie Malnutrition/deconditioning 2/2 metastatic CA: - Tour Agent consulted for supplementation recs. - PT/OT also consulted for recs. #End Stage COPD: - Aware, in acute exacerbation now. On 2L at baseline at home. Continue home meds & treat exacerbation as outlined above. #HFrEF: - EF of 35-40% in June of 2018. Does not appear to be in acute exacerbation. - Will continue fluid restrictions to 1800mL, strict I&Os, QD weights & resume home meds. #HTN: - Resume home meds. #Blindness: - Resume home meds. #BPH - Home meds. #Constipation: - Home meds Dispo: Will continue respiratory support PRN and wean O2 as tolerated by the patient. Will consider transition out of the IMCU later today pending pulmonolgy recs if patient continues to remain stable on NC only this AM. Diet: HH, Low Na, fluid restriction IVFs: SL Abx: Vanc & Zosyn (07/03/19) DVT PPX: Lovenox GI PPX: Famotidine CODE STATUS: FULL CODE PCP: Michelle Addendum - Attending - Attending Attestation Date/Time: 07/04/19 3168 I personally evaluated the patient and discussed the management with Dr. Moyer at 1015 I agree with the History, Examination, Assessment and Plan documented above with any addition or exceptions noted below. Acute on chronic hypoxic respiratory failure due to HCAP- on Vanc and Zosyn Exudative pleural effusion s/p thoracentesis- culture and cytology pending Stage IV lung cancer- appreciate oncs recs Anemia- recheck tomorrow. transfuse if <7. Probable transfer to medical or onc floor if respiratory rate/o2 demand is stable today.
[2019-07-04 06:43] LABS: Hemoglobin 7.7 g/dL (14.0-18.0); Mean Corpuscular HGB CONC 31.3 g/dL (32.0-36.0); Mean Corpuscular Hemoglobin 30.4 pg (27.0-31.0); Mean Corpuscular Volume 96.8 fL (78.0-98.0); Mean Platelet Volume 7.5 fL (7.4-10.4); Platelet Count 345 thou/uL (130-400); RBC Distribution Width 18.5 % (11.5-14.5); Red Blood Cell (RBC) Count 2.53 mill/uL (4.70-6.10); White Blood Cell (WBC) Count 23.5 thou/uL (4.8-10.8)
[2019-07-04 07:05] LABS: Reticulocyte Count 1.9 % (0.5-1.5)
[2019-07-04] MEDS: Mometasone/Formoterol 120 PUFF INHALER INH SCH ×2 (07:19→18:47)
[2019-07-04 07:27] LABS: Iron 13 ug/dL (65-175); Iron Binding Capacity, Total 145 mcg/dL (261-462)
[2019-07-04 07:55] LABS: Band 14 % (5-11); Lymphocytes 9 % (21-51); MDiff Complete? YES; Metamyelocyte 2 % (0-0); Monocytes 15 % (0-10); Myelocyte 3 % (0-0); Neutrophil 57 % (42-75); Nucleated RBC 1 % (0); Platelet Morphology Comment Appears Adequate; Polychromasia SLIGHT = 2-3 cells (100X) (0-2/hpf); Schistocytes SLIGHT = 2-5 cells (100X) (0-1/hpf)
[2019-07-04] MEDS ORDERED: FLU VACC TS2019-20(65YR UP)/PF 180 MCG/0.5 ML SYRINGE IM ONE (09:00)
[2019-07-04] MEDS: Enoxaparin Sodium 40 MG/0.4 ML SYRINGE SC SCH (09:31)
[2019-07-04] MEDS: predniSONE 20 MG TAB PO SCH (09:32)
[2019-07-04] MEDS: Multivitamin W/ Minerals 1 TAB PO SCH (09:32)
[2019-07-04] MEDS: Lisinopril 10 MG TAB PO SCH ×2 (09:32→21:37)
[2019-07-04] MEDS: Loratadine 10 MG TAB PO SCH (09:32)
[2019-07-04] MEDS: Famotidine 20 MG TAB PO SCH ×2 (09:32→21:37)
[2019-07-04] MEDS: guaiFENesin ER 600 MG TAB PO SCH ×2 (09:32→21:36)
[2019-07-04] MEDS: Folic Acid 1 MG TAB PO SCH (09:32)
[2019-07-04] MEDS: Carvedilol 25 MG TAB PO SCH ×2 (09:33→16:10)
[2019-07-04] MEDS: Clopidogrel Bisulfate 75 MG TAB PO SCH (09:33)
[2019-07-04] MEDS: Finasteride 5 MG TAB PO SCH (09:33)
--- NOTE | 2019-07-04 11:50 | CON ---
DATE OF CONSULTATION: REASON FOR CONSULTATION: Lung cancer. HISTORY OF PRESENT ILLNESS: Mr. Krause is a 73-year-old gentleman with history of stage IV right upper lobe adenocarcinoma lung cancer. He has completed 5 cycles of chemotherapy with carboplatin and Alimta, and 4 cycles of immunotherapy with Keytruda. He has had multiple delays throughout treatment. He was re-staged in April of last year, showed essentially stable disease. We are going to continue treatment and scan after several more cycles. He has been hospitalized multiple times over the last several months. His last treatment was given on June 12 as an inpatient. He did not receive Keytruda at that time. He presented again to the emergency room with shortness of breath. He has pleural effusion, thoracentesis was done and cytology is still pending. His breathing has improved substantially. He remains in the IMCU and is resting comfortably. His white count was 14 on admission and has increased to 23. He is on steroids for COPD. His hemoglobin has decreased overnight from 10.3 to 7.7. There is no bleeding. The patient is on empiric antibiotics and states he feels much better overnight. PAST MEDICAL HISTORY: 1. 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 2. COPD. 3. BPH. 4. GERD. 5. Hypertension. PAST SURGICAL HISTORY: 1. Cataract surgery. 2. Hip surgery. 3. Finger amputation. ALLERGIES: NO KNOWN DRUG ALLERGIES. HOME MEDICATIONS: 1. Ventolin. 2. Simbrinza. 3. Symbicort. 4. Coreg. 5. Plavix. 6. Dulera. 7. Multivitamin. 8. Travatan. 9. Pepcid. 10. Proscar. 11. Folvite. 12. Zestril. 13. Prednisone. 14. Flomax. FAMILY HISTORY: Noncontributory. SOCIAL HISTORY: . Everyday smoker, 50 pack-year history. No illicit drug use. No alcohol use. REVIEW OF SYSTEMS: A 10-point review of systems is negative except for noted in HPI. PHYSICAL EXAMINATION: VITAL SIGNS: Temperature is 97.9, pulse is 82, respiratory rate is 20, blood pressure is 120/71, 98% on 3 L. GENERAL: This is a chronically ill-appearing male, in no acute distress. HEENT: He is blind. NECK: Supple. CV: Regular rate and rhythm. LUNGS: He has expiratory wheezes throughout. ABDOMEN: Soft and nontender. Bowel sounds are positive. EXTREMITIES: No clubbing or cyanosis. SKIN: No rash. HEMATOLOGICAL: No petechiae or purpura. NEUROLOGICAL: Nonfocal. PERTINENT LABS AND X-RAYS: Current WBCs 23.5, hemoglobin 7.7, hematocrit 24.5, platelet count is 345,000. He has 57% neutrophils, 14% bands, lymphocytes. Sodium 141, potassium 4.0, chloride 108, CO2 is 28, BUN is 17, creatinine 0.76, calcium is 8.4, bilirubin 0.3, AST is 15, ALT is 8, alkaline phosphatase is 77. BNP is 219. Serum total protein is 6.5, albumin 3.1, globulin 3.4. ASSESSMENT: 1. Stage IV adenocarcinoma of the lung, status post 5 cycles of chemotherapy with 4 immunotherapy treatments. 2. Chronic obstructive pulmonary disease exacerbation. DISCUSSION: The patient's treatment will be held until he has recovered from his acute illness. He lives in the [facility] and will be in contact with Dr. Martinez to determine when the patient will be able to resume treatment. All care as palliative for symptom control. I would recommend DNR and palliative care team to see the patient to discuss goals of care. We will check CBC tomorrow and transfuse if needed. Thank you for the consult. We will follow along. Job ID: [id number] MTDD
[2019-07-04] MEDS: BRIMONIDINE TART EA EYE SCH (14:50)
[2019-07-04] MEDS: BRINZOLAMIDE EA EYE SCH (14:50)
--- NOTE | 2019-07-04 19:24 | PRG ---
DATE OF SERVICE: 07/04/2019 SUBJECTIVE: Federico Krause is doing well. He says he feels 100% better than he felt yesterday. OBJECTIVE: VITAL SIGNS: Heart rates in the 80s, afebrile, respiratory rates in the teens, oximetry is 100% on 2 L. LUNGS: Clear. HEART: Regular rhythm. ABDOMEN: Soft. LABORATORY DATA: White count 23.5, hemoglobin 7.7, platelets 345. Electrolytes are unremarkable. IMPRESSION: 1. Chronic obstructive pulmonary disease exacerbation, improved. 2. Unfortunately, stage IV adenocarcinoma of the lung with liver metastases. 3. Reflux disease. 4. Hypertension. 5. Anemia. He will probably need transfusion before he is discharged. We will continue with supportive care. Job ID: [id number]
[2019-07-04] MEDS: Tamsulosin HCl 0.4 MG CAP PO SCH (21:36)
[2019-07-04] MEDS: Brimonidine Tartrate 0.2% Ophth Soln 5 ml Bottle EA EYE SCH (21:37)
[2019-07-04] MEDS: Dorzolamide HCl 2% Ophth Soln 10 ml Bottle EA EYE SCH (21:37)
[2019-07-04] MEDS: Latanoprost 0.005% Ophth Soln 2.5 ml Bottle EA EYE SCH (21:40)
[2019-07-04 22:33] LABS: Vancomycin, Trough 13.4 ug/mL
[2019-07-04 23:02] LABS: Ferritin 1640.95 ng/mL (22-322)
[2019-07-05] MEDS: Piperacillin/Tazobactam 4.5 GM in Sodium Chloride 0.9% 100 ML IVPB SCH ×2 (03:59→09:27)
[2019-07-05 05:43] LABS: Anion Gap 12 mmol/L (10-20); BUN (Urea Nitrogen) 20 mg/dL (8.4-25.7); Calc. Creatinine Clearance 79 mL/min (70-130); Calcium 8.2 mg/dL (7.8-10.44); Carbon Dioxide 26 mmol/L (23-31); Chloride 109 mmol/L (98-107); Estimated GFR-MDRD Greater than 90; Glucose 106 mg/dL (83-110); Potassium 4.1 mmol/L (3.5-5.1); Sodium 143 mmol/L (136-145)
[2019-07-05 06:13] LABS: Band 16 % (5-11); Lymphocytes 8 % (21-51); MDiff Complete? YES; Mean Corpuscular HGB CONC 30.3 g/dL (32.0-36.0); Mean Corpuscular Hemoglobin 29.3 pg (27.0-31.0); Mean Corpuscular Volume 96.6 fL (78.0-98.0); Mean Platelet Volume 7.8 fL (7.4-10.4); Metamyelocyte 2 % (0-0); Monocytes 5 % (0-10); Myelocyte 2 % (0-0); Neutrophil 67 % (42-75); Platelet Count 306 thou/uL (130-400); RBC Distribution Width 18.8 % (11.5-14.5); White Blood Cell (WBC) Count 24.8 thou/uL (4.8-10.8)
--- NOTE | 2019-07-05 06:29 | PDOC.FM ---
- Subjective Subjective: NAEO. Patient reports he feels well this AM. No fever/chills or chest pain. Is still coughing up sputum. SOB is improving. - Objective MAR Reviewed: Yes Vital Signs & Weight: Vital Signs (12 hours) Temp Pulse Resp BP BP Pulse Ox 07/05/19 03:57 97.5 F L 74 16 122/75 96 07/05/19 00:49 81 16 96 07/04/19 23:21 2 L 07/04/19 23:19 97.7 F 87 16 148/89 H 99 07/04/19 21:37 148/89 H 07/04/19 20:40 98.4 F 79 18 148/89 H 100 07/04/19 19:00 97.6 F 07/04/19 18:47 80 16 100 07/04/19 18:46 80 16 100 Weight Admit Weight 68.583 kg Weight 68.583 kg Most Recent Monitor Data Heart Rate from ECG 85 NIBP 132/79 NIBP BP-Mean 96 Respiration from ECG 20 SpO2 100 I&O: 07/03/19 07/04/19 07/05/19 06:59 06:59 06:59 Intake Total 1170 2020 Output Total 320 1200 Balance 850 820 Result Diagrams: 07/05/19 05:05 07/05/19 05:05 Phys Exam - Physical Examination Constitutional: NAD HEENT: moist MMs blind Neck: supple Respiratory: no rales, no rhonchi, wheezing present (trace end expiraotry wheezing heard in B/L upper lung arteaga) Cardiovascular: RRR, no significant murmur Gastrointestinal: soft, non-tender, no distention, positive bowel sounds Neurological: non-focal, moves all 4 limbs Psychiatric: A&O x 3 Skin: no rash, normal turgor Dx/Plan (1) Acute respiratory failure with hypoxia Code(s): J96.01 - ACUTE RESPIRATORY FAILURE WITH HYPOXIA Status: Resolved (2) COPD exacerbation Code(s): J44.1 - CHRONIC OBSTRUCTIVE PULMONARY DISEASE W (ACUTE) EXACERBATION Status: Acute (3) Pneumonia Code(s): J18.9 - PNEUMONIA, UNSPECIFIED ORGANISM Status: Acute Qualifiers: Laterality: left Lung location: lower lobe of lung (4) Chronic systolic heart failure, ACC/AHA stage C Code(s): I50.22 - CHRONIC SYSTOLIC (CONGESTIVE) HEART FAILURE Status: Chronic (5) Metastatic lung cancer (metastasis from lung to other site) Code(s): C34.90 - MALIGNANT NEOPLASM OF UNSP PART OF UNSP BRONCHUS OR LUNG Status: Chronic (6) BPH (benign prostatic hyperplasia) Code(s): N40.0 - BENIGN PROSTATIC HYPERPLASIA WITHOUT LOWER URINRY TRACT SYMP Status: Chronic (7) Lactic acidosis Code(s): E87.2 - ACIDOSIS Status: Resolved (8) CAD (coronary artery disease) Code(s): I25.10 - ATHSCL HEART DISEASE OF [place] CORONARY ARTERY W/O ANG PCTRS Status: Chronic (9) Hypertension Code(s): I10 - ESSENTIAL (PRIMARY) HYPERTENSION Status: Chronic (10) Protein-calorie malnutrition, moderate Code(s): E44.0 - MODERATE PROTEIN-CALORIE MALNUTRITION Status: Chronic (11) Tobacco abuse Code(s): Z72.0 - TOBACCO USE Status: Chronic - Plan Plan: 73YO AAM with a PMH of end stage COPD & metastatic lung CA on 2L O2 at home, HFrEF, HTN & blindness who presents from the [facility] for a CC of increased SOB and fatigue & was found to have a LLL PNA. #Sepsis 2/2 LLL PNA, improving - Patient tachycardic into the 110s with a WBC of 19 & LLL PNA seen on CXR on presentation. Bld & Urine Cxs obtained w/ sputum Cxs pending. Given vanc & cefepime in the ED but will continue Vanc & Zosyn to cover for MRSA & pseudomonas given recent hospitalization, NH status & underlying COPD & lung CA on chemo/immunocompromised state. - VS WNLs overnight on baseline O2 requirements via NC. - WBC slightly up to 24.8 from 23.5 this AM with uptrend in bands as well from 14 to 16. Could be 2/2 continued steroids as patient is clinically improving. Continue BS abx as pleural fluid Cxs still pending. Blood & urine Cxs NTD. - Pulmonology on board, appreciate recs. #Acute hypoxic respiratory failure 2/2 COPD exacerbation from LLL PNA, resolved: - LLL PNA seen on CXR and patient was hypoxic on presentation to the ED on regular 2L but able to maintain adequate sats on 4L. ABG showed PO2 of 53. - Will treat PNA w/ BS abx as outlined above and also address COPD by continuing home meds w/ MARAH Duonebs Q6H & Q4H PRN, PO steroids, and mucinex. - Pulmonology on board, appreciate recs. - Continue bedside suction for increased sputum production to help patient better clear his secretions. #Acute on chronic normocytic anemia: - Hgb down to 7.0 this AM from 10.3 on presentation. VS stable but serum iron also low at 13. Will likely transfuse 1U of PRBCs & start on PO iron BID. - Onc also on board, appreciate recs. # Stage IV lung cancer on Chemo: - On q3 weeks Chemo infusions per daughter. Next infusion was MARAH for yesterday. - Oncology on board & will follow. Appreciate recs. - Palliative care also consulted on admission to discuss goals of care as onc stated patient has exhausted all benefits of current chemo course but patient still wants to treat everything aggressively. PCP stated per phone yesterday that he would talk more about prognosis with patient once d/c from hospital. #Moderate protein calorie Malnutrition/deconditioning 2/2 metastatic CA: - Refrigeration Installer consulted for supplementation recs. - PT/OT also on board. #End Stage COPD: - Aware, in acute exacerbation now. On 2L at baseline at home. Continue home meds & treat exacerbation as outlined above. #HFrEF: - EF of 35-40% in June of 2018. Does not appear to be in acute exacerbation. - Will continue fluid restrictions to 1800mL, strict I&Os, QD weights & resume home meds. #HTN: - Resume home meds. #Blindness: - Resume home meds. #BPH - Home meds. #Constipation: - Home meds Dispo: Will continue supportive care & BS abx for suspected PNA with likely transfusion today for acute on chronic anemia. Possible d/c back to [place] tomorrow pending clinical course. Diet: HH, Low Na, fluid restriction IVFs: SL Abx: Vanc & Zosyn (07/03/19) DVT PPX: Lovenox GI PPX: Famotidine CODE STATUS: FULL CODE PCP: Michelle Addendum - Attending - Attending Attestation Date/Time: 07/05/19 1124 I personally evaluated the patient and discussed the management with Dr. Moyer at 1020. I agree with the History, Examination, Assessment and Plan documented above with any addition or exceptions noted below. HCAP- stable after 48 hours of IV vanc and zosyn- Will transition to augmentin Acute on chronic hypoxic resp failure- back to baseline on 2L NC Anemia- transfuse 1U PRBCs Stage IV lung cancer expect d/c back to NH tomorrow.
[2019-07-05] MEDS: Mometasone/Formoterol 120 PUFF INHALER INH SCH ×2 (06:53→20:00)
[2019-07-05] MEDS: Loratadine 10 MG TAB PO SCH (09:06)
[2019-07-05] MEDS: Folic Acid 1 MG TAB PO SCH (09:06)
[2019-07-05] MEDS: guaiFENesin ER 600 MG TAB PO SCH ×2 (09:06→21:10)
[2019-07-05] MEDS: Multivitamin W/ Minerals 1 TAB PO SCH (09:06)
[2019-07-05] MEDS: Lisinopril 10 MG TAB PO SCH ×2 (09:06→21:10)
[2019-07-05] MEDS: Famotidine 20 MG TAB PO SCH ×2 (09:06→21:10)
[2019-07-05] MEDS: Clopidogrel Bisulfate 75 MG TAB PO SCH (09:07)
[2019-07-05] MEDS: Finasteride 5 MG TAB PO SCH (09:07)
[2019-07-05] MEDS: predniSONE 20 MG TAB PO SCH (09:07)
[2019-07-05] MEDS: Ferrous Sulfate 325 MG TAB PO SCH ×2 (09:07→18:18)
[2019-07-05] MEDS: Carvedilol 25 MG TAB PO SCH ×2 (09:07→18:17)
[2019-07-05] MEDS: Enoxaparin Sodium 40 MG/0.4 ML SYRINGE SC SCH (09:08)
[2019-07-05] MEDS: Dorzolamide HCl 2% Ophth Soln 10 ml Bottle EA EYE SCH ×2 (09:11→21:11)
[2019-07-05] MEDS: Brimonidine Tartrate 0.2% Ophth Soln 5 ml Bottle EA EYE SCH ×2 (09:11→21:11)
[2019-07-05] MEDS: Amoxicillin/Potassium Clav 875 MG TAB PO SCH (21:10)
[2019-07-05] MEDS: Tamsulosin HCl 0.4 MG CAP PO SCH (21:10)
--- NOTE | 2019-07-05 21:10 | PRG ---
DATE OF SERVICE: 07/05/2019 SUBJECTIVE: Federico Krause has no complaints. He says he is feeling better. OBJECTIVE: VITAL SIGNS: He is afebrile, heart rate is 89, respiratory rate 16, oximetry is 95% on 2 L, blood pressure 152/92. LUNGS: Clear. HEART: Regular rhythm. S1 and S2 are normal. ABDOMEN: Soft and nontender. EXTREMITIES: Without edema. LABORATORY DATA: White count 24.8, hemoglobin 7.0, platelets 306,000. Electrolytes are unremarkable. IMPRESSION: 1. Chronic obstructive pulmonary disease exacerbation. Clinically, near his baseline. 2. Anemia, but will likely require transfusion. 3. Pneumonia, clinically improved. 4. Urine cultures positive for strep, but blood cultures are negative from the . 5. Cystitis, which is likely an incidental finding. 6. Lung cancer. 7. Status post thoracentesis with no malignant cells being identified on the pleural effusion. follow this. He would need a pleural biopsy if this recurs. 8. History of hypertension and reflux disease. 9. Deconditioning with chronic residence in a care center locally. 10. Legal blindness. 11. He did recognize my voice when I walked in the room and said, "Dr. Aleksandra Duggan.". 12. We will continue to follow. I think he is getting close to a point where he might be a candidate to go home in 24 to 48 hours. Job ID: [id number]
[2019-07-05] MEDS: Latanoprost 0.005% Ophth Soln 2.5 ml Bottle EA EYE SCH (21:15)
[2019-07-06 03:35] VITALS: TEMP 98.6
[2019-07-06 05:41] LABS: Anion Gap 11 mmol/L (10-20); BUN (Urea Nitrogen) 20 mg/dL (8.4-25.7); Calc. Creatinine Clearance 81 mL/min (70-130); Calcium 8.3 mg/dL (7.8-10.44); Carbon Dioxide 27 mmol/L (23-31); Chloride 107 mmol/L (98-107); Estimated GFR-MDRD Greater than 90; Glucose 106 mg/dL (83-110); Potassium 4.1 mmol/L (3.5-5.1); Sodium 141 mmol/L (136-145)
[2019-07-06 05:44] LABS: Band 1 % (5-11); Hemoglobin 8.7 g/dL (14.0-18.0); Hypochromia SLIGHT = 6-15 cells (100X) (0-5/hpf); Lymphocytes 6 % (21-51); MDiff Complete? YES; Mean Corpuscular HGB CONC 31.5 g/dL (32.0-36.0); Mean Corpuscular Hemoglobin 29.9 pg (27.0-31.0); Mean Corpuscular Volume 94.9 fL (78.0-98.0); Mean Platelet Volume 7.8 fL (7.4-10.4); Monocytes 9 % (0-10); Neutrophil 84 % (42-75); Platelet Count 295 thou/uL (130-400); Platelet Morphology Comment Appears Adequate; Polychromasia SLIGHT = 2-3 cells (100X) (0-2/hpf); RBC Distribution Width 17.7 % (11.5-14.5); Red Blood Cell (RBC) Count 2.91 mill/uL (4.70-6.10); White Blood Cell (WBC) Count 22.9 thou/uL (4.8-10.8)
[2019-07-06] MEDS: Mometasone/Formoterol 120 PUFF INHALER INH SCH (07:03)
--- NOTE | 2019-07-06 07:34 | PDOC.FM ---
- Subjective Subjective: NAEO. Patient remained stable on 2L NC overnight. Is ready to go back to the skilled nursing. States his breathing is almost back to normal. - Objective MAR Reviewed: Yes Vital Signs & Weight: Vital Signs (12 hours) Temp Pulse Resp BP BP Pulse Ox 07/06/19 07:07 91 L 07/06/19 07:06 74 16 91 L 07/06/19 07:03 74 16 91 L 07/06/19 03:33 98.6 F 61 16 160/86 H 97 07/05/19 23:49 96 07/05/19 23:16 97.7 F 71 16 157/82 H 98 07/05/19 21:10 148/89 H 07/05/19 20:30 97 07/05/19 20:01 98 07/05/19 20:00 98 07/05/19 19:33 98.1 F 89 16 152/92 H 95 Weight Admit Weight 68.583 kg Weight 70.443 kg Most Recent Monitor Data Heart Rate from ECG 85 NIBP 132/79 NIBP BP-Mean 96 Respiration from ECG 20 SpO2 100 I&O: 07/05/19 07/06/19 07/07/19 06:59 06:59 06:59 Intake Total 2020 650 Output Total 1200 320 Balance 820 330 Result Diagrams: 07/06/19 04:57 07/06/19 04:57 Phys Exam - Physical Examination Constitutional: NAD HEENT: moist MMs Neck: supple Respiratory: wheezing present (end expiratory wheezing noted throughout) Cardiovascular: RRR, no significant murmur Musculoskeletal: no edema Neurological: non-focal, moves all 4 limbs Psychiatric: normal affect, A&O x 3 Skin: no rash Dx/Plan (1) Acute respiratory failure with hypoxia Code(s): J96.01 - ACUTE RESPIRATORY FAILURE WITH HYPOXIA Status: Resolved (2) COPD exacerbation Code(s): J44.1 - CHRONIC OBSTRUCTIVE PULMONARY DISEASE W (ACUTE) EXACERBATION Status: Acute (3) Pneumonia Code(s): J18.9 - PNEUMONIA, UNSPECIFIED ORGANISM Status: Acute Qualifiers: Laterality: left Lung location: lower lobe of lung (4) Chronic systolic heart failure, ACC/AHA stage C Code(s): I50.22 - CHRONIC SYSTOLIC (CONGESTIVE) HEART FAILURE Status: Chronic (5) Metastatic lung cancer (metastasis from lung to other site) Code(s): C34.90 - MALIGNANT NEOPLASM OF UNSP PART OF UNSP BRONCHUS OR LUNG Status: Chronic (6) BPH (benign prostatic hyperplasia) Code(s): N40.0 - BENIGN PROSTATIC HYPERPLASIA WITHOUT LOWER URINRY TRACT SYMP Status: Chronic (7) Lactic acidosis Code(s): E87.2 - ACIDOSIS Status: Resolved (8) CAD (coronary artery disease) Code(s): I25.10 - ATHSCL HEART DISEASE OF [place] CORONARY ARTERY W/O ANG PCTRS Status: Chronic (9) Hypertension Code(s): I10 - ESSENTIAL (PRIMARY) HYPERTENSION Status: Chronic (10) Protein-calorie malnutrition, moderate Code(s): E44.0 - MODERATE PROTEIN-CALORIE MALNUTRITION Status: Chronic (11) Tobacco abuse Code(s): Z72.0 - TOBACCO USE Status: Chronic - Plan Plan: 73YO AAM with a PMH of end stage COPD & metastatic lung CA on 2L O2 at home, HFrEF, HTN & blindness who presents from the [facility] for a CC of increased SOB and fatigue & was found to have a LLL PNA. #LLL PNA w/ pulmonic effusion, improving - Patient tachycardic into the 110s with a WBC of 19 & LLL PNA seen on CXR on presentation. Bld & Urine Cxs obtained w/ sputum Cxs pending. Given vanc & cefepime in the ED but have since transitioned to PO Augmentin. - VS WNLs overnight on baseline O2 requirements via NC. - WBC down to 22.9 this AM with only 1 band since transition to PO abx last night. Will continue PO Abx for 10 days total. Pleural fluid cytology did not reveal any malignant cells & Cxs from this fluid are NTD. - Pulmonology on board, appreciate recs. - Will get a repeat CXR @ skilled nursing following tx. #Acute hypoxic respiratory failure 2/2 COPD exacerbation from LLL PNA, resolved: - LLL PNA seen on CXR and patient was hypoxic on presentation to the ED. - Has been stable for just over 48hrs on baseline O2 requirements. - Will continue to treat PNA w/ PO abx as outlined above and also address COPD by continuing home meds w/ MARAH Duonebs Q6H & Q4H PRN, PO steroids, and mucinex. - Pulmonology on board, appreciate recs. - Continue bedside suction for increased sputum production to help patient better clear his secretions. #Acute on chronic normocytic anemia: - Hgb down to 7.0 this AM from 10.3 on presentation. VS stable but serum iron also low at 13. Will likely transfuse 1U of PRBCs & start on PO iron BID. - Onc also on board, appreciate recs. # Stage IV lung cancer on Chemo: - On q3 weeks Chemo infusions per daughter. Next infusion was MARAH for yesterday. - Oncology on board & will follow. Appreciate recs. - Palliative care also consulted on admission to discuss goals of care as onc stated patient has exhausted all benefits of current chemo course but patient still wants to treat everything aggressively. PCP stated via phone on Tuesday that he would talk more about prognosis with patient once d/c from hospital. #Moderate protein calorie Malnutrition/deconditioning 2/2 metastatic CA: - Inserting [employer] consulted for supplementation recs. - PT/OT also on board. #End Stage COPD: - Aware, in acute exacerbation now. On 2L at baseline at home. Continue home meds & treat exacerbation as outlined above. #HFrEF: - EF of 35-40% in June of 2018. Does not appear to be in acute exacerbation. - Will continue fluid restrictions to 1800mL, strict I&Os, QD weights & resume home meds. #HTN: - Continue home meds. #Blindness: - Continue home meds. #BPH - Home meds. #Constipation: - Home meds #Sepsis, resolved - Blood Cx NTD & urine Cxs + for 50-75k cfus of GBS so unlikely source of infection but will be covered with PO Augmentin regardless. Dispo: Will continue supportive care & PO abx for suspected PNA with likely d/c back to [place] later today pending pulm & PCP recs. Diet: HH, Low Na, fluid restriction IVFs: SL Abx: Augmentin (07/05) DVT PPX: Lovenox GI PPX: Famotidine CODE STATUS: FULL CODE PCP: Michelle Addendum - Attending - Attending Attestation Date/Time: 07/06/19 1103 I personally evaluated the patient and discussed the management with Dr. Moyer. I agree with the History, Examination, Assessment and Plan documented above with any addition or exceptions noted below. Symptomatically close to baseline. Afeb Lungs clear anteriorly, no dyspnea. Stable baseline for return to NH, but overall outlook grim with Stage IV CA.
[2019-07-06] MEDS: guaiFENesin ER 600 MG TAB PO SCH (08:52)
[2019-07-06] MEDS: Famotidine 20 MG TAB PO SCH (08:53)
[2019-07-06] MEDS: Lisinopril 10 MG TAB PO SCH (08:53)
[2019-07-06] MEDS: predniSONE 20 MG TAB PO SCH (08:53)
[2019-07-06] MEDS: Multivitamin W/ Minerals 1 TAB PO SCH (08:53)
[2019-07-06] MEDS: Carvedilol 25 MG TAB PO SCH (08:53)
[2019-07-06] MEDS: Folic Acid 1 MG TAB PO SCH (08:54)
[2019-07-06] MEDS: Loratadine 10 MG TAB PO SCH (08:54)
[2019-07-06] MEDS: Amoxicillin/Potassium Clav 875 MG TAB PO SCH (08:54)
[2019-07-06] MEDS: Finasteride 5 MG TAB PO SCH (08:54)
[2019-07-06] MEDS: Ferrous Sulfate 325 MG TAB PO SCH (08:54)
[2019-07-06] MEDS: Enoxaparin Sodium 40 MG/0.4 ML SYRINGE SC SCH (08:55)
[2019-07-06] MEDS: Brimonidine Tartrate 0.2% Ophth Soln 5 ml Bottle EA EYE SCH (08:55)
[2019-07-06] MEDS: Clopidogrel Bisulfate 75 MG TAB PO SCH (08:55)
[2019-07-06] MEDS: Dorzolamide HCl 2% Ophth Soln 10 ml Bottle EA EYE SCH (08:55)
--- NOTE | 2019-07-06 10:02 | PRG ---
DATE OF SERVICE: 07/06/2019 SUBJECTIVE: Mr. Krause says he is feeling better. OBJECTIVE: VITAL SIGNS: His heart rate 74, blood pressure 159/88, respiratory rate 16, and oximetry is 91% on 2 L. LUNGS: He has faint wheezes on exam. HEART: Regular rhythm. ABDOMEN: Soft. IMPRESSION: 1. Chronic obstructive pulmonary disease exacerbation, clinically improving. 2. Anemia. 3. Pneumonia, clinically improving. 4. Urinary tract infection. 5. History of lung cancer. 6. History of thoracentesis with no malignant cells being identified this admission. 7. History of hypertension. 8. Deconditioning. 9. Legal blindness. PLAN: We will continue to follow as long as he is in the hospital. Job ID: [id number]
[2019-07-06 13:13] VITALS: BP 159/86
== END 2019-07-06 15:02 | DRG 871 ==
LOC: ERS 08:54 → UNDOADMIN 12:28 → L&D 12:28 → ERHOLD 12:34 → IMCU/EMU 18:50 → SJJU 07-04 20:57
PROVIDERS: ADMIT Student in an Organized Health Care Education/Training Program; ATTEND Emergency Medicine
PROC: 0W9B3ZZ Drainage of Left Pleural Cavity, Percutaneous Approach (ICD-10-PCS; principal; 2019-07-03)
PROC: 30233N1 Transfusion of Nonautologous Red Blood Cells into Peripheral Vein, Percutaneous Approach (ICD-10-PCS; 2019-07-05)
DX: A41.9 Sepsis, unspecified organism (principal); J18.9 Pneumonia, unspecified organism; J96.01 Acute respiratory failure with hypoxia; I50.22 Chronic systolic (congestive) heart failure; C78.7 Secondary malignant neoplasm of liver and intrahepatic bile duct; C79.02 Secondary malignant neoplasm of left kidney and renal pelvis; C79.01 Secondary malignant neoplasm of right kidney and renal pelvis; J44.1 Chronic obstructive pulmonary disease with (acute) exacerbation; J44.0 Chronic obstructive pulmonary disease with (acute) lower respiratory infection; N39.0 Urinary tract infection, site not specified; J90 Pleural effusion, not elsewhere classified; E44.0 Moderate protein-calorie malnutrition; Z68.1 Body mass index [BMI] 19.9 or less, adult; E87.2 Acidosis; C34.11 Malignant neoplasm of upper lobe, right bronchus or lung; I25.10 Atherosclerotic heart disease of native coronary artery without angina pectoris; H54.7 Unspecified visual loss; Z96.641 Presence of right artificial hip joint; N40.0 Benign prostatic hyperplasia without lower urinary tract symptoms; K59.00 Constipation, unspecified; Y95 Nosocomial condition; D64.9 Anemia, unspecified; Z99.81 Dependence on supplemental oxygen; Z79.899 Other long term (current) drug therapy; Z79.51 Long term (current) use of inhaled steroids; Z79.52 Long term (current) use of systemic steroids; Z95.5 Presence of coronary angioplasty implant and graft; Z28.21 Immunization not carried out because of patient refusal
CPT/HCPCS: 36415; 36430; 71045; 80048; 80053; 80202; 82553; 82607; 82728; 82746; 82805; 82945; 83540; 83550; 83605; 83615; 83880; 83986; 84134; 84145; 84157; 84478; 84484; 85025; 85046; 85060; 86850; 86900; 86901; 87040; 87070; 87077; 87086; 87116; 87205; 87206; 87804; 88112; 89051; 93005; 94640; J0692; J1650; J2543; J2930; J3370; J3490; J7050; J7512; J7620; P9016